=== PATIENT | female | born 1940 | race Caucasian/White ===

== ENCOUNTER → 2019-10-14 14:30 | Outpatient (BNVA) | payer MEDICARE, SELFPAY | PROVIDERS: Family Provider Family Medicine; Visit Provider Family Medicine | DX: I10 Essential (primary) hypertension (principal) | CPT/HCPCS: 80053; 80061; 85025 ==

== ENCOUNTER → 2020-04-04 13:05 | Outpatient (BNVA) | payer MEDICARE, SELFPAY | PROVIDERS: PCP Family Medicine; Visit Provider Family Medicine | DX: I10 Essential (primary) hypertension (principal); L30.4 Erythema intertrigo | CPT/HCPCS: 80048 ==

== ENCOUNTER → 2020-07-25 13:30 | Outpatient (BNVA) | payer MEDICARE, SELFPAY | PROVIDERS: PCP Family Medicine; Visit Provider Family Medicine | DX: I10 Essential (primary) hypertension (principal) | CPT/HCPCS: 80048 ==

== ENCOUNTER → 2020-08-16 14:59 | Outpatient (BNVA) | payer MEDICARE, SELFPAY | PROVIDERS: PCP Family Medicine; Visit Provider Family Medicine | DX: I10 Essential (primary) hypertension (principal) | CPT/HCPCS: 80048 ==

== ENCOUNTER → 2020-11-07 14:22 | Outpatient (BNVA) | payer MEDICARE, SELFPAY | PROVIDERS: PCP Family Medicine; Visit Provider Family Medicine | DX: I10 Essential (primary) hypertension (principal) | CPT/HCPCS: 80048 ==

== ENCOUNTER → 2021-02-25 14:25 | Outpatient (BNVA) | payer MEDICARE, SELFPAY | PROVIDERS: PCP Family Medicine; Visit Provider Family Medicine | DX: N18.30 Chronic kidney disease, stage 3 unspecified (principal); I10 Essential (primary) hypertension | CPT/HCPCS: 80048 ==

== ENCOUNTER 2021-06-24 11:35 | Emergency (ER) | payer MEDICARE, SELFPAY ==
[2021-06-24 11:40] VITALS: BP 138/86; PULSE 80; RESP 16; TEMP 36.8; O2SAT 96
--- NOTE | 2021-06-24 12:02 | XR_ITS ---
WS: [id number] PORTABLE CHEST HISTORY: SOB COMPARISON: 05/29/2016 New noncalcified 8.6 mm pulmonary nodule in the RIGHT upper lobe. No pneumonia. Normal vasculature. N o pleural effusion or pneumothorax. Cardiac size: Normal. Mediastinum/Aorta: Mild atherosclerosis aorta. High riding humeral heads from prior rotator cuff disease and tears. Thoracolumbar scoliosis. XR/XR chest 1V portable [id number] IMPRESSION: 1. Noncalcified 8.6 mm nodule in the RIGHT upper lobe. Recommend follow-up [facility] CT with IV contrast. 2. Mild atherosclerosis aorta.
--- NOTE | 2021-06-24 13:20 | ED_ITS ---
HPI - Nausea/Vomiting/Diarrhea General: Chief complaint: Nausea/Vomiting/Diarrhea Stated complaint: Diarrhea, Weak, no appetite Time Seen by Provider: 06/24/21 12:30 History of Present Illness: HPI Narrative: 80 yo female presents emergency room with nausea vomiting and diarrhea for last several days. She not had any fever sweats chills or cough she denies any chest pain. He is not noticed anything exacerbates or relieves it. She is concerned because she has a solitary kidney and thinks it is related to that. She denies any dysuria urgency or frequency. MD elicited complaint: nausea, vomiting and diarrhea Onset (ago): minute(s) Description of vomiting: food contents and watery Associated nausea: Yes Associated abdominal pain: Yes Radiation: diffuse Exacerbating factors: none Relieving factors: none Associated symtoms: Reports nausea; Denies altered mental status, anxiety, bloating, change in vision, chest pain, cough, diaphoresis, decreased urine output, dizziness, dysuria, epistaxis, fatigue, fecal incontinence, fevers/chills, headache(s), anorexia, numbness, palpitations, rash, short of breath or syncope Review of Systems Const: Denies: fatigue or diaphoresis Eyes: Denies: change in vision ENMT: Denies: epistaxis Card: Denies: chest pain, palpitations or syncope Resp: Denies: dyspnea, productive cough or non-productive cough GI: Reports: nausea; Denies: bloating or fecal incontinence : Denies: dysuria Skin/Breast: Denies: rash or pruritus Neuro: Denies: headache(s) or dizziness Psych: Denies: anxiety PFSH ED PFSH: Medical History (Updated 06/24/21 @ 15:49 by Carl Shahid DO) Benign essential HTN Chronic hip pain, bilateral Chronic kidney disease, stage 3 COPD (chronic obstructive pulmonary disease) Gastric ulcer with hemorrhage and obstruction Surgical History H/O: hysterectomy History of appendectomy History of cholecystectomy History of tonsillectomy and adenoidectomy Family History Other CAD (coronary artery disease) Stroke Social History Smoking and tobacco status: current every day smoker cigarettes Packs smoked per day: 0.5 Alcohol intake: never Physical Exam Const: COMMON NORMALS: no acute distress EXAM LIMITATIONS: no altered mental status GENERAL APPEARANCE: cooperative and comfortable ORIENTATION/CONSCIOUSNESS: Yes awake, Yes oriented to person, Yes oriented to place and Yes oriented to time HENMT: COMMON NORMALS: normocephalic, atraumatic and hearing grossly normal bilaterally HEAD & SCALP: normocephalic and atraumatic Neck/C-Spine: COMMON NORMALS: no JVD Resp: COMMON NORMALS: normal respiratory effort, No retractions, No use of accessory muscles and clear to auscultation bilaterally AUSCULTATION: clear to auscultation bilaterally Cardio: COMMON NORMALS: no JVD, regular rate, regular rhythm and No murmurs present (Cardio) RATE: regular rate RHYTHM: regular rhythm GI: COMMON NORMALS: Soft to palpation and No hepatosplenomegaly present AUSCULTATION: Yes normoactive bowel sounds PALPATION: Yes Soft to palpation, No Tenderness to palpation present (GI), No Guarding due to palpation present (GI) and Yes No hepatosplenomegaly present Extremity: COMMON NORMALS: normal to inspection, capillary refill normal, no clubbing, cyanosis or edema, no calf tenderness and no pedal edema Neuro: SENSORIUM/ORIENTATION: Yes oriented to person, Yes oriented to place and Yes oriented to time Skin: COMMON NORMALS: no rashes or lesions noted GENERAL SKIN EXAM: no rashes or lesions noted Course Vital Signs: Vital signs: Vital Signs Temperature 98.2 F 06/24/21 11:40 Pulse Rate 63 06/24/21 16:49 Respiratory Rate 17 06/24/21 16:49 Blood Pressure 124/76 06/24/21 16:49 Pulse Oximetry 99 06/24/21 16:49 MDM - Nausea/Vomiting/Diarrhea MDM Narrative: Medical decision making narrative: Reviewed labs and imaging with the patientWe will go ahead and discharge home start on Macrobid and Zofran push fluids recheck if not improving or worsens Lab Data: Labs: Lab Results 06/24/21 06/24/21 06/24/21 13:29 13:29 13:29 WBC 11.5 10^3/uL H 10 ^3/uL (4.0-10.0) RBC 4.80 10^6/uL 10^6 /uL (4.1-5.3) Hgb 12.2 g/dL g/dL (11.5-15.3) Hct 39.9 % % (37.0-47.0) MCV 83.1 fl fl (81-99) MCH 25.4 pg L pg (28.0-34.0) MCHC 30.6 g/dL g/dL (30.0-36.0) RDW 14.8 % % (12.1-15.1) Plt Count 179 10^3/cmm 10^3 /cmm (130-400) MPV 11.6 fL H fL (7.4-10.4) Neut % (Auto) 85.8 % % Lymph % (Auto) 9.2 % % Pacific % (Auto) 4.5 % % Eos % (Auto) 0.0 % % Baso % (Auto) 0.2 % % Neut # (Auto) 9.83 10^3/uL H 10 ^3/uL (1.8-7.7) Lymph # (Auto) 1.1 10^3/uL 10^3/ uL (0.8-4.8) Pacific # (Auto) 0.5 10^3/uL 10^3/ uL (0.2-0.9) Eos # (Auto) 0.0 10^3/uL 10^3/ uL (0.0-0.8) Baso # (Auto) 0.0 10^3/uL 10^3/ uL (0.0-0.1) Nucleated RBC % (a uto) 0 % % Nucleated RBCs # 0.0 /100WBC /100W BC Sodium 137 mmol/L mmol/L (136-145) Potassium 4.1 mmol/L mmol/L (3.5-5.1) Chloride 99 mmol/L mmol/L (98-107) Carbon Dioxide 25 mmol/L mmol/L (22-29) Anion Gap 17.1 (5-19) BUN 23 mg/dL mg/dL (8-23) Creatinine 1.1 mg/dL H mg/dL (0.5-0.9) GFR Calculation Not Reportable Glucose 97 mg/dL mg/dL (65-115) Calculated Osmolal ity 288 mOsm/kg mOsm/ kg (285-295) Calcium 9.6 mg/dL mg/dL (8.5-10.5) Total Bilirubin 0.3 mg/dL mg/dL (0.15-1.2) AST 19 U/L U/L (0-32) ALT 8 U/L U/L (0-33) Alkaline Phosphata se 104 IU/L IU/L (35-105) Total Protein 7.3 g/dL g/dL (6.6-8.7) Albumin 4.0 g/dL g/dL (3.5-5.2) Globulin 3.3 g/dL g/dL (1.3-4.6) Lipase 15 U/L U/L (13-60) Urine Color Urine Appearance Urine pH Ur Specific Gravit y Urine Protein Urine Glucose (UA) Urine Ketones Urine Blood Urine Nitrate Urine Bilirubin Urine Urobilinogen Ur Leukocyte Olena ase Urine RBC Urine WBC Ur Squamous Epith Cells Amorphous Sediment Urine Bacteria SARS-CoV-2 Ag (Rap id) Negative (Negative) 06/24/21 13:37 WBC RBC Hgb Hct MCV MCH MCHC RDW Plt Count MPV Neut % (Auto) Lymph % (Auto) Pacific % (Auto) Eos % (Auto) Baso % (Auto) Neut # (Auto) Lymph # (Auto) Pacific # (Auto) Eos # (Auto) Baso # (Auto) Nucleated RBC % (a uto) Nucleated RBCs # Sodium Potassium Chloride Carbon Dioxide Anion Gap BUN Creatinine GFR Calculation Glucose Calculated Osmolal ity Calcium Total Bilirubin AST ALT Alkaline Phosphata se Total Protein Albumin Globulin Lipase Urine Color Yellow (Yellow) Urine Appearance Hazy A (CLEAR) Urine pH 5 (5-7) Ur Specific Gravit y 1.015 (1.005-1.030) Urine Protein Neg (Negative) Urine Glucose (UA) Norm (Normal) Urine Ketones 1+ H (Negative) Urine Blood 2+ H (Negative) Urine Nitrate Negative (Negative) Urine Bilirubin Neg (Negative) Urine Urobilinogen Norm mg/dL mg/dL (Negative) Ur Leukocyte Olena ase 1+ H (Negative) Urine RBC 0-4 /hpf H /hpf (0-2) Urine WBC 15-25 /hpf H /hpf (0-5) Ur Squamous Epith Cells 5-10 /hpf H /hpf (0-5) Amorphous Sediment Not Reportable Urine Bacteria 1+ /hpf H /hpf (NONE) SARS-CoV-2 Ag (Rap id) Discharge Plan Discharge Patient Disposition: Home Clinical Impression: Cystitis Condition: Stable Prescriptions: New Macrobid 100 mg capsule 100 mg PO BID 7 Days Qty: 14 RF: 0 Zofran 4 mg tablet 4 mg PO Q6H PRN (Reason: nausea and vomiting) Qty: 15 RF: 0 No Action clindamycin HCl 300 mg capsule 300 mg PO BID 7 Days Qty: 14 RF: 0 aspirin 81 mg tablet,delayed release (DR/EC) 162 mg PO DAILY RF: 0 tramadol 50 mg tablet 50 mg PO Q6H PRN (Reason: pain) Qty: 360 RF: 1 amlodipine 5 mg tablet 5 mg PO DAILY Qty: 90 RF: 1 clotrimazole-betamethasone 1-0.05 % cream 1 applic TOPICAL BID 28 Days Qty: 45 RF: 3 celecoxib 100 mg capsule See Rx Instructions .ROUTE .COMPLEX Qty: 180 RF: 0 benazepril 10 mg tablet 10 mg PO BID Qty: 180 RF: 1 Discharge Orders: Discharge ED (Routine); Ordered 06/24/21 Ordered By: Carl Shahid Referrals: Carmelita Valdes DO [Primary Care Provider] - Discharge Diet: Clear Liquid Discharge Activity: Increase activity as tolerated Patient Instructions: Opioid Safety Coding Level of Care Code ED Retail Department Manager for Chg Fwd Exam Comprehensive
[2021-06-24 13:40] VITALS: BP 143/84; PULSE 79; RESP 18; O2SAT 96
[2021-06-24 14:00] VITALS: BP 148/80; PULSE 76; RESP 20; O2SAT 99
[2021-06-24 14:03] LABS: Basophils % 0.2 %; Hematocrit 39.9 % (37.0-47.0); Hemoglobin 12.2 g/dL (11.5-15.3); Lymphocytes # 1.1 10^3/uL (0.8-4.8); Lymphocytes % 9.2 %; Mean Corpuscular HGB Conc 30.6 g/dL (30.0-36.0); Mean Corpuscular Hemoglobin 25.4 pg (28.0-34.0); Mean Corpuscular Volume 83.1 fl (81-99); Mean Platelet Volume 11.6 fL (7.4-10.4); Monocytes # 0.5 10^3/uL (0.2-0.9); Monocytes % 4.5 %; Neutrophils # 9.83 10^3/uL (1.8-7.7); Neutrophils % 85.8 %; Nucleated Red Blood Cells % 0 %; Platelet Count 179 10^3/cmm (130-400); Red Cell Distribution Width 14.8 % (12.1-15.1); White Blood Count 11.5 10^3/uL (4.0-10.0)
[2021-06-24 14:14] LABS: Alanine Aminotransferase 8 U/L (0-33); Alkaline Phosphatase 104 IU/L (35-105); Anion Gap 17.1 (5-19); Aspartate Amino Transferase 19 U/L (0-32); Blood Urea Nitrogen 23 mg/dL (8-23); Calcium 9.6 mg/dL (8.5-10.5); Carbon Dioxide 25 mmol/L (22-29); Chloride 99 mmol/L (98-107); Globulin 3.3 g/dL (1.3-4.6); Glucose 97 mg/dL (65-115); Lipase 15 U/L (13-60); Osmolality Calculated 288 mOsm/kg (285-295); Potassium 4.1 mmol/L (3.5-5.1); Sodium 137 mmol/L (136-145); Total Bilirubin 0.3 mg/dL (0.15-1.2); Total Protein 7.3 g/dL (6.6-8.7)
[2021-06-24 14:16] LABS: Add Urine Microscopic? YES; Bilirubin Urine Neg (Negative); Blood Urine 2+ (Negative); Glucose Urine UA Norm (Normal); Ketones Urine 1+ (Negative); Leukocyte Esterase Urine 1+ (Negative); Nitrate Urine Negative (Negative); Protein Urine Neg (Negative); RBC Urine 0-4 /hpf (0-2); Specific Gravity, Urine 1.015 (1.005-1.030); Urine Appearance Hazy (CLEAR); Urine Color Yellow (Yellow); Urobilinogen Urine Norm (Negative); WBC Urine 15-25 /hpf (0-5); pH Urine 5 (5-7)
[2021-06-24 14:17] LABS: Bacteria Urine 1+ /hpf
[2021-06-24 14:37] LABS: SARS Covid-2 Antigen Negative (Negative)
[2021-06-24 15:47] VITALS: BP 155/62; PULSE 79; RESP 17; O2SAT 97
[2021-06-24] MEDS: sodium chloride 0.9% 500 ML 999 ML IV (16:07)
[2021-06-24 16:49] VITALS: BP 124/76; PULSE 63; RESP 17; O2SAT 99
== END 2021-06-24 18:18 | disposition home or self-care (01) ==
PROVIDERS: Physician Assistant; Emergency Provider Family Medicine; PCP Family Medicine
DX: N30.90 Cystitis, unspecified without hematuria (principal); Z79.82 Long term (current) use of aspirin; I12.9 Hypertensive chronic kidney disease with stage 1 through stage 4 chronic kidney disease, or unspecified chronic kidney disease; N18.30 Chronic kidney disease, stage 3 unspecified; J44.9 Chronic obstructive pulmonary disease, unspecified; F17.210 Nicotine dependence, cigarettes, uncomplicated; Z20.822 Contact with and (suspected) exposure to COVID-19
CPT/HCPCS: 71045; 80053; 81001; 83690; 85025; 87426; 99283; J7040

== ENCOUNTER → 2021-09-26 13:25 | Outpatient (BNVA) | payer MEDICARE, SELFPAY | PROVIDERS: PCP Family Medicine; Referring Provider Family Medicine; Visit Provider Anesthesiology Pain Medicine | DX: G89.29 Other chronic pain (principal); M47.816 Spondylosis without myelopathy or radiculopathy, lumbar region; M48.061 Spinal stenosis, lumbar region without neurogenic claudication; M51.16 Intervertebral disc disorders with radiculopathy, lumbar region; M41.9 Scoliosis, unspecified; N18.31 Chronic kidney disease, stage 3a; F17.210 Nicotine dependence, cigarettes, uncomplicated; Z79.891 Long term (current) use of opiate analgesic | CPT/HCPCS: 99205 ==

== ENCOUNTER → 2022-05-26 15:46 | Outpatient (BNVA) | payer MEDICARE, SELFPAY | PROVIDERS: PCP Family Medicine; Visit Provider Family Medicine | DX: D64.9 Anemia, unspecified (principal); I10 Essential (primary) hypertension | CPT/HCPCS: 80053; 85025 ==

== ENCOUNTER 2022-05-27 12:06 | Day surgery (SDC) | payer MEDICARE, SELFPAY ==
[2022-05-27] VITALS (10 sets, daily range): BP systolic 135–171; BP diastolic 71–97; PULSE 53–89; RESP 16–20; TEMP 36.3–36.8; O2SAT 55–100; BMI 31.5
--- NOTE | 2022-05-27 12:44 | ED_ITS ---
HPI - General Adult General: Chief complaint: General Medical Stated complaint: Victor Manuel sent for blood transfusion Time Seen by Provider: 05/27/22 12:17 History of Present Illness: 81-year-old female with history of prior UTI, hypertension who presents emergency room for concerns of anemia. Patient reports feeling short of breath and fatigued over the last 3 weeks. History, patient had routine blood work that was performed showed hemoglobin of 6. Patient was told to come to the emergency room. Patient has any melena masses, anticoagulation use. Patient denies any other source of bleeding at this time. Denies nausea/vomiting, fever/chill, chest pain, abdominal pain, dysur ia/hematuria/polyuria, diarrhea/melena/hematochezia. Onset: unknown Duration:ongoing Location:home Severity:moderate Associated symptoms: Deny chest pain, dyspnea, nausea, rash, palpitations or vomiting Review of Systems Const: Denies: fever(s) or chills Eyes: Denies: change in vision ENMT: Denies: mouth pain Card: Denies: chest pain or palpitations Resp: Denies: dyspnea or non-productive cough GI: Denies: abdominal pain, nausea, vomiting or diarrhea : Denies: dysuria Musc: Denies: extremity pain Skin/Breast: Denies: rash or new lesions Neuro: Denies: weakness in extremities Psych: Reports: other (Normal mood) Juan/Lymph: Denies: easy bruising PFSH ED PFSH: Medical History (Updated 05/27/22 @ 13:31 by Shon Montgomery MD) Benign essential HTN Chronic hip pain, bilateral Chronic kidney disease, stage 3 COPD (chronic obstructive pulmonary disease) Gastric ulcer with hemorrhage and obstruction Surgical History H/O: hysterectomy History of appendectomy History of cholecystectomy History of tonsillectomy and adenoidectomy Family History Other CAD (coronary artery disease) Stroke Social History Smoking and tobacco status: current every day smoker cigarettes Packs smoked per day: 0.5 Alcohol intake: never Female Reproductive History: Spontaneous abortions: No Physical Exam Const: COMMON NORMALS: alert HENMT: COMMON NORMALS: atraumatic HEAD & SCALP: atraumatic MOUTH: moist mucous membranes not abnormal Eye: COMMON NORMALS: EOMs intact bilaterally and conjunctivae normal CONJUNCTIVA: Yes conjunctivae normal Neck/C-Spine: COMMON NORMALS: full ROM and supple Resp: COMMON NORMALS: normal respiratory effort and clear to auscultation bilaterally AUSCULTATION: clear to auscultation bilaterally Cardio: COMMON NORMALS: regular rate RATE: regular rate GI: COMMON NORMALS: Soft to palpation and non-tender PALPATION: Yes Soft to palpation OTHER: No focal TTP. NO guarding rebound, guarding, rigidity. No CVA tenderness to percussion. Neg Edmond/Neg McBurney's point tenderness, no suprabupic tenderness to palpation. Extremity: COMMON NORMALS: full ROM Neuro: SENSORIUM/ORIENTATION: Yes alert MOTOR EXAM: No Abnormal motor strength present and Other motor observations present (no focal motor deficits) Psych: COMMON NORMALS: speech normal SPEECH: Yes normal speech MOOD & AFFECT: Yes euthymic mood Course Vital Signs: Vital signs: Vital Signs Temperature 98.1 F 05/27/22 18:07 Pulse Rate 65 05/27/22 18:07 Respiratory Rate 18 05/27/22 18:07 Blood Pressure 163/82 05/27/22 18:07 Pulse Oximetry 97 05/27/22 18:07 Oxygen Delivery Me thod 05/27/22 12:08 [facility] - General Adult Medical Decision Making 81-year-old female with history of prior UTI, hypertension who presents emergency room for concerns of anemia. She is hemodynamically stable without any focal findings on physical exam. Troponin x2 with delta less than 5. EKG is nonischemic. Patient is noted to have hemoglobin 6.1. Ordered 2 units of blood. Given age, I have discussed case with Dr. Galarza who will have patient be seen tomorrow for an EGD after transfusion. Rx iron for anemia Disposition: Discharge. Patient counseled regarding diagnostic impression, treatment plan. Patient given ED strict return precautions to return for continuation, worsening, or development of new symptoms. Instructed to f/u w/ Dr. Galarza regarding symptoms today. Patient verbalized understanding. Lab Data : 05/27/22 12:35 05/27/22 12:35 Radiology Impressions Chest X-Ray 05/27/22 12:50 IMPRESSION: No acute findings. Laboratory Results WBC 5.2 10^3/uL (4.0-10.0) 05/27/22 12:35 RBC 3.24 10^6/uL (4.1-5.3) L 05/27/22 12:35 Hgb 6.1 g/dL (11.5-15.3) L* 05/27/22 12:35 Hct 22.6 % (37.0-47.0) L 05/27/22 12:35 MCV 69.8 fl (81-99) L 05/27/22 12:35 MCH 18.8 pg (28.0-34.0) L 05/27/22 12:35 MCHC 27.0 g/dL (30.0-36.0) L 05/27/22 12:35 RDW 18.8 % (12.1-15.1) H 05/27/22 12:35 Plt Count 167 10^3/cmm (130-400) 05/27/22 12:35 MPV 10.8 fL (7.4-10.4) H 05/27/22 12:35 Neut % (Auto) 69.3 % 05/27/22 12:35 Lymph % (Auto) 22.4 % 05/27/22 12:35 [place]calfe % (Auto) 5.6 % 05/27/22 12:35 Eos % (Auto) 1.5 % 05/27/22 12:35 Baso % (Auto) 0.8 % 05/27/22 12:35 Neut # (Auto) 3.62 10^3/uL (1.8-7.7) 05/27/22 12:35 Lymph # (Auto) 1.2 10^3/uL (0.8-4.8) 05/27/22 12:35 [place]calfe # (Auto) 0.3 10^3/uL (0.2-0.9) 05/27/22 12:35 Eos # (Auto) 0.1 10^3/uL (0.0-0.8) 05/27/22 12:35 Baso # (Auto) 0.0 10^3/uL (0.0-0.1) 05/27/22 12:35 Nucleated RBC % (auto) 0 % 05/27/22 12:35 Nucleated RBCs # 0.0 /100WBC 05/27/22 12:35 Sodium 135 mmol/L (136-145) L 05/27/22 12:35 Potassium 5.0 mmol/L (3.5-5.1) 05/27/22 12:35 Chloride 102 mmol/L (98-107) 05/27/22 12:35 Carbon Dioxide 22 mmol/L (22-29) 05/27/22 12:35 Anion Gap 16.0 (5-19) 05/27/22 12:35 BUN 21 mg/dL (8-23) 05/27/22 12:35 Creatinine 1.5 mg/dL (0.5-0.9) H 05/27/22 12:35 GFR Calculation Not Reportable 05/27/22 12:35 Glucose 75 mg/dL (65-115) 05/27/22 12:35 Calculated Osmolality 282 mOsm/kg (285-295) L 05/27/22 12:35 Calcium 9.1 mg/dL (8.5-10.5) 05/27/22 12:35 Troponin T Baseline 39 ng/L (0-10) H 05/27/22 12:35 Troponin T 120 Minute 37.53 ng/L (0-10) H 05/27/22 13:36 Delta Troponin T -1.47 ABS# (0-10) L 05/27/22 13:36 Blood Type B Positive 05/27/22 12:17 Blood Type Cancelled 05/27/22 12:17 Rho(D) Type Cancelled 05/27/22 12:17 Rho(D) Type Positive 05/27/22 12:17 Antibody Screen Cancelled 05/27/22 12:17 Antibody Screen Negative 05/27/22 12:17 Crossmatch See Detail 05/27/22 12:17 Imaging Data Other Imaging: Radiologist's impression: [address] [place] [address] XRay Report Signed Patient: Julia Ballard Unit #: [id number] : 1940 Age/Sex: 81 / F ADM Date: 05/27/22 Loc: ER Room/Bed: Attending Dr: Ordering Provider/Ordering MD: Shon Montgomery MD Date of Service: 05/27/22 Procedure(s): XR chest 1V portable [id number] Accession Number(s): [id number] Report Number: [id number] PROCEDURE INFORMATION: Exam: XR Chest Exam date and time: 05/27/2022 1:09 PM Age: 81 years old Clinical indication: Dyspnea; Patient HX: Blood transfustion due to low hemoglogin TECHNIQUE: Imaging protocol: Radiologic exam of the chest. Views: 1 view. COMPARISON: CR XR chest 1V portable [id number] 06/24/2021 12:12 PM FINDINGS: Lungs: Unremarkable. No consolidation. Pleural spaces: Unremarkable. No pleural effusion. No pneumothorax. Heart/Mediastinum: Unremarkable. No cardiomegaly. Bones/joints: Unremarkable. XR/XR chest 1V portable [id number] IMPRESSION: No acute findings. ? Dictated By: Brennen Gama Signed By: Brennen Gama Signed Date/Time: 05/27/22 1334 DD/ 1309 Discharge Plan Discharge Patient Disposition: Home Clinical Impression: Anemia Condition: Stable Discharge Orders: Discharge ED (Routine); Ordered 05/27/22 Ordered By: Shon Montgomery Discharge Diet: Advance as tolerated Discharge Activity: Increase activity as tolerated Coding Level of Care Code ED Die Sinker Apprentice for Chg Fwd Exam Comprehensive
--- NOTE | 2022-05-27 12:49 | PC.PHAR ---
pt states she takes care of her own medications-pt states she takes benazepril 10mg daily rx filled 02/13/22 90d/s for 10mg bid-pt states she was taking turmeric but states she stop taking it 2 weeks ago
--- NOTE | 2022-05-27 12:50 | XRR_ITS ---
PROCEDURE INFORMATION: Exam: XR Chest Exam date and time: 05/27/2022 1:09 PM Age: 81 years old Clinical indication: Dyspnea; Patient HX: Blood transfustion due to low hemoglogin TECHNIQUE: Imaging protocol: Radiologic exam of the chest. Views: 1 view. COMPARISON: CR XR chest 1V portable [id number] 06/24/2021 12:12 PM FINDINGS: Lungs: Unremarkable. No consolidation. Pleural spaces: Unremarkable. No pleural effusion. No pneumothorax. Heart/Mediastinum: Unremarkable. No cardiomegaly. Bones/joints: Unremarkable. XR/XR chest 1V portable [id number] IMPRESSION: No acute findings.
[2022-05-27 12:53] LABS: Basophils % 0.8 %; Eosinophils # 0.1 10^3/uL (0.0-0.8); Eosinophils % 1.5 %; Hematocrit 22.6 % (37.0-47.0); Lymphocytes # 1.2 10^3/uL (0.8-4.8); Lymphocytes % 22.4 %; Mean Corpuscular Hemoglobin 18.8 pg (28.0-34.0); Mean Corpuscular Volume 69.8 fl (81-99); Mean Platelet Volume 10.8 fL (7.4-10.4); Monocytes # 0.3 10^3/uL (0.2-0.9); Monocytes % 5.6 %; Neutrophils # 3.62 10^3/uL (1.8-7.7); Neutrophils % 69.3 %; Nucleated Red Blood Cells % 0 %; Platelet Count 167 10^3/cmm (130-400); Red Blood Count 3.24 10^6/uL (4.1-5.3); Red Cell Distribution Width 18.8 % (12.1-15.1); White Blood Count 5.2 10^3/uL (4.0-10.0)
[2022-05-27 12:58] LABS: Hemoglobin 6.1 g/dL (11.5-15.3)
--- NOTE | 2022-05-27 13:17 | ECG_ITS ---
[facility] Test Date: 2022-05-27 Pat Name: Julia Ballard Department: Room: Gender: Female Associate Faculty: : 1940 Requested By: Shon Montgomery Order Number: [id number] Ervin MD: Leeanne Hawley M.D. Measurements Intervals [place] Rate: 62 P: 87 SD: 129 QRS: -15 QRSD: 101 T: 52 QT: 410 QTc: 418 Interpretive Statements SINUS RHYTHM WITH FREQUENT SUPRAVENTRICULAR PREMATURE COMPLEXES LOW QRS VOLTAGE IN PRECORDIAL LEADS [QRS DEFLECTION < 1.0 mV IN CHEST LEADS] POSSIBLE ANTERIOR MYOCARDIAL INFARCTION , PROBABLY OLD Compared to ECG 02/25/2016 12:33:20 Sinus bradycardia no longer present Sinus arrhythmia no longer present Myocardial infarct finding still present Electronically Signed On 05-27-2022 18:01:35 CDT by Leeanne Hawley M.D. [id number]
[2022-05-27 13:18] LABS: Troponin(5th) Baseline 39 ng/L (0-10)
[2022-05-27 13:19] LABS: Blood Urea Nitrogen 21 mg/dL (8-23); Calcium 9.1 mg/dL (8.5-10.5); Carbon Dioxide 22 mmol/L (22-29); Chloride 102 mmol/L (98-107); Glucose 75 mg/dL (65-115); Osmolality Calculated 282 mOsm/kg (285-295); Sodium 135 mmol/L (136-145)
[2022-05-27 14:00] LABS: Troponin 5 2HR 37.53 ng/L (0-10)
[2022-05-27 14:05] LABS: Troponin 5 2HR Delta -1.47 ABS# (0-10)
--- NOTE | 2022-05-27 15:27 | PC.NURSE ---
Patient was taken to infusion by staff from infusion center before blood was ready in the blood bank
--- NOTE | 2022-05-27 15:40 | DCPLANNER ---
Addendum entered by Dianelys Coy 05/30/22 11:58: Patients appointment scheduled with Internal Medicine has been rescheduled Original Note: communications manager had message to schedule a follow up appointment for patient with Dr. Ortiz at Internal Medicine. communications manager called the Internal Medicine clinic, gave clinic patients information. A follow up appointment was scheduled for Thursday, May 28, 2022 at 9:[address] Ortiz. Clinic will call patient with appointment information.
--- NOTE | 2022-05-27 15:59 | ECG_ITS ---
[facility] Test Date: 2022-05-27 Pat Name: Julia Ballard Department: Room: Gender: Female Tinner Helper: : 1940 Requested By: Shon Montgomery Order Number: [id number] Reading MD: Leeanne Hawley M.D. Measurements Intervals Victor Rate: 61 P: 15 ND: 121 QRS: -19 QRSD: 86 T: 29 QT: 386 QTc: 391 Interpretive Statements SINUS RHYTHM WITH OCCASIONAL SUPRAVENTRICULAR PREMATURE COMPLEXES LOW QRS VOLTAGE IN PRECORDIAL LEADS [QRS DEFLECTION < 1.0 mV IN CHEST LEADS] ANTEROSEPTAL MYOCARDIAL INFARCTION , OF INDETERMINATE AGE [40+ ms Q WAVE IN V1-V4] Compared to ECG 05/27/2022 13:17:20 No significant changes Electronically Signed On 05-27-2022 18:06:26 CDT by Leeanne Hawley M.D. [id number]
--- NOTE | 2022-05-27 16:01 | PC.NURSE ---
Patient was brought back to the ED for blood transfusion after labs in PCP officer yesterday. IV access started in ED, patient banded. Patient later taken to another department before blood ready for transfusion.
--- NOTE | 2022-05-27 18:37 | PC.NURSE ---
1815 DC'd IV in left AC, catheter intact, no documentation noted from IV start in ED.
== END 2022-05-27 18:55 | disposition home or self-care (01) ==
LOC: ER 14:08 → GILAB 14:09
PROVIDERS: Emergency Provider Emergency Medicine; PCP Family Medicine; Visit Provider Internal Medicine
DX: D64.9 Anemia, unspecified (principal); J44.9 Chronic obstructive pulmonary disease, unspecified; F17.210 Nicotine dependence, cigarettes, uncomplicated; I12.9 Hypertensive chronic kidney disease with stage 1 through stage 4 chronic kidney disease, or unspecified chronic kidney disease; N18.30 Chronic kidney disease, stage 3 unspecified
CPT/HCPCS: 36415; 36430; 71045; 80048; 84484; 85025; 86850; 86900; 86920; 93005; P9016

== ENCOUNTER → 2022-06-10 16:12 | Outpatient (BNVA) | payer MEDICARE, SELFPAY | PROVIDERS: PCP Family Medicine; Visit Provider Family Medicine | DX: D64.9 Anemia, unspecified (principal) | CPT/HCPCS: 85027 ==

== ENCOUNTER → 2022-09-17 15:13 | Outpatient (BNVA) | payer MEDICARE, SELFPAY | PROVIDERS: PCP Family Medicine; Visit Provider Family Medicine | DX: I10 Essential (primary) hypertension (principal); D64.9 Anemia, unspecified | CPT/HCPCS: 80048; 85025 ==

== ENCOUNTER 2022-12-09 13:54 | Emergency (ER) | payer MEDICARE, SELFPAY ==
[2022-12-09 14:14] VITALS: BP 123/78; PULSE 64; RESP 19; TEMP 36.6; O2SAT 100; BMI 29.9
--- NOTE | 2022-12-09 15:52 | ED_ITS ---
Documented by User: HERMELINDO Curtis 12/13/22 07:23 HPI - Extremity Problem General: Chief complaint: Extremity Problem,Nontraumatic Stated complaint: Right Leg Pain Time Seen by Provider: 12/09/22 15:47 Source: patient Mode of arrival: ambulatory Limitations: no limitations History of Present Illness: Patient is a very nice 82-year-old female who presents to ED today for complaint of right lower leg redness, swelling, pain. Patient states about 2 weeks ago she hit the anterior portion of her right lower leg on the corner of a stair and scraped it. She states area formed a scab. She states she was not having any issues with it until recently when the scab fell off. She states she then began noticing some purulent drainage from the open sore as well as redness extending from the wound distally. She has also noticed diffuse right lower leg swelling and pain. She has not been running fevers. Complaint: extremity pain and extremity swelling Onset (ago): day(s) Pain Consistency: constant Location: right and lower extremity Radiation: none Relieving factors: nothing Exacerbating factors: nothing Associated symptoms: Reports no associated symptoms; Deny chest pain or fever(s) Review of Systems Const: Denies: fever(s), chills, body aches, fatigue or malaise Card: Denies: chest pain Resp: Denies: dyspnea Musc: Reports: extremity pain and extremity swelling; Denies: neck pain, back pain, joint redness or joint warmth Skin/Breast: Reports: other (sore to R anterior lower leg) Neuro: Denies: numbness in extremities or sensory changes [facility] ED PFSH: Medical History Benign essential HTN Chronic hip pain, bilateral Chronic kidney disease, stage 3 COPD (chronic obstructive pulmonary disease) Gastric ulcer with hemorrhage and obstruction Surgical History H/O: hysterectomy History of appendectomy History of cholecystectomy History of tonsillectomy and adenoidectomy Family History Other CAD (coronary artery disease) Stroke Social History Smoking and tobacco status: never smoked Alcohol intake: never Female Reproductive History: Spontaneous abortions: No Physical Exam Const: COMMON NORMALS: no acute distress, average body habitus, patient oriented x3, no limitations, healthy appearing, alert and well nourished GENERAL APPEARANCE: cooperative ORIENTATION/CONSCIOUSNESS: Yes awake, Yes oriented to person, Yes oriented to place and Yes oriented to time HENMT: COMMON NORMALS: normocephalic and atraumatic HEAD & SCALP: normal to inspection, normocephalic and atraumatic Resp: COMMON NORMALS: normal respiratory effort and clear to auscultation bilaterally AUSCULTATION: clear to auscultation bilaterally Cardio: COMMON NORMALS: regular rate and regular rhythm RATE: regular rate RHYTHM: regular rhythm Extremity: GENERAL: Yes normal exam except as noted RIGHT LOWER EXTREMITY: Yes lower leg and Yes foot & digits OTHER: R LE has diffuse pitting edema and is significantly more swollen when compared to L EXTREMITY IMAGE (FRONT): 1. quarter sized shallow open wound; no purulent drainage or odor noted 2. cellulitis affecting the distal lateral portion of her R lower leg Neuro: COMMON NORMALS: patient oriented x3, moves all extremities, no focal motor deficits and no sensory deficits noted SENSORIUM/ORIENTATION: Yes alert, Yes oriented to person, Yes oriented to place and Yes oriented to time Skin: NARRATIVE SKIN EXAM: see above for pertinent skin findings Course Vital Signs: Vital signs: Vital Signs Temperature 97.9 F 12/09/22 14:14 Pulse Rate 66 12/09/22 19:06 Respiratory Rate 18 12/09/22 19:06 Blood Pressure 177/88 12/09/22 19:06 Pulse Oximetry 94 12/09/22 19:06 Oxygen Delivery Me thod 12/09/22 14:14 MDM - Extremity (Nontraumatic) Lab Data 12/09/22 16:11 12/09/22 16:11 Radiology Impressions Venous Duplex 12/09/22 15:58 IMPRESSION: Right lower extremity deep venous thrombosis, as described above. ADDENDUM: 12/09/22 [id number] ADDENDUM: THIS REPORT CONTAINS FINDINGS THAT MAY BE CRITICAL TO PATIENT CARE. The findings were verbally communicated via telephone conference with Dr. Deleon at 5:35 PM CDT on 12/09/2022. The findings were acknowledged and understood. Laboratory Results WBC 30.6 10^3/uL (4.0-10.0) H* 12/09/22 16:11 RBC 3.33 10^6/uL (4.1-5.3) L 12/09/22 16:11 Hgb 6.6 g/dL (11.5-15.3) L 12/09/22 16:11 Hct 23.9 % (37.0-47.0) L 12/09/22 16:11 MCV 71.8 fl (81-99) L 12/09/22 16:11 MCH 19.8 pg (28.0-34.0) L 12/09/22 16:11 MCHC 27.6 g/dL (30.0-36.0) L 12/09/22 16:11 RDW 19.6 % (12.1-15.1) H 12/09/22 16:11 Plt Count 172 10^3/cmm (130-400) 12/09/22 16:11 MPV 10.6 fL (7.4-10.4) H 12/09/22 16:11 Neut % (Auto) 95.4 % 12/09/22 16:11 Lymph % (Auto) 2.2 % 12/09/22 16:11 Liberty % (Auto) 1.5 % 12/09/22 16:11 Eos % (Auto) 0.0 % 12/09/22 16:11 Baso % (Auto) 0.2 % 12/09/22 16:11 Neut # (Auto) 29.19 10^3/uL (1.8-7.7) H 12/09/22 16:11 Lymph # (Auto) 0.7 10^3/uL (0.8-4.8) L 12/09/22 16:11 Liberty # (Auto) 0.5 10^3/uL (0.2-0.9) 12/09/22 16:11 Eos # (Auto) 0.0 10^3/uL (0.0-0.8) 12/09/22 16:11 Baso # (Auto) 0.1 10^3/uL (0.0-0.1) 12/09/22 16:11 Nucleated RBC % (auto) 0 % 12/09/22 16:11 Nucleated RBCs # 0.0 /100WBC 12/09/22 16:11 ESR 59 mm/hr (0-15) H 12/09/22 16:11 Sodium 135 mmol/L (136-145) L 12/09/22 16:11 Potassium 4.2 mmol/L (3.5-5.1) 12/09/22 16:11 Chloride 98 mmol/L (98-107) 12/09/22 16:11 Carbon Dioxide 23 mmol/L (22-29) 12/09/22 16:11 Anion Gap 18.2 (5-19) 12/09/22 16:11 BUN 30 mg/dL (8-23) H 12/09/22 16:11 Creatinine 1.5 mg/dL (0.5-0.9) H 12/09/22 16:11 GFR Calculation Not Reportable 12/09/22 16:11 Glucose 75 mg/dL (65-115) 12/09/22 16:11 Calculated Osmolality 285 mOsm/kg (285-295) 12/09/22 16:11 Lactic Acid 1.3 mmol/L (0.5-2.2) 12/09/22 16:11 Calcium 8.2 mg/dL (8.5-10.5) L 12/09/22 16:11 Total Bilirubin 0.3 mg/dL (0.15-1.2) 12/09/22 16:11 AST 39 U/L (0-32) H 12/09/22 16:11 ALT 12 U/L (0-33) 12/09/22 16:11 Alkaline Phosphatase 109 U/L (35-105) H 12/09/22 16:11 C-Reactive Protein 239.2 mg/L (0.0-4.9) H 12/09/22 16:11 Total Protein 6.5 g/dL (6.6-8.7) L 12/09/22 16:11 Albumin 3.0 g/dL (3.5-5.2) L 12/09/22 16:11 Globulin 3.5 g/dL (1.3-4.6) 12/09/22 16:11 Discharge Plan Discharge Patient Disposition: Left Against Medical Advice Clinical Impression: Cellulitis, Anemia, Deep vein thrombosis of lower extremity Condition: Stable Prescriptions: New Eliquis 5 mg tablet 5 mg PO BID Qty: 60 0RF cephalexin 500 mg capsule 500 mg PO BID 10 Days Qty: 20 0RF Discontinued aspirin 81 mg tablet,delayed release (DR/EC) 81 mg PO DAILY No Action amlodipine 5 mg tablet 5 mg PO DAILY Qty: 90 1RF benazepril 10 mg tablet 10 mg PO DAILY Qty: 90 1RF tramadol 50 mg tablet 100 mg PO TID PRN (Reason: pain) 30 Days Qty: 180 0RF Paige-Rimforest Heartburn-Gas 750-80 mg Tablet,Chewable 1 tab PO Q4H PRN (Reason: Acid Reflux) Rx Instructions: do not exceed 6 tabs per 24 hrs vitamin E 100 unit Capsule 100 unit PO DAILY ascorbic acid (vitamin C) [Vitamin C] 500 mg Tablet 500 mg PO DAILY Prevagen 1 cap PO DAILY Discharge Orders: Discharge ED (Routine); Ordered 12/09/22 Ordered By: Chip Deleon Referrals: Ramirez Rush DO [Primary Care Provider] - Discharge Diet: Usual diet Discharge Activity: Increase activity as tolerated Activity Restrictions/Additional Instructions: As we discussed you have a large blood clot in your right lower leg, and very low blood count called anemia, and an infection of the skin of your right leg. We have recommended inpatient treatment to you as the best course of therapy. You have chosen to leave the emergency department and continue your therapy at home. We have provided an antibiotic as well as a blood thinning medication to help treat your condition as best as can be done with the current restrictions and limitations. You are welcome to return to the emergency department at any time should your condition worsen or you change your mind. Coding Level of Care Code ED Senior [employer] Consultant for [employer] Documented by User: Chip Deleon DO 12/09/22 18:28 HPI - Extremity Problem General: Chief complaint: Extremity Problem,Nontraumatic Stated complaint: Right Leg Pain Time Seen by Provider: 12/09/22 15:47 PFSH ED PFSH: Medical History Benign essential HTN Chronic hip pain, bilateral Chronic kidney disease, stage 3 COPD (chronic obstructive pulmonary disease) Gastric ulcer with hemorrhage and obstruction Surgical History H/O: hysterectomy History of appendectomy History of cholecystectomy History of tonsillectomy and adenoidectomy Family History Other CAD (coronary artery disease) Stroke Social History Smoking and tobacco status: never smoked Alcohol intake: never Physical Exam Extremity: EXTREMITY IMAGE (FRONT): 1. quarter sized shallow open wound; no purulent drainage or odor noted 2. cellulitis affecting the distal lateral portion of her R lower leg Course Reevaluation(s): Reevaluation #1: I was asked by the advanced nurse practitioner to see this patient as she thought she might need to be admitted and her oncoming relief declined to see the patient. This patient is an 82-year-old lady who apparently as per the history of present illness had a stumble and fall striking her luz on the edge of a step in her home. She did not suffer any other injury at that time other than some contusion to the face which has resolved spontaneously. She is now here because of increasing swelling and some redness of the leg. I evaluated the patient and she was alert in no acute distress. Examination with attention to her right lower extremity revealed circumferential swelling about the lower leg with some pitting edema. She had a unroofed abraded area mid third of her anterior luz with surrounding erythema. It was draining clear drainage at the time of my examination. She had capillary refill intact and palpable dorsalis pedis and posterior tibialis pulses. She had normal motor function. Initial findings showed a white count elevated with a low hemoglobin. Had a prior history of anemia that has required transfusions in the past. I initially spoke to both she and her daughter about potential for admission to the hospital and she initially was very adamant against that plan. As I did not have all her ancillary studies at this time I deferred that final decision while her antibiotics were infusing and we will revisit it in a just a bit. Time: 17:15 Reevaluation #2: The patient's antibiotics have infused. I repeat visited her current clinical picture with her in detail. I explained to her that she has a significant anemia that was at the point where it was last fall that required blood transfusions. She also has a concomitant leukocytosis likely related to superficial cellulitis of her right lower extremity. She also has a deep venous thrombosis of the right leg which extends proximal to the popliteal fossa. Each of these conditions could result in worsening outcome and loss of current lifestyle and perhaps if they go untreated. I explained to her that the optimal treatment is as an inpatient to include blood transfusions, continued antibiotics, anticoagulants. The patient considered the discussion very carefully and was remaining adamant that she wanted to go home and allow her course to progress as was God's will. I did again review she could have an some likelihood of improved outcome with observation and oriented patient treatment. She again refused and is adamant. We will provide her oral antibiotics as well as oral DOAC treat her conditions and discussed that she was welcome at any time to return to the emergency department. Her niece who was present during our discussion was not in total agreement with her aunts decision but supported as her decision as she is currently control of her own medical decision making. Time: 18:19 Vital Signs: Vital signs: Vital Signs Temperature 97.9 F 12/09/22 14:14 Pulse Rate 66 12/09/22 19:06 Respiratory Rate 18 12/09/22 19:06 Blood Pressure 177/88 12/09/22 19:06 Pulse Oximetry 94 12/09/22 19:06 Oxygen Delivery Me thod 12/09/22 14:14 MDM - Extremity (Nontraumatic) Medical Decision Making 82-year-old lady who initially was seen by the advanced nurse practitioner and then transition to my care because of consideration for admission. Patient had a ground-level fall at home striking her right lower leg against the stair edge. He also had some other associated bruising but no other significant injuries claimed at the time of her initial fall. There was it was a nonsyncopal fall according to the patient. The patient's evaluation in the emergency department was revealing and that she had a leukocytosis, and anemia, evidence of cellulitis as well as a DVT. As would be expected in this clinical scenario admission was recommended to the patient. That would include provision for continued antibiotics, transfusion of packed red blood cells, treatment of her DVT. It was explained to her that she would have an improved outcome and that less than optimal treatment might result in reduced improvement, loss of current lifestyle, or even . This discussion was carried out with the patient on 2 separate occasions by myself reviewing all the risks and benefits. Her niece was present as well. The patient voiced understanding of our discussion but was adamant that she went to be discharged home to allow course to progress as well as gauze well. She did agree to oral anticoagulants and oral antibiotics. She had intact decision- making capacity and was her own guardian for decision-making regards to medical affairs. Lab Data I reviewed the patient's lab results. 12/09/22 16:11 12/09/22 16:11 Radiology Impressions Venous Duplex 12/09/22 15:58 IMPRESSION: Right lower extremity deep venous thrombosis, as described above. ADDENDUM: 12/09/22 [id number] ADDENDUM: THIS REPORT CONTAINS FINDINGS THAT MAY BE CRITICAL TO PATIENT CARE. The findings were verbally communicated via telephone conference with Dr. Deleon at 5:35 PM CDT on 12/09/2022. The findings were acknowledged and understood. Laboratory Results WBC 30.6 10^3/uL (4.0-10.0) H* 12/09/22 16:11 RBC 3.33 10^6/uL (4.1-5.3) L 12/09/22 16:11 Hgb 6.6 g/dL (11.5-15.3) L 12/09/22 16:11 Hct 23.9 % (37.0-47.0) L 12/09/22 16:11 MCV 71.8 fl (81-99) L 12/09/22 16:11 MCH 19.8 pg (28.0-34.0) L 12/09/22 16:11 MCHC 27.6 g/dL (30.0-36.0) L 12/09/22 16:11 RDW 19.6 % (12.1-15.1) H 12/09/22 16:11 Plt Count 172 10^3/cmm (130-400) 12/09/22 16:11 MPV 10.6 fL (7.4-10.4) H 12/09/22 16:11 Neut % (Auto) 95.4 % 12/09/22 16:11 Lymph % (Auto) 2.2 % 12/09/22 16:11 Liberty % (Auto) 1.5 % 12/09/22 16:11 Eos % (Auto) 0.0 % 12/09/22 16:11 Baso % (Auto) 0.2 % 12/09/22 16:11 Neut # (Auto) 29.19 10^3/uL (1.8-7.7) H 12/09/22 16:11 Lymph # (Auto) 0.7 10^3/uL (0.8-4.8) L 12/09/22 16:11 Liberty # (Auto) 0.5 10^3/uL (0.2-0.9) 12/09/22 16:11 Eos # (Auto) 0.0 10^3/uL (0.0-0.8) 12/09/22 16:11 Baso # (Auto) 0.1 10^3/uL (0.0-0.1) 12/09/22 16:11 Nucleated RBC % (auto) 0 % 12/09/22 16:11 Nucleated RBCs # 0.0 /100WBC 12/09/22 16:11 ESR 59 mm/hr (0-15) H 12/09/22 16:11 Sodium 135 mmol/L (136-145) L 12/09/22 16:11 Potassium 4.2 mmol/L (3.5-5.1) 12/09/22 16:11 Chloride 98 mmol/L (98-107) 12/09/22 16:11 Carbon Dioxide 23 mmol/L (22-29) 12/09/22 16:11 Anion Gap 18.2 (5-19) 12/09/22 16:11 BUN 30 mg/dL (8-23) H 12/09/22 16:11 Creatinine 1.5 mg/dL (0.5-0.9) H 12/09/22 16:11 GFR Calculation Not Reportable 12/09/22 16:11 Glucose 75 mg/dL (65-115) 12/09/22 16:11 Calculated Osmolality 285 mOsm/kg (285-295) 12/09/22 16:11 Lactic Acid 1.3 mmol/L (0.5-2.2) 12/09/22 16:11 Calcium 8.2 mg/dL (8.5-10.5) L 12/09/22 16:11 Total Bilirubin 0.3 mg/dL (0.15-1.2) 12/09/22 16:11 AST 39 U/L (0-32) H 12/09/22 16:11 ALT 12 U/L (0-33) 12/09/22 16:11 Alkaline Phosphatase 109 U/L (35-105) H 12/09/22 16:11 C-Reactive Protein 239.2 mg/L (0.0-4.9) H 12/09/22 16:11 Total Protein 6.5 g/dL (6.6-8.7) L 12/09/22 16:11 Albumin 3.0 g/dL (3.5-5.2) L 12/09/22 16:11 Globulin 3.5 g/dL (1.3-4.6) 12/09/22 16:11 Discharge Plan Discharge Patient Disposition: Left Against Medical Advice Clinical Impression: Cellulitis, Anemia, Deep vein thrombosis of lower extremity Condition: Stable Prescriptions: New Eliquis 5 mg tablet 5 mg PO BID Qty: 60 0RF cephalexin 500 mg capsule 500 mg PO BID 10 Days Qty: 20 0RF Discontinued aspirin 81 mg tablet,delayed release (DR/EC) 81 mg PO DAILY No Action amlodipine 5 mg tablet 5 mg PO DAILY Qty: 90 1RF benazepril 10 mg tablet 10 mg PO DAILY Qty: 90 1RF tramadol 50 mg tablet 100 mg PO TID PRN (Reason: pain) 30 Days Qty: 180 0RF Paige-Rim[place] Heartburn-Gas 750-80 mg Tablet,Chewable 1 tab PO Q4H PRN (Reason: Acid Reflux) Rx Instructions: do not exceed 6 tabs per 24 hrs vitamin E 100 unit Capsule 100 unit PO DAILY ascorbic acid (vitamin C) [Vitamin C] 500 mg Tablet 500 mg PO DAILY Prevagen 1 cap PO DAILY Discharge Orders: Discharge ED (Routine); Ordered 12/09/22 Ordered By: Chip Deleon Referrals: Ramirez Rush, [Primary Care Provider] - Discharge Diet: Usual diet Discharge Activity: Increase activity as tolerated Activity Restrictions/Additional Instructions: As we discussed you have a large blood clot in your right lower leg, and very low blood count called anemia, and an infection of the skin of your right leg. We have recommended inpatient treatment to you as the best course of therapy. You have chosen to leave the emergency department and continue your therapy at home. We have provided an antibiotic as well as a blood thinning medication to help treat your condition as best as can be done with the current restrictions and limitations. You are welcome to return to the emergency department at any time should your condition worsen or you change your mind. Coding Level of Care Code ED Senior [employer] Consultant for Lakisha Jenkins
--- NOTE | 2022-12-09 15:58 | USR_ITS ---
PROCEDURE INFORMATION: Exam: US Duplex Right Lower Extremity Veins, Limited Exam date and time: 12/09/2022 4:24 PM Age: 82 years old Clinical indication: Pain; Leg, lower; Right; Additional info: Swelling/pain/injury TECHNIQUE: Imaging protocol: Real-time duplex ultrasound of the right extremity with 2-D restrepo scale, color Doppler flow and spectral waveform analysis including responses to compression and other maneuvers (when performed) with image documentation. Limited exam was focused on the right lower extremity veins. COMPARISON: US renal BI* [id number] 12/15/2017 1:03 PM FINDINGS: Right deep veins: Hypoechoic, nearly occlusive to occlusive thrombus in the popliteal and peroneal veins. The common femoral, femoral, proximal profunda femoral and posterior tibial veins are patent without thrombus. Right superficial veins: Hypoechoic, nearly occlusive to occlusive thrombus in the small saphenous vein. Saphenofemoral junction is patent without thrombus. Soft tissues: Mild subcutaneous edema. US/[place] [id number] IMPRESSION: Right lower extremity deep venous thrombosis, as described above.
[2022-12-09 16:53] LABS: Basophils # 0.1 10^3/uL (0.0-0.1); Basophils % 0.2 %; Hematocrit 23.9 % (37.0-47.0); Hemoglobin 6.6 g/dL (11.5-15.3); Lymphocytes # 0.7 10^3/uL (0.8-4.8); Lymphocytes % 2.2 %; Mean Corpuscular HGB Conc 27.6 g/dL (30.0-36.0); Mean Corpuscular Hemoglobin 19.8 pg (28.0-34.0); Mean Corpuscular Volume 71.8 fl (81-99); Mean Platelet Volume 10.6 fL (7.4-10.4); Monocytes # 0.5 10^3/uL (0.2-0.9); Monocytes % 1.5 %; Neutrophils # 29.19 10^3/uL (1.8-7.7); Neutrophils % 95.4 %; Nucleated Red Blood Cells % 0 %; Platelet Count 172 10^3/cmm (130-400); Red Blood Count 3.33 10^6/uL (4.1-5.3); Red Cell Distribution Width 19.6 % (12.1-15.1)
[2022-12-09] MEDS: vancomycin 1,000 MG in sodium chloride 0.9% 250 ML 250 MG IV (16:59)
[2022-12-09 17:00] LABS: Erythrocyte Sedimentation Rate 59 mm/hr (0-15); White Blood Count 30.6 10^3/uL (4.0-10.0)
[2022-12-09 17:38] LABS: Lactic Sepsis W/Reflex 1.3 mmol/L (0.5-2.2)
[2022-12-09 17:39] LABS: Alanine Aminotransferase 12 U/L (0-33); Alkaline Phosphatase 109 U/L (35-105); Blood Urea Nitrogen 30 mg/dL (8-23); C Reactive Protein 239.2 mg/L (0.0-4.9); Calcium 8.2 mg/dL (8.5-10.5); Carbon Dioxide 23 mmol/L (22-29); Chloride 98 mmol/L (98-107); Globulin 3.5 g/dL (1.3-4.6); Glucose 75 mg/dL (65-115); Osmolality Calculated 285 mOsm/kg (285-295); Sodium 135 mmol/L (136-145); Total Bilirubin 0.3 mg/dL (0.15-1.2); Total Protein 6.5 g/dL (6.6-8.7)
[2022-12-09 17:42] LABS: Anion Gap 18.2 (5-19); Aspartate Amino Transferase 39 U/L (0-32); Potassium 4.2 mmol/L (3.5-5.1)
--- NOTE | 2022-12-09 17:50 | PC.NURSE ---
pt moved to room 2 and placed on VS monitor and bedside cutter operator tile. speech clear, speaking in complete sentences without dificulty, lung sounds clear. edema and redness noted to RLE. pt reports she is not going to be admitted because she needs to take care of her dog. pt agreeable to stay overnight if recommended, but no more than that.
[2022-12-09] MEDS: apixaban 5 mg Tablet PO (18:35)
--- NOTE | 2022-12-09 18:50 | PC.NURSE ---
report given to Chaim
[2022-12-09 19:06] VITALS: BP 177/88; PULSE 66; RESP 18; O2SAT 94
== END 2022-12-09 19:07 | disposition left against medical advice (07) ==
PROVIDERS: Emergency Provider Physician Assistant; PCP Family Medicine
DX: L03.115 Cellulitis of right lower limb (principal); I82.431 Acute embolism and thrombosis of right popliteal vein; I82.451 Acute embolism and thrombosis of right peroneal vein; D64.9 Anemia, unspecified; I12.9 Hypertensive chronic kidney disease with stage 1 through stage 4 chronic kidney disease, or unspecified chronic kidney disease; N18.30 Chronic kidney disease, stage 3 unspecified; J44.9 Chronic obstructive pulmonary disease, unspecified
CPT/HCPCS: 80053; 83605; 85025; 85651; 86140; 93971; 96365; 99285; J3370; J7050

== ENCOUNTER 2022-12-12 13:13 | Inpatient (IN) | payer MEDICARE, SELFPAY ==
[2022-12-12] VITALS (11 sets, daily range): BP systolic 140–183; BP diastolic 49–97; PULSE 61–105; RESP 16–20; TEMP 36.6–36.8; O2SAT 92–100; BMI 29.9; BMI 34.4
--- NOTE | 2022-12-12 14:34 | ED_ITS ---
HPI - Skin/Abscess/Foreign Bdy General: Chief complaint: Skin/Abscess/Foreign Body Stated complaint: BLOOD CLOT LOWER R LEG Time Seen by Provider: 12/12/22 14:34 History of Present Illness: Ms. Ballard is an 82-year-old lady with history of CKD, hypertension, anemia presenting to the emergency department for reevaluation of leg. She was seen and evaluated on 12/09 after she had a scrape on her right luz region that became infected. She developed redness and swelling and was diagnosed with cellulitis as well as DVT. She was also found to be anemic at that time. Admission was recommended however the patient declined admission. She has been taking her antibiotics however has not apparently been able to open the packaging of the anticoagulant and therefore is not been taking it. She reports worsening right lower extremity pain and swelling. Pain is worse with ambulatio n and movement. She also thinks that the wound looks worse. No chest pain or shortness of breath. Intensity symptoms is moderate to severe. Course has worsened. No other specific changes in health, exacerbating, or alleviating factors identified. Onset (ago): day(s) Location: RLE Severity: moderate Quality: aching Relieving factors: none Exacerbating factors: palpation and movement Associated symptoms: Reports no associated symptoms Review of Systems General: Reports: 10 or more systems reviewed and unremarkable except in HPI and below PFSH ED PFSH: Medical History Anemia Balance problem Benign essential HTN Bilateral ureteral calculi Chronic hip pain, bilateral Chronic kidney disease, stage 3 COPD (chronic obstructive pulmonary disease) Gastric ulcer with hemorrhage and obstruction Lumbar disc disease with radiculopathy MRSA carrier Surgical History H/O: hysterectomy History of appendectomy History of cholecystectomy History of tonsillectomy and adenoidectomy Family History Other CAD (coronary artery disease) Stroke Social History Smoking and tobacco status: never smoked Alcohol intake: never Female Reproductive History: Spontaneous abortions: No Physical Exam Const: COMMON NORMALS: alert GENERAL APPEARANCE: cooperative and well developed HENMT: COMMON NORMALS: normocephalic and atraumatic HEAD & SCALP: n ormocephalic and atraumatic Eye: COMMON NORMALS: conjunctivae normal CONJUNCTIVA: Yes conjunctivae normal SCLERA: sclerae normal Neck/C-Spine: COMMON NORMALS: supple GENERAL: Yes trachea midline Resp: COMMON NORMALS: clear to auscultation bilaterally EFFORT & INSPECTION: Yes able to speak in complete sentences AUSCULTATION: clear to auscultation bilaterally Cardio: COMMON NORMALS: regular rate and regular rhythm RATE: regular rate RHYTHM: regular rhythm GI: COMMON NORMALS: Soft to palpation PALPATION: Yes Soft to palpation and No Tenderness to palpation present (GI) Extremity: NARRATIVE EXTREMITY EXAM: 3+ pitting edema to above the knee. CMS intact. There is approximately a 2 cm in diameter wound without significant drainage or spreading erythema. There is tenderness to palpation. GENERAL: Yes normal exam except as noted and No edema Neuro: COMMON NORMALS: moves all extremities SENSORIUM/ORIENTATION: Yes alert and No Orientation impaired Psych: COMMON NORMALS: mental status grossly normal and Normal thought process present THOUGHT PROCESS: Normal thought process present Course Vital Signs: Vital signs: Vital Signs Temperature 98.3 F 12/16/22 12:00 Pulse Rate 62 12/16/22 12:00 Respiratory Rate 17 12/16/22 12:00 Blood Pressure 165/65 12/16/22 12:00 Pulse Oximetry 99 12/16/22 12:00 Oxygen Delivery Me thod Room Air 12/16/22 12:00 Oxygen Flow Rate 3 12/16/22 08:00 MDM - Skin/Abscess/Foreign Bdy Medicial Decision Making 82-year-old lady presenting to the emergency [place] with concern over extremity. Exam as above. Labs notable for microcytic anemia, leukocytosis, mildly elevated creatinine on metabolic panel. Procalcitonin is mildly elevated. Prior imaging reviewed. Patient treated with analgesia, therapeutic Lovenox. Patient consented for transfusion and transfusion ordered. The results of ED evaluation were discussed with the patient including plan for admission due to requirement for level of care not available if discharged to prevent significant worsening/deterioration. Patient agreeable with plan. Discussed with hospitalist service who was agreeable to admit patient. Medical Records I reviewed the patient's medical records. Lab Data I reviewed the patient's lab results. 12/16/22 05:00 12/16/22 05:00 Radiology Impressions Lower Extremity CT 12/13/22 11:56 IMPRESSION: Soft tissue cellulitis. Abdomen/Pelvis CT 12/13/22 11:59 IMPRESSION: 1. There is an 8 mm x 6 mm calculus in the proximal right ureter. Several smaller calculi are present in the distal right ureter with obstructive changes as described above. 2. There is an extrarenal pelvis on the left containing a 17 mm calculus. No evidence for left hydroureter. 3. There is fluid in the distal esophagus consistent with reflux. 4. Edema is in the subcutaneous soft tissues surrounding the abdomen and pelvis. Laboratory Results WBC 8.7 10^3/uL (4.0-10.0) 12/13/22 03:52 RBC 3.23 10^6/uL (4.1-5.3) L 12/13/22 03:52 Hgb 7.1 g/dL (11.5-15.3) L 12/13/22 03:52 Hct 24.1 % (37.0-47.0) L 12/13/22 03:52 MCV 74.6 fl (81-99) L 12/13/22 03:52 MCH 22.0 pg (28.0-34.0) L D 12/13/22 03:52 MCHC 29.5 g/dL (30.0-36.0) L D 12/13/22 03:52 RDW 19.9 % (12.1-15.1) H 12/13/22 03:52 Plt Count 171 10^3/cmm (130-400) 12/13/22 03:52 MPV 10.6 fL (7.4-10.4) H 12/13/22 03:52 Neut % (Auto) 83.2 % 12/13/22 03:52 Lymph % (Auto) 10.6 % 12/13/22 03:52 [place] % (Auto) 5.2 % 12/13/22 03:52 Eos % (Auto) 0.2 % 12/13/22 03:52 Baso % (Auto) 0.2 % 12/13/22 03:52 Neut # (Auto) 7.19 10^3/uL (1.8-7.7) 12/13/22 03:52 Lymph # (Auto) 0.9 10^3/uL (0.8-4.8) 12/13/22 03:52 [place] # (Auto) 0.5 10^3/uL (0.2-0.9) 12/13/22 03:52 Eos # (Auto) 0.0 10^3/uL (0.0-0.8) 12/13/22 03:52 Baso # (Auto) 0.0 10^3/uL (0.0-0.1) 12/13/22 03:52 Nucleated RBC % (auto) 0 % 12/13/22 03:52 Nucleated RBCs # 0.0 /100WBC 12/13/22 03:52 Sodium 130 mmol/L (136-145) L 12/13/22 03:52 Potassium 3.0 mmol/L (3.5-5.1) L 12/13/22 03:52 Chloride 97 mmol/L (98-107) L 12/13/22 03:52 Carbon Dioxide 25 mmol/L (22-29) 12/13/22 03:52 Anion Gap 11.0 (5-19) 12/13/22 03:52 BUN 23 mg/dL (8-23) 12/13/22 03:52 Creatinine 1.2 mg/dL (0.5-0.9) H 12/13/22 03:52 GFR Calculation Not Reportable 12/13/22 03:52 Glucose 78 mg/dL (65-115) 12/13/22 03:52 Calculated Osmolality 273 mOsm/kg (285-295) L 12/13/22 03:52 Lactic Acid 1.5 mmol/L (0.5-2.2) 12/12/22 14:30 Calcium 8.4 mg/dL (8.5-10.5) L 12/13/22 03:52 Phosphorus 2.3 mg/dL (2.5-4.5) L 12/13/22 03:52 Magnesium 1.7 mg/dL (1.7-2.3) 12/13/22 03:52 Iron 18 ug/dL (37-145) L 12/12/22 14:30 TIBC 264 mcg/dl 12/12/22 14:30 % Saturation 6.8 % (20-50) L 12/12/22 14:30 Unsat Iron Binding 246 ug/dL (112-347) 12/12/22 14:30 Ferritin 50 ng/mL (15-150) 12/12/22 14:30 Total Bilirubin 0.3 mg/dL (0.15-1.2) 12/12/22 14:45 AST 21 U/L (0-32) 12/12/22 14:45 ALT 14 U/L (0-33) 12/12/22 14:45 Alkaline Phosphatase 90 U/L (35-105) 12/12/22 14:45 C-Reactive Protein 66.2 mg/L (0.0-4.9) H 12/13/22 03:52 Total Protein 6.4 g/dL (6.6-8.7) L 12/12/22 14:45 Albumin 2.9 g/dL (3.5-5.2) L 12/12/22 14:45 Globulin 3.5 g/dL (1.3-4.6) 12/12/22 14:45 Vitamin B12 1997 pg/mL (232-1245) H 12/12/22 14:45 Procalcitonin 0.61 ng/mL (0-0.5) H 12/12/22 14:45 TSH 2.80 uIU/mL (0.27-4.20) 12/13/22 03:52 Random Vancomycin 10.4 ug/mL (20.0-40.0) L 12/13/22 03:52 Blood Type B Positive 12/12/22 14:30 Rho(D) Type Positive 12/12/22 14:30 Antibody Screen Negative 12/12/22 14:30 Crossmatch See Detail 12/12/22 14:30 Discharge Plan Discharge Patient Disposition: Placed in Observation Admit Provider: Eveline Millard Clinical Impression: Deep vein thrombosis of lower extremity, Cellulitis, Acute on chronic anemia, CKD (chronic kidney disease) Discharge Diet: Usual diet Discharge Activity: Increase activity as tolerated Coding Level of Care Code ED Workers Compensation Claims Examiner for Lakisha Jenkins
[2022-12-12 14:56] LABS: Basophils % 0.2 %; Hemoglobin 6.8 g/dL (11.5-15.3); Lymphocytes # 1.1 10^3/uL (0.8-4.8); Lymphocytes % 7.6 %; Mean Corpuscular HGB Conc 27.2 g/dL (30.0-36.0); Mean Corpuscular Hemoglobin 19.7 pg (28.0-34.0); Mean Corpuscular Volume 72.5 fl (81-99); Mean Platelet Volume 10.9 fL (7.4-10.4); Monocytes # 0.4 10^3/uL (0.2-0.9); Monocytes % 3.2 %; Neutrophils # 12.19 10^3/uL (1.8-7.7); Neutrophils % 88.4 %; Nucleated Red Blood Cells % 0 %; Platelet Count 204 10^3/cmm (130-400); Red Blood Count 3.45 10^6/uL (4.1-5.3); Red Cell Distribution Width 19.5 % (12.1-15.1); White Blood Count 13.8 10^3/uL (4.0-10.0)
[2022-12-12 15:13] LABS: Alanine Aminotransferase 14 U/L (0-33); Albumin Level 2.9 g/dL (3.5-5.2); Alkaline Phosphatase 90 U/L (35-105); Anion Gap 13.7 (5-19); Aspartate Amino Transferase 21 U/L (0-32); Blood Urea Nitrogen 22 mg/dL (8-23); Carbon Dioxide 25 mmol/L (22-29); Chloride 103 mmol/L (98-107); Globulin 3.5 g/dL (1.3-4.6); Glucose 79 mg/dL (65-115); Osmolality Calculated 288 mOsm/kg (285-295); Potassium 3.7 mmol/L (3.5-5.1); Sodium 138 mmol/L (136-145); Total Bilirubin 0.3 mg/dL (0.15-1.2); Total Protein 6.4 g/dL (6.6-8.7)
[2022-12-12 15:14] LABS: Lactic Sepsis W/Reflex 1.5 mmol/L (0.5-2.2)
[2022-12-12] MEDS: enoxaparin 60 mg/0.6 mL Syringe 65 MG SUBCUT (16:09)
--- NOTE | 2022-12-12 16:41 | P.HP_ITS ---
Providers/Chief Complaint Primary Care Provider: Ramirez Rush DO Chief Complaint: BLOOD CLOT LOWER R LEG History of Present Illness Julia Ballard is a 82 year old female who has history of gastric ulcers, she was treated in [place] 10+ years ago, has chronic kidney disease, lives alone at home, takes care of her daily activities presented with chief complaint of worsening of right leg swelling, patient injured her right leg about 2 weeks ago when she was taking stairs, there was a scab which gotten worse over the period of time, she has not noticed any fever, nausea, vomiting but she has noticed that swelling of her right leg has been getting worse, she was seen in the ER on 12/09 when she was diagnosed with right leg DVT she was given Eliquis despite anemia along antibiotics, she is coming back because of worsening of her swelling and not being able to take care of herself. Hemoglobin is 6.8, we have requested 1 unit PRBC, will request FOBT, most likely she will need EGD and colonoscopy she is not a good candidate for anticoagulation We will request echo Patient is agreeable for echo and EGD colonoscopy, she is DNI/DNI goals of care discussed with the patient Review of Systems Const: Denies: fever(s) Eyes: Denies: change in vision ENMT: Denies: throat pain Card: Denies: chest pain Resp: Denies: dyspnea GI: Denies: abdominal pain : Denies: flank pain Musc: Denies: neck pain Skin/Breast: Denies: rash Neuro: Denies: headache(s) Psych: Reports: anxiety Endo: Denies: polyuria Juan/Lymph: Denies: easy bruising All/Imm: Denies: urticaria Medications/Allergies Home Medications Medication Instructions Recorded Confirmed Last Taken Type amlodipine 5 mg tablet 5 mg PO DAILY #90 tabs 07/10/21 09/17/22 05/26/22 Rx Prevagen 1 cap PO DAILY 05/27/22 09/17/22 Unknown History ascorbic acid (vitamin C) 500 mg 500 mg PO DAILY 05/27/22 09/17/22 Unknown History tablet (Vitamin C) vitamin E 100 unit capsule 100 unit PO DAILY 05/27/22 09/17/22 Unknown History benazepril 10 mg tablet 10 mg PO DAILY #90 tabs 07/06/22 09/17/22 Unknown Rx tramadol 50 mg tablet 100 mg PO TID PRN pain 30 days 11/13/22 Unknown Rx #180 tabs apixaban 5 mg tablet (Eliquis) 5 mg PO BID #60 tabs 12/09/22 Unknown Rx cephalexin 500 mg capsule 500 mg PO BID 10 days #20 caps 12/09/22 Unknown Rx calcium carbonate 750 1 tab PO Q4H PRN Acid Reflux 12/12/22 12/12/22 Unknown Hi story mg-simethicone 80 mg chewable tablet ([facility]-[place] Heartburn-Gas) Allergies Allergy/AdvReac Type Severity Reaction Status Date / Time celecoxib [From Celebrex] Allergy kidney Verified 12/12/22 16:50 issue fluticasone Allergy unknown Verified 12/12/22 16:50 [From Advair Diskus] Penicillins Allergy unknown Verified 12/12/22 16:50 salmeterol Allergy unknown Verified 12/12/22 16:50 [From Advair Diskus] Sulfa (Sulfonamide Allergy unknown Verified 12/12/22 16:50 Antibiotics) acetaminophen [From Tylenol] AdvReac Mild rash Verified 12/12/22 16:50 naproxen [From Aleve] AdvReac Mild RASH Verified 12/12/22 16:50 PFSH Acute PFSH: Medical History Benign essential HTN Chronic hip pain, bilateral Chronic kidney disease, stage 3 COPD (chronic obstructive pulmonary disease) Gastric ulcer with hemorrhage and obstruction Surgical History H/O: hysterectomy History of appendectomy History of cholecystectomy History of tonsillectomy and adenoidectomy Family History Other CAD (coronary artery disease) Stroke Social History Smoking and tobacco status: never smoked Alcohol intake: never Female Reproductive History: Spontaneous abortions: No Vitals/I&O/Wt Last Vital Signs Temp 98.0 F 12/12/22 13:35 Pulse 77 12/12/22 14:54 Resp 20 H 12/12/22 14:54 BP 163/87 12/12/22 14:54 Pulse Ox 97 12/12/22 14:54 O2 Del Method 12/12/22 14:54 Weight last 48 hrs Weight 64.864 kg Physical Exam Narrative: Patient is awake and alert Right leg DVT leg swelling Right leg scab with mild drainage Awake and alert Currently doing well on room air No tachycardia Hemodynamically stable Patient looks euvolemic otherwise other than right leg swelling Abdomen soft No audible stridor or wheezing Data 12/12/22 14:30 12/12/22 14:45 Micro: Microbiology 12/12/22 14:30 Blood Culture - Preliminary Blood SPECIMEN COLLECTED 12/12/22 14:30 Blood Culture - Preliminary Blood SPECIMEN COLLECTED A&P Assessment and plan (1) Cellulitis: (2) Deep vein thrombosis of lower extremity: (3) Acute on chronic anemia: (4) CKD (chronic kidney disease): Plan Right leg DVT Right lower extremity swelling We will request echo We will give her Lasix No signs of hypoxia or tachycardia, I will hold off on ordering CTA for now Acute on chronic anemia Chronic kidney disease, Patient has history of gastric ulcers We will request FOBT We will keep n.p.o. after midnight in case she will require EGD in the morning She is not a good candidate to be on any anticoagulating agent because of right leg DVT however she got therapeutic anticoagulating agent dose in the ER by the ER physician I will request iron panel We will request physical therapy N.p.o. from midnight DVT prophylaxis with SCDs Purulent cellulitis I have started patient on broad-spectrum antibiotics Chronic kidney disease creatinine seems around baseline Goals of care discussed with the patient she is DNI/DNI Attestations Medical Necessity Statement*: Anticipating discharge within 48 hours Diagnoses Cellulitis L03.90 Deep vein thrombosis of lower extremity I82.409 Acute on chronic anemia D64.9 CKD (chronic kidney disease) N18.9
[2022-12-12] MEDS: acetaminophen 325 mg Tablet 650 MG PO (17:04)
[2022-12-12 17:31] LABS: Ferritin 50 ng/mL (15-150); Iron 18 ug/dL (37-145); Percent Saturation 6.8 % (20-50); Total Iron Binding Capacity 264 mcg/dl; Unsaturated Iron Binding 246 ug/dL (112-347)
[2022-12-12 17:48] LABS: Procalcitonin 0.61 ng/mL (0-0.5)
[2022-12-12] MEDS: sodium chloride 0.9% 100 mL Bag 50 ML IV (19:30)
--- NOTE | 2022-12-12 21:39 | PC.PHAR ---
Per physician, switched zosyn to aztreonam due to patient's allergy to penicillin
--- NOTE | 2022-12-12 21:43 | PC.NURSE ---
Patient refused SCDs.
--- NOTE | 2022-12-12 22:00 | PC.NURSE ---
22g IV started in left forearm, patent and asymptomatic at this time.
[2022-12-12] MEDS: vancomycin 750 MG in sodium chloride 0.9% 250 ML 250 MG IV (22:10)
[2022-12-12] MEDS: bacitracin ointment Pkt 1 EACH TOPICAL (22:12)
[2022-12-12] MEDS: aztreonam 1,000 MG in sodium chloride 0.9% (plus) 50 ML 100 MG IV (23:23)
[2022-12-13] VITALS (9 sets, daily range): BP systolic 105–192; BP diastolic 69–109; PULSE 60–68; RESP 14–19; TEMP 36.3–36.9; O2SAT 96–100
[2022-12-13 02:24] LABS: Vitamin B12 1997 pg/mL (232-1245)
--- NOTE | 2022-12-13 04:22 | PC.NURSE ---
Dr Cm notified of previous high blood pressure.
[2022-12-13 05:10] LABS: Basophils % 0.2 %; Eosinophils % 0.2 %; Hematocrit 24.1 % (37.0-47.0); Hemoglobin 7.1 g/dL (11.5-15.3); Lymphocytes # 0.9 10^3/uL (0.8-4.8); Lymphocytes % 10.6 %; Mean Corpuscular HGB Conc 29.5 g/dL (30.0-36.0); Mean Corpuscular Volume 74.6 fl (81-99); Mean Platelet Volume 10.6 fL (7.4-10.4); Monocytes # 0.5 10^3/uL (0.2-0.9); Monocytes % 5.2 %; Neutrophils # 7.19 10^3/uL (1.8-7.7); Neutrophils % 83.2 %; Nucleated Red Blood Cells % 0 %; Platelet Count 171 10^3/cmm (130-400); Red Blood Count 3.23 10^6/uL (4.1-5.3); Red Cell Distribution Width 19.9 % (12.1-15.1); White Blood Count 8.7 10^3/uL (4.0-10.0)
--- NOTE | 2022-12-13 06:00 | USCV_ITS ---
Julia Ballard Age: 82 Gender: F : 1940 Exam Date: 12/13/2022 08:44 Ordering Phys: Eveline Millard MD Technologist: JIM Exam Location: [facility] [place] Indication: dvt BP: / HR: 59 Rhythm: Sinus Technical Quality: TDS MEASUREMENTS (Male / Female) Normal Values 2D ECHO LV Diastolic Diameter PLAX 5.0 cm 4.2 - 5.9 / 3.9 - 5.3 cm LV Systolic Diameter PLAX 3.7 cm IVS Diastolic Thickness 0.7 cm 0.6 - 1.0 / 0.6 - 0.9 cm IVS Systolic Thickness 1.0 cm LVPW Diastolic Thickness 0.7 cm 0.6 - 1.0 / 0.6 - 0.9 cm LVPW Systolic Thickness 1.1 cm LVOT Diameter 1.9 cm LV Ejection Fraction 2D Teich 51.8 % LV Ejection Fraction MOD 2C 53.4 % LV Ejection Fraction 2C AL 52.6 % LA Diameter 4.1 cm IVC Diameter 1.9 cm M-MODE Aortic Annulus Diameter 2.8 cm LA Ao Ratio MM 1.3 MV E Point Septal Separation 0.3 cm DOPPLER AV Peak Velocity 176.0 cm/s LVOT Peak Velocity 133.0 cm/s AV Area Cont Eq vti 2.1 cm squared AV Area Cont Eq pk 2.1 cm squared MV Area PHT 4.3 cm squared Mitral E to A Ratio 2.0 MV E' Velocity 63.5 cm/s Mitral E to MV E' Ratio 9.0 Mitral E to LV E' Lateral Ratio 8.5 Mitral E to LV E' Septal Ratio 9.6 TR Peak Velocity 280.8 cm/s TR Peak Gradient 31.5 mmHg TV Peak E Velocity 64.0 cm/s Right Atrial Pressure 3.0 mmHg Pulmonary Artery Systolic Pressu 34.5 mmHg PV Peak Velocity 81.0 cm/s FINDINGS Left Ventricle Normal left ventricular systolic function and wall thickness, with no regional wall motion abnormalities. Normal left ventricular wall thickness. Normal diastolic filling pattern. Mildly increased left ventricular diastolic volume. Right Ventricle The right ventricle is normal in size and function. Right Atrium The right atrium is normal in size. Left Atrium Severely increased left atrial volume. Mildly increased left atrial area. Mitral Valve Structurally normal mitral valve without significant stenosis or prolapse. There ismild to moderate mitral regurgitation. Aortic Valve Structurally normal aortic valve without significant sclerosis or stenosis. There is no aortic regurgitation. Tricuspid Valve Structurally normal tricuspid valve without significant stenosis. Mild regurgitation. Pulmonary artery systolic pressure is elevated 41-46 mm Hg. Pulmonic Valve Structurally normal pulmonic valve without significant stenosis. There is no pulmonic regurgitation. Pericardium Normal pericardium without effusion. Aorta Normal ascending aorta dimension. IVC The inferior vena cava appears dilated and non compressible suggesting increased central venous pressure/volume overload. CONCLUSIONS Normal left ventricular systolic function and wall thickness, with no regional wall motion abnormalities. Normal left ventricular wall thickness. Normal diastolic filling pattern. Mildly increased left ventricular diastolic volume. Severely increased left atrial volume. Mildly increased left atrial area. Structurally normal mitral valve without significant stenosis or prolapse. There ismild to moderate mitral regurgitation. Structurally normal tricuspid valve without significant stenosis. Mild regurgitation. Pulmonary artery systolic pressure is elevated 41-46 mm Hg. The inferior vena cava appears dilated and non compressible suggesting increased central venous pressure/volume overload. Milton Masterson MD (Electronically Signed) Final Date: 14 December 2022 17:12 S
[2022-12-13 06:17] LABS: Blood Urea Nitrogen 23 mg/dL (8-23); C Reactive Protein 66.2 mg/L (0.0-4.9); Calcium 8.4 mg/dL (8.5-10.5); Carbon Dioxide 25 mmol/L (22-29); Chloride 97 mmol/L (98-107); Glucose 78 mg/dL (65-115); Magnesium 1.7 mg/dL (1.7-2.3); Osmolality Calculated 273 mOsm/kg (285-295); Phosphorus 2.3 mg/dL (2.5-4.5); Sodium 130 mmol/L (136-145)
[2022-12-13] MEDS: FUROsemide 10 mg/mL SDV 10mL 40 MG IVP (09:26)
[2022-12-13] MEDS: bacitracin ointment Pkt 1 EACH TOPICAL ×3 (09:26→21:21)
[2022-12-13] MEDS: amlodipine 5 mg Tablet PO (09:27)
[2022-12-13] MEDS: sennosides-docusate Tablet 1 TAB PO (09:27)
[2022-12-13] MEDS: aztreonam 1,000 MG in sodium chloride 0.9% (plus) 50 ML 100 MG IV ×2 (11:05→21:22)
[2022-12-13] MEDS: ondansetron 2 mg/ML SDV 2 mL 4 MG IVP (11:53)
--- NOTE | 2022-12-13 11:56 | CTR_ITS ---
PROCEDURE INFORMATION: Exam: CT Right Lower Extremity Without Contrast; Lower Leg Exam date and time: 12/13/2022 8:56 PM Age: 82 years old Clinical indication: Pain; Lower leg; Right; Additional info: Cellulitis TECHNIQUE: Imaging protocol: CT of the right lower extremity without contrast was performed. Exam focused on the lower leg. Radiation optimization: All CT scans at this facility use at least one of these dose optimization techniques: automated exposure control; mA and/or kV adjustment per patient size (includes targeted exams where dose is matched to clinical indication); or iterative reconstruction. REPORTING DATA: Count of CT and Cardiac NM exams in prior 12 months: This patient has received [address] and 0 known cardiac nuclear medicine studies in the 12 months prior to the current study. COMPARISON: [place] [id number] 12/09/2022 4:24 PM RADIATION DOSE METRICS: Total DLP (mGy-cm): 458.51 FINDINGS: Bones/joints: Multi-articular primary osteoarthritic changes including joint space narrowing, subchondral cystic/sclerotic changes, and marginal osteophyte formations. Enthesophytes are present off the os calcis at the Achilles insertion and plantar fascia origin. Soft tissues: There is fluid stranding throughout the subcutaneous soft tissues surrounding the lower leg. There are benign-appearing soft tissue calcifications. [id number] diffuse fatty atrophy of the musculature surrounding the lower leg. Other findings: Motion artifact does moderately limit the sensitivity of this examination. CT/CT lower leg RT wo con* [id number] IMPRESSION: Soft tissue cellulitis.
--- NOTE | 2022-12-13 11:59 | CTR_ITS ---
PROCEDURE INFORMATION: Exam: CT Abdomen And Pelvis Without Contrast Exam date and time: 12/13/2022 8:53 PM Age: 82 years old Clinical indication: Constipation and other: Ckd; Prior surgery; Surgery date: 6+ months; Surgery type: Ulcer repair, cholecystectomy, hysterectomy, appendectomy; Additional info: Ckd, constipation TECHNIQUE: Imaging protocol: Computed tomography of the abdomen and pelvis without contrast. Radiation optimization: All CT scans at this facility use at least one of these dose optimization techniques: automated exposure control; mA and/or kV adjustment per patient size (includes targeted exams where dose is matched to clinical indication); or iterative reconstruction. REPORTING DATA: Count of CT and Cardiac NM exams in prior 12 months: This patient has received [address] and 0 known cardiac nuclear medicine studies in the 12 months prior to the current study. COMPARISON: CT kidney stone [id number] 03/11/2017 4:17 PM RADIATION DOSE METRICS: Total DLP (mGy-cm): 522.92 FINDINGS: Coronary arteries: Multivessel atherosclerotic disease which involves the coronary arteries. Liver: Normal. No mass. Gallbladder and bile ducts: The gallbladder has been removed. Pancreas: Moderate fatty atrophy of the pancreas. Spleen: Normal. No splenomegaly. Adrenal glands: Normal. No mass. Kidneys and ureters: There is an 8 mm x 6 mm calculus in the proximal right ureter. There are several smaller calculi in the distal right ureter the larger of which measures 3.7 mm. [id number] right hydronephrosis/hydroureter. There is an extrarenal pelvis on the left containing a 17 mm calculus. Multiple bilateral renal cysts with benign features the larger of which measures 2.3 cm at the superior pole the left kidney. There are nonobstructing bilateral renal calculi. Stomach and bowel: Moderate stool burden. There is fluid in the distal esophagus consistent with reflux. Postoperative changes are present at the gastroesophageal junction. There is diverticulosis of the colon without evidence of diverticulitis. Appendix: There has been an appendectomy. Intraperitoneal space: Unremarkable. No free air. No significant fluid collection. Vasculature: Unremarkable. No abdominal aortic aneurysm. Lymph nodes: Unremarkable. No enlarged lymph nodes. Urinary bladder: Unremarkable as visualized. Reproductive: The uterus is not visualized, consistent with hysterectomy. Bones/joints: Thoracolumbar scoliotic curvatures. There severe degenerative changes in the visualized spine. Grade 1 degenerative anterolisthesis of L3 on L4, L4 on L5, and L5 on S1. Multilevel lumbar broad-based disc osteophyte complexes contribute to canal and bilateral neural foraminal narrowing. Soft tissues: There is edema in the subcutaneous soft tissues surrounding the abdomen and pelvis. CT/CT abdomen pelvis wo con [id number] IMPRESSION: 1. There is an 8 mm x 6 mm calculus in the proximal right ureter. Several smaller calculi are present in the distal right ureter with obstructive changes as described above. 2. There is an extrarenal pelvis on the left containing a 17 mm calculus. No evidence for left hydroureter. 3. There is fluid in the distal esophagus consistent with reflux. 4. Edema is in the subcutaneous soft tissues surrounding the abdomen and pelvis.
[2022-12-13 12:23] LABS: Vancomycin Random 10.4 ug/mL (20.0-40.0)
[2022-12-13] MEDS: potassium chloride ER 20 mEq Tablet 40 MEQ PO ×3 (13:02→15:26)
[2022-12-13] MEDS: lisinopril 10 mg Tablet PO (13:02)
[2022-12-13] MEDS: TRAMadol 50 mg Tablet PO ×2 (16:41→22:59)
[2022-12-13] MEDS: bisacodyl 5 mg Tablet 40 MG PO (16:42)
[2022-12-13] MEDS: nicotine 21 mg Patch 1 PATCH TRANSDERMA (16:42)
[2022-12-13] MEDS: pantoprazole 40 mg SDV IVP (16:43)
[2022-12-13] MEDS: peg /e-lyte soln 4,000 mL Btl 4000 ML PO (16:44)
--- NOTE | 2022-12-13 16:57 | PC.NURSE ---
MIDLINE to RIGHT arm ready for use.
[2022-12-13] MEDS: ferrous gluconate 324 mg Tablet PO (17:13)
--- NOTE | 2022-12-13 17:46 | P.PN_ITS ---
Subjective Subjective: Hospital course, labs appreciated. On examination sitting in the recliner. Patient has been very noncompliant during hospitalization with refusing medications. Seen multiple times in the day. Patient received blood transfusion yesterday. 1 more unit of blood transfusion was ordered today. Patient was getting blood and after 100 cc was finished she refused to get any more blood. Because of difficulty IV access midline was placed. In the morning when seen patient was sitting up in the chair. Complaining of pain in her leg. States she wants to be discharged as soon as possible once she is better to take care of her dog. States she lost her son in this month. States she has not seen a doctor in over 15 years but is agreeable to treatment for now because she knows she needs to get well to take care of the dog. Patient herself denies any diarrhea or melena. States she rather has co nstipation. Denies of having any hematemesis. Vitals/I&O/Wt Last Vital Signs Temp 98.3 F 12/13/22 12:50 Pulse 65 12/13/22 12:50 Resp 18 12/13/22 12:50 BP 153/70 12/13/22 12:50 Pulse Ox 96 12/13/22 12:50 O2 Del Method 12/12/22 22:14 12/13/22 12/13/22 12/13/22 06:59 14:59 22:59 Intake Total 300 / 1130 50 / 50 Balance 300 / 1130 50 / 50 Weight last 48 hrs Weight 64.864 kg Weight 64.864 kg Physical Exam Narrative: General: No acute distress, AO x3, depressed, anxious HEENT: PERRLA, pupils bilaterally equal and reactive Chest: Normal vesicular breath sounds, no added sounds, equal good air entry bilaterally CVS: S1-S2 regular, no murmurs, no tachycardia, no gallops, no rubs Abdomen: Soft, nontender, no organomegaly, bowel sounds present Neuro: No focal deficits, no facial deformity, AO x3, power 5/5 in all limbs Extremity: Right lower limb edematous, tender, erythematous with open wound with purulent discharge at the luz at mid lower leg level. Data 12/13/22 03:52 12/13/22 03:52 Micro: Microbiology 12/12/22 14:30 Blood Culture - Preliminary Blood NEGATIVE TO DATE 12/12/22 14:30 Blood Culture - Preliminary Blood NEGATIVE TO DATE A&P Assessment and plan (1) Cellulitis: Check CRP. Follow-up blood cultures. Check MRSA swab. Continue with meropenem. Add vancomycin. Will de-escalate antibiotics as per culture results. Leg elevation. Check CT leg to rule out osteomyelitis versus underlying abscess (2) Deep vein thrombosis of lower extremity: Seen on lower limb Dopplers. Patient needs anticoagulation which could not be done for now given ongoing extensive anemia requiring blood transfusion. Patient herself denies any bleeding for now. For now we will start on full dose Lovenox 1 mg/kg body weight every 12 hourly while monitoring hemoglobin every 12 hourly. Patient continues to remain on room air without any active signs of PE. (3) Acute on chronic anemia: Baseline hemoglobin for last 1 year seems to be running from 6.5-8.4. Received 1 unit of blood transfusion yesterday. Appreciate iron studies. Check vitamin B12 and folate levels. Patient was ordered for 1 more unit of blood but she refused. Care discussed in detail with Dr. Edwards. We will plan for EGD and colonoscopy in a.m. Patient so far agreeable. Bowel prep with GoLytely and Dulcolax. Protonix 40 mg twice daily, Carafate ACHS. Continue with NPO. (4) CKD (chronic kidney disease): Baseline creatinine 1.4-1.5. Creatinine improved to 1.2 today. Medical reconciliation done for nephrotoxic drugs. Continue to monitor BMP daily. 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 Check CT abdomen pelvis to rule out obstructive nephropathy. Plan Replace potassium 40 mEq every hourly 3 times. Repeat CBC and BMP in evening. CODE STATUS: Discussed in detail with the patient. DNI/DNR. States she lost her son earlier this month and if it comes to it she does not want to prolong her suffering and would want to be comfortable. NPO. Protonix for PUD prophylaxis Full dose Lovenox will suffice for DVT prophylaxis. Attestations Medical Necessity Statement*: Requires further hospitalization for management of lower limb cellulitis and DVT along with acute anemia requiring blood transfusion while GI bleed is ruled out. Diagnoses Cellulitis L03.90 Deep vein thrombosis of lower extremity I82.409 Acute on chronic anemia D64.9 CKD (chronic kidney disease) N18.9
[2022-12-13 18:41] LABS: Basophils % 0.1 %; Hematocrit 30.2 % (37.0-47.0); Hemoglobin 8.5 g/dL (11.5-15.3); Lymphocytes # 0.7 10^3/uL (0.8-4.8); Lymphocytes % 3.1 %; Mean Corpuscular HGB Conc 28.1 g/dL (30.0-36.0); Mean Corpuscular Hemoglobin 21.1 pg (28.0-34.0); Mean Corpuscular Volume 74.9 fl (81-99); Mean Platelet Volume 10.2 fL (7.4-10.4); Monocytes # 0.5 10^3/uL (0.2-0.9); Monocytes % 2.3 %; Neutrophils % 93.2 %; Nucleated Red Blood Cells % 0 %; Platelet Count 285 10^3/cmm (130-400); Red Blood Count 4.03 10^6/uL (4.1-5.3); Red Cell Distribution Width 20.4 % (12.1-15.1); White Blood Count 20.8 10^3/uL (4.0-10.0)
[2022-12-13 18:56] LABS: Anion Gap 17.8 (5-19); Blood Urea Nitrogen 20 mg/dL (8-23); Calcium 9.8 mg/dL (8.5-10.5); Carbon Dioxide 22 mmol/L (22-29); Chloride 98 mmol/L (98-107); Glucose 130 mg/dL (65-115); Osmolality Calculated 280 mOsm/kg (285-295); Potassium 4.8 mmol/L (3.5-5.1); Sodium 133 mmol/L (136-145)
[2022-12-13] MEDS: enoxaparin 100 mg/mL Syringe 60 MG SUBCUT (19:15)
--- NOTE | 2022-12-13 20:08 | PC.NURSE ---
IV infiltrate, pt refused any more blood transfusion
[2022-12-14] VITALS (9 sets, daily range): BP systolic 128–174; BP diastolic 65–81; PULSE 55–93; RESP 15–17; TEMP -13.7–36.8; O2SAT 90–100
[2022-12-14] MEDS: pantoprazole 40 mg SDV IVP (05:29)
[2022-12-14] MEDS: enoxaparin 100 mg/mL Syringe 60 MG SUBCUT ×2 (05:29→17:31)
[2022-12-14 05:34] LABS: Basophils % 0.1 %; Hematocrit 26.8 % (37.0-47.0); Hemoglobin 7.6 g/dL (11.5-15.3); Lymphocytes # 0.9 10^3/uL (0.8-4.8); Lymphocytes % 7.7 %; Mean Corpuscular HGB Conc 28.4 g/dL (30.0-36.0); Mean Corpuscular Hemoglobin 21.3 pg (28.0-34.0); Mean Corpuscular Volume 75.1 fl (81-99); Mean Platelet Volume 10.2 fL (7.4-10.4); Monocytes # 0.4 10^3/uL (0.2-0.9); Monocytes % 3.2 %; Neutrophils % 88.3 %; Nucleated Red Blood Cells % 0 %; Platelet Count 200 10^3/cmm (130-400); Red Blood Count 3.57 10^6/uL (4.1-5.3); Red Cell Distribution Width 20.6 % (12.1-15.1); White Blood Count 11.2 10^3/uL (4.0-10.0)
[2022-12-14 06:10] LABS: Alanine Aminotransferase 13 U/L (0-33); Albumin Level 2.8 g/dL (3.5-5.2); Alkaline Phosphatase 101 U/L (35-105); Anion Gap 12.1 (5-19); Aspartate Amino Transferase 26 U/L (0-32); Blood Urea Nitrogen 21 mg/dL (8-23); Calcium 9.1 mg/dL (8.5-10.5); Carbon Dioxide 26 mmol/L (22-29); Chloride 93 mmol/L (98-107); Globulin 2.9 g/dL (1.3-4.6); Glucose 74 mg/dL (65-115); Osmolality Calculated 266 mOsm/kg (285-295); Potassium 4.1 mmol/L (3.5-5.1); Sodium 127 mmol/L (136-145); Total Bilirubin 0.3 mg/dL (0.15-1.2); Total Protein 5.7 g/dL (6.6-8.7)
[2022-12-14 06:33] LABS: Estmated Average Glucose 82; Hemoglobin A1C 4.5 % (4.0-6.0)
--- NOTE | 2022-12-14 07:52 | ANES.PREANE2 ---
Pre-Anesthetic Assessment Height/Weight: Height 1.37 m Weight 64.864 kg Temp Pulse Resp BP Pulse Ox O2 Del Method 97.6 F 64 16 144/81 100 12/14/22 04:00 12/14/22 04:00 12/14/22 04:00 12/14/22 04:00 12/14/22 04:00 12/14/22 04:00 Operation Date: 12/14/22 08:00 Proposed Procedures p EGD/Colonoscopy(Not Applicable) - Martell Edwards DO Familial anesthetic complications: None Was Beta Alex taken within 24 hours: N/A Was Clonidine taken within 24 hours: N/A Last intake: > 8hrs Social No alcohol and No tobacco Exam alert, oriented x 3, clear to auscultation bilaterally and regular rate & rhythm Airway Dentition: false Pulmonary Chronic Obstructive Pulmonary Disease CV/HEM Anemia and Hypertension Chronic Renal Insufficiency Anesthetic Plan ASA status: 3 Anesthesia: MAC Risk of > 500 ml blood loss (7ml/kg in children): No Medications/Allergies Home Medications Medication Instructions Recorded Confirmed Last Taken Type amlodipine 5 mg tablet 5 mg PO DAILY #90 tabs 07/10/21 12/12/22 12/12/22 Rx Prevagen 1 cap PO DAILY 05/27/22 12/12/22 12/12/22 History ascorbic acid (vitamin C) 500 mg 500 mg PO DAILY 05/27/22 12/12/22 12/12/22 History tablet (Vitamin C) vitamin E 100 unit capsule 100 unit PO DAILY 05/27/22 12/12/22 12/12/22 History benazepril 10 mg tablet 10 mg PO DAILY #90 tabs 07/06/22 12/12/22 12/12/22 Rx tramadol 50 mg tablet 100 mg PO TID PRN pain 30 days 11/13/22 12/12/22 12/12/22 Rx #180 tabs apixaban 5 mg tablet (Eliquis) 5 mg PO BID #60 tabs 12/09/22 12/12/22 12/12/22 Rx cephalexin 500 mg capsule 500 mg PO BID 10 days #20 caps 12/09/22 12/12/22 12/12/22 Rx calcium carbonate 750 1 tab PO Q4H PRN Acid Reflux 12/12/22 12/12/22 Unknown History mg-simethicone 80 mg chewable tablet ([facility]-[place] Heartburn-Gas) Allergies Allergy/AdvReac Type Severity Reaction Status Date / Time celecoxib [From Celebrex] Allergy kidney Verified 12/12/22 16:50 issue fluticasone Allergy unknown Verified 12/12/22 16:50 [From Advair Diskus] Penicillins Allergy unknown Verified 12/12/22 16:50 salmeterol Allergy unknown Verified 12/12/22 16:50 [From Advair Diskus] Sulfa (Sulfonamide Allergy unknown Verified 12/12/22 16:50 Antibiotics) acetaminophen [From Tylenol] AdvReac Mild rash Verified 12/12/22 16:50 naproxen [From Aleve] AdvReac Mild RASH Verified 12/12/22 16:50 Current Medications Generic Name Dose Route Start Last Admin Trade Name Freq PRN Reason Stop Dose Admin Bacitracin 1 each 12/12/22 21:00 12/13/22 21:21 Bacitracin Ointment Pkt TOPICAL 1 each TID TANJA Administration Protocol Enoxaparin Sodium 60 mg 12/13/22 18:00 12/14/22 05:29 Enoxaparin 100 Mg/Ml Syringe 1 mg/kg (60 mg) 60 mg SUBCUT Administration Q12H TANJA Ferrous Gluconate 324 mg 12/13/22 18:00 12/13/22 17:13 Ferrous Gluconate 324 Mg Tablet PO 324 mg BIDWM TANJA Administration Vancomycin HCl 750 mg/ Sodium 250 mls @ 250 mls/hr 12/12/22 21:00 12/12/22 23:11 Chloride IV Infused Q36H TANJA Infusion Aztreonam 1,000 mg/ Sodium 50 mls @ 100 mls/hr 12/12/22 22:00 12/13/22 22:43 Chloride IV Infused Q12H TANJA Infusion Nicotine 1 patch 12/13/22 16:30 12/13/22 16:42 Nicotine 21 Mg Patch TRANSDERMA 1 patch DAILY TANJA Administration Ondansetron HCl 4 mg 12/12/22 20:35 12/13/22 11:53 Ondansetron 2 Mg/Ml Sdv 2 Ml IVP 4 mg Q6H PRN Administration NAUSEA AND VOMITING Pantoprazole Sodium 40 mg 12/13/22 11:30 12/14/22 05:29 Pantoprazole 40 Mg Sdv IVP 40 mg Q12H TANJA Administration Senna/Docusate Sodium 1 tab 12/13/22 09:00 12/13/22 09:27 Sennosides-Docusate Tablet PO 1 tab DAILY TANJA Administration Tramadol HCl 50 mg 12/13/22 16:12 12/13/22 22:59 Tramadol 50 Mg Tablet PO 50 mg Q6H PRN Administration MODERATE PAIN PFSH Anesthesia Medical History Benign essential HTN Chronic hip pain, bilateral Chronic kidney disease, stage 3 COPD (chronic obstructive pulmonary disease) Gastric ulcer with hemorrhage and obstruction Surgical History H/O: hysterectomy History of appendectomy History of cholecystectomy History of tonsillectomy and adenoidectomy Family History Other CAD (coronary artery disease) Stroke Social History Smoking and tobacco status: never smoked Alcohol intake: never Female Reproductive History Spontaneous abortions: No Data Anesthesia 12/14/22 05:00 12/14/22 05:00 Short CBC 12/12/22 12/13/22 12/13/22 Range/Units 14:30 03:52 18:31 WBC 13.8 H 8.7 20.8 H (4.0-10.0) 10^3/uL Hgb 6.8 L 7.1 L 8.5 L (11.5-15.3) g/dL Hct 25.0 L 24.1 L 30.2 L (37.0-47.0) % MCV 72.5 L 74.6 L 74.9 L (81-99) fl Plt Count 204 171 285 D (130-400) 10^3/cmm Neut % (Auto) 88.4 83.2 93.2 % Neut # (Auto) 12.19 H 7.19 19.40 H (1.8-7.7) 10^3/uL 12/14/22 Range/Units 05:00 WBC 11.2 H (4.0-10.0) 10^3/uL Hgb 7.6 L (11.5-15.3) g/dL Hct 26.8 L (37.0-47.0) % MCV 75.1 L (81-99) fl Plt Count 200 (130-400) 10^3/cmm Neut % (Auto) 88.3 % Neut # (Auto) 9.90 H (1.8-7.7) 10^3/uL BMP 12/12/22 12/13/22 12/13/22 14:45 03:52 18:31 Sodium 138 130 L 133 L Potassium 3.7 3.0 L 4.8 Chloride 103 97 L 98 Carbon Dioxide 25 25 22 BUN 22 23 20 Creatinine 1.5 H 1.2 H 1.3 H Glucose 79 78 130 H Calcium 9.0 8.4 L 9.8 12/14/22 05:00 Sodium 127 L Potassium 4.1 Chloride 93 L Carbon Dioxide 26 BUN 21 Creatinine 1.6 H Glucose 74 Calcium 9.1 Liver Function 12/12/22 12/14/22 Range/Units 14:45 05:00 Total Bilirubin 0.3 0.3 (0.15-1.2) mg/dL AST 21 26 (0-32) U/L ALT 14 13 (0-33) U/L Alkaline Phosphatase 90 101 (35-105) U/L Albumin 2.9 L 2.8 L (3.5-5.2) g/dL Blood Bank 12/12/22 14:30 Blood Type B Positive Rho(D) Type Positive Antibody Screen Negative Coags 12/13/22 03:52 C-Reactive Protein 66.2 H Microbiology 12/12/22 14:30 Blood Culture - Preliminary Blood NEGATIVE TO DATE 12/12/22 14:30 Blood Culture - Preliminary Blood NEGATIVE TO DATE Cardiac Studies: No Data to Display
--- NOTE | 2022-12-14 07:55 | P.CONIM_ITS ---
Providers/Reason For Consult Consulting Physician/Specialty*: Dr. Martell Edwards DO/General surgery Reason for Consult*: Anemia in the setting of DVT requiring anticoagulation Attending Physician: Horacio Childers MD Primary Care Provider: Ramirez Rush DO History of Present Illness History of Present Illness Julia Ballard is a 82 year old female who was found to have a lower extremity DVT. She is chronically anemic and has required multiple transfusions during this hospital admission. She requires anticoagulation for the DVT. Therefore we need to rule out GI source of blood loss. She denies any abdominal pain, nausea, emesis, diarrhea, constipation, hematemesis, hematochezia and/or melena. She reports that she had a bleeding ulcer 30 years ago. Review of Systems General: Reports: 10 or more systems reviewed and unremarkable except in HPI and below Medications/Allergies Home Medications Medication Instructions Recorded Confirmed Last Taken Type amlodipine 5 mg tablet 5 mg PO DAILY #90 tabs 07/10/21 12/12/22 12/12/22 Rx Prevagen 1 cap PO DAILY 05/27/22 12/12/22 12/12/22 History ascorbic acid (vitamin C) 500 mg 500 mg PO DAILY 05/27/22 12/12/22 12/12/22 History tablet (Vitamin C) vitamin E 100 unit capsule 100 unit PO DAILY 05/27/22 12/12/22 12/12/22 History benazepril 10 mg tablet 10 mg PO DAILY #90 tabs 07/06/22 12/12/22 12/12/22 Rx tramadol 50 mg tablet 100 mg PO TID PRN pain 30 days 11/13/22 12/12/22 12/12/22 Rx #180 tabs apixaban 5 mg tablet (Eliquis) 5 mg PO BID #60 tabs 12/09/22 12/12/22 12/12/22 Rx cephalexin 500 mg capsule 500 mg PO BID 10 days #20 caps 12/09/22 12/12/22 12/12/22 Rx calcium carbonate 750 1 tab PO Q4H PRN Acid Reflux 12/12/22 12/12/22 Unknown History mg-simethicone 80 mg chewable tablet ([facility]-[place] Heartburn-Gas) Allergies Allergy/AdvReac Type Severity Reaction Status Date / Time celecoxib [From Celebrex] Allergy kidney Verified 12/12/22 16:50 issue fluticasone Allergy unknown Verified 12/12/22 16:50 [From Advair Diskus] Penicillins Allergy unknown Verified 12/12/22 16:50 salmeterol Allergy unknown Verified 12/12/22 16:50 [From Advair Diskus] Sulfa (Sulfonamide Allergy unknown Verified 12/12/22 16:50 Antibiotics) acetaminophen [From Tylenol] AdvReac Mild rash Verified 12/12/22 16:50 naproxen [From Aleve] AdvReac Mild RASH Verified 12/12/22 16:50 Current Medications Generic Name Dose Route Start Last Admin Trade Name Freq PRN Reason Stop Dose Admin Bacitracin 1 each 12/12/22 21:00 12/13/22 21:21 Bacitracin Ointment Pkt TOPICAL 1 each TID TANJA Administration Protocol Enoxaparin Sodium 60 mg 12/13/22 18:00 12/14/22 05:29 Enoxaparin 100 Mg/Ml Syringe 1 mg/kg (60 mg) 60 mg SUBCUT Administration Q12H TANJA Ferrous Gluconate 324 mg 12/13/22 18:00 12/13/22 17:13 Ferrous Gluconate 324 Mg Tablet PO 324 mg BIDWM TANJA Administration Vancomycin HCl 750 mg/ Sodium 250 mls @ 250 mls/hr 12/12/22 21:00 12/12/22 23:11 Chloride IV Infused Q36H TANJA Infusion Aztreonam 1,000 mg/ Sodium 50 mls @ 100 mls/hr 12/12/22 22:00 12/13/22 22:43 Chloride IV Infused Q12H TANJA Infusion Nicotine 1 patch 12/13/22 16:30 12/13/22 16:42 Nicotine 21 Mg Patch TRANSDERMA 1 patch DAILY TANJA Administration Ondansetron HCl 4 mg 12/12/22 20:35 12/13/22 11:53 Ondansetron 2 Mg/Ml Sdv 2 Ml IVP 4 mg Q6H PRN Administration NAUSEA AND VOMITING Pantoprazole Sodium 40 mg 12/13/22 11:30 12/14/22 05:29 Pantoprazole 40 Mg Sdv IVP 40 mg Q12H TANJA Administration Senna/Docusate Sodium 1 tab 12/13/22 09:00 12/13/22 09:27 Sennosides-Docusate Tablet PO 1 tab DAILY TANJA Administration Tramadol HCl 50 mg 12/13/22 16:12 12/13/22 22:59 Tramadol 50 Mg Tablet PO 50 mg Q6H PRN Administration MODERATE PAIN PFSH Acute PFSH: Medical History Benign essential HTN Chronic hip pain, bilateral Chronic kidney disease, stage 3 COPD (chronic obstructive pulmonary disease) Gastric ulcer with hemorrhage and obstruction Surgical History H/O: hysterectomy History of appendectomy History of cholecystectomy History of tonsillectomy and adenoidectomy Family History Other CAD (coronary artery disease) Stroke Social History Smoking and tobacco status: never smoked Alcohol intake: never Female Reproductive History: Spontaneous abortions: No Vitals/I&O/Wt Last Vital Signs Temp 97.6 F 12/14/22 04:00 Pulse 64 12/14/22 04:00 Resp 16 12/14/22 04:00 BP 144/81 12/14/22 04:00 Pulse Ox 100 12/14/22 04:00 O2 Del Method 12/14/22 04:00 12/13/22 12/14/22 12/14/22 22:59 06:59 14:59 Intake Total 290 / 440 Balance 290 / 440 Weight last 48 hrs Weight 143 lb Weight 143 lb Physical Exam Narrative: General : Patient is well developed , no acute distress, oriented x3 Head : Normal cephalic, a-traumatic. Ears : Pinnae and external canal are normal. Hearing is normal. Eyes : PERRLA, Sclera and injection are normal. No conjunctival discharge. Nose : Mucous membranes are without erythema. Throat : buccal mucosa is normal, gums are without significant recession or hypertrophy. Lungs : Equal chest rise bilaterally, no use of accessory muscles, trachea is midline. Cor : Rate and rhythm are normal. Abdomen : Soft, ND, NT, no g/r/m Extremities : No edema, no cyanosis or clubbing, dorsalis pedis pulses are present bilaterally, non-tender to palpation of calves. Upper extremities are normal bilaterally. Back : non-tender to palpation, no CVA tenderness. Neuro : CN II - XII intact, Upper and lower extremities have equal and full strength Data 12/14/22 05:00 12/14/22 05:00 Micro: Microbiology 12/12/22 14:30 Blood Culture - Preliminary Blood NEGATIVE TO DATE 12/12/22 14:30 Blood Culture - Preliminary Blood NEGATIVE TO DATE A&P Assessment and plan (1) Deep vein thrombosis of lower extremity: (2) Anemia: Qualifiers: Anemia type: unspecified type Qualified Code(s): D64.9 - Anemia, uns pecified Plan EGD Colonoscopy The risks and benefits of the procedure, including bleeding, infection, intestinal perforation requiring surgery, missed lesion were explained to the patient. The patient is understanding of the risks and wishes to proceed. Coding Level of Care Code Acute Code for Chg Fwd Diagnoses Deep vein thrombosis of lower extremity I82.409 Anemia D64.9 Anemia type: unspecified type
[2022-12-14] MEDS: sodium chloride 0.9% 1,000 ML 30 ML IV (07:59)
[2022-12-14 08:37] LABS: Folate Level > 20.0 ng/mL (4.8-37.3)
--- NOTE | 2022-12-14 08:40 | ANE.PACU2 ---
Inpatient post-anesthesia follow up: Airway intact: Yes Vital signs: Temperature 97.6 F Pulse Rate 59 Respiratory Rate 17 Blood Pressure 174/72 Pulse Oximetry 95 Oxygen Delivery Me thod Room Air Oxygen Flow Rate 3 Fraction of Inspir ed Oxygen Hydration adequate: Yes Nausea and vomiting: No Pain level: 1 Mental status: Baseline
[2022-12-14 08:58] LABS: Vancomycin Random 5.9 ug/mL (20.0-40.0)
[2022-12-14] MEDS: TRAMadol 50 mg Tablet PO ×2 (10:04→17:35)
[2022-12-14] MEDS: aztreonam 1,000 MG in sodium chloride 0.9% (plus) 50 ML 100 MG IV ×2 (10:05→21:02)
[2022-12-14] MEDS: pantoprazole DR 40 mg Tablet PO (10:05)
--- NOTE | 2022-12-14 14:19 | PM.PN ---
Subjective Subjective: No acute events overnight. Patient underwent EGD and colonoscopy earlier today morning. Tolerated procedure well.: Morning examination with niece at bedside. Patient is a lot more awake and alert, jovial. She is agreeable to treatment today. She apologizes for her behavior yesterday. Denies any nausea, vomiting, headache, melena, hematemesis. Continues to remain on room air. Vitals/I&O/Wt Last Vital Signs Temp 7.4 F L 12/14/22 11:55 Pulse 79 12/14/22 11:55 Resp 16 12/14/22 11:55 BP 128/65 12/14/22 11:55 Pulse Ox 95 12/14/22 11:55 O2 Del Method 12/14/22 08:26 O2 Flow Rate 3 12/14/22 08:19 12/13/22 12/14/22 12/14/22 22:59 06:59 14:59 Intake Total 290 / 440 690 / 690 Balance 290 / 440 690 / 690 Weight last 48 hrs Weight 64.864 kg Physical Exam Narrative: General: No acute distress, AO x3, depressed, anxious HEENT: PERRLA, pupils bilaterally equal and reactive Chest: Normal vesicular breath sounds, no added sounds, equal good air entry bilaterally CVS: S1-S2 regular, no murmurs, no tachycardia, no gallops, no rubs Abdomen: Soft, nontender, no organomegaly, bowel sounds present Neuro: No focal deficits, no facial deformity, AO x3, power 5/5 in all limbs Extremity: Right lower limb edematous, tender, erythematous with open wound with purulent discharge at the luz at mid lower leg level. Data 12/14/22 05:00 12/14/22 05:00 Micro: Microbiology 12/13/22 17:15 MRSA Culture - Final Nose 12/12/22 14:30 Blood Culture - Preliminary Blood NEGATIVE TO DATE 12/12/22 14:30 Blood Culture - Preliminary Blood NEGATIVE TO DATE A&P Assessment and plan (1) Cellulitis: Appreciate CRP and CT lower limb results. Negative for abscess but can concerning for a possible fluid collection which seems to be draining through the open wound. Continue with vancomycin and meropenem. Follow-up blood cultures. MRSA positive. (2) Deep vein thrombosis of lower extremity: Seen on lower limb Dopplers. EGD and colonoscopy negative for any active bleeding. Hemoglobin stable. Continue with Lovenox 1 mg/kg body weight every 12 hourly. Most likely will like to transition patient to oral Eliquis on discharge. (3) Acute on chronic anemia: Post 1 unit blood transfusion. Possibly in setting of iron deficiency anemia. Appreciate surgical recommendations. EGD and colonoscopy negative for any active signs of bleeding. Vitamin B12 and folate levels within normal limits. Continue with Protonix 40 mg daily, Carafate before meals and at bedtime. Continue with oral iron supplementation, monitor hemoglobin daily. (4) CKD (chronic kidney disease): Baseline creatinine 1.4-1.5. Creatinine at baseline. Medical reconciliation done for nephrotoxic drugs. Continue to monitor BMP daily. Appreciate CT abdomen pelvis with concerning for obstructive nephropathy on the right side secondary to right renal ureteral calculi (5) Renal calculi: (6) Hydronephrosis with renal and ureteral calculus obstruction: Care discussed in detail with Dr. Donovan. Plan for renal stent placement in AM. N.p.o. after midnight. (7) Benign essential HTN: Goal blood pressure less than 140/90 mmHg. Blood pressure is better controlled. Continue with amlodipine 10 mg oral daily, lisinopril 20 mg oral daily. (8) MRSA carrier: Plan CODE STATUS: Discussed in detail with the patient. DNI/DNR. States she lost her son earlier this month and if it comes to it she does not want to prolong her suffering and would want to be comfortable. Regular diet, NPO after midnight. Protonix for PUD prophylaxis Full dose Lovenox will suffice for DVT prophylaxis. Attestations Medical Necessity Statement*: Requires further hospitalization for management of right lower limb DVT, right obstructive calculi with hydronephrosis requiring ureteral stent placement, acute on chronic anemia with CKD Diagnoses Cellulitis L03.90 Deep vein thrombosis of lower extremity I82.409 Acute on chronic anemia D64.9 CKD (chronic kidney disease) N18.9 Renal calculi N20.0 Hydronephrosis with renal and ureteral calculus obstruction N13.2 Benign essential HTN I10 MRSA carrier Z22.322
[2022-12-14] MEDS: bacitracin ointment Pkt 1 EACH TOPICAL ×2 (15:02→21:07)
--- NOTE | 2022-12-14 16:42 | P.CONIM_ITS ---
Providers/Reason For Consult Consulting Physician/Specialty*: Urology/Donovan Reason for Consult*: Bilateral ureteral obstruction, CKD Requesting Physician: Dr. Coates Attending Physician: Horacio Childers MD Primary Care Provider: Ramirez Rush DO History of Present Illness History of Present Illness Julia Ballard is a 82 year old female with CDK and discovery this visit of new obstructive uropathy secondary to a large RIGHT UPJ stone. 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 RIGHT was fine at time. She declined all offers of treatment of the obstructing stone on the LEFT. See old clinic notes included below. Last seen 5 years ago. Following for: LEFT URETERAL STONE Approximately 15 mm stone with long-standing obstruction of the left proximal ureter with cortical atrophy and moderate to severe pyelocaliectasis. ?Initially evaluated February 2017. ?Was offered intervention with endoscopy either antegrade or retrograde versus ESWL with or without stent. She elected go to proceed with observation only. PRIOR VISITS 12/15/2017: UROLOGY follow-up visit Was scheduled for early September 2017 but rescheduled appointment. First evaluated February 2017 for a 15 mm obstructing left proximal ureteral stone with cortical atrophy noted on 03/11/2017 CT scan. Denied any history of renal colicky symptoms. Complained of chronic back pain due to severe arthritis. KUB showed the stone to be in the same position when compared to CT scan. Reviewed surgical options. Also discussed doing nothing due to the fact that she had significant atrophy of her left kidney. She elected to do nothing but was willing to follow-up with a renal ultrasound and BMP in 6 months. Current data UA: No specimen today BMP: Creatinine 1.2 Renal US: No significant change Symptoms: Denies any renal colic gross hematuria or recurrent UTIs etc. Discussion: We discussed again that the likelihood that this kidney we'll continue to atrophy overtime due to the obstructive stone at the UPJ. ?She is adamant again about avoiding any type of intervention. She does understand that her right kidney is likely to continue to be functioning adequately and appears to be doing so now. ?She'll take that chance. I did make the argument that if she developed pyelonephritis that she would need to be more aggressive. Based on the above we decided to hold on any further evaluation here in the absence of symptoms. ?I will be happy to see her again if she develops problems. 09/15/2017: UROLOGY follow-up visit ?RESCHEDULED APPOINTMENT 03/13/2017: ?UROLOGY INITIAL visit Urology consult requested for left proximal ureteral stone. 01/29/2017 MRI: ?severe left hydronephrosis, low-attenuation ovoid nodule measure 8x12 mm, likely a stone. 03/11/2017 CT scan: ?15mm obstructing left proximal ureteral calculus, cortical atrophy. Current data Additional history: Was unaware of the stone until recently after the MRI. ?Could not come up with any history of renal colicky symptoms but does have chr onic back pain from severe arthritis. Rare urinary tract infection. ?Last one was in the . ?No gross hematuria or other symptoms of concern. ?No renal colic. UA: 0-2 white blood cells. ?0-6 epithelial cells. KUB: Stone looks like it did on the CT scan. ?In the expected position. Discussion: I reviewed with her her options which would include primarily ESWL with or without stent versus endoscopy either antegrade or retrograde pending results of access. We also discussed the possibility of simply doing nothing with the stone given the fact that her kidney has already significantly atrophied. I reviewed that the standard approach was to treat the stone in order to spare renal function. After detailed discussion she elected to do nothing. We reviewed the potential risk of obstructive pyelonephritis with sepsis but considered that risk low given her paucity of urinary tract infections over the years. We also reviewed the possibility of further deterioration to the point of the kidney provides no function which leads her to rely on her remaining solitary right kidney. I recommended a BMP today to make sure that her current kidney function is adequate. I've also recommended a follow-up ultrasound and BMP in about 6 months for an opportunity to review where we stand. Certainly she can change her mind at any time. ?She expresses good understanding of my detailed explanations as to the somewhat atypical nature of this decision. She just does not want to undergo any surgical procedures she has to. ?Would be willing though if she has to spare the kidney for whatever function remains This hospital stay initiated on 12/12/22 for LE DVT and anemia. Noted to have an increase in baseline Cr of 1.2-1.4 up to 1.6. No acute renal colic. Stone protocol CT revealed the known LEFT UPJ stone and some progressive atrophy but showed in addition a NEW RIGHT UPJ STONE WITH OBSTRUCTION AND 2 SMALLER RIGHT DISTAL URETERAL STONES. Urology consult requested. She denies any pain or typical renal colicky type symptoms. No gross hematuria. Still has good urine output. We had a long conversation regarding the findings. Discussed the difference between this stone causing the obstruction and her prior stone and that previously she had a backup kidney that was working well and now she has none. Also discussed the 2 lower ureteral stones as being potentially target for treatment as well. Treatment options reviewed including doing nothing, stent placement, uret eroscopy, laser, ESWL. Obviously with her on blood thinners ESWL would not be a reasonable option at this point but certainly a stent possible ureteroscopy would. My recommendation was as follows: 1. Cystoscopy, RIGHT: Retrograde, stent, possible ureteroscopy/laser. 2. The primary goal be to place a stent, if easily accessible a secondary goal be to remove the distal ureteral stones. 3. If the wire cannot easily bypassed the stone it may require flexible ureteroscopy rigid ureteroscopy to see if direct visualization may improve that possible laser. 4. Reviewed delayed treatment after her DVT is stabilized and consider ESWL versus endoscopy based on ability to hold blood thinners etc. She asked very good questions and seemed content with my answers and gave informed consent to proceed with the above. We will add her to the schedule tomorrow morning. Review of Systems Const: Denies: fever(s) or chills Eyes: Denies: change in vision or yellow eyes ENMT: Denies: hoarseness Card: Denies: chest pain or palpitations Resp: Denies: dyspnea or productive cough GI: Denies: abdominal pain, nausea or vomiting : Denies: flank pain, dysuria or hematuria Musc: Reports: back pain (Chronic. Musculoskeletal type), extremity swelling (Right lower extremity) and other Skin/Breast: Reports: sores (Right luz mid lower leg) Neuro: Denies: Slurred speech present or difficulty communicating thoughts Psych: Reports: depression (Some mild depression with recent loss of her son. Seems to be adapting ) Endo: Denies: flushing Juan/Lymph: Reports: easy bruising and easy bleeding All/Imm: Denies: urticaria or acute wheezing Medications/Allergies Home Medications Medication Instructions Recorded Confirmed Last Taken Type amlodipine 5 mg tablet 5 mg PO DAILY #90 tabs 07/10/21 12/12/22 12/12/22 Rx Prevagen 1 cap PO DAILY 05/27/22 12/12/22 12/12/22 History ascorbic acid (vitamin C) 500 mg 500 mg PO DAILY 05/27/22 12/12/22 12/12/22 History tablet (Vitamin C) vitamin E 100 unit capsule 100 unit PO DAILY 05/27/22 12/12/22 12/12/22 History benazepril 10 mg tablet 10 mg PO DAILY #90 tabs 07/06/22 12/12/22 12/12/22 Rx tramadol 50 mg tablet 100 mg PO TID PRN pain 30 days 11/13/22 12/12/22 12/12/22 Rx #180 tabs apixaban 5 mg tablet (Eliquis) 5 mg PO BID #60 tabs 12/09/22 12/12/22 12/12/22 Rx cephalexin 500 mg capsule 500 mg PO BID 10 days #20 caps 12/09/22 12/12/22 12/12/22 Rx calcium carbonate 750 1 tab PO Q4H PRN Acid Reflux 12/12/22 12/12/22 Unknown History mg-simethicone 80 mg chewable tablet (Paige-[place]agan Heartburn-Gas) Allergies Allergy/AdvReac Type Severity Reaction Status Date / Time celecoxib [From Celebrex] Allergy kidney Verified 12/12/22 16:50 issue fluticasone Allergy unknown Verified 12/12/22 16:50 [From Advair Diskus] Penicillins Allergy unknown Verified 12/12/22 16:50 salmeterol Allergy unknown Verified 12/12/22 16:50 [From Advair Diskus] Sulfa (Sulfonamide Allergy unknown Verified 12/12/22 16:50 Antibiotics) acetaminophen [From Tylenol] AdvReac Mild rash Verified 12/12/22 16:50 naproxen [From Aleve] AdvReac Mild RASH Verified 12/12/22 16:50 Current Medications Generic Name Dose Route Start Last Admin Trade Name Freq PRN Reason Stop Dose Admin Bacitracin 1 each 12/12/22 21:00 12/13/22 21:21 Bacitracin Ointment Pkt TOPICAL 1 each TID TANJA Administration Protocol Enoxaparin Sodium 60 mg 12/13/22 18:00 12/14/22 05:29 Enoxaparin 100 Mg/Ml Syringe 1 mg/kg (60 mg) 60 mg SUBCUT Administration Q12H [facility] Ferrous Gluconate 324 mg 12/13/22 18:00 12/13/22 17:13 Ferrous Gluconate 324 Mg Tablet PO 324 mg BIDWM TANJA Administration Vancomycin HCl 750 mg/ Sodium 250 mls @ 250 mls/hr 12/12/22 21:00 12/12/22 23:11 Chloride IV Infused Q36H TANJA Infusion Aztreonam 1,000 mg/ Sodium 50 mls @ 100 mls/hr 12/12/22 22:00 12/14/22 10:51 Chloride IV Infused Q12H TANJA Infusion Sodium Chloride 1,000 mls @ 30 mls/hr 12/14/22 08:00 12/14/22 09:04 Sodium Chloride 0.9% IV Infused .Q24H TANJA Infusion Nicotine 1 patch 12/13/22 16:30 12/13/22 16:42 Nicotine 21 Mg Patch TRANSDERMA 1 patch DAILY TANJA Administration Ondansetron HCl 4 mg 12/12/22 20:35 12/13/22 11:53 Ondansetron 2 Mg/Ml Sdv 2 Ml IVP 4 mg Q6H PRN Administration NAUSEA AND VOMITING Pantoprazole Sodium 40 mg 12/14/22 09:02 12/14/22 10:[address] 40 Mg Tablet PO 40 mg DAILY TANJA Administration Senna/Docusate Sodium 1 tab 12/13/22 09:00 12/13/22 09:27 Sennosides-Docusate Tablet PO 1 tab DAILY TANJA Administration Tramadol HCl 50 mg 12/13/22 16:12 12/14/22 10:04 Tramadol 50 Mg Tablet PO 50 mg Q6H PRN Administration MODERATE PAIN PFSH Acute PFSH: Medical History Anemia Balance problem Benign essential HTN Bilateral ureteral calculi Chronic hip pain, bilateral Chronic kidney disease, stage 3 COPD (chronic obstructive pulmonary disease) Gastric ulcer with hemorrhage and obstruction Lumbar disc disease with radiculopathy MRSA carrier Surgical History H/O: hysterectomy History of appendectomy History of cholecystectomy History of tonsillectomy and adenoidectomy Family History Other CAD (coronary artery disease) Stroke Social History Smoking and tobacco status: never smoked Alcohol intake: never Female Reproductive History: Spontaneous abortions: No Vitals/I&O/Wt Last Vital Signs Temp 7.4 F L 12/14/22 11:55 Pulse 79 12/14/22 11:55 Resp 16 12/14/22 11:55 BP 128/65 12/14/22 11:55 Pulse Ox 95 12/14/22 11:55 O2 Del Method 12/14/22 08:26 O2 Flow Rate 3 12/14/22 08:19 12/14/22 12/14/22 12/14/22 06:59 14:59 22:59 Intake Total 690 / 690 Balance 690 / 690 Weight last 48 hrs Weight 143 lb Physical Exam Const: COMMON NORMALS: no acute distress, alert and well nourished GENERAL APPEARANCE: well kempt and well developed ORIENTATION/CONSCIOUSNESS: not confused HENMT: COMMON NORMALS: normocephalic HEAD & SCALP: normal to inspection and normocephalic Eye: COMMON NORMALS: conjunctivae normal and no scleral icterus CONJUNCTIVA: Yes conjunctivae normal Neck/C-Spine: GENERAL: Yes normal visual inspection Resp: COMMON NORMALS: normal respiratory effort EFFORT & INSPECTION: Yes able to speak in complete sentences, No labored and No Actively coughing Cardio: COMMON NORMALS: regular rate and regular rhythm RATE: regular rate RHYTHM: regular rhythm GI: COMMON NORMALS: Normal to inspection, nondistended, normoactive bowel sounds present, Soft to palpation and no masses PALPATION: Yes Soft to palpation : COMMON NORMALS: Yes no CVA tenderness BLADDER/KIDNEY EXAM: Yes no CVA tenderness OTHER: CVA tenderness. Bladder nondistended. Back/Pelvis: COMMON NORMALS: no CVA tenderness Extremity: OTHER: Right lower extremity moderately swollen compared to the left. Some edema, pitting Neuro: COMMON NORMALS: no focal motor deficits SENSORIUM/ORIENTATION: Yes alert Psych: COMMON NORMALS: mental status grossly normal APPEARANCE: Yes grossly normal and Yes well kempt ATTITUDE: Yes calm and Yes engaged Skin: COMMON NORMALS: no jaundice Data 12/14/22 05:00 12/14/22 05:00 Micro: Microbiology 12/13/22 17:15 MRSA Culture - Final Nose 12/12/22 14:30 Blood Culture - Preliminary Blood NEGATIVE TO DATE 12/12/22 14:30 Blood Culture - Preliminary Blood NEGATIVE TO DATE A&P Assessment and plan (1) Bilateral ureteral calculi: (2) Bilateral ureteral obstruction: (3) Bilateral hydronephrosis: (4) Deep vein thrombosis of lower extremity: (5) Chronic kidney disease, stage 3: Qualifiers: Chronic kidney disease stage 3 subtype: stage 3a (GFR 45-59) Qualified Code(s): N18.31 - Chronic kidney disease, stage 3a (6) Renal atrophy, left: (7) Renal calculi: Plan See HPI. We will add to the schedule for tomorrow for a cystoscopy retrograde stent placement possible ureteroscopy laser. Consult Attestations Medical Necessity Statement: Bilateral ureteral obstruction secondary to stones. Left side chronic, right side new. Further deterioration of chronic kidney disease. Compounded by DVT Coding Level of Care Code Acute Code for Chg Fwd Diagnoses Bilateral ureteral calculi N20.1 Bilateral ureteral obstruction N13.5 Bilateral hydronephrosis N13.30 Deep vein thrombosis of lower extremity I82.409 Chronic kidney disease, stage 3 N18.31 Chronic kidney disease stage 3 subtype: stage 3a (GFR 45-59) Renal atrophy, left N26.1 Renal calculi N20.0 Time Spent (min) 70 Comment Current chart review, film review, old record review, >50% FTF counseling, documentation
[2022-12-14] MEDS: ferrous gluconate 324 mg Tablet PO (17:31)
[2022-12-14] MEDS: FUROsemide 40 mg Tablet PO (17:31)
[2022-12-14] MEDS: acetaminophen 500 mg Tablet PO (21:01)
[2022-12-15] VITALS (13 sets, daily range): BP systolic 103–202; BP diastolic 51–88; PULSE 58–79; RESP 14–18; TEMP 36.1–37.1; O2SAT 95–100
[2022-12-15 03:51] LABS: Basophils % 0.1 %; Eosinophils % 0.1 %; Hematocrit 25.7 % (37.0-47.0); Hemoglobin 7.3 g/dL (11.5-15.3); Lymphocytes # 1.5 10^3/uL (0.8-4.8); Mean Corpuscular HGB Conc 28.4 g/dL (30.0-36.0); Mean Corpuscular Hemoglobin 21.2 pg (28.0-34.0); Mean Corpuscular Volume 74.7 fl (81-99); Mean Platelet Volume 10.2 fL (7.4-10.4); Monocytes # 0.4 10^3/uL (0.2-0.9); Monocytes % 4.5 %; Neutrophils # 6.69 10^3/uL (1.8-7.7); Neutrophils % 77.1 %; Nucleated Red Blood Cells % 0 %; Platelet Count 220 10^3/cmm (130-400); Red Blood Count 3.44 10^6/uL (4.1-5.3); Red Cell Distribution Width 21.3 % (12.1-15.1); White Blood Count 8.7 10^3/uL (4.0-10.0)
[2022-12-15 04:12] LABS: Vancomycin Random 7.7 ug/mL (20.0-40.0)
[2022-12-15 04:13] LABS: Alanine Aminotransferase 12 U/L (0-33); Albumin Level 2.5 g/dL (3.5-5.2); Alkaline Phosphatase 69 U/L (35-105); Anion Gap 11.6 (5-19); Aspartate Amino Transferase 21 U/L (0-32); Blood Urea Nitrogen 23 mg/dL (8-23); Carbon Dioxide 25 mmol/L (22-29); Chloride 99 mmol/L (98-107); Globulin 2.8 g/dL (1.3-4.6); Glucose 77 mg/dL (65-115); Osmolality Calculated 276 mOsm/kg (285-295); Potassium 3.6 mmol/L (3.5-5.1); Sodium 132 mmol/L (136-145); Total Bilirubin 0.2 mg/dL (0.15-1.2); Total Protein 5.3 g/dL (6.6-8.7)
[2022-12-15] MEDS: sodium chloride 0.9% 1,000 ML 30 ML IV (07:40)
--- NOTE | 2022-12-15 07:46 | ANES.PAUD2 ---
Pre-Anesthetic Update Pre-Anesthetic Assessment: Date of Surgery/Procedure: 12/15/22 Proposed Procedure: Operation Date: 12/14/22 08:00 Proposed Procedures p EGD/Colonoscopy(Not Applicable) - Martell Edwards DO Operation Date: 12/15/22 11:50 Proposed Procedures p Cystoscopy with possible right retrograde stent,possible ureteroscopy,laser(Right) - Peter Donovan MD Any changes to Pre-Anesthetic Assessment?: No Last Intake: Intake Last Liquid Date 12/14/22 Last Liquid Time 20:00 Last Solid Date 12/14/22 Last Solid Time 18:00 Labs Last 48hrs: Short CBC 12/13/22 12/14/22 12/15/22 Range/Units 18:31 05:00 03:32 WBC 20.8 H 11.2 H 8.7 (4.0-10.0) 10^3/ uL Hgb 8.5 L 7.6 L 7.3 L (11.5-15.3) g/dL Hct 30.2 L 26.8 L 25.7 L (37.0-47.0) % MCV 74.9 L 75.1 L 74.7 L (81-99) fl Plt Count 285 D 200 220 (130-400) 10^3/c mm Neut % (Auto) 93.2 88.3 77.1 % Neut # (Auto) 19.40 H 9.90 H 6.69 (1.8-7.7) 10^3/u L BMP 12/13/22 12/14/22 12/15/22 18:31 05:00 03:32 Sodium 133 L 127 L 132 L Potassium 4.8 4.1 3.6 Chloride 98 93 L 99 Carbon Dioxide 22 26 25 BUN 20 21 23 Creatinine 1.3 H 1.6 H 1.9 H Glucose 130 H 74 77 Calcium 9.8 9.1 8.0 L Liver Function 12/14/22 12/15/22 Range/Units 05:00 03:32 Total Bilirubin 0.3 0.2 (0.15-1.2) mg/dL AST 26 21 (0-32) U/L ALT 13 12 (0-33) U/L Alkaline Phosphata se 101 69 (35-105) U/L Albumin 2.8 L 2.5 L (3.5-5.2) g/dL Blood Bank 12/12/22 14:30 Blood Type B Positive Rho(D) Type Positive Antibody Screen Negative Vitals: Temperature 97.6 F 12/15/22 07:43 Temperature Source Temporal Artery S can 12/15/22 07:43 Pulse Rate 58 L 12/15/22 07:43 Pulse Rhythm 12/12/22 19:40 Respiratory Rate 18 12/15/22 07:43 Respiratory Effort Non-Labored 12/14/22 20:00 Respiratory Depth Shallow 12/14/22 20:00 Respiratory Patter n 12/14/22 20:00 Blood Pressure 174/63 12/15/22 07:43 Blood Pressure Juany n 100 12/15/22 07:43 Blood Pressure Pos ition Semi Fowlers 12/15/22 04:00 Pulse Oximetry 100 12/15/22 07:43 Oxygen Delivery Me thod 12/15/22 07:43 Oxygen Flow Rate 3 12/14/22 08:19 Sepsis Recent Feve r Within 48 Hours No 12/12/22 14:54 Sepsis New/Unexpla ined Change in Men gaby Status No 12/12/22 13:35 Exam: Pre-Anes Outpt Exam: alert, oriented x 3, clear to auscultation bilaterally and regular rate & rhythm Cardiac Studies: Echocardiogram 12/13/22
[2022-12-15] MEDS: iohexol 350 mg/mL 100 mL Btl 50 ML XX (08:30)
--- NOTE | 2022-12-15 09:03 | PM.OP ---
Operative Report Date of procedure: December 15, 2022 Pre-op diagnosis: 1. Multiple right distal ureteral stones with obstruction 2. Large right proximal obstructing ureteral stone 3. Chronic kidney disease with acute kidney injury from obstructive uropathy Post-op diagnosis: 1. Multiple right distal ureteral stones with obstruction 2. Large right proximal obstructing ureteral stone 3. Chronic kidney disease with acute kidney injury from obstructive uropathy Procedure done: 1. Cystoscopy, RIGHT retrograde ureteropyelogram 2. Right ureteroscopic laser lithotripsy multiple right distal ureteral stones/right ureteral stent Implants: Right ureteral stent (7 [place] by 2 6 cm double-pigtail without string) Specimens removed/disposition: Stone fragments Pathology: Stone fragments Surgeon: Venus Estimated blood loss: Minimal Complications: None Findings: Anesthesia: General Condition: Stable Disposition: PACU Intraoperative findings: 3 stones in the right distal ureter all completely fragmented with laser litho to Large right UPJ stone manipulated with guidewire and stent into the renal pelvis 7 [place] by 26 cm double-pigtail stent left indwelling, no string Brief History: Julia is a very pleasant 82-year-old white female with known chronic left ureteral atrophy secondary to chronic obstructing left proximal/UPJ stone for which she chose about 5 years ago to have no treatment. Has had no significant consequence of that until this admission where she was found to have a large right proximal ureteral stone obstructing and 2 or 3 stones in the right distal ureter also causing obstruction. He was presumed that the smaller stones had passed into the ureter creating dilation which freed up the bigger stone to lodged in the proximal ureter. She was not really experiencing any significant renal colic Her creatinine which was running a baseline of 1.1 had increased to 1.6 yesterday and 1.9 today and ultimately was decided to intervene with endoscopy. Complicated further by chronic anticoagulant therapy. She was diagnosed with a DVT which was the reason why she actually was admitted. She was maintained on anticoagulants and taken to the operating room with anticipation of stent placement and if possible treatment of the distal stones and reserve time later for treating the larger renal pelvic stone. Procedure: After urgent evaluation examination and obtaining of informed consent she was taken to the operating suite on 12/16/2022 where general anesthesia was administered without difficulty after appropriate timeout was performed, SCDs confirmed to be functioning, preoperative antibiotics administered, beta-dea protocol confirmed. Prepped and draped in usual sterile fashion in dorsolithotomy position pain careful attention to avoiding pressure points. 21 [place] cystoscope with 30 degree lens was introduced into the urethral meatus and advanced into the bladder to videoscopy. Bladder was systematically examined. There were no stones. An 8 [place] cone-tip catheter was intubated into the right ureteral orifice for RIGHT RETROGRADE URETEROPYELOGRAM demonstratin filling defects consistent with a stone seen on CT scan of the right distal ureter with dilation all the way down to the UVJ. There was a tight blockage of retrograde flow of contrast at the level of the stone it was difficult to manipulate any of the contrast proximal to the stone. She was placed in somewhat Trendelenburg position. A flexible tip guidewire was then advanced up the right ureter thankfully bypassing the large stone pushing it into the renal pelvis. A second guidewire was passed. The first secured to the drapes as a safety wire the second used as a working wire and the distal ureter was dilated with a 15 [place] 4 cm balloon with no waist at 6 vidhya of pressure. A 24 cm ureteral access sheath was then easily advanced up the right ureter to the level of the stones. The wire and inner sheath were removed and a 7 [place] offset semirigid ureteroscope was passed up the right ureter and one by one the 3 stones were fragmented with a 365 ?m thulium superpulse laser fiber into mostly sand. A basket was utilized to remove what could be secured. On final passage the ureter was in good shape. No substantial fragments were identified with proximal passage of the scope. No migration proximally Cystoscope was then backloaded over the guidewire and a 7 [place] by 26 cm ureteral stent was advanced over the guidewire through the cystoscope into appropriate position as confirmed via fluoroscopy and cystoscopy. No string. Stent was confirmed to be functioning. Bladder was drained. Procedure completed. She tolerated procedure well without complications and was awakened in the operating room and returned to the cover room in stable condition. PLANS: 1. Maintain right ureteral stent until safe to consider additional treatment including ESWL which would require holding her anticoagulants for a short period of time or considering endoscopic treatment of the stone after DVT is stabilized
--- NOTE | 2022-12-15 09:18 | PC.NURSE ---
Attempted to call report at this time. Nurse was unavailable at this time due to being in a meeting per UC. UC reported nurse would be out in just a few minutes. Will call again in 5 minutes to give report.
--- NOTE | 2022-12-15 10:28 | PC.CHAP ---
Pastoral Care Encounter/Spiritual Assessment Type of Contact [] Declined environmental adviser visit [] Patient/Family/Request visit [] Outpatient visit [] Follow-up visit [] Physician referral [] Code/Alert [x] Routine visit [] Staff referral [] Actively dying [] Patient sleeping [] Family support [] [] Out of room [] Palliative care [] [] Receiving care in room [] Pre-surgical visit [] Trauma [] Long length of stay [] ICU visit [] Other: Relational/Emotional Strength [x] Patient feels connected with others/family/visitors/staff [] Distress [] Loneliness/isolation [] Abandonment Spirituality of Patient [x] Person of Annalisa [] Attends Pentecostal of their Annalisa [x] Believes in Prayer [] Reads Bible or Anabaptist materials [] There are Spiritual issues to be addressed Companion Interventions [x] Prayer [] Active listening [] Non-anxious presence [x] Spiritual/emotional support [] Crisis/trauma care [] Spiritual counseling [] Bereavement support [] Provided bereavement packet [] Provided Bible/devotional materials [] Provided toy/stuffed animal, coloring book to patient or family member [] Provided Communion [] Anointing/[place] [] Salvation [x] Completed spiritual assessment [] Other: Impact on Illness or Injury [] Angry [] Fearful [] Anxious [] Often cries [] Exhaustion [] Unable to work [] Unable to attend hinduism [] Unable to walk/stand [] Unable to read [] Unable to drive [] Unable to eat/drink [] Unable to sleep [] Unable to be with family [] Patient intubated [] Other: Summary Time spent with patient 5 min
[2022-12-15] MEDS: aztreonam 1,000 MG in sodium chloride 0.9% (plus) 50 ML 100 MG IV ×2 (11:32→22:03)
[2022-12-15] MEDS: sodium chloride 0.9% 1,000 ML 50 ML IV (11:32)
[2022-12-15] MEDS: hyDRALAzine 25 mg Tablet PO (11:33)
--- NOTE | 2022-12-15 15:17 | PM.PN ---
Subjective Subjective: No acute events overnight. Patient underwent cystoscopy, lithotripsy and right ureteral stent placement. Patient tolerated procedure well. Postprocedure patient is lying comfortably in bed. Denies any nausea, vomiting, headache. During the day yesterday blood pressures have been on the higher side for which her antihypertensives were adjusted and today blood pressures are low normal. Patient denies any nausea, vomiting, headache. Looks dehydrated. We again discussed about need for 1 more unit of blood to maintain her hemoglobin over 7-8. Patient would like to think further before making decision. We also discussed about antidepressants given ongoing depression deferred secondary to recent stressful events. Patient would more think about it before getting on the medication. Vitals/I&O/Wt Last Vital Signs Temp 97.7 F 12/15/22 12:00 Pulse 62 12/15/22 12:00 Resp 15 12/15/22 12:00 BP 103/66 12/15/22 12:00 Pulse Ox 97 12/15/22 12:00 O2 Del Method 12/15/22 12:00 O2 Flow Rate 3 12/15/22 09:10 12/15/22 12/15/22 12/15/22 06:59 14:59 22:59 Intake Total 170 / 170 Output Total 0 / 0 Balance 170 / 170 Physical Exam Narrative: General: No acute distress, AO x3, depressed, anxious HEENT: PERRLA, pupils bilaterally equal and reactive Chest: Normal vesicular breath sounds, no added sounds, equal good air entry bilaterally CVS: S1-S2 regular, no murmurs, no tachycardia, no gallops, no rubs Abdomen: Soft, nontender, no organomegaly, bowel sounds present Neuro: No focal deficits, no facial deformity, AO x3, power 5/5 in all limbs Extremity: Right lower limb edematous, tender, erythematous with open wound with purulent discharge at the luz at mid lower leg level. Data 12/15/22 03:32 12/15/22 03:32 Micro: Microbiology 12/13/22 17:15 MRSA Culture - Final Nose A&P Assessment and plan (1) Cellulitis: Appreciate CRP and CT lower limb results. Negative for abscess but can concerning for a possible fluid collection which seems to be draining through the open wound. Continue with vancomycin and meropenem. Plan to continue 7 to 10-day course of antibiotics. On discharge will transition to oral. Blood cultures so far negative. MRSA positive. (2) Deep vein thrombosis of lower extremity: Seen on lower limb Dopplers. EGD and colonoscopy negative for any active bleeding. Hemoglobin stable. Continue with Lovenox 1 mg/kg body weight every 12 hourly. Most likely will like to transition patient to oral Eliquis on discharge. (3) Acute on chronic anemia: Post 1 unit blood transfusion. Possibly in setting of iron deficiency anemia along with CKD. Appreciate surgical recommendations. EGD and colonoscopy negative for any active signs of bleeding. Vitamin B12 and folate levels within normal limits. Continue with Protonix 40 mg daily, Carafate before meals and at bedtime. Continue with oral iron supplementation. Patient would benefit with 1 more unit of transfusion. Patient would like to discuss it further with his family before getting the unit. We will continue to follow. (4) CKD (chronic kidney disease): Baseline creatinine 1.4-1.5. Creatinine slightly elevated today. 1.9. Medical reconciliation done for nephrotoxic drugs. Continue to monitor BMP daily. Start on IV fluids with normal saline at 50 cc/h. Recheck urine lites, urinalysis. (5) Renal calculi: (6) Hydronephrosis with renal and ureteral calculus obstruction: Care discussed in detail with Dr. Donovan. Post cystoscopy with right-sided lithotripsy and right ureteral stent placement. We will continue to monitor. (7) Benign essential HTN: Goal blood pressure less than 140/90 mmHg. Blood pressure elevated. Renal functions worsening. Stop lisinopril. Continue with amlodipine 10 mg oral daily. Add hydralazine 25 mg twice daily. (8) MRSA carrier: Plan CODE STATUS: Discussed in detail with the patient. DNI/DNR. States she lost her son earlier this month and if it comes to it she does not want to prolong her suffering and would want to be comfortable. Regular diet, NPO after midnight. Protonix for PUD prophylaxis Full dose Lovenox will suffice for DVT prophylaxis. Attestations Medical Necessity Statement*: Requires further hospitalization for management of right obstructive nephropathy, post ureteral stent placement and lithotripsy, iron deficiency anemia with DVT and DANIEL Diagnoses Cellulitis L03.90 Deep vein thrombosis of lower extremity I82.409 Acute on chronic anemia D64.9 CKD (chronic kidney disease) N18.9 Renal calculi N20.0 Hydronephrosis with renal and ureteral calculus obstruction N13.2 Benign essential HTN I10 MRSA carrier Z22.322
[2022-12-15] MEDS: bacitracin ointment Pkt 1 EACH TOPICAL (18:47)
[2022-12-15] MEDS: enoxaparin 100 mg/mL Syringe 60 MG SUBCUT (18:48)
[2022-12-15] MEDS: ferrous gluconate 324 mg Tablet PO (18:48)
[2022-12-15] MEDS: vancomycin 750 MG in sodium chloride 0.9% 250 ML 250 MG IV (20:30)
[2022-12-15] MEDS: bacitracin ointment 28 gm 1 APPLIC TOPICAL (20:46)
[2022-12-15] MEDS: temazepam 15 mg Capsule PO (22:27)
[2022-12-16 04:00] VITALS: BP 178/82; PULSE 62; RESP 17; TEMP 37; O2SAT 99
[2022-12-16] MEDS: ondansetron 2 mg/ML SDV 2 mL 4 MG IVP (05:15)
[2022-12-16] MEDS: enoxaparin 100 mg/mL Syringe 60 MG SUBCUT (05:15)
[2022-12-16 05:24] LABS: Basophils % 0.1 %; Eosinophils % 0.1 %; Hematocrit 27.9 % (37.0-47.0); Hemoglobin 7.8 g/dL (11.5-15.3); Lymphocytes # 1.4 10^3/uL (0.8-4.8); Lymphocytes % 12.3 %; Mean Corpuscular Hemoglobin 21.2 pg (28.0-34.0); Mean Corpuscular Volume 75.8 fl (81-99); Mean Platelet Volume 10.6 fL (7.4-10.4); Monocytes # 0.5 10^3/uL (0.2-0.9); Monocytes % 4.8 %; Neutrophils # 8.96 10^3/uL (1.8-7.7); Neutrophils % 81.8 %; Nucleated Red Blood Cells % 0 %; Platelet Count 239 10^3/cmm (130-400); Red Blood Count 3.68 10^6/uL (4.1-5.3); Red Cell Distribution Width 21.9 % (12.1-15.1)
[2022-12-16 05:41] LABS: Albumin Level 2.5 g/dL (3.5-5.2); Alkaline Phosphatase 61 U/L (35-105); Blood Urea Nitrogen 24 mg/dL (8-23); Calcium 7.8 mg/dL (8.5-10.5); Carbon Dioxide 24 mmol/L (22-29); Chloride 105 mmol/L (98-107); Globulin 3.1 g/dL (1.3-4.6); Glucose 75 mg/dL (65-115); Osmolality Calculated 293 mOsm/kg (285-295); Sodium 140 mmol/L (136-145); Total Bilirubin 0.2 mg/dL (0.15-1.2); Total Protein 5.6 g/dL (6.6-8.7)
[2022-12-16 05:43] LABS: Anion Gap 14.7 (5-19)
[2022-12-16 05:44] LABS: Alanine Aminotransferase 14 U/L (0-33); Aspartate Amino Transferase 32 U/L (0-32); Potassium 3.7 mmol/L (3.5-5.1)
[2022-12-16 05:58] LABS: Slide Review Slide Review Perform
[2022-12-16 06:06] LABS: Vancomycin Random 14.3 ug/mL (20.0-40.0)
[2022-12-16 07:34] VITALS: BP 166/79; PULSE 57; RESP 16; TEMP 36.9; O2SAT 99
[2022-12-16 08:23] VITALS: PULSE 59; O2SAT 98
[2022-12-16] MEDS: pantoprazole DR 40 mg Tablet PO (09:52)
[2022-12-16] MEDS: ferrous gluconate 324 mg Tablet PO (09:52)
--- NOTE | 2022-12-16 10:29 | PM.DCS ---
Discharge Providers Date of Admission: 12/13/22 11:24 Date of Discharge: December 16, 2022 Attending Provider at Admission: Eveline Millard MD Attending Provider at Discharge: Horacio Childers MD Consults: Surgery: Dr. Edwards Urology: Dr. Donovan Primary Care Provider: Ramirez Rush DO Diagnoses at Discharge Discharge Diagnosis (1) Cellulitis: Status: Acute (2) Deep vein thrombosis of lower extremity: Status: Acute (3) Acute on chronic anemia: Status: Acute (4) CKD (chronic kidney disease): Status: Acute (5) Renal calculi: Status: Acute (6) Hydronephrosis with renal and ureteral calculus obstruction: Status: Deleted (7) Benign essential HTN: Status: Inactive (8) MRSA carrier: Status: Inactive Reason for Visit Reason for Visit: BLOOD CLOT LOWER R LEG Brief History: History as per HPI: Julia Ballard is a 82 year old female who has history of gastric ulcers, she was treated in [place] 10+ years ago, has chronic kidney disease, lives alone at home, takes care of her daily activities presented with chief complaint of worsening of right leg swelling, patient injured her right leg about 2 weeks ago when she was taking stairs, there was a scab which gotten worse over the period of time, she has not noticed any fever, nausea, vomiting but she has noticed that swelling of her right leg has been getting worse, she was seen in the ER on 12/09 when she was diagnosed with right leg DVT she was given Eliquis despite anemia along antibiotics, she is coming back because of worsening of her swelling and not being able to take care of herself. Hemoglobin is 6.8, we have requested 1 unit PRBC, will request FOBT, most likely she will need EGD and colonoscopy she is not a good candidate for anticoagulation We will request echo Patient is agreeable for echo and EGD colonoscopy, she is DNI/DNI goals of care discussed with the patient Hospital Course Hospital Course Patient was admitted to the hospital further evaluation and management of lower limb DVT. On admission she was not started on anticoagulation as she was found to be extremely anemic. Stool for occult blood positive for blood. She was seen by surgery and underwent EGD and colonoscopy which were found to be normal limits. Further blood work showed severe iron deficiency anemia. She received unit of blood transfusion. She was due for another unit but patient refused. Right lower limb was also concerning for cellulitis with open wound with purulent discharge at the right luz. Right lower limb CT was done which ruled out osteomyelitis or abscess collection. She was started on broad-spectrum IV antibiotics which were later transitioned to oral antibiotics. Patient was also found to be in CKD for which CT abdomen pelvis was done which ruled in obstructive nephropathy with renal calculi at UPJ junction on right side. Urology was consulted and she underwent cystoscopy, ESWL and right ureteral stent placement. She tolerated the procedure well. With gentle IV hydration patient's renal functions are back to baseline. During hospitalization patient refused multiple modalities of treatment and seems depressed given social stressors with some passing away within last 1 month. Patient was advised to start on antidepressants but she refused. She has been discharged home in hemodynamically stable condition with advised to follow-up with primary care provider within next 1 week. She has been started back on anticoagulation for DVT with Eliquis 5 mg twice daily. She is to repeat CBC with primary care provider at next 1 week. She is to continue taking Protonix twice daily at home. Her antihypertensives has been adjusted as well. She is to check her blood pressure daily at home maintain a blood pressure diary and follow-up with a primary care provider for further adjustment of antihypertensives. Home health has been arranged. Patient is to follow-up with urology and set appointment. Physical Exam Narrative: General: No acute distress, AO x3, depressed, HEENT: PERRLA, pupils bilaterally equal and reactive Chest: Normal vesicular breath sounds, no added sounds, equal good air entry bilaterally CVS: S1-S2 regular, no murmurs, no tachycardia, no gallops, no rubs Abdomen: Soft, nontender, no organomegaly, bowel sounds present Neuro: No focal deficits, no facial deformity, AO x3, power 5/5 in all limbs Extremity: Right lower limb edematous, tender, erythematous with open wound with purulent discharge at the luz at mid lower leg level. Discharge Data Studies Completed and Pending Completed Studies During Hospitalization Category Date Time Status CT abdomen pelvis wo con [id number] Routine Cat Scan 12/13/22 11:[address] lower leg RT wo con* [id number] Routine Cat Scan 12/13/22 11:56 Completed CV. echo complete* [id number] Stat Ultrasound 12/13/22 06:00 Completed Pending at discharge Category Date Time Status Blood Culture Stat Lab 12/12/22 14:30 Results Occult Blood Stool [Immunochemical Fecal OCB] Routine Lab 12/12/22 20:35 Uncollected Stone Analysis Stat Lab 12/15/22 07:00 Received Urinalysis Routine Lab 12/15/22 15:07 Uncollected Urine Creatinine Routine Lab 12/15/22 15:07 Uncollected Urine Lytes [Urine Random Lytes] Routine Lab 12/15/22 15:07 Uncollected Pathology: Surgical [PTH] Routine Pth 12/15/22 09:15 Received Radiology Impressions Lower Extremity CT 12/13/22 11:56 IMPRESSION: Soft tissue cellulitis. Abdomen/Pelvis CT 12/13/22 11:59 IMPRESSION: 1. There is an 8 mm x 6 mm calculus in the proximal right ureter. Several smaller calculi are present in the distal right ureter with obstructive changes as described above. 2. There is an extrarenal pelvis on the left containing a 17 mm calculus. No evidence for left hydroureter. 3. There is fluid in the distal esophagus consistent with reflux. 4. Edema is in the subcutaneous soft tissues surrounding the abdomen and pelvis. Echocardiogram: CONCLUSIONS ?Normal left ventricular systolic function and wall thickness, ?with no regional wall motion abnormalities.? Normal left ?ventricular wall thickness. Normal diastolic filling pattern.? ?Mildly increased left ventricular diastolic volume. ?Severely increased left atrial volume. Mildly increased left ?atrial area. ?Structurally normal mitral valve without significant stenosis or ?prolapse.? There ismild to moderate mitral regurgitation.? ?Structurally normal tricuspid valve without significant ?stenosis.? Mild regurgitation.? Pulmonary artery systolic ?pressure is elevated 41-46 mm Hg.? ?The inferior vena cava appears dilated and non compressible ?suggesting increased central venous pressure/volume overload. ?Milton Masterson MD ?(Electronically Signed) ?Final Date:? ? ? 14 December 2022 ? 17:12 S Laboratory Results WBC 11.0 10^3/uL (4.0-10.0) H 12/16/22 05:00 RBC 3.68 10^6/uL (4.1-5.3) L 12/16/22 05:00 Hgb 7.8 g/dL (11.5-15.3) L 12/16/22 05:00 Hct 27.9 % (37.0-47.0) L 12/16/22 05:00 MCV 75.8 fl (81-99) L 12/16/22 05:00 MCH 21.2 pg (28.0-34.0) L 12/16/22 05:00 MCHC 28.0 g/dL (30.0-36.0) L 12/16/22 05:00 RDW 21.9 % (12.1-15.1) H 12/16/22 05:00 Plt Count 239 10^3/cmm (130-400) 12/16/22 05:00 MPV 10.6 fL (7.4-10.4) H 12/16/22 05:00 Neut % (Auto) 81.8 % 12/16/22 05:00 Lymph % (Auto) 12.3 % 12/16/22 05:00 Sheridan % (Auto) 4.8 % 12/16/22 05:00 Eos % (Auto) 0.1 % 12/16/22 05:00 Baso % (Auto) 0.1 % 12/16/22 05:00 Neut # (Auto) 8.96 10^3/uL (1.8-7.7) H 12/16/22 05:00 Lymph # (Auto) 1.4 10^3/uL (0.8-4.8) 12/16/22 05:00 Sheridan # (Auto) 0.5 10^3/uL (0.2-0.9) 12/16/22 05:00 Eos # (Auto) 0.0 10^3/uL (0.0-0.8) 12/16/22 05:00 Baso # (Auto) 0.0 10^3/uL (0.0-0.1) 12/16/22 05:00 Nucleated RBC % (auto) 0 % 12/16/22 05:00 Nucleated RBCs # 0.0 /100WBC 12/16/22 05:00 Sodium 140 mmol/L (136-145) 12/16/22 05:00 Potassium 3.7 mmol/L (3.5-5.1) 12/16/22 05:00 Chloride 105 mmol/L (98-107) 12/16/22 05:00 Carbon Dioxide 24 mmol/L (22-29) 12/16/22 05:00 Anion Gap 14.7 (5-19) 12/16/22 05:00 BUN 24 mg/dL (8-23) H 12/16/22 05:00 Creatinine 1.8 mg/dL (0.5-0.9) H 12/16/22 05:00 GFR Calculation Not Reportable 12/16/22 05:00 Glucose 75 mg/dL (65-115) 12/16/22 05:00 Estimat Average Glucose 82 12/14/22 05:00 Hemoglobin A1c 4.5 % (4.0-6.0) 12/14/22 05:00 Calculated Osmolality 293 mOsm/kg (285-295) 12/16/22 05:00 Lactic Acid 1.5 mmol/L (0.5-2.2) 12/12/22 14:30 Calcium 7.8 mg/dL (8.5-10.5) L 12/16/22 05:00 Phosphorus 2.3 mg/dL (2.5-4.5) L 12/13/22 03:52 Magnesium 1.7 mg/dL (1.7-2.3) 12/13/22 03:52 Iron 18 ug/dL (37-145) L 12/12/22 14:30 TIBC 264 mcg/dl 12/12/22 14:30 % Saturation 6.8 % (20-50) L 12/12/22 14:30 Unsat Iron Binding 246 ug/dL (112-347) 12/12/22 14:30 Ferritin 50 ng/mL (15-150) 12/12/22 14:30 Total Bilirubin 0.2 mg/dL (0.15-1.2) 12/16/22 05:00 AST 32 U/L (0-32) 12/16/22 05:00 ALT 14 U/L (0-33) 12/16/22 05:00 Alkaline Phosphatase 61 U/L (35-105) 12/16/22 05:00 C-Reactive Protein 66.2 mg/L (0.0-4.9) H 12/13/22 03:52 Total Protein 5.6 g/dL (6.6-8.7) L 12/16/22 05:00 Albumin 2.5 g/dL (3.5-5.2) L 12/16/22 05:00 Globulin 3.1 g/dL (1.3-4.6) 12/16/22 05:00 Vitamin B12 1997 pg/mL (232-1245) H 12/12/22 14:45 Folate > 20.0 ng/mL (4.8-37.3) 12/14/22 05:00 Procalcitonin 0.61 ng/mL (0-0.5) H 12/12/22 14:45 TSH 2.80 uIU/mL (0.27-4.20) 12/13/22 03:52 Random Vancomycin 14.3 ug/mL (20.0-40.0) L 12/16/22 05:00 Blood Type B Positive 12/12/22 14:30 Rho(D) Type Positive 12/12/22 14:30 Antibody Screen Negative 12/12/22 14:30 Crossmatch See Detail 12/12/22 14:30 Vitals Last Vital Signs Temp 98.5 F 12/16/22 07:34 Pulse 59 L 12/16/22 08:23 Resp 16 12/16/22 07:34 BP 166/79 12/16/22 07:34 Pulse Ox 98 12/16/22 08:23 O2 Del Method 12/16/22 08:23 O2 Flow Rate 3 12/16/22 08:00 Discharge Plan Discharge Patient Disposition: Home Health Service Condition: Stable Prescriptions: New amlodipine 5 mg Tablet 10 mg PO DAILY Qty: 60 0RF ferrous gluconate 324 mg (37.5 mg iron) Tablet 324 mg PO BIDWM Qty: 60 0RF hydralazine 25 mg Tablet 25 mg PO BID Qty: 60 0RF pantoprazole 40 mg Tablet,Delayed Release (Dr/Ec) 40 mg PO DAILY Qty: 30 0RF linezolid 600 mg tablet 600 mg PO BID 5 Days Qty: 10 0RF Carafate 1 gram tablet 1 g PO TID PRN (Reason: Gerd) 28 Days Qty: 84 0RF Continued tramadol 50 mg tablet 100 mg PO TID PRN (Reason: pain) 30 Days Qty: 180 0RF Eliquis 5 mg tablet 5 mg PO BID Qty: 60 0RF Paige-Strong Heartburn-Gas 750-80 mg Tablet,Chewable 1 tab PO Q4H PRN (Reason: Acid Reflux) Rx Instructions: do not exceed 6 tabs per 24 hrs vitamin E 100 unit Capsule 100 unit PO DAILY ascorbic acid (vitamin C) [Vitamin C] 500 mg Tablet 500 mg PO DAILY Prevagen 1 cap PO DAILY Discontinued amlodipine 5 mg tablet 5 mg PO DAILY Qty: 90 1RF benazepril 10 mg tablet 10 mg PO DAILY Qty: 90 1RF cephalexin 500 mg capsule 500 mg PO BID 10 Days Qty: 20 0RF Discharge Orders: Discharge Order (Routine); Ordered 12/16/22 Ordered By: Horacio Childers Referrals: [facility] Home Care ([facility]) [Outside] Ramirez Rush DO [Primary Care Provider] - 12/29/22 11:30 am Peter Donovan MD [Physician] - 12/24/22 (Preop visit) Discharge Diet: Usual diet Discharge Activity: Increase activity as tolerated Patient Instructions: Sucralfate (By mouth), Hydralazine (By mouth), Amlodipine (By mouth), Pantoprazole (By mouth), Linezolid (By mouth), GI Discharge Instructions, Opioid Safety Activity Restrictions/Additional Instructions: Recheck CBC and CMP in 1week Urology instructions: 1. We will tentatively plan for endoscopic treatment of the right proximal ureteral stone that was bypassed with a stent on 12/31/2022. That date is subject to change. 2. We will plan on a preop visit on 12/24/2022 to confirm doing well before scheduling the final date 3. You have a stent indwelling. That stent needs to be removed ultimately once the stone has been completely treated. 4. It is normal to see some blood in your urine because of the stent. You will also likely experience some urgency and frequency as well as possibly some right flank pain with voiding. These are also normal. Discharge Attestations Time Spent in Discharge Care*: greater than 30 min Specific Discharge Activities: educating patient, discussing with pcp/other providers, discussing with director of casework department/social workers/dc planners, documenting/other paperwork and evaluating patient/reviewing data Status at Discharge: Cognitive status at discharge: cognitively intact, Behavioral status at discharge: cooperative, Functional status at discharge: uses cane/walker, Overall status at discharge: patient is progressing back to baseline Quality Metrics Clinical Quality Measures [ No reported AMI, CVA or VTE this stay] Coding Level of Care Code 46602 Total time (in minutes) for Discharge: 50 Diagnoses Cellulitis L03.90 Deep vein thrombosis of lower extremity I82.409 Acute on chronic anemia D64.9 CKD (chronic kidney disease) N18.9 Renal calculi N20.0 Hydronephrosis with renal and ureteral calculus obstruction N13.2 Benign essential HTN I10 MRSA carrier Z22.322
[2022-12-16] MEDS: alum-mag-hydroxide-sime 30 mL UDC PO (11:11)
--- NOTE | 2022-12-16 11:27 | PC.SOCIAL ---
IMM Update pg 2 of IMM updated and reviewed w/ patient. Copy provided and copy dated, initialed and placed in chart.
[2022-12-16 12:00] VITALS: BP 165/65; PULSE 62; RESP 17; TEMP 36.8; O2SAT 99
--- NOTE | 2022-12-16 12:46 | PM.PN ---
Subjective Subjective: Urology follow-up: Postop day #1 right retrograde ureteroscopy laser and stent She is doing well. Recovering well. Tolerating the stent reasonably well. No severe bleeding. We discussed the intraoperative findings today. She had 3 stones that were treated with laser. The large obstructing proximal ureteral stone was bypassed with the stent and remains to be treated. Reviewed options including ESWL versus endoscopy and we will tentatively plan for endoscopy to avoid having to stop her anticoagulation in the immediate DVT timeframe. Vitals/I&O/Wt Last Vital Signs Temp 98.3 F 12/16/22 12:00 Pulse 62 12/16/22 12:00 Resp 17 12/16/22 12:00 BP 165/65 12/16/22 12:00 Pulse Ox 99 12/16/22 12:00 O2 Del Method 12/16/22 12:00 O2 Flow Rate 3 12/16/22 08:00 12/15/22 12/16/22 12/16/22 22:59 06:59 14:59 Intake Total 780 / 950 1240 / 1240 Balance 780 / 950 1240 / 1240 Physical Exam Narrative: Alert, oriented, no acute distress HEENT atraumatic normocephalic Neck good range of motion Good range of motion of extremities. Some stiffness of right shoulder Data 12/16/22 05:00 12/16/22 05:00 A&P Assessment and plan (1) Bilateral ureteral calculi: (2) Bilateral hydronephrosis: (3) Bilateral ureteral obstruction: Plan Follow-up next week for preop visit in anticipation of endoscopy/laser lithotripsy of the right proximal ureteral stone on 12/31/2022. Date subjective change. Attestations Medical Necessity Statement*: See attending. Discharged today. Coding Level of Care Code Acute Code for Chg Fwd Diagnoses Bilateral ureteral calculi N20.1 Bilateral hydronephrosis N13.30 Bilateral ureteral obstruction N13.5
[2022-12-23 18:40] LABS: Stone Source RIGHT URETER
== END 2022-12-16 13:07 | disposition home health service (06) | DRG 988 ==
LOC: ER 17:23 → MEDSURG 20:32
PROVIDERS: Surgery; Urology; Admitting Provider Internal Medicine; Emergency Provider Emergency Medicine; PCP Family Medicine; Visit Provider Student in an Organized Health Care Education/Training Program
PROC: 0DJD8ZZ Inspection of Lower Intestinal Tract, Via Natural or Artificial Opening Endoscopic (ICD-10-PCS; CPT 45378; principal; 2022-12-14 08:00)
PROC: 0DJ08ZZ Inspection of Upper Intestinal Tract, Via Natural or Artificial Opening Endoscopic (ICD-10-PCS; CPT 43235; 2022-12-14 08:00)
PROC: 0TJB8ZZ Inspection of Bladder, Via Natural or Artificial Opening Endoscopic (ICD-10-PCS; CPT 52000; principal; 2022-12-15 11:30)
PROC: 0T768DZ Dilation of Right Ureter with Intraluminal Device, Via Natural or Artificial Opening Endoscopic (ICD-10-PCS; CPT 50605; 2022-12-15 11:30)
PROC: 0TJ98ZZ Inspection of Ureter, Via Natural or Artificial Opening Endoscopic (ICD-10-PCS; CPT 52351; 2022-12-15 11:30)
PROC: 0T768DZ Dilation of Right Ureter with Intraluminal Device, Via Natural or Artificial Opening Endoscopic (ICD-10-PCS; 2022-12-15 11:30)
DX: I82.431 Acute embolism and thrombosis of right popliteal vein (principal); L03.115 Cellulitis of right lower limb; N13.2 Hydronephrosis with renal and ureteral calculous obstruction; N17.9 Acute kidney failure, unspecified; I82.451 Acute embolism and thrombosis of right peroneal vein; D50.9 Iron deficiency anemia, unspecified; D63.1 Anemia in chronic kidney disease; R19.5 Other fecal abnormalities; I12.9 Hypertensive chronic kidney disease with stage 1 through stage 4 chronic kidney disease, or unspecified chronic kidney disease; N18.30 Chronic kidney disease, stage 3 unspecified; J44.9 Chronic obstructive pulmonary disease, unspecified; K57.30 Diverticulosis of large intestine without perforation or abscess without bleeding; Z87.11 Personal history of peptic ulcer disease; Z66 Do not resuscitate; Z91.14 Patient's other noncompliance with medication regimen; Z63.4 Disappearance and death of family member; Z22.322 Carrier or suspected carrier of Methicillin resistant Staphylococcus aureus; Z90.49 Acquired absence of other specified parts of digestive tract; Z90.710 Acquired absence of both cervix and uterus
CPT/HCPCS: 36415; 36430; 36569; 43235; 45378; 73700; 74176; 80048; 80053; 80202; 82365; 82607; 82728; 82746; 83036; 83540; 83550; 83605; 83735; 84100; 84145; 84443; 85025; 86140; 86850; 86900; 86920; 87040; 87641; 88300; 93306; 96372; 97110; 97161; 97530; 99285; C9113; G0378; J1100; J1650; J1940; J2370; J2405; J2704; J3010; J3370; J3490; J7030; J7050; P9016; Q9967

== ENCOUNTER 2022-12-23 16:44 | Outpatient (CLI) | payer MEDICARE, SELFPAY ==
[2022-12-23 16:59] LABS: Basophils % 0.3 %; Eosinophils % 0.2 %; Hematocrit 29.1 % (37.0-47.0); Hemoglobin 8.4 g/dL (11.5-15.3); Lymphocytes % 11.2 %; Mean Corpuscular HGB Conc 28.9 g/dL (30.0-36.0); Mean Corpuscular Volume 76.4 fl (81-99); Mean Platelet Volume 10.3 fL (7.4-10.4); Monocytes # 0.3 10^3/uL (0.2-0.9); Monocytes % 3.5 %; Neutrophils # 7.63 10^3/uL (1.8-7.7); Neutrophils % 84.2 %; Nucleated Red Blood Cells % 0 %; Platelet Count 270 10^3/cmm (130-400); Red Blood Count 3.81 10^6/uL (4.1-5.3); White Blood Count 9.1 10^3/uL (4.0-10.0)
[2022-12-23 17:38] LABS: Alanine Aminotransferase 18 U/L (0-33); Albumin Level 3.2 g/dL (3.5-5.2); Alkaline Phosphatase 122 U/L (35-105); Anion Gap 13.5 (5-19); Aspartate Amino Transferase 24 U/L (0-32); Blood Urea Nitrogen 18 mg/dL (8-23); Calcium 10.6 mg/dL (8.5-10.5); Carbon Dioxide 29 mmol/L (22-29); Chloride 101 mmol/L (98-107); Globulin 3.1 g/dL (1.3-4.6); Glucose 76 mg/dL (65-115); Osmolality Calculated 289 mOsm/kg (285-295); Potassium 4.5 mmol/L (3.5-5.1); Sodium 139 mmol/L (136-145); Total Bilirubin 0.3 mg/dL (0.15-1.2); Total Protein 6.3 g/dL (6.6-8.7)
== END 2022-12-23 16:45 | disposition home or self-care (01) ==
LOC: LAB 16:47
PROVIDERS: PCP Family Medicine; Visit Provider Student in an Organized Health Care Education/Training Program
DX: N18.31 Chronic kidney disease, stage 3a (principal); D64.9 Anemia, unspecified
CPT/HCPCS: 80053; 85025

== ENCOUNTER 2022-12-25 13:03 | Inpatient (IN) | payer MEDICARE, SELFPAY ==
[2022-12-25] VITALS (14 sets, daily range): BP systolic 119–178; BP diastolic 66–91; PULSE 65–76; RESP 17–18; TEMP 36.6; O2SAT 92–100
[2022-12-25 17:48] LABS: Basophils % 0.2 %; Hematocrit 28.7 % (37.0-47.0); Hemoglobin 8.3 g/dL (11.5-15.3); Lymphocytes % 9.3 %; Mean Corpuscular HGB Conc 28.9 g/dL (30.0-36.0); Mean Corpuscular Hemoglobin 22.3 pg (28.0-34.0); Mean Corpuscular Volume 76.9 fl (81-99); Mean Platelet Volume 9.8 fL (7.4-10.4); Monocytes # 0.4 10^3/uL (0.2-0.9); Monocytes % 3.5 %; Neutrophils # 9.44 10^3/uL (1.8-7.7); Neutrophils % 86.4 %; Nucleated Red Blood Cells % 0 %; Platelet Count 254 10^3/cmm (130-400); Red Blood Count 3.73 10^6/uL (4.1-5.3); Red Cell Distribution Width 24.2 % (12.1-15.1); White Blood Count 10.9 10^3/uL (4.0-10.0)
[2022-12-25 18:16] LABS: Alanine Aminotransferase 17 U/L (0-33); Albumin Level 3.4 g/dL (3.5-5.2); Alkaline Phosphatase 112 U/L (35-105); Anion Gap 15.1 (5-19); Aspartate Amino Transferase 29 U/L (0-32); Blood Urea Nitrogen 27 mg/dL (8-23); Carbon Dioxide 28 mmol/L (22-29); Chloride 100 mmol/L (98-107); Glucose 59 mg/dL (65-115); Osmolality Calculated 289 mOsm/kg (285-295); Potassium 5.1 mmol/L (3.5-5.1); Sodium 138 mmol/L (136-145); Total Bilirubin 0.3 mg/dL (0.15-1.2); Total Protein 6.4 g/dL (6.6-8.7)
--- NOTE | 2022-12-25 18:20 | XRR_ITS ---
PROCEDURE INFORMATION: Exam: XR Chest Exam date and time: 12/25/2022 6:38 PM Age: 82 years old Clinical indication: Other: Weakness; Additional info: Malaise TECHNIQUE: Imaging protocol: Radiologic exam of the chest. Views: 1 view. COMPARISON: CR XR chest 1V portable [id number] 05/27/2022 1:09 PM FINDINGS: Lungs: Unremarkable. No consolidation. Pleural spaces: Unremarkable. No pleural effusion. No pneumothorax. Heart/Mediastinum: Mediastinal clips. Vasculature: Tortuous descending thoracic aorta. Bones/joints: Bilateral rotator cuff arthropathy. Scoliosis. XR/XR chest 1V portable [id number] IMPRESSION: No acute findings.
--- NOTE | 2022-12-25 18:21 | W.ED.WEAKNES ---
HPI - Weakness General: Chief complaint: Weakness Stated complaint: hands swollen, can't walk Time Seen by Provider: 12/25/22 18:07 Source: patient and family Limitations: no limitations History of Present Illness: Patient brought to the emergency department by her niece. Reportedly she has had a recurrence of her symptoms of confusion decreased bowel movements, decreased oral intake. No known fevers chest pain abdominal pain etc. Patient does live alone and her niece checks on her frequently.She was recently seen in this emergency department and eventually was admitted because of DVT and cellulitis. Also had a concomitant anemia and received blood transfusions while in the hospital MD Complaint: generalized weakness Associated symptoms: Denies chest pain, chills, melena, fever(s), headache(s), nausea or vomiting Review of Systems Const: Reports: change in appetite; Denies: fever(s) or chills Eyes: Denies: change in vision ENMT: Denies: throat pain, odynophagia, nasal discharge or nasal congestion Card: Reports: edema; Denies: chest pain, palpitations or irregular heart rhythm Resp: Denies: dyspnea, productive cough or non-productive cough GI: Reports: change in bowel habits; Denies: abdominal pain, nausea, vomiting, hematemesis, hematochezia or melena : Reports: urinary urgency Musc: Reports: extremity swelling; Denies: neck pain, back pain or extremity pain Skin/Breast: Denies: rash, pruritus or erythema Neuro: Denies: headache(s), numbness in extremities or weakness in extremities Psych: Reports: sleeping more and change in appetite PFSH ED PFSH: Medical History Anemia Balance problem Benign essential HTN Bilateral ureteral calculi Chronic hip pain, bilateral Chronic kidney disease, stage 3 COPD (chronic obstructive pulmonary disease) Gastric ulcer with hemorrhage and obstruction Lumbar disc disease with radiculopathy MRSA carrier Surgical History H/O: hysterectomy History of appendectomy History of cholecystectomy History of tonsillectomy and adenoidectomy Family History Other CAD (coronary artery disease) Stroke Social History Smoking and tobacco status: never smoked Alcohol intake: never Female Reproductive History: Spontaneous abortions: No Physical Exam Narrative: EXAM NARRATIVE: The patient is alert and generally responsive. Her answers to some questions require prompting from her niece but they are generally accurate. Const: COMMON NORMALS: no limitations and alert GENERAL APPEARANCE: cooperative HENMT: COMMON NORMALS: Normal nasal mucous membranes and turbinates present, moist oral mucous membranes and oropharynx normal NOSE: Normal nasal mucous membranes and turbinates present Eye: COMMON NORMALS: Equal, round and reactive pupils present, EOMs intact bilaterally and conjunctivae normal CONJUNCTIVA: Yes conjunctivae normal PUPIL: Yes Equal, round and reactive pupils present Neck/C-Spine: COMMON NORMALS: full ROM, no lymphadenopathy, no JVD and No carotid bruits Chest: COMMONS NORMALS: normal inspection of the chest Resp: COMMON NORMALS: normal respiratory effort, No retractions, No use of accessory muscles and clear to auscultation bilaterally AUSCULTATION: clear to auscultation bilaterally Cardio: COMMON NORMALS: no JVD, regular rate, regular rhythm and No murmurs present (Cardio) RATE: regular rate RHYTHM: regular rhythm GI: COMMON NORMALS: Normal to inspection, nondistended, normoactive bowel sounds present, Soft to palpation and non-tender PALPATION: Yes Soft to palpation : COMMON NORMALS: Yes no CVA tenderness BLADDER/KIDNEY EXAM: Yes no CVA tenderness Back/Pelvis: COMMON NORMALS: no CVA tenderness, thoracic and lumbar spine normal to inspection, no thoracic nor lumbar tenderness and thoraco-lumbar ROM normal Extremity: NARRATIVE EXTREMITY EXAM: She has bilateral pretibial pitting edema to knees. She has a healing eschar without any surrounding erythema the right anterior luz. No deformity, erythema, extremity tenderness. Neuro: COMMON NORMALS: moves all extremities, no focal motor deficits and no sensory deficits noted SENSORIUM/ORIENTATION: Yes alert Skin: COMMON NORMALS: no rashes or lesions noted and turgor normal GENERAL SKIN EXAM: no rashes or lesions noted and turgor normal Course Reevaluation(s): Reevaluation #1: I informed patient of current findings and recommendation that she be placed in observation for continued antibiotics, IV hydration and reevaluation. Interestingly she was agreeable to that plan. No evidence of other issues at play other than her chronic anemia and other chronic issues at the time of this emergency department evaluation. Time: 22:04 Consultations: Consultation #1: I did consult Dr. Donovan regarding her urinary findings and that we anticipated her being placed in observation and he agreed with that plan and will follow her along. Time: 22:04 Consultation #2: I discussed with Dr. Cm who agreed to place the patient in observation status and continue the work-up. Time: 22:04 Vital Signs: Vital signs: Vital Signs Temperature 97.8 F 12/25/22 13:22 Pulse Rate 65 12/25/22 19:02 Respiratory Rate 17 12/25/22 19:02 Blood Pressure 178/84 12/25/22 21:01 Pulse Oximetry 92 12/25/22 20:19 Oxygen Delivery Me thod Room Air 12/25/22 15:43 MDM - Weakness Medical Decision Making This patient presented accompanied by her niece for generalized global weakness and ill feeling over the past number of days. She is not had any documented fevers but just malaise. No chest pain, shortness of breath abdominal pain etc. She has had decreased oral intake because she is just not felt well. She recently was hospitalized because of her chronic anemia and acute cellulitis. During that period of time she was evaluated by urology who placed a ureteral stent because of her chronic obstructive uropathy. Clinical evaluation was undertaken while in the emergency department. She displayed normal vital signs in the emergency department albeit mildly hypertensive. Clinical examination did not find any focal physical findings to include no evidence of rebound guarding or other abdominal findings on clinical examination. Screening laboratories were obtained which revealed continuation of the patient's chronic anemia. She also had findings in a cath urine specimen which suggested likely urinary tract infection which may have been a contributing factor to her presentation. Further imaging was obtained which revealed no evidence of perinephric nephric abscess or other acute renal issue other than her chronic renal stones and her ureteral stent. She did have an incidental finding of a biliary tract ductal enlargement however she is status postcholecystectomy which is a likely explanation for that finding given her lack of significant clinical picture to suggest biliary tract issues at this time. Urology was consulted and they agreed that it certainly reasonable to begin her on parenteral antibiotics and admit her to the hospital and they will be available for consultation if needed. Discussed with overnight hospitalist who agreed to admit the patient for continued hydration and IV antibiotics. We also reviewed her CT scan and consideration for a nonurgent MRI CP will be undertaken as well. Medical Records I reviewed the patient's medical records. Prior hospitalization to include urology consultation and ureteral stent placement. Lab Data I reviewed the patient's lab results. 12/25/22 17:33 12/25/22 17:33 Radiology Impressions Chest X-Ray 12/25/22 18:20 IMPRESSION: No acute findings. Abdomen/Pelvis CT 12/25/22 20:32 IMPRESSION: 1. Stable moderate-severe left hydronephrosis with a 1.8 cm calculus at the ureteropelvic junction. 2. Stable 6 mm calculus in the proximal right ureter, post stent placement. No hydronephrosis. 3. Dilatation of the extrahepatic and left intrahepatic bile ducts appears increased from the prior study. Follow-up with MRCP is recommended. 4. Body wall edema. COMMENTS: Consistent with the [employer]'s Incidental Findings Committee white paper (J Am Ilia Radiol 2018): Any incidental renal lesion less than 1 cm or classified as too small to characterize, or any incidental cystic renal lesion characterized as simple-appearing, is likely benign. No follow-up imaging is recommended for these lesions per consensus recommendations based on imaging criteria. Laboratory Results WBC 10.9 10^3/uL (4.0-10.0) H 12/25/22 17:33 RBC 3.73 10^6/uL (4.1-5.3) L 12/25/22 17:33 Hgb 8.3 g/dL (11.5-15.3) L 12/25/22 17:33 Hct 28.7 % (37.0-47.0) L 12/25/22 17:33 MCV 76.9 fl (81-99) L 12/25/22 17:33 MCH 22.3 pg (28.0-34.0) L 12/25/22 17:33 MCHC 28.9 g/dL (30.0-36.0) L 12/25/22 17:33 RDW 24.2 % (12.1-15.1) H 12/25/22 17:33 Plt Count 254 10^3/cmm (130-400) 12/25/22 17: MPV 9.8 fL (7.4-10.4) 12/25/22 17:33 Neut % (Auto) 86.4 % 12/25/22 17: Lymph % (Auto) 9.3 % 12/25/22 17: Sac % (Auto) 3.5 % 12/25/22 17: Eos % (Auto) 0.0 % 12/25/22 17: Baso % (Auto) 0.2 % 12/25/22 17: Neut # (Auto) 9.44 10^3/uL (1.8-7.7) H 12/25/22 17: Lymph # (Auto) 1.0 10^3/uL (0.8-4.8) 12/25/22 17: Sac # (Auto) 0.4 10^3/uL (0.2-0.9) 12/25/22: Eos # (Auto) 0.0 10^3/uL (0.0-0.8) 12/25/22 17: Baso # (Auto) 0.0 10^3/uL (0.0-0.1) 12/25/22 17: Nucleated RBC % (auto) 0 % 12/25/22 17: Nucleated RBCs # 0.0 /100WBC 12/25/22 17:33 Sodium 138 mmol/L (136-145) 12/25/22 17: Potassium 5.1 mmol/L (3.5-5.1) 12/25/22 17: Chloride 100 mmol/L (98-107) 12/25/22 17: Carbon Dioxide 28 mmol/L (22-29) 12/25/22 17: Anion Gap 15.1 (5-19) 12/25/22 17:33 BUN 27 mg/dL (8-23) H 12/25/22 17:33 Creatinine 2.1 mg/dL (0.5-0.9) H 12/25/22 17:33 GFR Calculation Not Reportable 12/25/22 17: Glucose 59 mg/dL (65-115) L 12/25/22 17:33 Calculated Osmolality 289 mOsm/kg (285-295) 12/25/22 17: Calcium 10.0 mg/dL (8.5-10.5) 12/25/22 17:33 Total Bilirubin 0.3 mg/dL (0.15-1.2) 12/25/22 17:33 AST 29 U/L (0-32) 12/25/22 17:33 ALT 17 U/L (0-33) 12/25/22 17:33 Alkaline Phosphatase 112 U/L (35-105) H 12/25/22 17:33 Total Protein 6.4 g/dL (6.6-8.7) L 12/25/22 17:33 Albumin 3.4 g/dL (3.5-5.2) L 12/25/22 17:33 Globulin 3.0 g/dL (1.3-4.6) 12/25/22 17:33 Urine Color Red (Yellow) 12/25/22 18:55 Urine Appearance Cloudy (CLEAR) A 12/25/22 18:55 Urine pH 5 (5-7) 12/25/22 18:55 Ur Specific [place] 1.020 (1.005-1.030) 12/25/22 18:55 Urine Protein 3+ (Negative) H 12/25/22 18:55 Urine Glucose (UA) Norm (Normal) 12/25/22 18:55 Urine Ketones 1+ (Negative) H 12/25/22 18:55 Urine Blood 3+ (Negative) H 12/25/22 18:55 Urine Nitrate Negative (Negative) 12/25/22 18:55 Urine Bilirubin Neg (Negative) 12/25/22 18:55 Urine Urobilinogen Neg mg/dL (Negative) 12/25/22 18:55 Ur Leukocyte Esterase 2+ (Negative) H 12/25/22 18:55 Urine RBC Too numerous to cnt /hpf (0-2) H 12/25/22 18:55 Urine WBC 15-25 /hpf (0-5) H 12/25/22 18:55 Ur Squamous Epith Cells 0-4 /hpf (0-5) H 12/25/22 18:55 Amorphous Sediment Not Reportable 12/25/22 18:55 Urine Bacteria 2+ /hpf (NONE) H 12/25/22 18:55 Urine Mucus 1+ /hpf 12/25/22 18:55 EKG Data EKG 1: I personally reviewed and interpreted this EKG as follows: Interpretation: Contemporaneous review of resting EKG reveals a sinus rhythm with a ventricular rate of 67 bpm. Normal HI interval, QRS duration, corrected QT interval. Slight echo borderline leftward axis. No acute ST-T wave changes noted at this time. Discharge Plan Discharge Patient Disposition: Placed in Observation Clinical Impression: Renal calculi, Fluid volume depletion, Urinary tract infection, Chronic anemia Condition: Stable Prescriptions: No Action tramadol 50 mg tablet 100 mg PO TID PRN (Reason: pain) 30 Days Qty: 180 0RF Eliquis 5 mg tablet 5 mg PO BID Qty: 60 0RF [place] Heartburn-Gas 750-80 mg Tablet,Chewable 1 tab PO Q4H PRN (Reason: Acid Reflux) Rx Instructions: do not exceed 6 tabs per 24 hrs amlodipine 5 mg Tablet 10 mg PO DAILY Qty: 60 0RF ferrous gluconate 324 mg (37.5 mg iron) Tablet 324 mg PO BIDWM Qty: 60 0RF hydralazine 25 mg Tablet 25 mg PO BID Qty: 60 0RF pantoprazole 40 mg Tablet,Delayed Release (Dr/Ec) 40 mg PO DAILY Qty: 30 0RF Carafate 1 gram tablet 1 g PO TID PRN (Reason: Gerd) 28 Days Qty: 84 0RF vitamin E 100 unit Capsule 100 unit PO DAILY ascorbic acid (vitamin C) [Vitamin C] 500 mg Tablet 500 mg PO DAILY Prevagen 1 cap PO DAILY Referrals: Ramirez Rush DO [Primary Care Provider] - Coding Level of Care Code ED Bacteriology Research Assistant for Lakisha Jenkins
[2022-12-25] MEDS: sodium chloride 0.9% 1,000 ML 999 ML IV (18:36)
--- NOTE | 2022-12-25 18:51 | ECG_ITS ---
[facility] Test Date: 2022-12-25 Pat Name: Julia Ballard Department: Room: Gender: Female [employer]otive [employer] Clerk: : 1940 Requested By: Chip Deleon Order Number: [id number] Ervin MD: Juan J Mccray M.D. Measurements Intervals [place] Rate: 67 P: 64 OR: 137 QRS: -21 QRSD: 110 T: 70 QT: 415 QTc: 439 Interpretive Statements SINUS RHYTHM WITH OCCASIONAL SUPRAVENTRICULAR PREMATURE COMPLEXES BORDERLINE LEFT AXIS DEVIATION [QRS AXIS < -20] INCOMPLETE RIGHT BUNDLE BRANCH BLOCK [90+ ms QRS DURATION, TERMINAL R IN V1/V2, 40+ ms S IN I/aVL/V4/V5/V6] Compared to ECG 05/27/2022 15:59:13 Incomplete right bundle-branch block now present Myocardial infarct finding no longer present Electronically Signed On 12-25-2022 21:15:13 CDT by Juan J Mccray M.D. [id number]
[2022-12-25 19:28] LABS: Protein Urine 3+ (Negative); Urine Appearance Cloudy (CLEAR); Urine Color Red (Yellow); pH Urine 5 (5-7)
[2022-12-25 19:29] LABS: Add Urine Microscopic? YES; Bilirubin Urine Neg (Negative); Blood Urine 3+ (Negative); Glucose Urine UA Norm (Normal); Ketones Urine 1+ (Negative); Leukocyte Esterase Urine 2+ (Negative); Nitrate Urine Negative (Negative); Urobilinogen Urine Neg (Negative)
[2022-12-25 19:30] LABS: RBC Urine TOO NUMEROUS TO CNT /hpf (0-2)
[2022-12-25 19:35] LABS: Add Urine Culture? Yes; Bacteria Urine 2+ /hpf; Mucus Urine 1+ /hpf; Squamous Epithelial Cell Urine 0-4 /hpf (0-5); WBC Urine 15-25 /hpf (0-5)
--- NOTE | 2022-12-25 20:32 | CTR_ITS ---
PROCEDURE INFORMATION: Exam: CT Abdomen And Pelvis Without Contrast Exam date and time: 12/25/2022 9:10 PM Age: 82 years old Clinical indication: Prior surgery; Surgery type: Gb. Appy. Hysterectomy. Left ureteral stent. Patient HX: Pato with hematuria. ; Additional info: Has stent and ams- TECHNIQUE: Imaging protocol: Computed tomography of the abdomen and pelvis without contrast. Radiation optimization: All CT scans at this facility use at least one of these dose optimization techniques: automated exposure control; mA and/or kV adjustment per patient size (includes targeted exams where dose is matched to clinical indication); or iterative reconstruction. REPORTING DATA: Count of CT and Cardiac NM exams in prior 12 months: This patient has received 2 known CTs and 0 known cardiac nuclear medicine studies in the 12 months prior to the current study. COMPARISON: CT abdomen pelvis wo con [id number] 12/13/2022 8:53 PM RADIATION DOSE METRICS: Total DLP (mGy-cm): 538.33 FINDINGS: Tubes, catheters and devices: Coronary arteries: Coronary artery calcifications. Mediastinal space: Postsurgical changes of the gastroesophageal region. Liver: Normal. No mass. Gallbladder and bile ducts: Cholecystectomy. Increased dilatation of the extrahepatic bile ducts and left intrahepatic ducts. Pancreas: Normal. No ductal dilation. Spleen: Normal. No splenomegaly. Adrenal glands: Normal. No mass. Kidneys and ureters: Stable moderate-severe left hydronephrosis. Stable 1.8 cm calculus at the left ureteropelvic junction with a smaller 3 mm calculus in the pelvis. Right ureteral stent with proximal pigtail in the right renal pelvis and distal pigtail in the urinary bladder. Stable 6 mm calculus in the proximal right ureter. Bilateral renal cysts, Hounsfield units less than 20. No follow-up imaging recommended. 2 mm right renal calculus. Stomach and bowel: Moderate stool in the rectum. Diverticulosis of the colon. No diverticulitis. The stomach and small bowel are unremarkable. No obstruction. Appendix: Prior appendectomy. Intraperitoneal space: Unremarkable. No free air. No significant fluid collection. Vasculature: Arterial calcifications. No aneurysm. Lymph nodes: Unremarkable. No enlarged lymph nodes. Urinary bladder: Unremarkable as visualized. Reproductive: Hysterectomy. The ovaries are not visualized and may be absent. Bones/joints: Scoliosis and severe degenerative changes of the spine. No acute fracture. Multiple degenerative subluxations. Benign bone island in the right acetabulum. Soft tissues: Tiny fat containing umbilical hernia. Diffuse body wall edema. CT/CT abdomen pelvis wo con [id number] IMPRESSION: 1. Stable moderate-severe left hydronephrosis with a 1.8 cm calculus at the ureteropelvic junction. 2. Stable 6 mm calculus in the proximal right ureter, post stent placement. No hydronephrosis. 3. Dilatation of the extrahepatic and left intrahepatic bile ducts appears increased from the prior study. Follow-up with MRCP is recommended. 4. Body wall edema. COMMENTS: Consistent with the [employer]'s Incidental Findings Committee white paper (J Am Ilia Radiol 2018): Any incidental renal lesion less than 1 cm or classified as too small to characterize, or any incidental cystic renal lesion characterized as simple-appearing, is likely benign. No follow-up imaging is recommended for these lesions per consensus recommendations based on imaging criteria.
[2022-12-25] MEDS: cefTRIAXone 2,000 MG in sodium chloride 0.9% (plus) 50 ML 100 MG IV (20:53)
--- NOTE | 2022-12-25 22:49 | PM.HP ---
Providers/Chief Complaint Admitting Physician: Karina Cm MD Primary Care Provider: Ramirez Rush DO Chief Complaint: hands swollen, can't walk History of Present Illness Julia Ballard is a 82 year old female past medical history of chronic hip pain bilaterally, CKD, COPD, gastric ulcer with hemorrhage and obstruction, anemia, hypertension and recent ureteral stent placement for chronic obstructive uropathy presented to the hospital today for poor oral intake, mild confusion, generalized malaise weakness. She says her legs gave out. She says that there is not a particular reason why she does not eat except the fact that she does not feel like eating because she lives alone at home. Does not have any financial constraints and does have access to food. At the previous admission she had a DVT and cellulitis and was treated for both and for anemia she received blood transfusions. She was discharged home in stable condition. During that hospital stay she also had a stent placed for chronic ureteral obstruction. He did state that she had a upset stomach and diarrhea a few hours prior to arrival. She smokes half a pack per day since she was 16 years old and is a current active smoker. Today CT abdomen pelvis was done in the ER which showed stable moderate to severe left hydronephrosis with 1.8 cm calculus at the ureteropelvic junction, stable 6 mm calculus in the proximal right ureter post stent placement no hydronephrosis. Dilation of extrahepatic and left intrahepatic bile duct appears increased from prior study follow-up with MRCP is recommended. EKG did not show any acute ischemic changes chest x-ray with no acute findings, WBC 10.9, hemoglobin 8.3, platelet 254, sodium 138, potassium 5.1, creatinine 2.1, UA positive for 2+ leukocyte esterase, too numerous to count RBCs, 15-25 WBC, 2+ bacteria. Medications/Allergies Home Medications Medication Instructions Recorded Confirmed Last Taken Type Prevagen 1 cap PO DAILY 05/27/22 12/25/22 12/25/22 08:00 History ascorbic acid (vitamin C) 500 mg 500 mg PO DAILY 05/27/22 12/25/22 12/25/22 08:00 History tablet (Vitamin C) vitamin E 100 unit capsule 100 unit PO DAILY 05/27/22 12/25/22 12/25/22 History tramadol 50 mg tablet 100 mg PO TID PRN pain 30 days 11/13/22 12/25/22 12/25/22 Rx #180 tabs apixaban 5 mg tablet (Eliquis) 5 mg PO BID #60 tabs 12/09/22 12/25/22 12/25/22 17:00 Rx calcium carbonate 750 1 tab PO Q4H PRN Acid Reflux 12/12/22 12/25/22 Unknown History mg-simethicone 80 mg chewable tablet ([facility] Heartburn-Gas) amlodipine 5 mg tablet 10 mg PO DAILY #60 tabs 12/16/22 12/25/22 12/25/22 08:00 Rx ferrous gluconate 324 mg (37.5 mg 324 mg PO BIDWM #60 tabs 12/16/22 12/25/22 12/25/22 17:00 Rx iron) tablet hydralazine 25 mg tablet 25 mg PO BID #60 tabs 12/16/22 12/25/22 12/25/22 08:00 Rx pantoprazole 40 mg tablet,delayed 40 mg PO DAILY #30 tabs 12/16/22 12/25/22 12/25/22 08:00 Rx release sucralfate 1 gram tablet (Carafate) 1 g PO TID PRN Gerd 4 weeks #84 12/16/22 12/25/22 Unknown Rx tabs Allergies Allergy/AdvReac Type Severity Reaction Status Date / Time celecoxib [From Celebrex] Allergy kidney Verified 12/25/22 13:27 issue fluticasone Allergy unknown Verified 12/25/22 13:27 [From Advair Diskus] Penicillins Allergy unknown Verified 12/25/22 13:27 salmeterol Allergy unknown Verified 12/25/22 13:27 [From Advair Diskus] Sulfa (Sulfonamide Allergy unknown Verified 12/25/22 13:27 Antibiotics) acetaminophen [From Tylenol] AdvReac Mild rash Verified 12/25/22 13:27 naproxen [From Aleve] AdvReac Mild RASH Verified 12/25/22 13:27 PFSH Acute PFSH: Medical History Anemia Balance problem Benign essential HTN Bilateral ureteral calculi Chronic hip pain, bilateral Chronic kidney disease, stage 3 COPD (chronic obstructive pulmonary disease) Gastric ulcer with hemorrhage and obstruction Lumbar disc disease with radiculopathy MRSA carrier Surgical History H/O: hysterectomy History of appendectomy History of cholecystectomy History of tonsillectomy and adenoidectomy Family History Other CAD (coronary artery disease) Stroke Social History Smoking and tobacco status: never smoked Alcohol intake: never Female Reproductive History: Spontaneous abortions: No Vitals/I&O/Wt Last Vital Signs Temp 97.8 F 12/25/22 13:22 Pulse 65 12/25/22 19:02 Resp 17 12/25/22 19:02 BP 164/86 12/25/22 22:30 Pulse Ox 100 12/25/22 22:30 O2 Del Method Room Air 12/25/22 15:43 12/25/22 12/25/22 12/25/22 06:59 14:59 22:59 Intake Total 1000 / 1000 Balance 1000 / 1000 Weight last 48 hrs Weight 64.864 kg Physical Exam Narrative: General: Alert oriented x3, patient seen laying in bed, appears depressed. HEENT: Normocephalic, atraumatic, EOMI, room air, no acute respiratory distress Cardio: Regular rate rhythm, normal S1-S2, Respiratory: Clear to auscultation bilaterally no wheezes along GI: Abdomen soft, nontender, nondistended, bowel sounds + Extremities: 1+ pitting edema bilateral lower extremities mild redness noted at right lower extremity Data 12/25/22 17:33 12/25/22 17:33 A&P Assessment and plan (1) Chronic kidney disease, stage 3: Qualifiers: Chronic kidney disease stage 3 subtype: stage 3a (GFR 45-59) Qualified Code(s): N18.31 - Chronic kidney disease, stage 3a (2) Nicotine dependence, cigarettes, with unspecified nicotine-induced disorders: (3) At risk for falls: (4) Essential hypertension: (5) CKD (chronic kidney disease): (6) Chronic anemia: (7) Chronic hip pain, bilateral: (8) Deep vein thrombosis of lower extremity: Plan #Failure to thrive #Poor oral intake #Generalized weakness #Possible depression? #Acute on chronic anemia #DANIEL on CKD #Dehydration #Diarrhea #Recent hospital stay #Nicotine dependence #Fall risk #Hypertension #History of DVT #Mild to moderate mitral regurgitation #Chronic anticoagulation #UTI #Ureteral stent from previous admit ? Nephrology consulted from ER. Potential removal of stent in a.m. ? Check urine culture ? Patient on IV fluids normal saline 75 cc/h ? Check vitamin B12, folate, phosphorus ? Hemoglobin 8.3 today. She underwent EGD colonoscopy at previous admission about a week ago which were found to be within normal limits. Work-up showed severe iron deficiency anemia. She received a unit of blood transfusion. ? Continue on oral iron twice daily ? Continue Eliquis for now. Recheck CBC in AM. If is a downward trend we will hold anticoagulation. Hemoglobin has been in the 8 range so far. ? Creatinine 2.0 today. Most likely secondary to prerenal cause. Will provide IV fluid hydration ? Fall precautions ? PT OT. Patient may benefit from jail facility ? Check BMP magnesium in a.m. ? N.p.o. at midnight for potential procedure in the morning. ? Check MRCP to evaluate bile ducts further on nonemergent basis. Hold home blood pressure medications at this time. Continue on ceftriaxone 1 g twice daily DNR/DNI SCDs, patient on Eliquis. Attestations Medical Necessity Statement*: Will cross greater than 2 midnight stay for management of above. Other Coding Information Focused coding review requested Diagnoses Chronic kidney disease, stage 3 N18.31 Chronic kidney disease stage 3 subtype: stage 3a (GFR 45-59) Nicotine dependence, cigarettes, with unspecified nicotine-induced disorders F17.219 At risk for falls Z91.81 Essential hypertension I10 CKD (chronic kidney disease) N18.9 Chronic anemia D64.9 Chronic hip pain, bilateral M25.551; M25.552; G89.29 Deep vein thrombosis of lower extremity I82.409
[2022-12-25] MEDS: lactated ringers 1,000 ML 125 ML IV (23:08)
--- NOTE | 2022-12-25 23:35 | PC.NURSE ---
Informed Dr Cm of bilateral lower extremity edema of +4. Received instruction to hold fluids for now. Will continue to monitor.
[2022-12-25] MEDS: sodium chloride 0.9% 1,000 ML 75 ML IV (23:54)
[2022-12-26] VITALS (56 sets, daily range): BP systolic 134–180; BP diastolic 61–87; PULSE 58–78; RESP 10–25; TEMP 36.6–37.1; O2SAT 94–99
--- NOTE | 2022-12-26 06:24 | MR_ITS ---
WS: [id number] MRCP (MAGNETIC RESONANCE CHOLANGIOPANCREATOGRAPHY) HISTORY: Dilated intrahepatic and extrahepatic ducts. COMPARISON: CT abdomen 12/25/2012. TECHNIQUE: Multiple sequences are performed to evaluate the intra and extrahepatic ducts. Patient was unable to hold her breath for this examination. Prior cholecystectomy multiple years ago. Common bile duct measures approximately 10 mm. As visualize d there is normal tapering towards the ampulla of Vater. No filling defects. Mild central bile duct d ilatation. Although this study is limited due to breathing motion artifact there does not appear to b e filling defect within the common bile duct. Pancreatic duct is top normal size but otherwise not di lated. There is pancreatic atrophy. Would be difficult to exclude a pancreatic neoplasm with this sameer unt of motion. Small bilateral pleural effusions. Moderate atrophy RIGHT kidney. There is no hydronephrosis. Patient does have a RIGHT ureteral stent present. Numerous cysts within the LEFT kidney with no obstruction. Calcification measuring 13 mm contained within the cyst of the lower pole. Normal size spleen. MR/MR MRCP [id number] IMPRESSION: 1. Quality of this examination is compromised by breathing motion artifact. 2. Common bile duct and central hepatic ducts are dilated but there are no shanelle ling defects or strictures identified. Suspect the duct dilatation is related t o aging and physiologic changes after cholecystectomy. 3. Prior cholecystectomy. 4. Small bilateral pleural effusions. 5. Moderate atrophy RIGHT kidney. 6. Multiple LEFT renal cysts.
--- NOTE | 2022-12-26 08:07 | PC.NURSE ---
Legs are swollen and patient is a high fall risk
[2022-12-26] MEDS: cefTRIAXone 1,000 MG in sodium chloride 0.9% (plus) 50 ML 100 MG IV ×2 (09:07→20:10)
--- NOTE | 2022-12-26 10:19 | P.CONIM_ITS ---
Providers/Reason For Consult Consulting Physician/Specialty*: Donovan/urology Reason for Consult*: UROLITHIASIS, indwelling stent Requesting Physician: Dr. Miguel Attending Physician: Surinder Miguel Primary Care Provider: Ramirez Rush DO History of Present Illness History of Present Illness Julia Ballard is a 82 year old female well-known to me for evaluation during recent hospitalization in which she was found to have bilateral ureteral obstruction. Historically she was noted to have a large impacted stone at the LEFT UPJ with chronic atrophy of the left kidney. First discovered in 2016 and at that time she declined any treatment. She recognized then that that kidney would likely suffer irreparable damage but she was willing to take that chance. She did well until recent hospitalization this month where CT scan demonstrated multiple distal ureteral stones on the RIGHT side as well as a roughly 1 cm stone at the right UPJ. The CT scan was done for other reasons. She underwent endoscopic treatment of the distal ureteral stones and a stent placement with anticipation of planning for ESWL or endoscopy of the right proximal ureteral stone. She was on blood thinners because of a recent DVT. Recovered well from the procedure and was discharged with plans for follow-up on 12/22/2022. Shortly before that visit she called and canceled her appointment stating that she did not want needing further treatment. Plans were being made to have a more detailed conversation with her about what that actually meant. Last night she was admitted through the emergency department with symptoms of increased confusion, decreased bowel movements, decreased oral intake. No acute renal colicky type symptoms. Was treated for UTI. Repeat CT scan showed stent in good position with good drainage of the right collecting system. There is no evidence of significant hydronephrosis. The left side was unchanged from his chronic appearance. I was consulted for further evaluation. Creatinine had bumped up to 2.1. I spoke with the patient for quite some time this morning. She has been thinking a lot about what she is willing to do and is still pretty adamant about no treatment related to the right proximal ureteral stone causing obstruction. She had been informed about the importance of not leaving the stent in indefinitely. She felt that that probably did not apply to her because of her decision to forego any more care. She is not interested in any additional treatment at all at this time. She did allow me to review the concerns about stent encrustation over time and the difficulty at that point of taking the stent out if it became significantly symptomatic or if she decided to have the stone treated after all. I reviewed her options as: * Follow through with the original plan with endoscopic treatment of the right proximal ureteral stone with hopes of removing the stent at that time * Remove the stent to reduce potential complications related to stent encrustation and let things be related to her stone * Do-nothing with understanding that the stent will certainly become occluded at some point possibly have increased symptoms related to that. At least for now she has elected the latter option. She is cared for by her niece Jenn who apparently has encouraged her aunt to pursue treatment. So far that has not been compelling to the patient Review of Systems Const: Reports: malaise; Denies: fever(s) or chills Eyes: Denies: change in vision ENMT: Denies: hoarseness Card: Denies: chest pain GI: Reports: constipation; Denies: abdominal pain, nausea or vomiting : Denies: flank pain, difficulty voiding or dysuria Musc: Denies: joint redness Skin/Breast: Denies: rash Neuro: Denies: confusion (At this time) or Slurred speech present Psych: Reports: depression, hopelessness and loss of interest Endo: Denies: flushing Juan/Lymph: Reports: easy bruising and easy bleeding Medications/Allergies Home Medications Medication Instructions Recorded Confirmed Last Taken Type Prevagen 1 cap PO DAILY 05/27/22 12/25/22 12/25/22 08:00 History ascorbic acid (vitamin C) 500 mg 500 mg PO DAILY 05/27/22 12/25/22 12/25/22 08:00 History tablet (Vitamin C) vitamin E 100 unit capsule 100 unit PO DAILY 05/27/22 12/25/22 12/25/22 History tramadol 50 mg tablet 100 mg PO TID PRN pain 30 days 11/13/22 12/25/22 12/25/22 Rx #180 tabs apixaban 5 mg tablet (Eliquis) 5 mg PO BID #60 tabs 12/09/22 12/25/22 12/25/22 17:00 Rx calcium carbonate 750 1 tab PO Q4H PRN Acid Reflux 12/12/22 12/25/22 Unknown History mg-simethicone 80 mg chewable tablet ([facility] Heartburn-Gas) amlodipine 5 mg tablet 10 mg PO DAILY #60 tabs 12/16/22 12/25/22 12/25/22 08:00 Rx ferrous gluconate 324 mg (37.5 mg 324 mg PO BIDWM #60 tabs 12/16/22 12/25/22 12/25/22 17:00 Rx iron) tablet hydralazine 25 mg tablet 25 mg PO BID #60 tabs 12/16/22 12/25/22 12/25/22 08:00 Rx pantoprazole 40 mg tablet,delayed 40 mg PO DAILY #30 tabs 12/16/22 12/25/22 12/25/22 08:00 Rx release sucralfate 1 gram tablet (Carafate) 1 g PO TID PRN Gerd 4 weeks #84 12/16/22 12/25/22 Unknown Rx tabs Allergies Allergy/AdvReac Type Severity Reaction Status Date / Time celecoxib [From Celebrex] Allergy kidney Verified 12/25/22 13:27 issue fluticasone Allergy unknown Verified 12/25/22 13:27 [From Advair Diskus] Penicillins Allergy unknown Verified 12/25/22 13:27 salmeterol Allergy unknown Verified 12/25/22 13:27 [From Advair Diskus] Sulfa (Sulfonamide Allergy unknown Verified 12/25/22 13:27 Antibiotics) acetaminophen [From Tylenol] AdvReac Mild rash Verified 12/25/22 13:27 naproxen [From Aleve] AdvReac Mild RASH Verified 12/25/22 13:27 Current Medications Generic Name Dose Route Start Last Admin Trade Name Freq PRN Reason Stop Dose Admin Sodium Chloride 1,000 mls @ 75 mls/hr 12/25/22 23:45 12/25/22 23:54 Sodium Chloride 0.9% IV 75 mls/hr .[id number] TANJA Administration Ceftriaxone Sodium 1,000 mg/ 50 mls @ 100 mls/hr 12/26/22 09:00 12/26/22 10:00 Sodium Chloride IV Infused Q12H TANJA Infusion Protocol PFSH Acute PFSH: Medical History Anemia Balance problem Benign essential HTN Bilateral ureteral calculi Chronic hip pain, bilateral Chronic kidney disease, stage 3 COPD (chronic obstructive pulmonary disease) Gastric ulcer with hemorrhage and obstruction Lumbar disc disease with radiculopathy MRSA carrier Surgical History H/O: hysterectomy History of appendectomy History of cholecystectomy History of tonsillectomy and adenoidectomy Family History Other CAD (coronary artery disease) Stroke Social History Smoking and tobacco status: never smoked Alcohol intake: never Female Reproductive History: Spontaneous abortions: No Vitals/I&O/Wt Last Vital Signs Temp 97.8 F 12/26/22 04:00 Pulse 70 12/26/22 08:00 Resp 19 H 12/26/22 08:00 BP 178/86 12/26/22 08:00 Pulse Ox 97 12/26/22 08:00 O2 Del Method Room Air 12/26/22 08:00 12/25/22 12/26/22 12/26/22 22:59 06:59 14:59 Intake Total 1000 / 1000 226.25 / 1226.25 170 / 170 Output Total 200 / 200 400 / 400 Balance 1000 / 1000 26.25 / 1026.25 -230 / -230 Weight last 48 hrs Weight 143 lb Physical Exam Const: COMMON NORMALS: no acute distress and well nourished GENERAL APPEARANCE: well kempt and well developed ORIENTATION/CONSCIOUSNESS: not confused HENMT: COMMON NORMALS: normocephalic HEAD & SCALP: normal to inspection and normocephalic Eye: COMMON NORMALS: conjunctivae normal and no scleral icterus CONJUNCTIVA: Yes conjunctivae normal Neck/C-Spine: GENERAL: Yes normal visual inspection Resp: COMMON NORMALS: normal respiratory effort EFFORT & INSPECTION: Yes able to speak in complete sentences, No labored and No Actively coughing Cardio: COMMON NORMALS: regular rate RATE: regular rate GI: COMMON NORMALS: Normal to inspection, nondistended, normoactive bowel sounds present, Soft to palpation and no masses PALPATION: Yes Soft to palpation : COMMON NORMALS: Yes no CVA tenderness BLADDER/KIDNEY EXAM: Yes no CVA tenderness OTHER: CVA tenderness. Bladder nondistended. Back/Pelvis: COMMON NORMALS: no CVA tenderness Neuro: COMMON NORMALS: no focal motor deficits Psych: COMMON NORMALS: mental status grossly normal APPEARANCE: Yes grossly normal and Yes well kempt ATTITUDE: Yes calm and Yes engaged Skin: COMMON NORMALS: no jaundice and no mottling (A lot of bruising) Data 12/25/22 17:33 12/25/22 17:33 A&P Assessment and plan (1) Bilateral ureteral calculi: (2) Retained ureteral stent: At this moment she is not interested in pursuing any further treatment with stent removal or treatment of the stone. She is well aware of the potential of the stent and crusting over time and the inability to get it out easily at that point. (3) Renal atrophy, left: (4) Deep vein thrombosis of lower extremity: (5) Chronic anticoagulation: Plan She is considering palliative care or hospice type care as opposed to trying to pursue correction/improvement of her underlying medical problems. Certainly if she changes her mind removing the stent trying to go after the stone would be very reasonable. Consult Attestations Medical Necessity Statement: See attending Coding Level of Care Code Acute Code for Chg Fwd Diagnoses Bilateral ureteral calculi N20.1 Retained ureteral stent Z96.0 Renal atrophy, left N26.1 Deep vein thrombosis of lower extremity I82.409 Chronic anticoagulation Z79.01
--- NOTE | 2022-12-26 10:54 | PC.CHAP ---
Pastoral Care Encounter/Spiritual Assessment Type of Contact [] Declined nursery attendant visit [] Patient/Family/Request visit [] Outpatient visit [] Follow-up visit [] Physician referral [] Code/Alert [x] Routine visit [] Staff referral [] Actively dying [] Patient sleeping [x] Family support [] [] Out of room [] Palliative care [] [] Receiving care in room [] Pre-surgical visit [] Trauma [] Long length of stay [] ICU visit [] Other: Relational/Emotional Strength [x] Patient feels connected with others/family/visitors/staff [] Distress [] Loneliness/isolation [] Abandonment Spirituality of Patient [x] Person of Annalisa [] Attends [employer] of their Annalisa [x] Believes in Prayer [] Reads Bible or Bahai materials [] There are Spiritual issues to be addressed Dancing Master Interventions [x] Prayer [x Active listening [] Non-anxious presence [x Spiritual/emotional support [] Crisis/trauma care [] Spiritual counseling [] Bereavement support [] Provided bereavement packet [] Provided Bible/devotional materials [] Provided toy/stuffed animal, coloring book to patient or family member [] Provided Communion [] Anointing/[place] [] Salvation [x] Completed spiritual assessment [] Other: Impact on Illness or Injury [] Angry [] Fearful [] Anxious [] Often cries [] Exhaustion [] Unable to work [] Unable to attend latter day [] Unable to walk/stand [] Unable to read [] Unable to drive [] Unable to eat/drink [] Unable to sleep [] Unable to be with family [] Patient intubated [] Other: Summary Time spent with patient 10 min
--- NOTE | 2022-12-26 12:31 | PC.NURSE ---
Update provided to family Jenn at this time
--- NOTE | 2022-12-26 12:33 | PC.NURSE ---
During therapy evaluation patient assisted to [facility] noted bright red blood mixed with urine noted in report patient has been having blood urine this stay
--- NOTE | 2022-12-26 15:56 | P.NPUCON_ITS ---
Providers/Reason for Consult Consulting Physican/Specialty*: Marcus Giron MD/Psychiatry Reason for Consult*: depression Attending Physician: Surinder Miguel Primary Care Provider: Ramirez Rush DO Psych Consult HPI History of Present Illness Julia Ballard is a 82 year old female admitted with chronic kidney disease with difficulties with swollen hands and difficulties with walking along with a recent ureteral stent placement for chronic obstructive uropathy who is currently in the crisis unit for treatment. She reports that she has had increased medical problems over the past few years. She reports that her legs had given out and she reports that she states that she does not feel like she is giving her best effort forward towards living. She reports that she requires occasional visitation from her niece (approximately 2 times per week) to help her manage her activities of daily living while living at her apartment. She states that she has been particularly devastated by the sudden in October 2022 of her son who of a heart attack in [place]. She has reported since that time having diminished motivation and overall change in energy. She had reported struggling with anhedonia and reports periods of low energy and some sleep continuity disruption. She states that she has been having some increased problems with her memory. She reports at times being alone and states that she often will not eat because of concerns of diminished appetite. She denies any suicidal ideation but states that she would not mind going quickly. Past psychiatric history: None reported Drug and alcohol history: She reports that she is a pack per day active smoker but denies any alcohol or illicit drug use. Medical history: See below Surgical history: See below Allergies: Celebrex, penicillins, sulfa drugs, naproxen, acetaminophen, Advair Social history: Patient reports having been raised in [place] and [place]. She had moved to [place] with her of many years in 2005. She reports having 2 children 1 son who had recently as stated in another who lives in [place]. She has no grandchildren. Her had 5 years ago. She lives in an apartment in [facility] and has a niece who checks on her. She had reported interest including reading voraciously. She had reported previously working but has been retired for several years. She had graduated high school but did not attend college. Meds Home Medications and Allergies Home Medications Medication Instructions Recorded Confirmed Last Taken Type Prevagen 1 cap PO DAILY 05/27/22 12/25/22 12/25/22 08:00 History ascorbic acid (vitamin C) 500 mg 500 mg PO DAILY 05/27/22 12/25/22 12/25/22 08:00 History tablet (Vitamin C) vitamin E 100 unit capsule 100 unit PO DAILY 05/27/22 12/25/22 12/25/22 History tramadol 50 mg tablet 100 mg PO TID PRN pain 30 days 11/13/22 12/25/22 12/25/22 Rx #180 tabs apixaban 5 mg tablet (Eliquis) 5 mg PO BID #60 tabs 12/09/22 12/25/22 12/25/22 17:00 Rx calcium carbonate 750 1 tab PO Q4H PRN Acid Reflux 12/12/22 12/25/22 Unknown History mg-simethicone 80 mg chewable tablet ([facility] [facility]) amlodipine 5 mg tablet 10 mg PO DAILY #60 tabs 12/16/22 12/25/22 12/25/22 08:00 Rx ferrous gluconate 324 mg (37.5 mg 324 mg PO BIDWM #60 tabs 12/16/22 12/25/22 12/25/22 17:00 Rx iron) tablet hydralazine 25 mg tablet 25 mg PO BID #60 tabs 12/16/22 12/25/22 12/25/22 08:00 Rx pantoprazole 40 mg tablet,delayed 40 mg PO DAILY #30 tabs 12/16/22 12/25/22 12/25/22 08:00 Rx release sucralfate 1 gram tablet (Carafate) 1 g PO TID PRN Gerd 4 weeks #84 12/16/22 12/25/22 Unknown Rx tabs Allergies Allergy/AdvReac Type Severity Reaction Status Date / Time celecoxib [From Celebrex] Allergy kidney Verified 12/25/22 13:27 issue fluticasone Allergy unknown Verified 12/25/22 13:27 [From Advair Diskus] Penicillins Allergy unknown Verified 12/25/22 13:27 salmeterol Allergy unknown Verified 12/25/22 13:27 [From Advair Diskus] Sulfa (Sulfonamide Allergy unknown Verified 12/25/22 13:27 Antibiotics) acetaminophen [From Tylenol] AdvReac Mild rash Verified 12/25/22 13:27 naproxen [From Aleve] AdvReac Mild RASH Verified 12/25/22 13:27 Current Medications Current Medications Generic Name Dose Route Start Last Admin Trade Name Sunil PRN Reason Stop Dose Admin Sodium Chloride 1,000 mls @ 75 mls/hr 12/25/22 23:45 12/26/22 12:25 Sodium Chloride 0.9% IV 0 mls/hr .[id number] TANJA Infusion Ceftriaxone Sodium 1,000 mg/ 50 mls @ 100 mls/hr 12/26/22 09:00 12/26/22 10:00 Sodium Chloride IV Infused Q12H TANJA Infusion Protocol PFSH NPU PFSH: Medical History Anemia Balance problem Benign essential HTN Bilateral ureteral calculi Chronic hip pain, bilateral Chronic kidney disease, stage 3 COPD (chronic obstructive pulmonary disease) Gastric ulcer with hemorrhage and obstruction Lumbar disc disease with radiculopathy MRSA carrier Surgical History H/O: hysterectomy History of appendectomy History of cholecystectomy History of tonsillectomy and adenoidectomy Family History Other CAD (coronary artery disease) Stroke Social History Smoking and tobacco status: never smoked Alcohol intake: never Female Reproductive History: Spontaneous abortions: No Mental Status Exam MSE Comments: Patient was lying in bed she appeared her stated age she was friendly and cooperative on interview. Her gait was not tested. Her hygiene appeared adequate. There was no evidence of any abnormal involuntary motor movements tics or tremors appreciated. Her mood was described as not so good her affect was mood congruent and restricted in range. She had appeared tearful at times when describing her son's passing. Her thought process was linear logical and goal-directed. Her thought content showed no evidence of active homicidal ideation with no active suicidal ideation although she had some passive thoughts of suicide. Her speech was normal in regards to rate rhythm and prosody. She was alert and oriented to person place time day and date. She did seem somewhat forgetful as she was unable to recall the past president. Recent and remote memory were not tested today. Vitals/I&O/Wt Last Vital Signs Temp 97.8 F 12/26/22 04:00 Pulse 63 12/26/22 15:50 Resp 15 12/26/22 15:50 BP 178/86 12/26/22 15:50 Pulse Ox 99 12/26/22 12:10 O2 Del Method Room Air 12/26/22 08:00 12/26/22 12/26/22 12/26/22 06:59 14:59 22:59 Intake Total 226.25 / 1226.25 1108.75 / 1108.75 Output Total 200 / 200 400 / 400 Balance 26.25 / 1026.25 708.75 / 708.75 Weight last 48 hrs Weight 64.864 kg Data NPU 12/26/22 15:50 12/26/22 15:50 A&P Assessment and plan (1) Major depressive disorder: (2) Chronic hip pain, bilateral: (3) Chronic kidney disease, stage 3: Qualifiers: Chronic kidney disease stage 3 subtype: stage 3a (GFR 45-59) Qualified Code(s): N18.31 - Chronic kidney disease, stage 3a (4) Nicotine dependence, cigarettes, with unspecified nicotine-induced disorders: (5) Intertrigo: (6) Chronic lumbar radiculopathy: (7) Facet arthritis, degenerative, lumbar spine: (8) Scoliosis: (9) Lumbar disc disease with radiculopathy: (10) Lumbar stenosis: (11) At risk for falls: (12) History of recent fall: (13) Right shoulder pain: Qualifiers: Chronicity: acute Qualified Code(s): M25.511 - Pain in right shoulder (14) Weakness of shoulder: (15) Essential hypertension: (16) Viral URI with cough: (17) Otitis externa: Qualifiers: Otitis externa type: swimmer's ear Chronicity: acute Laterality: right Qualified Code(s): H60.331 - Swimmer's ear, right ear (18) Acute bacterial sinusitis: (19) Cellulitis: (20) Deep vein thrombosis of lower extremity: (21) Acute on chronic anemia: (22) CKD (chronic kidney disease): (23) Renal calculi: (24) Renal atrophy, left: (25) Bilateral hydronephrosis: (26) Bilateral ureteral calculi: (27) Fluid volume depletion: (28) Urinary tract infection: (29) Chronic anemia: (30) Chronic anticoagulation: (31) Retained ureteral stent: Plan 82-year-old white female with multiple medical problems who reports some passive suicidal thoughts while reporting depressed mood it appears to be triggered initially by the of her son 2 months ago. She was agreeable to cons ideration of treatment for depression. 1. Trial of Lexapro to target depression. Attestations NPU Medical Necessity Statement*: Inpatient psychiatric treatment not necessary, will follow. Coding Level of Care Code Acute Code for [facility] Fwd Diagnoses Major depressive disorder F32.9 Chronic hip pain, bilateral M25.551; M25.552; G89.29 Chronic kidney disease, stage 3 N18.31 Chronic kidney disease stage 3 subtype: stage 3a (GFR 45-59) Nicotine dependence, cigarettes, with unspecified nicotine-induced disorders F17.219 Intertrigo L30.4 Chronic lumbar radiculopathy M54.16 Facet arthritis, degenerative, lumbar spine M47.816 Scoliosis M41.9 Lumbar disc disease with radiculopathy M51.16 Lumbar stenosis M48.061 At risk for falls Z91.81 History of recent fall Z91.81 Right shoulder pain M25.511 Chronicity: acute Weakness of shoulder R29.898 Essential hypertension I10 Viral URI with cough J06.9 Otitis externa H60.331 Otitis externa type: swimmer's ear Chronicity: acute Laterality: right Acute bacterial sinusitis J01.90; B96.89 Cellulitis L03.90 Deep vein thrombosis of lower extremity I82.409 Acute on chronic anemia D64.9 CKD (chronic kidney disease) N18.9 Renal calculi N20.0 Renal atrophy, left N26.1 Bilateral hydronephrosis N13.30 Bilateral ureteral calculi N20.1 Fluid volume depletion E86.9 Urinary tract infection N39.0 Chronic anemia D64.9 Chronic anticoagulation Z79.01 Retained ureteral stent Z96.0
[2022-12-26 16:03] LABS: Basophils % 0.2 %; Hematocrit 26.4 % (37.0-47.0); Hemoglobin 7.6 g/dL (11.5-15.3); Lymphocytes # 0.7 10^3/uL (0.8-4.8); Lymphocytes % 7.4 %; Mean Corpuscular HGB Conc 28.8 g/dL (30.0-36.0); Mean Corpuscular Hemoglobin 22.6 pg (28.0-34.0); Mean Corpuscular Volume 78.3 fl (81-99); Mean Platelet Volume 9.4 fL (7.4-10.4); Monocytes # 0.3 10^3/uL (0.2-0.9); Monocytes % 3.1 %; Neutrophils % 88.6 %; Nucleated Red Blood Cells % 0 %; Platelet Count 199 10^3/cmm (130-400); Red Blood Count 3.37 10^6/uL (4.1-5.3); Red Cell Distribution Width 24.3 % (12.1-15.1); White Blood Count 8.8 10^3/uL (4.0-10.0)
[2022-12-26] MEDS: calcium carbonate 500 mg Chew Tablet PO (16:07)
[2022-12-26 16:22] LABS: Alanine Aminotransferase 15 U/L (0-33); Albumin Level 2.8 g/dL (3.5-5.2); Alkaline Phosphatase 86 U/L (35-105); Anion Gap 16.6 (5-19); Aspartate Amino Transferase 23 U/L (0-32); Blood Urea Nitrogen 24 mg/dL (8-23); Carbon Dioxide 24 mmol/L (22-29); Chloride 103 mmol/L (98-107); Globulin 2.7 g/dL (1.3-4.6); Glucose 65 mg/dL (65-115); Magnesium 1.6 mg/dL (1.7-2.3); Osmolality Calculated 292 mOsm/kg (285-295); Phosphorus 2.1 mg/dL (2.5-4.5); Potassium 3.6 mmol/L (3.5-5.1); Sodium 140 mmol/L (136-145); Total Bilirubin 0.4 mg/dL (0.15-1.2); Total Protein 5.5 g/dL (6.6-8.7)
[2022-12-26 16:24] LABS: Lactic Sepsis W/Reflex 1.4 mmol/L (0.5-2.2)
[2022-12-26] MEDS: nicotine 21 mg Patch 1 PATCH TRANSDERMA (16:41)
[2022-12-26] MEDS: sodium chloride 0.9% 1,000 ML 75 ML IV (16:41)
--- NOTE | 2022-12-26 17:51 | PC.NURSE ---
patient refused lexapro at this time after instruction that is what to help with depression after speaking with dr rodriguez
--- NOTE | 2022-12-26 20:10 | P.PN_ITS ---
Subjective Subjective: She has been feeling weak, mild nausea. No vomiting. Vitals/I&O/Wt Last Vital Signs Temp 97.8 F 12/26/22 04:00 Pulse 68 12/26/22 16:00 Resp 17 12/26/22 16:00 BP 134/61 12/26/22 16:00 Pulse Ox 99 12/26/22 16:00 O2 Del Method Room Air 12/26/22 16:00 12/26/22 12/26/22 12/26/22 06:59 14:59 22:59 Intake Total 226.25 / 1226.25 1367.50 / 1367.50 282.5 / 1650.00 Output Total 200 / 200 400 / 400 Balance 26.25 / 1026.25 967.50 / 967.50 282.5 / 1250.00 Weight last 48 hrs Weight 64.864 kg Physical Exam Const: COMMON NORMALS: patient oriented x3 and alert GENERAL APPEARANCE: cooperative ORIENTATION/CONSCIOUSNESS: Yes awake Neck/C-Spine: COMMON NORMALS: no JVD Resp: COMMON NORMALS: normal respiratory effort and clear to auscultation bilaterally AUSCULTATION: clear to auscultation bilaterally Cardio: COMMON NORMALS: no JVD, regular rhythm, S1 normal heart sound present, S2 normal heart sound present and No murmurs present (Cardio) RHYTHM: regular rhythm HEART SOUNDS: S1 normal heart sound present and S2 normal heart sound present GI: COMMON NORMALS: Normal to inspection, nondistended, normoactive bowel so unds present, Soft to palpation and non-tender PALPATION: Yes Soft to pal pation Extremity: COMMON NORMALS: no joint enlargement and no pedal edema Neuro: COMMON NORMALS: patient oriented x3 and moves all extremities SENSORIUM/ORIENTATION: Yes alert Data 12/26/22 15:50 12/26/22 15:50 Micro: Microbiology 12/26/22 15:50 Blood Culture - Preliminary Blood SPECIMEN COLLECTED A&P Assessment and plan (1) Chronic anemia: Acute on chronic anemia, hemoglobin down to 7.6. Check Hemoccult. Noted to EGD and colonoscopy without sign of bleeding. Severe iron deficiency anemia. Possibly of other source of bleeding. She is having hematuria. Resume iron replacement. Has worsening hemoglobin anticoagulation for now was held. At risk of bleeding, at risk of worsening DVT and/or PE. SCD requesting for LLE only. (2) Urinary tract infection: Continue antibiotic, follow-up urine culture. Discussed with urology, urology documentation appreciated. (3) Deep vein thrombosis of lower extremity: Has been on Eliquis, for now held due to worsening hemoglobin, follow-up CBC. SCD on LLE only due to RLE DVT (4) Acute kidney injury superimposed on CKD: Creatinine noted 1.8, BUN 24. Receiving gentle fluid challenge. Recheck chemistries are requested. (5) Major depressive disorder: She lost her in October, earlier to that lost her son. She has been feeling very down. She is agreeable to meet with psychiatry. Discussed with psychiatry, appreciate consultation. (6) Chronic kidney disease, stage 3: Qualifiers: Chronic kidney disease stage 3 subtype: stage 3a (GFR 45-59) Qualified Code(s): N18.31 - Chronic kidney disease, stage 3a (7) Nicotine dependence, cigarettes, with unspecified nicotine-induced disorders: (8) At risk for falls: (9) Essential hypertension: (10) CKD (chronic kidney disease): (11) Chronic hip pain, bilateral: (12) Goals of care, counseling/discussion: She prefers limited goals of care. She reports ever since losing her family she has not been wanting aggressive interventions. The next thing for me will be to go up , pointing to the sami. Denies any active suicidal thoughts or intent. Discussed with her this may be reasonable, although she is also having depression and seems, and discussed with her psychiatric assessment and consideration of treatment of depression also in case it may be affecting her decisions. She is agreeable. (13) Dilated bile duct: MRCP results appreciated, suspected more likely physiologic. She has no abdomen pain. Edmond negative. Liver parameters normal. (14) Hypomagnesemia: Replace, recheck magnesium requested. Plan #Failure to thrive #Poor oral intake #Generalized weakness #Possible depression? #Acute on chronic anemia #DANIEL on CKD #Dehydration #Diarrhea #Recent hospital stay #Nicotine dependence #Fall risk #Hypertension #History of DVT #Mild to moderate mitral regurgitation #Chronic anticoagulation #UTI #Ureteral stent from previous admit DNR/DNI Attestations Medical Necessity Statement*: Continue hospitalization for assessment management of UTI complicated with presence of stent, ureterolithiasis, hydronephrosis, worsening acute anemia with recently diagnosed DVT, DANIEL on CKD, and additional comorbidities as above. Diagnoses Chronic anemia D64.9 Urinary tract infection N39.0 Deep vein thrombosis of lower extremity I82.409 Acute kidney injury superimposed on CKD N17.9; N18.9 Major depressive disorder F32.9 Chronic kidney disease, stage 3 N18.31 Chronic kidney disease stage 3 subtype: stage 3a (GFR 45-59) Nicotine dependence, cigarettes, with unspecified nicotine-induced disorders F17.219 At risk for falls Z91.81 Essential hypertension I10 CKD (chronic kidney disease) N18.9 Chronic hip pain, bilateral M25.551; M25.552; G89.29 Goals of care, counseling/discussion Z71.89 Dilated bile duct K83.8 Hypomagnesemia E83.42
[2022-12-26] MEDS: magnesium sulfate premix 2 GM/50 ML PIGGYBACK IV (21:09)
[2022-12-27] VITALS (129 sets, daily range): BP systolic 117–165; BP diastolic 53–106; PULSE 54–76; RESP 0–25; TEMP 32–37.2; O2SAT 87–100
[2022-12-27] MEDS: sodium chloride 0.9% 1,000 ML 75 ML IV ×2 (01:40→16:59)
[2022-12-27] MEDS: ondansetron 2 mg/ML SDV 2 mL 4 MG IVP (01:45)
[2022-12-27] MEDS: calcium carbonate 500 mg Chew Tablet PO (01:47)
[2022-12-27 05:12] LABS: Basophils % 0.3 %; Eosinophils % 0.2 %; Hematocrit 23.6 % (37.0-47.0); Hemoglobin 6.9 g/dL (11.5-15.3); Lymphocytes # 0.9 10^3/uL (0.8-4.8); Lymphocytes % 15.2 %; Mean Corpuscular HGB Conc 29.2 g/dL (30.0-36.0); Mean Corpuscular Hemoglobin 22.7 pg (28.0-34.0); Mean Corpuscular Volume 77.6 fl (81-99); Mean Platelet Volume 9.5 fL (7.4-10.4); Monocytes # 0.3 10^3/uL (0.2-0.9); Monocytes % 5.4 %; Neutrophils # 4.76 10^3/uL (1.8-7.7); Neutrophils % 78.6 %; Nucleated Red Blood Cells % 0 %; Platelet Count 161 10^3/cmm (130-400); Red Blood Count 3.04 10^6/uL (4.1-5.3); Red Cell Distribution Width 24.3 % (12.1-15.1); White Blood Count 6.1 10^3/uL (4.0-10.0)
[2022-12-27 05:28] LABS: Anion Gap 12.4 (5-19); Blood Urea Nitrogen 23 mg/dL (8-23); Calcium 8.4 mg/dL (8.5-10.5); Carbon Dioxide 25 mmol/L (22-29); Chloride 104 mmol/L (98-107); Glucose 72 mg/dL (65-115); Osmolality Calculated 288 mOsm/kg (285-295); Potassium 3.4 mmol/L (3.5-5.1); Sodium 138 mmol/L (136-145)
[2022-12-27] MEDS: nicotine 21 mg Patch 1 PATCH TRANSDERMA (08:00)
[2022-12-27] MEDS: cefTRIAXone 1,000 MG in sodium chloride 0.9% (plus) 50 ML 100 MG IV ×2 (08:00→20:15)
[2022-12-27] MEDS: escitalopram 10 mg Tablet 5 MG PO (08:01)
[2022-12-27] MEDS: pantoprazole DR 40 mg Tablet PO (08:01)
[2022-12-27] MEDS: ferrous gluconate 324 mg Tablet PO ×2 (08:01→18:29)
--- NOTE | 2022-12-27 09:46 | P.PN_ITS ---
Subjective Subjective: Urology follow-up: Reviewed chart. Hopefully there is some significant improvement with Lexapro for her depression. Having some increased hematuria. Her hemoglobin has drifted down today to 6.9. Creatinine improving since admission. 2.1 decreased to 1.8 and now 1.6. She seems a little more confused today. We reviewed again the issues related to the stent and stone. I discussed my prior recommendations which still hold: * Would recommend when it is safe from a DVT perspective to plan stent removal, flexible ureterorenoscopy and laser lithotripsy, possible temporary stent replacement. * Would not recommend just ignoring the stent unless there was imminent demise from other comorbidities. Discussed specifically the problems related to encrustation and calcification of stents. Also reviewed that I would respect her opinion and choices. Discussed the hematuria with her. I do not think that hematuria is significant enough to create much of an issue but she already starts off from an anemic perspective which may make that more significant. Reviewed with Dr. Miguel as well. Medications: Reviewed: Yes Vitals/I&O/Wt Last Vital Signs Temp 97.6 F 12/27/22 04:00 Pulse 69 12/27/22 09:40 Resp 19 H 12/27/22 09:40 BP 150/77 12/27/22 09:40 Pulse Ox 96 12/27/22 04:00 O2 Del Method Room Air 12/27/22 04:00 12/26/22 12/27/22 12/27/22 22:59 06:59 14:59 Intake Total 822.5 / 2190.00 773.75 / 2963.75 50 / 50 Output Total 100 / 500 250 / 750 100 / 100 Balance 722.5 / 1690.00 523.75 / 2213.75 -50 / -50 Weight last 48 hrs Weight 143 lb Physical Exam Const: COMMON NORMALS: no acute distress and well nourished GENERAL APPEARANCE: well kempt and well developed Resp: COMMON NORMALS: normal respiratory effort EFFORT & INSPECTION: No labored and No Actively coughing GI: COMMON NORMALS: Soft to palpation and no masses PALPATION: Yes Soft to palpation : OTHER: CVA tenderness. Bladder nondistended. 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 Has resulted in left renal 1 residual stone at the right UPJ but it has been managed with stent placement which relieves the concerns related to obstructive uropathy. Her creatinine is improving. Yesterday she was not at all interested in pursuing intervention but she seems more amenable to it now. Her main motivation though is to get out of the hospital. Reviewed with Dr. Miguel. Psychiatry recommendations reviewed as well. I encouraged her to follow through with their recommendations (2) Retained ureteral stent: Seems more open today to consider attempt at definitive therapy of the stone including stent removal. She is very intent on going home soon. Certainly the intervention could be postponed and performed on outpatient basis (3) Renal atrophy, left: (4) Deep vein thrombosis of lower extremity: (5) Chronic anticoagulation: Plan She seems more open today to consider stent removal and stone treatment and to close the book on this lingering problem. I reviewed that that could be done on outpatient basis as long other medical issues are stabilized and it is safe to proceed with anesthesia and intervention. Attestations Medical Necessity Statement*: See attending Coding Level of Care Code Acute Code for g Fwd Diagnoses Bilateral ureteral calculi N20.1 Retained ureteral stent Z96.0 Renal atrophy, left N26.1 Deep vein thrombosis of lower extremity I82.409 Chronic anticoagulation Z79.01
[2022-12-27] MEDS: heparin 5,000 unit/mL INJ 1 mL 5000 UNIT SUBCUT ×2 (11:45→22:38)
--- NOTE | 2022-12-27 13:16 | PM.CONSULT ---
Providers/Reason For Consult Consulting Physician/Specialty*: Harlan Medina MD/ Interventional Cardiology Reason for Consult*: IVC filter placement Requesting Physician: Dr Miguel Attending Physician: Surinder Miguel Primary Care Provider: Ramirez Rush DO History of Present Illness History of Present Illness Julia Ballard is a 82 year old female who was recently diagnosed with right lower extremity DVT(occlusive popliteal vein thrombus) and was started on Eliquis. She has come back with severe anemia requiring transfusions.Had ureteral stent placed recently. Has hematuria. Interventional cardiology has been consulted to place IVC filter as she cannot tolerate anticoagulation. Review of Systems Const: Denies: fever(s) Eyes: Denies: change in vision ENMT: Denies: throat pain Card: Denies: chest pain Resp: Denies: dyspnea GI: Denies: abdominal pain : Denies: flank pain Musc: Denies: neck pain Skin/Breast: Denies: rash Neuro: Denies: headache(s) Psych: Reports: anxiety Endo: Denies: polyuria Juan/Lymph: Denies: easy bruising All/Imm: Denies: urticaria Medications/Allergies Home Medications Medication Instructions Recorded Confirmed Last Taken Type Prevagen 1 cap PO DAILY 05/27/22 12/25/22 12/25/22 08:00 History ascorbic acid (vitamin C) 500 mg 500 mg PO DAILY 05/27/22 12/25/22 12/25/22 08:00 History tablet (Vitamin C) vitamin E 100 unit capsule 100 unit PO DAILY 05/27/22 12/25/22 12/25/22 History tramadol 50 mg tablet 100 mg PO TID PRN pain 30 days 11/13/22 12/25/22 12/25/22 Rx #180 tabs apixaban 5 mg tablet (Eliquis) 5 mg PO BID #60 tabs 12/09/22 12/25/22 12/25/22 17:00 Rx calcium carbonate 750 1 tab PO Q4H PRN Acid Reflux 12/12/22 12/25/22 Unknown History mg-simethicone 80 mg chewable tablet ([place] Heartburn-Gas) amlodipine 5 mg tablet 10 mg PO DAILY #60 tabs 12/16/22 12/25/22 12/25/22 08:00 Rx ferrous gluconate 324 mg (37.5 mg 324 mg PO BIDWM #60 tabs 12/16/22 12/25/22 12/25/22 17:00 Rx iron) tablet hydralazine 25 mg tablet 25 mg PO BID #60 tabs 12/16/22 12/25/22 12/25/22 08:00 Rx pantoprazole 40 mg tablet,delayed 40 mg PO DAILY #30 tabs 12/16/22 12/25/22 12/25/22 08:00 Rx release sucralfate 1 gram tablet (Carafate) 1 g PO TID PRN Gerd 4 weeks #84 12/16/22 12/25/22 Unknown Rx tabs Allergies Allergy/AdvReac Type Severity Reaction Status Date / Time celecoxib [From Celebrex] Allergy kidney Verified 12/25/22 13:27 issue fluticasone Allergy unknown Verified 12/25/22 13:27 [From Advair Diskus] Penicillins Allergy unknown Verified 12/25/22 13:27 salmeterol Allergy unknown Verified 12/25/22 13:27 [From Advair Diskus] Sulfa (Sulfonamide Allergy unknown Verified 12/25/22 13:27 Antibiotics) acetaminophen [From Tylenol] AdvReac Mild rash Verified 12/25/22 13:27 naproxen [From Aleve] AdvReac Mild RASH Verified 12/25/22 13:27 Current Medications Generic Name Dose Route Start Last Admin Trade Name Freq PRN Reason Stop Dose Admin Calcium Carbonate 500 mg 12/26/22 14:46 12/27/22 01:47 Calcium Carbonate 500 Mg Chew Tablet PO 12/28/22 14:45 500 mg BID PRN Administration INDIGESTION Escitalopram Oxalate 5 mg 12/26/22 17:45 12/27/22 08:01 Escitalopram 10 Mg Tablet PO 5 mg DAILY TANJA Administration Ferrous Gluconate 324 mg 12/27/22 08:00 12/27/22 08:01 Ferrous Gluconate 324 Mg Tablet PO 324 mg BIDWM TANJA Administration Heparin Sodium (Porcine) 5,000 unit 12/27/22 11:30 12/27/22 11:45 Heparin 5,000 Unit/Ml Inj 1 Ml SUBCUT 5,000 unit Q12H TANJA Administration Sodium Chloride 1,000 mls @ 75 mls/hr 12/25/22 23:45 12/27/22 01:40 Sodium Chloride 0.9% IV 75 mls/hr .[id number] TANJA Administration Ceftriaxone Sodium 1,000 mg/ 50 mls @ 100 mls/hr 12/26/22 09:00 12/27/22 08:50 Sodium Chloride IV Infused Q12H TANJA Infusion Protocol Nicotine 1 patch 12/26/22 16:05 12/27/22 08:00 Nicotine 21 Mg Patch TRANSDERMA 1 patch DAILY TANJA Administration Ondansetron HCl 4 mg 12/25/22 23:40 12/27/22 01:45 Ondansetron 2 Mg/Ml Sdv 2 Ml IVP 4 mg Q8H PRN Administration vomiting, or N/V if npo Pantoprazole Sodium 40 mg 12/27/22 09:00 12/27/22 08:[address] 40 Mg Tablet PO 40 mg DAILY TANJA Administration PFSH Acute PFSH: Medical History Anemia Balance problem Benign essential HTN Bilateral ureteral calculi Chronic hip pain, bilateral Chronic kidney disease, stage 3 COPD (chronic obstructive pulmonary disease) Gastric ulcer with hemorrhage and obstruction Lumbar disc disease with radiculopathy MRSA carrier Surgical History H/O: hysterectomy History of appendectomy History of cholecystectomy History of tonsillectomy and adenoidectomy Family History Other CAD (coronary artery disease) Stroke Social History Smoking and tobacco status: never smoked Alcohol intake: never Female Reproductive History: Spontaneous abortions: No Vitals/I&O/Wt Last Vital Signs Temp 98.7 F 12/27/22 13:02 Pulse 70 12/27/22 12:25 Resp 16 12/27/22 13:02 BP 144/58 12/27/22 13:02 Pulse Ox 97 12/27/22 13:02 O2 Del Method Room Air 12/27/22 04:00 12/26/22 12/27/22 12/27/22 22:59 06:59 14:59 Intake Total 822.5 / 2190.00 773.75 / 2963.75 50 / 50 Output Total 100 / 500 250 / 750 100 / 100 Balance 722.5 / 1690.00 523.75 / 2213.75 -50 / -50 Weight last 48 hrs Weight 143 lb Physical Exam Narrative: GENERAL: Patient is alert, awake and oriented x3. [] NECK: No jugular vein distension. [] HEENT: No cyanosis. No icterus. No pallor. [] HEART: Regular S1 and S2. No murmur, rub or gallop. [] LUNGS: Clear to auscultate bilaterally. [] CENTRAL NERVOUS SYSTEM: Grossly nonfocal. [] EXTREMITIES: Lower extremities with 1+ edema bilaterally. Data 12/28/22 04:20 12/28/22 04:20 Micro: Microbiology 12/25/22 18:55 Urine Culture - Preliminary Urine,Clean Catch Gram Negative Rods 12/27/22 05:40 Blood Culture - Preliminary Blood SPECIMEN COLLECTED 12/26/22 15:50 Blood Culture - Preliminary Blood SPECIMEN COLLECTED A&P Assessment and plan (1) Deep vein thrombosis: (2) Acute kidney injury superimposed on CKD: (3) Essential hypertension: Plan Patient has significant anemia requiring transfusions. As she cannot tolerate anticoagulation at this time. She has occlusive right lower extremity DVT in popliteal vein. Interventional cardiology has been consulted for IVC filter placement. We will proceed with it. Risks and benefits of the procedure have been discussed with the patient. She understands the risk benefits and wants to proceed. N.p.o. past midnight She has DANIEL that is improving. Continue IV fluids. Thank you for involving us with care of this patient. We will continue to follow. Please call with questions. Consult Attestations Medical Necessity Statement: Care expected to cross 2 midnights. Coding Level of Care Code Acute Code for [facility] Fwd Diagnoses Deep vein thrombosis I82.409 Acute kidney injury superimposed on CKD N17.9; N18.9 Essential hypertension I10
[2022-12-27] MEDS: sodium chloride 0.9% 100 mL Bag 50 ML IV (17:00)
--- NOTE | 2022-12-27 18:15 | PC.NURSE ---
Patient received 1 unit of RBCs over 3 hours. Patient was monitored and had no transfusion reactions. Vital signs were documented, please see documentation in [facility].
[2022-12-27] MEDS: TRAMadol 50 mg Tablet 100 MG PO (21:02)
--- NOTE | 2022-12-27 21:36 | P.PN_ITS ---
Subjective Subjective: Denies abdominal pain. Has been having hematuria. Denies chest pain. Vitals/I&O/Wt Last Vital Signs Temp 98.8 F 12/27/22 20:00 Pulse 67 12/27/22 20:00 Resp 22 H 12/27/22 20:00 BP 128/66 12/27/22 20:00 Pulse Ox 99 12/27/22 20:00 O2 Del Method Room Air 12/27/22 20:00 12/27/22 12/27/22 12/27/22 06:59 14:59 22:59 Intake Total 773.75 / 2963.75 268 / 268 1678 / 1946 Output Total 250 / 750 500 / 500 400 / 900 Balance 523.75 / 2213.75 -232 / -232 1278 / 1046 Physical Exam Const: COMMON NORMALS: patient oriented x3 and alert GENERAL APPEARANCE: cooperative ORIENTATION/CONSCIOUSNESS: Yes awake Neck/C-Spine: COMMON NORMALS: no JVD Resp: COMMON NORMALS: normal respiratory effort and clear to auscultation bilaterally AUSCULTATION: clear to auscultation bilaterally Cardio: COMMON NORMALS: no JVD, regular rhythm, S1 normal heart sound present, S2 normal heart sound present and No murmurs present (Cardio) RHYTHM: regular rhythm HEART SOUNDS: S1 normal heart sound present and S2 normal heart sound present GI: COMMON NORMALS: Normal to inspection, nondistended, normoactive bowel sounds present, Soft to palpation and non-tender PALPATION: Yes Soft to palpation Extremity: COMMON NORMALS: no joint enlargement and no pedal edema Neuro: COMMON NORMALS: patient oriented x3 and moves all extremities SENSORIUM/ORIENTATION: Yes alert Data 12/27/22 04:15 12/27/22 04:15 Micro: Microbiology 12/27/22 06:00 Occult Blood (FIT) - Final Stool - Stool Aspirate 12/26/22 15:50 Blood Culture - Preliminary Blood NEGATIVE TO DATE 12/25/22 18:55 Urine Culture - Preliminary Urine,Clean Catch Gram Negative Rods 12/27/22 05:40 Blood Culture - Preliminary Blood SPECIMEN COLLECTED A&P Assessment and plan (1) Chronic anemia: Eliquis so far not resumed due to anemia requiring transfusion, urinary blee armando. Discussed with her regarding IVC filter, discussed with cardiology, appreciate consultation. Prophylactic heparin for now. Hemoglobin down to 6.9 this morning, received 1 unit RBC transfusion. Continue iron replacement. Has worsening hemoglobin anticoagulation for now was held. At risk of bleeding, at risk of worsening DVT and/or PE. SCD requesting for LLE only. Possibility of dilutional effect as well. Hold additional IVF. (2) Urinary tract infection: Continue antibiotic, follow-up urine culture. Discussed with urology, continued consideration of definitive therapy of left ureterolithiasis and stent. Urology documentation appreciated. (3) Deep vein thrombosis of lower extremity: Has been on Eliquis, for now held due to worsening hemoglobin, follow-up CBC. SCD on LLE only due to RLE DVT Could not resume anticoagulation. Continues to have urinary bleeding, anemia down to 6.9 hemoglobin today. She is very weak, at increased risk of extension of clot, PE, appreciate assessment for consideration of IVC filter. (4) Acute kidney injury superimposed on CKD: With improvement, creatinine down to 1.6. Receiving gentle fluid challenge. Recheck chemistries are requested. Hold additional IVF as she also got a blood transfusion. (5) Major depressive disorder: She lost her in October, earlier to that lost her son. She has been feeling very down. She is agreeable to meet with psychiatry. Started on antidepressant. Appreciate consultation. (6) Chronic kidney disease, stage 3: Qualifiers: Chronic kidney disease stage 3 subtype: stage 3a (GFR 45-59) Qualified Code(s): N18.31 - Chronic kidney disease, stage 3a (7) Nicotine dependence, cigarettes, with unspecified nicotine-induced disorders: (8) At risk for falls: (9) Essential hypertension: (10) CKD (chronic kidney disease): (11) Chronic hip pain, bilateral: (12) Goals of care, counseling/discussion: She prefers limited goals of care. She reports ever since losing her family she has not been wanting aggressive interventions. The next thing for me will be to go up , pointing to the sami. Denies any active suicidal thoughts or intent. Discussed with her this may be reasonable, although she is also having depression and seems, and discussed with her psychiatric assessment and consideration of treatment of depression also in case it may be affecting her decisions. She is agreeable. (13) Dilated bile duct: MRCP results appreciated, suspected more likely physiologic. She has no abdomen pain. Edmond negative. Liver parameters normal. (14) Hypomagnesemia: Replace, recheck magnesium requested. Plan #Failure to thrive #Poor oral intake #Generalized weakness #Possible depression? #Acute on chronic anemia #DANIEL on CKD #Dehydration #Diarrhea #Recent hospital stay #Nicotine dependence #Fall risk #Hypertension #History of DVT #Mild to moderate mitral regurgitation #Chronic anticoagulation #UTI #Ureteral stent from previous admit DNR/DNI Attestations Medical Necessity Statement*: Continue admission for assessment management of acute anemia, complicated UTI, and lady with recently diagnosed DVT, on anticoagulation prior to admission. Diagnoses Chronic anemia D64.9 Urinary tract infection N39.0 Deep vein thrombosis of lower extremity I82.409 Acute kidney injury superimposed on CKD N17.9; N18.9 Major depressive disorder F32.9 Chronic kidney disease, stage 3 N18.31 Chronic kidney disease stage 3 subtype: stage 3a (GFR 45-59) Nicotine dependence, cigarettes, with unspecified nicotine-induced disorders F 17.219 At risk for falls Z91.81 Essential hypertension I10 CKD (chronic kidney disease) N18.9 Chronic hip pain, bilateral M25.551; M25.552; G89.29 Goals of care, counseling/discussion Z71.89 Dilated bile duct K83.8 Hypomagnesemia E83.42
[2022-12-28] VITALS (9 sets, daily range): BP systolic 136–172; BP diastolic 67–79; PULSE 51–86; RESP 12–21; TEMP 36.7–36.8; O2SAT 94–98
[2022-12-28 04:38] LABS: Basophils % 0.5 %; Hematocrit 28.2 % (37.0-47.0); Hemoglobin 8.5 g/dL (11.5-15.3); Lymphocytes # 0.9 10^3/uL (0.8-4.8); Lymphocytes % 15.2 %; Mean Corpuscular HGB Conc 30.1 g/dL (30.0-36.0); Mean Corpuscular Volume 76.4 fl (81-99); Mean Platelet Volume 9.5 fL (7.4-10.4); Monocytes # 0.4 10^3/uL (0.2-0.9); Monocytes % 6.4 %; Neutrophils # 4.44 10^3/uL (1.8-7.7); Neutrophils % 77.4 %; Nucleated Red Blood Cells % 0 %; Platelet Count 136 10^3/cmm (130-400); Red Blood Count 3.69 10^6/uL (4.1-5.3); Red Cell Distribution Width 23.1 % (12.1-15.1); White Blood Count 5.7 10^3/uL (4.0-10.0)
[2022-12-28 05:01] LABS: Anion Gap 10.2 (5-19); Blood Urea Nitrogen 22 mg/dL (8-23); Calcium 7.9 mg/dL (8.5-10.5); Carbon Dioxide 25 mmol/L (22-29); Chloride 105 mmol/L (98-107); Glucose 73 mg/dL (65-115); Osmolality Calculated 286 mOsm/kg (285-295); Potassium 3.2 mmol/L (3.5-5.1); Sodium 137 mmol/L (136-145)
--- NOTE | 2022-12-28 07:16 | XACV_ITS ---
Ht: 137 cm Wt: 65 kg BSA: 1.61 m2 Any Known Allergies: Other Gender: Female : 1940 Exam Type: Invasive Peripheral Vascular Procedure(s): Procedure Description: Peripheral vascular Intervention Procedure Description: PV IVC Filter Placement Exam Priority: Routine Abdominal Interventional Findings INDICATION: 82 year old female who was recently diagnosed with right lower extremity DVT and was started on Eliquis. She has come back with severe anemia requiring transfusions.Had ureteral stent placed recently. Has hematuria. Interventional cardiology has been consulted to place IVC filter as she cannot tolerate anticoagulation. PROCEDURE DETAIL: We obtained access right common femoral vein. 5 Bulgarian pigtail was used to perform IVC venogram and renal veins were identified. We then proceeded with the placement of Cook celect IVC filter under flouroscopic guidance. At the end of procedure, sheath was removed. Patient left the high density press laborer in a stable condition. Conclusions Successful IVC filter placement. Recommendations Transfer back to floor. Plan for outpatient follow up and IVC filter retrieval if patient able to tolerate anticoagulation. Access Site Site: Right Femoral vein Sheath Size: 6 Fr Hemost... Method: Manual Compression Hemost... Success: Successful Procedure Details Findings Procedure Consent Obtained. Admit Source: In Patient. Pre-Procedure Time Out. Identified patient by full name and date of as verbalized by the patient/guarantor. Does the consent match the physician's order: Yes. Accurate & Complete Informed Consent: Yes. Inpatient/Outpatient History & Physical on Chart: Yes. If H&P is completed, is and addenduem needed: No; If yes, is the addendum complete: N/A. Visualize and Verify Site with Patient/Guarantor: N/A. Relevant Radiology Images available: N/A. The risks, benefits, and alternatives of sedation and/or procedure were discussed by physician. The patient agrees to continue. Procedure started. PERRLA. Aguirre, equal hand order management specialist bilaterally. Lungs clear x 5 lobes. IV Site on Arrival: 20 gauge in the left anticubital. IV Fluids: 0.9% NaCl at KVO. 500 mL infused prior to high density press laborer. Pre Procedural Pulses: bilateral dorsalis pedis was Doppled. Oxygen started at 2liters/min via nasal canula. bilateral groins was prepped with chloroprep then draped in the usual sterile fashion. Physician notified. Baseline sample Acquired. HR: 98 BPM. Physician arrived. Physician scrubbed in. Immediate Pre-Procedure Time Out. Correct Patient: Yes; Correct Procedure: Yes; Correct Site: Yes; Correct Patient Position: Yes; Correct Supplies: Yes; Dried Flammable Prep: Yes; Blood Products Available: N/A;. Lidocaine 1% infiltrated to the right groin. Venous access obtained with a micropuncture set. A 5 bolivian Angled Pig catheter in over wire. Catheter out. A 5 bolivian JR4 catheter in over wire. Exchange wire in. Catheter out. A 5 bolivian Angled Pig catheter in over wire. Wire out. Catheter out. 6F sheath exchanged for IVC filter sheath. Abdominal Aortogram performed in LOPEZ @ 10 mL/second for a total of 30 mL. IVC Filter in. IVC Filter deployed. Lot number [id number] exp date 10/17/2025. PERRLA. Strong, equal hand order management specialist bilaterally. No VTE prophylaxis required. A Manual Compression was successful obtaining hemostatsis at the Right Femoral vein insertion site. Medication's Wasted: Other = versed 1 mg. Medication's Wasted: Other = fentanyl 50 mcg. Medication's Wasted: Lidocaine 1% = 1 mL. Medication's Wasted: Heparin = 1000 units. Total IV fluids: 29 mL. Post-op diagnosis: successful deployment of IVC filter. Complications: none. Estimated blood loss: 5mL-10mL. Responsiveness - Normal response to verbal stimuli; alert and oriented, PERRLA. Airway - Unaffected, no intervention required; spontaneous ventilation. Circulation: W/N/L, pulses unchanged. Nausea/Vomiting: No. Procedure completed. Patient transferred by bed to 1st floor. Vital chart was stopped. Procedure Medications Start: 7:55 AM Stop: 7:55 AM Medication: Versed Amount: 1 mg Route: I.V. Start: 7:56 AM Stop: 7:56 AM Medication: Fentanyl Amount: 50 mcg Route: I.V. I, the attending physician, have reviewed and verified all procedure medications. Yes, all medications given per verbal order History/Risk Factors Hypertension: Yes Dyslipidemia: No Peripheral Arterial Disease (PAD): No Obesity: No Tobacco Use: Current/Recent(w/in 1 year) Prior Interventions PCI: No CABG: No Valve Surgery: No Report Signatures Finalized by Harlan Medina MD on 01/11/2023 11:10 AM
--- NOTE | 2022-12-28 07:33 | W.PM.OPSUD ---
Surgery/Procedure H&P Update DATE OF PROCEDURE: December 28, 2022 DATE H&P PERFORMED: 12/27/22 H&P UPDATE INFORMATION: I have reviewed H&P completed within last 30 days, I have examined patient prior to procedure and No changes to prior documentation PREOP DIAGNOSIS: Severe anemia/ DVT PRIMARY INDICATION FOR PROCEDURE: Severe anemia/ DVT PLANNED PROCEDURE: IVC filter placement PATIENT REASSESSED PRIOR TO SEDATION, WITH NO CHANGE NOTED: Yes PHYSICAL EXAM: alert, oriented x 3, clear to auscultation bilaterally and regular rate & rhythm AIRWAY EVAL/ANESTHESIA PLAN: normal airway, ASA III, Local Anesthesia, Risks, benefits & alternatives of sedation and/or procedure discussed and Patient agrees to continue as planned ADDITIONAL INFORMATION: Moderate sedation
--- NOTE | 2022-12-28 08:19 | P.PCN_ITS ---
Procedure Note: Date of procedure: 12/28/22 Pre-procedure diagnosis: DVT/ Severe anemia Post-procedure diagnosis: same Procedure: IVC filter placement: We obtained access right common femoral vein. 5 German pigtail also used to perform IVC venogram and renal veins were identified. We then proceeded with the placement of Cook celect IVC filter under flouroscopic guidance. At the end of procedure, sheath was removed. Patient left the laboratory apparatus glass grinder in a stable condition. Op report anesthesia: Local and Other (Moderate sedation) Performing Provider: Harlan Medina Firefighter Type One: Ester Wu Estimated blood loss (mL): 5 Complications: None Pathology: none sent Condition: stable Disposition: floor Coding Level of Care Code Acute Code for [facility] Fwd
--- NOTE | 2022-12-28 08:23 | P.PN_ITS ---
Subjective Subjective: Patient is doing well. Hgb has improved after blood transfusion. S/p successful IVC filter placement Vitals/I&O/Wt Last Vital Signs Temp 98.1 F 12/28/22 07:15 Pulse 51 L 12/28/22 07:15 Resp 16 12/28/22 07:15 BP 152/67 12/28/22 07:15 Pulse Ox 98 12/28/22 07:15 O2 Del Method Room Air 12/28/22 07:15 12/27/22 12/28/22 12/28/22 22:59 06:59 14:59 Intake Total 2077 / 2346 6 Output Total 400 / 900 150 / 1050 Balance 1678 / 1446 -150 / 1296 Physical Exam Narrative: GENERAL: Patient is alert, awake and oriented x3. [] NECK: No jugular vein distension. [] HEENT: No cyanosis. No icterus. No pallor. [] HEART: Regular S1 and S2. No murmur, rub or gallop. [] LUNGS: Clear to auscultate bilaterally. [] CENTRAL NERVOUS SYSTEM: Grossly nonfocal. [] EXTREMITIES: Lower extremities with 1+ edema bilaterally. Data 12/28/22 04:20 12/28/22 04:20 Micro: Microbiology 12/27/22 05:40 Blood Culture - Preliminary Blood NEGATIVE TO DATE 12/27/22 06:00 Occult Blood (FIT) - Final Stool - Stool Aspirate 12/26/22 15:50 Blood Culture - Preliminary Blood NEGATIVE TO DATE 12/25/22 18:55 Urine Culture - Preliminary Urine,Clean Catch Gram Negative Rods A&P Assessment and plan (1) Deep vein thrombosis: (2) Acute kidney injury superimposed on CKD: (3) Essential hypertension: Plan Patient underwent successful placement of IVC filter today. It can be retrieved in future if she is a candidate of anticoagulation in future. Renal function and hemoglobin have improved today Thank you for involving us with care of this patient. Please call with questions. Attestations Medical Necessity Statement*: Care exopected to cross 2 midnights. Coding Level of Care Code Acute Code for [facility] Fwd Diagnoses Deep vein thrombosis I82.409 Acute kidney injury superimposed on CKD N17.9; N18.9 Essential hypertension I10
[2022-12-28] MEDS: escitalopram 10 mg Tablet 5 MG PO (09:03)
[2022-12-28] MEDS: pantoprazole DR 40 mg Tablet PO (09:04)
--- NOTE | 2022-12-28 09:04 | W.PM.NPUPNS ---
Subjective NPU Subjective: 82-year-old white female reporting depression currently in the crisis stabilization unit. She reported no side effects from her medication. She continues to report low motivation and admitted to struggling with her depression over the past few months. She had reported desire to get physical therapy and leave the hospital. She had denied any active thoughts of hurting herself or others. Mental Status Exam MSE Comments: Patient was lying in bed she appeared her stated age she was friendly and cooperative on interview. Her gait was not tested. Her hygiene appeared adequate. There was no evidence of any abnormal involuntary motor movements tics or tremors appreciated. Her mood was described as okay her affect was mood congruent and less restricted. She had appeared tearful at times when describing her son's passing. Her thought process was linear logical and goal-directed. Her thought content showed no evidence of active homicidal ideation with no active suicidal ideation although she had some passive thoughts of suicide. Her speech was normal in regards to rate rhythm and prosody. She was alert and oriented to person place time day and date. Recent and remote memory were not tested today. Vitals/I&O/Wt Last Vital Signs Temp 98.1 F 12/28/22 07:15 Pulse 51 L 12/28/22 07:15 Resp 16 12/28/22 07:15 BP 152/67 12/28/22 07:15 Pulse Ox 98 12/28/22 07:15 O2 Del Method Room Air 12/28/22 07:15 12/27/22 12/28/22 12/28/22 22:59 06:59 14:59 Intake Total 2078 / 2346 0 / 2346 Output Total 400 / 900 150 / 1050 Balance 1678 / 1446 -150 / 1296 Data NPU 12/28/22 04:20 12/28/22 04:20 Micro: Microbiology 12/27/22 05:40 Blood Culture - Preliminary Blood NEGATIVE TO DATE 12/27/22 06:00 Occult Blood (FIT) - Final Stool - Stool Aspirate 12/26/22 15:50 Blood Culture - Preliminary Blood NEGATIVE TO DATE 12/25/22 18:55 Urine Culture - Preliminary Urine,Clean Catch Gram Negative Rods Microbiology 12/27/22 05:40 Blood Blood Culture - Preliminary NEGATIVE TO DATE 12/27/22 06:00 Stool - Stool Aspirate Occult Blood (FIT) - Final 12/26/22 15:50 Blood Blood Culture - Preliminary NEGATIVE TO DATE 12/25/22 18:55 Urine,Clean Catch Urine Culture - Preliminary Gram Negative Rods A&P Assessment and plan (1) Major depressive disorder: (2) Chronic hip pain, bilateral: (3) Chronic kidney disease, stage 3: Qualifiers: Chronic kidney disease stage 3 subtype: stage 3a (GFR 45-59) Qualified Code(s): N18.31 - Chronic kidney disease, stage 3a (4) Nicotine dependence, cigarettes, with unspecified nicotine-induced disorders: (5) Intertrigo: (6) Chronic lumbar radiculopathy: (7) Facet arthritis, degenerative, lumbar spine: (8) Scoliosis: (9) Lumbar disc disease with radiculopathy: (10) Lumbar stenosis: (11) At risk for falls: (12) History of recent fall: (13) Right shoulder pain: Qualifiers: Chronicity: acute Qualified Code(s): M25.511 - Pain in right shoulder (14) Weakness of shoulder: (15) Essential hypertension: (16) Viral URI with cough: (17) Otitis externa: Qualifiers: Otitis externa type: swimmer's ear Chronicity: acute Laterality: right Qualified Code(s): H60.331 - Swimmer's ear, right ear (18) Acute bacterial sinusitis: (19) Cellulitis: (20) Deep vein thrombosis of lower extremity: (21) Acute on chronic anemia: (22) CKD (chronic kidney disease): (23) Renal calculi: (24) Renal atrophy, left: (25) Bilateral hydronephrosis: (26) Bilateral ureteral calculi: (27) Fluid volume depletion: (28) Urinary tract infection: (29) Chronic anemia: (30) Chronic anticoagulation: (31) Retained ureteral stent: Plan 82-year-old white female with multiple medical problems who reports some passive suicidal thoughts while reporting depressed mood it appears to be triggered initially by the of her son 2 months ago. She was agreeable to consideration of treatment for depression. 1. Increase Lexapro to 10mg in am to target depression. Attestations NPU Medical Necessity Statement*: Inpatient psychiatric treatment not necessary, will follow. Coding Level of Care Code Acute Code for [facility] Diagnoses Major depressive disorder F32.9 Chronic hip pain, bilateral M25.551; M25.552; G89.29 Chronic kidney disease, stage 3 N18.31 Chronic kidney disease stage 3 subtype: stage 3a (GFR 45-59) Nicotine dependence, cigarettes, with unspecified nicotine-induced disorders F17.219 Intertrigo L30.4 Chronic lumbar radiculopathy M54.16 Facet arthritis, degenerative, lumbar spine M47.816 Scoliosis M41.9 Lumbar disc disease with radiculopathy M51.16 Lumbar stenosis M48.061 At risk for falls Z91.81 History of recent fall Z91.81 Right shoulder pain M25.511 Chronicity: acute Weakness of shoulder R29.898 Essential hypertension I10 Viral URI with cough J06.9 Otitis externa H60.331 Otitis externa type: swimmer's ear Chronicity: acute Laterality: right Acute bacterial sinusitis J01.90; B96.89 Cellulitis L03.90 Deep vein thrombosis of lower extremity I82.409 Acute on chronic anemia D64.9 CKD (chronic kidney disease) N18.9 Renal calculi N20.0 Renal atrophy, left N26.1 Bilateral hydronephrosis N13.30 Bilateral ureteral calculi N20.1 Fluid volume depletion E86.9 Urinary tract infection N39.0 Chronic anemia D64.9 Chronic anticoagulation Z79.01 Retained ureteral stent Z96.0
[2022-12-28] MEDS: ferrous gluconate 324 mg Tablet PO ×2 (09:05→17:25)
[2022-12-28] MEDS: nicotine 21 mg Patch 1 PATCH TRANSDERMA (09:05)
[2022-12-28] MEDS: cefTRIAXone 1,000 MG in sodium chloride 0.9% (plus) 50 ML 100 MG IV ×2 (09:05→21:41)
[2022-12-28] MEDS: sodium chloride 0.9% 100 ML IV (10:17)
[2022-12-28] MEDS: heparin 5,000 unit/mL INJ 1 mL 5000 UNIT SUBCUT (11:55)
--- NOTE | 2022-12-28 15:28 | W.PM.NPUPNS ---
Subjective NPU Subjective: Patient appears to be doing well. No side effects noted from her medications. She reports improved motivation and does not report having thoughts of hurting herself or others. She had reported no sleep continuity disruption last night. Mental Status Exam MSE Comments: She is pleasant cooperative. No acute distress. There was mild psychomotor retardation thought process was linear logical goal-directed. Thought content showed no evidence of homicidal or suicidal ideation at this time. Attention span appeared good. Her speech was normal regards to rate rhythm and prosody. Her mood was described as better. Her affect was brighter. Insight and judgment appeared fair. Impulse control appeared improved. Vitals/I&O/Wt Last Vital Signs Temp 98.1 F 12/28/22 11:38 Pulse 86 12/28/22 15:15 Resp 15 12/28/22 11:38 BP 161/71 12/28/22 11:38 Pulse Ox 94 12/28/22 11:38 O2 Del Method Room Air 12/28/22 11:38 12/28/22 12/28/22 12/28/22 06:59 14:59 22:59 Intake Total 0 / 2346 670 / 670 Output Total 150 / 1050 Balance -150 / 1296 670 / 670 Data NPU 12/28/22 04:20 12/28/22 04:20 Micro: Microbiology 12/25/22 18:55 Urine Culture - Final Urine,Clean Catch 12/27/22 05:40 Blood Culture - Preliminary Blood NEGATIVE TO DATE 12/27/22 06:00 Occult Blood (FIT) - Final Stool - Stool Aspirate 12/26/22 15:50 Blood Culture - Preliminary Blood NEGATIVE TO DATE Microbiology 12/25/22 18:55 Urine,Clean Catch Urine Culture - Final 12/27/22 05:40 Blood Blood Culture - Preliminary NEGATIVE TO DATE 12/27/22 06:00 Stool - Stool Aspirate Occult Blood (FIT) - Final 12/26/22 15:50 Blood Blood Culture - Preliminary NEGATIVE TO DATE A&P Assessment and plan (1) Major depressive disorder: (2) Chronic hip pain, bilateral: (3) Chronic kidney disease, stage 3: Qualifiers: Chronic kidney disease stage 3 subtype: stage 3a (GFR 45-59) Qualified Code(s): N18.31 - Chronic kidney disease, stage 3a (4) Nicotine dependence, cigarettes, with unspecified nicotine-induced disorders: (5) Intertrigo: (6) Chronic lumbar radiculopathy: (7) Facet arthritis, degenerative, lumbar spine: (8) Scoliosis: (9) Lumbar disc disease with radiculopathy: (10) Lumbar stenosis: (11) At risk for falls: (12) History of recent fall: (13) Right shoulder pain: Qualifiers: Chronicity: acute Qualified Code(s): M25.511 - Pain in right shoulder (14) Weakness of shoulder: (15) Essential hypertension: (16) Viral URI with cough: (17) Otitis externa: Qualifiers: Otitis externa type: swimmer's ear Chronicity: acute Laterality: right Qualified Code(s): H60.331 - Swimmer's ear, right ear (18) Acute bacterial sinusitis: (19) Cellulitis: (20) Deep vein thrombosis of lower extremity: (21) Acute on chronic anemia: (22) CKD (chronic kidney disease): (23) Renal calculi: (24) Renal atrophy, left: (25) Bilateral hydronephrosis: (26) Bilateral ureteral calculi: (27) Fluid volume depletion: (28) Urinary tract infection: (29) Chronic anemia: (30) Chronic anticoagulation: (31) Retained ureteral stent: Plan 82-year-old white female with multiple medical problems who reports some passive suicidal thoughts while reporting depressed mood it appears to be triggered initially by the of her son 2 months ago. She was agreeable to consideration of treatment for depression. 1. Continue Lexapro to 10mg in am to target depression. 2. Will follow. Attestations NPU Medical Necessity Statement*: Inpatient psychiatric treatment not necessary, will follow. Coding Level of Care Code Acute Code for g Fwd Diagnoses Major depressive disorder F32.9 Chronic hip pain, bilateral M25.551; M25.552; G89.29 Chronic kidney disease, stage 3 N18.31 Chronic kidney disease stage 3 subtype: stage 3a (GFR 45-59) Nicotine dependence, cigarettes, with unspecified nicotine-induced disorders F17.219 Intertrigo L30.4 Chronic lumbar radiculopathy M54.16 Facet arthritis, degenerative, lumbar spine M47.816 Scoliosis M41.9 Lumbar disc disease with radiculopathy M51.16 Lumbar stenosis M48.061 At risk for falls Z91.81 History of recent fall Z91.81 Right shoulder pain M25.511 Chronicity: acute Weakness of shoulder R29.898 Essential hypertension I10 Viral URI with cough J06.9 Otitis externa H60.331 Otitis externa type: swimmer's ear Chronicity: acute Laterality: right Acute bacterial sinusitis J01.90; B96.89 Cellulitis L03.90 Deep vein thrombosis of lower extremity I82.409 Acute on chronic anemia D64.9 CKD (chronic kidney disease) N18.9 Renal calculi N20.0 Renal atrophy, left N26.1 Bilateral hydronephrosis N13.30 Bilateral ureteral calculi N20.1 Fluid volume depletion E86.9 Urinary tract infection N39.0 Chronic anemia D64.9 Chronic anticoagulation Z79.01 Retained ureteral stent Z96.0
[2022-12-28] MEDS: TRAMadol 50 mg Tablet 100 MG PO (17:59)
[2022-12-28] MEDS: zolpidem 5 mg Tablet 2.5 MG PO (22:10)
--- NOTE | 2022-12-28 22:10 | P.PN_ITS ---
Subjective Subjective: Today she is doing better. Underwent IVC filter placement. No abdominal pain. Working with therapy. She is working also on arrangement for rehabilitation at SNF after discharge. Vitals/I&O/Wt Last Vital Signs Temp 98.2 F 12/28/22 20:00 Pulse 59 L 12/28/22 20:00 Resp 17 12/28/22 20:00 BP 152/77 12/28/22 20:00 Pulse Ox 98 12/28/22 20:00 O2 Del Method Room Air 12/28/22 20:00 12/28/22 12/28/22 12/28/22 06:59 14:59 22:59 Intake Total 0 / 2346 670 / 670 480 / 1150 Output Total 150 / 1050 Balance -150 / 1296 670 / 670 480 / 1150 Physical Exam Const: COMMON NORMALS: patient oriented x3 and alert GENERAL APPEARANCE: cooperative ORIENTATION/CONSCIOUSNESS: Yes awake Neck/C-Spine: COMMON NORMALS: no JVD Resp: COMMON NORMALS: normal respiratory effort and clear to auscultation bilaterally AUSCULTATION: clear to auscultation bilaterally Cardio: COMMON NORMALS: no JVD, regular rhythm, S1 normal heart sound present, S2 normal heart sound present and No murmurs present (Cardio) RHYTHM: regular rhythm HEART SOUNDS: S1 normal heart sound present and S2 normal heart sound present GI: COMMON NORMALS: Normal to inspection, nondistended, normoactive bowel sounds present, Soft to palpation and non-tender PALPATION: Yes Soft to palpation Extremity: COMMON NORMALS: no joint enlargement and no pedal edema Neuro: COMMON NORMALS: patient oriented x3 and moves all extremities SENSORIUM/ORIENTATION: Yes alert Data 12/28/22 04:20 12/28/22 04:20 Micro: Microbiology 12/25/22 18:55 Urine Culture - Final Urine,Clean Catch 12/27/22 05:40 Blood Culture - Preliminary Blood NEGATIVE TO DATE 12/27/22 06:00 Occult Blood (FIT) - Final Stool - Stool Aspirate A&P Assessment and plan (1) Chronic anemia: Uneventful IVC filter placement today. Discussed with her hemoglobin reviewed, responded to RBC transfusion. Follow-up CBC. Continue iron replacement. Has worsening hemoglobin anticoagulation for now was held. At risk of bleeding, at risk of worsening DVT and/or PE. SCD requesting for LLE only. Possibility of dilutional effect as well. Hold additional IVF. (2) Urinary tract infection: Urine culture with less than 5000 mixed urogenital wilma. Continue antibiotic for now. Discussed with urology, continued consideration of definitive therapy of left ureterolithiasis and stent. Urology documentation appreciated. (3) Deep vein thrombosis of lower extremity: Has been on Eliquis, for now held due to worsening hemoglobin, follow-up CBC. SCD on LLE only due to RLE DVT Resume anticoagulation when able. (4) Acute kidney injury superimposed on CKD: Continues to improve, creatinine down to 1.3. Stop IV fluids. Follow-up chemistry requested. (5) Major depressive disorder: She lost her in October, earlier to that lost her son. She has been feeling very down. She is agreeable to meet with psychiatry. Started on antidepressant. Appreciate consultation. (6) Chronic kidney disease, stage 3: Qualifiers: Chronic kidney disease stage 3 subtype: stage 3a (GFR 45-59) Qualified Code(s): N18.31 - Chronic kidney disease, stage 3a (7) Nicotine dependence, cigarettes, with unspecified nicotine-induced disorders: (8) At risk for falls: (9) Essential hypertension: (10) CKD (chronic kidney disease): (11) Chronic hip pain, bilateral: (12) Goals of care, counseling/discussion: She prefers limited goals of care. She reports ever since losing her family she has not been wanting aggressive interventions. The next thing for me will be to go up , pointing to the sami. Denies any active suicidal thoughts or intent. Discussed with her this may be reasonable, although she is also having depression and seems, and discussed with her psychiatric assessment and consideration of treatment of depression also in case it may be affecting her de cisions. She is agreeable. (13) Dilated bile duct: MRCP results appreciated, suspected more likely physiologic. She has no abdomen pain. Edmond negative. Liver parameters normal. (14) Hypomagnesemia: Replace, recheck magnesium requested. Plan #Failure to thrive #Poor oral intake #Generalized weakness #Possible depression? #Acute on chronic anemia #DANIEL on CKD #Dehydration #Diarrhea #Recent hospital stay #Nicotine dependence #Fall risk #Hypertension #History of DVT #Mild to moderate mitral regurgitation #Chronic anticoagulation #UTI #Ureteral stent from previous admit DNR/DNI Attestations Medical Necessity Statement*: Continue admission for assessment and management of acute anemia, complicated UTI, pending approval for rehabilitation at SNF. Diagnoses Chronic anemia D64.9 Urinary tract infection N39.0 Deep vein thrombosis of lower extremity I82.409 Acute kidney injury superimposed on CKD N17.9; N18.9 Major depressive disorder F32.9 Chronic kidney disease, stage 3 N18.31 Chronic kidney disease stage 3 subtype: stage 3a (GFR 45-59) Nicotine dependence, cigarettes, with unspecified nicotine-induced disorders F17.219 At risk for falls Z91.81 Essential hypertension I10 CKD (chronic kidney disease) N18.9 Chronic hip pain, bilateral M25.551; M25.552; G89.29 Goals of care, counseling/discussion Z71.89 Dilated bile duct K83.8 Hypomagnesemia E83.42
[2022-12-29] VITALS (55 sets, daily range): BP systolic 147–173; BP diastolic 72–90; PULSE 56–88; RESP 2–32; TEMP 36.4–36.9; O2SAT 85–99
[2022-12-29] MEDS: heparin 5,000 unit/mL INJ 1 mL 5000 UNIT SUBCUT ×2 (00:28→12:45)
[2022-12-29 05:21] LABS: Basophils % 0.6 %; Eosinophils % 0.6 %; Hematocrit 29.3 % (37.0-47.0); Hemoglobin 8.8 g/dL (11.5-15.3); Lymphocytes # 1.1 10^3/uL (0.8-4.8); Lymphocytes % 16.4 %; Mean Corpuscular Hemoglobin 23.5 pg (28.0-34.0); Mean Corpuscular Volume 78.1 fl (81-99); Mean Platelet Volume 10.2 fL (7.4-10.4); Monocytes # 0.3 10^3/uL (0.2-0.9); Monocytes % 5.2 %; Neutrophils # 4.89 10^3/uL (1.8-7.7); Neutrophils % 76.6 %; Nucleated Red Blood Cells % 0 %; Platelet Count 128 10^3/cmm (130-400); Red Blood Count 3.75 10^6/uL (4.1-5.3); Red Cell Distribution Width 23.8 % (12.1-15.1); White Blood Count 6.4 10^3/uL (4.0-10.0)
[2022-12-29 05:43] LABS: Blood Urea Nitrogen 21 mg/dL (8-23); Calcium 7.6 mg/dL (8.5-10.5); Carbon Dioxide 26 mmol/L (22-29); Chloride 103 mmol/L (98-107); Glucose 66 mg/dL (65-115); Osmolality Calculated 287 mOsm/kg (285-295); Sodium 138 mmol/L (136-145)
[2022-12-29 05:45] LABS: Anion Gap 12.8 (5-19); Potassium 3.8 mmol/L (3.5-5.1)
--- NOTE | 2022-12-29 06:51 | PM.PN ---
Subjective Subjective: Patient is doing well. Had IVC filter yesterday. Femoral access site is normal Vitals/I&O/Wt Last Vital Signs Temp 97.9 F 12/29/22 04:00 Pulse 63 12/29/22 04:00 Resp 16 12/29/22 04:00 BP 169/72 12/29/22 04:00 Pulse Ox 99 12/29/22 04:00 O2 Del Method Room Air 12/29/22 04:00 12/28/22 12/28/22 12/29/22 14:59 22:59 06:59 Intake Total 670 / 670 530 / 1200 1100 / 2300 Balance 670 / 670 530 / 1200 1100 / 2300 Physical Exam Narrative: GENERAL: Patient is alert, awake and oriented x3. [] NECK: No jugular vein distension. [] HEENT: No cyanosis. No icterus. No pallor. [] HEART: Regular S1 and S2. No murmur, rub or gallop. [] LUNGS: Clear to auscultate bilaterally. [] CENTRAL NERVOUS SYSTEM: Grossly nonfocal. [] EXTREMITIES: Lower extremities with 1+ edema bilaterally. Data 12/29/22 04:57 12/29/22 04:57 Micro: Microbiology 12/25/22 18:55 Urine Culture - Final Urine,Clean Catch 12/27/22 05:40 Blood Culture - Preliminary Blood NEGATIVE TO DATE A&P Assessment and plan (1) Deep vein thrombosis: (2) Acute kidney injury superimposed on CKD: (3) Essential hypertension: Plan Patient is stable. We will plan on retrieval of IVC filter in future if patient becomes candidate of anticoagulation Thank you for involving us with care of this patient. Please call with questions. Attestations Medical Necessity Statement*: Care expected to cross 2 midnights. Coding Level of Care Code Acute Code for [facility] Fwd Diagnoses Deep vein thrombosis I82.409 Acute kidney injury superimposed on CKD N17.9; N18.9 Essential hypertension I10
[2022-12-29] MEDS: cefTRIAXone 1,000 MG in sodium chloride 0.9% (plus) 50 ML 100 MG IV (09:05)
[2022-12-29] MEDS: escitalopram 10 mg Tablet 5 MG PO (09:05)
[2022-12-29] MEDS: pantoprazole DR 40 mg Tablet PO (09:15)
--- NOTE | 2022-12-29 10:17 | PC.CHAP ---
Pastoral Care Encounter/Spiritual Assessment Type of Contact [x] Declined community manager visit [] Patient/Family/Request visit [] Outpatient visit [] Follow-up visit [] Physician referral [] Code/Alert [x] Routine visit [] Staff referral [] Actively dying [] Patient sleeping [] Family support [] [] Out of room [] Palliative care [] [] Receiving care in room [] Pre-surgical visit [] Trauma [] Long length of stay [] ICU visit [] Other: Relational/Emotional Strength [] Patient feels connected with others/family/visitors/staff [] Distress [] Loneliness/isolation [] Abandonment Spirituality of Patient [] Person of Annalisa [] Attends Spiritism of their Annalisa [] Believes in Prayer [] Reads Bible or Buddhist materials [] There are Spiritual issues to be addressed Creative Perfumer Interventions [x] Prayer [] Active listening [] Non-anxious presence [] Spiritual/emotional support [] Crisis/trauma care [] Spiritual counseling [] Bereavement support [] Provided bereavement packet [] Provided Bible/devotional materials [] Provided toy/stuffed animal, coloring book to patient or family member [] Provided Communion [] Anointing/[place] [] Salvation [] Completed spiritual assessment [] Other: Impact on Illness or Injury [] Angry [] Fearful [] Anxious [] Often cries [] Exhaustion [] Unable to work [] Unable to attend baptist [] Unable to walk/stand [] Unable to read [] Unable to drive [] Unable to eat/drink [] Unable to sleep [] Unable to be with family [] Patient intubated [] Other: Summary Time spent with patient
[2022-12-29] MEDS: ferrous gluconate 324 mg Tablet PO (10:20)
[2022-12-29] MEDS: nicotine 21 mg Patch 1 PATCH TRANSDERMA (10:47)
--- NOTE | 2022-12-29 15:24 | P.DS_ITS ---
Discharge Providers Date of Admission: 12/27/22 17:22 Date of Discharge: December 29, 2022 Attending Provider at Admission: Karina Cm MD Attending Provider at Discharge: Surinder Miguel Primary Care Provider: Ramirez Rush DO Diagnoses at Discharge Discharge Diagnosis (1) Deep vein thrombosis: Status: Acute (2) Acute kidney injury superimposed on CKD: Status: Acute (3) Essential hypertension: Status: Acute Reason for Visit Reason for Visit: hands swollen, can't walk Brief History: Julia Ballard is a 82 year old female past medical history of chronic hip pain bilaterally, CKD, COPD, gastric ulcer with hemorrhage and obstruction, anemia, hypertension and recent ureteral stent placement for chronic obstructive uropathy presented to the hospital today for poor oral intake, mild confusion, generalized malaise weakness.? She says her legs gave out.? She says that there is not a particular reason why she does not eat except the fact that she does not feel like eating because she lives alone at home.? Does not have any financial constraints and does have access to food.? At the previous admission she had a DVT and cellulitis and was treated for both and for anemia she received blood transfusions.? She was discharged home in stable condition.? During that hospital stay she also had a stent placed for chronic ureteral obstruction.? He did state that she had a upset stomach and diarrhea a few hours prior to arrival.? She smokes half a pack per day since she was 16 years old and is a current active smoker.? On admission CT abdomen pelvis was done in the ER which showed stable moderate to severe left hydronephrosis with 1.8 cm calculus at the ureteropelvic junction, stable 6 mm calculus in the proximal right ureter post stent placement no hydronephrosis.? Dilation of extrahepatic and left intrahepatic bile duct appears increased from prior study follow-up with MRCP is recommended.? EKG did not show any acute ischemic changes chest x-ray with no acute findings, WBC 10.9, hemoglobin 8.3, platelet 254, sodium 138, potassium 5.1, creatinine 2.1, UA positive for 2+ leukocyte esterase, too numerous to count RBCs, 15-25 WBC, 2+ bacteria. Hospital Course Hospital Course She was started on antibiotic coverage with ceftriaxone, started on IV fluid hydration. She discussed options with urology for further management. She had previously voiced very conservative goals of care, and had previously declined to pursue lithotripsy. She has had ongoing hematuria. Continued on iron supplementation. During hospitalization Eliquis had to be held due to worsening anemia and she required red blood cell transfusion. Due to recent finding of DVT in right lower extremity she underwent IVC filter placement due to reduced mobility, risk of progression of DVT and embolization. She again has been expressing limited goals of care, but also expressed that she has been feeling depressed ever since losing multiple family members. She was assessed by psychiatry and started on SSRI. She is asked to follow-up with [facility]. She is still considering and will let urology know with regards to pursuit of definitive therapy of left kidney stone and stent. Urine culture with less than 5000 CFU mixed wilma. She will continue on cefdinir at discharge and is asked to follow-up with urology for further discussion. With physical deconditioning and functional decline she considered going to assisted sorry for rehabilitation at one point, but at the end changed her mind and declined stating she will be returning home with home health and that she has adequate support with her niece and other family members stating that she is not alone at home and there is always somebody there . Her DANIEL gradually improved, creatinine trended down to 1.2. Hemoglobin remains in the high eights. Occult blood stool test was obtained and was positive. Anemia may be combination of hematuria and slow GI blood loss. She is on Protonix and sucralfate. Eliquis for now is withheld. She is asked to stop Paige-Palmer. Depending on her further consideration of goals of care once bleeding issues are addressed, she may be resumed on anticoagulation and referred to cardiology Dr. Medina for removal of IVC filter. She is encouraged to stop smoking, but states she does not intend to. On initial imaging dilated bile duct is noted, MRCP was obtained, suspected more likely physiologic. She remained without abdominal pain, Edmond negative. Liver parameters normal. Received magnesium replacement during hospitalization. Physical Exam Const: COMMON NORMALS: patient oriented x3 and alert GENERAL APPEARANCE: cooperative ORIENTATION/CONSCIOUSNESS: Yes awake Neck/C-Spine: COMMON NORMALS: no JVD Resp: COMMON NORMALS: normal respiratory effort and clear to auscultation bilaterally AUSCULTATION: clear to auscultation bilaterally Cardio: COMMON NORMALS: no JVD, regular rhythm, S1 normal heart sound present, S2 normal heart sound present and No murmurs present (Cardio) RHYTHM: regular rhythm HEART SOUNDS: S1 normal heart sound present and S2 normal heart sound present GI: COMMON NORMALS: Normal to inspection, nondistended, normoactive bowel sounds present, Soft to palpation and non-tender PALPATION: Yes Soft to p alpation Extremity: COMMON NORMALS: no joint enlargement and no pedal edema OTHER: 2+ swelling at RLE from just above the ankle, mild stasis dermatitis Neuro: COMMON NORMALS: patient oriented x3 and moves all extremities SENS ORIUM/ORIENTATION: Yes alert Skin: OTHER: Small ulceration covered by eschar mid luz anteriorly without any surrounding erythema, no drainage. Discharge Data Studies Completed and Pending Completed Studies During Hospitalization Category Date Time Status CT abdomen pelvis wo con [id number] Stat Cat Scan 12/25/22 20:32 Completed XR chest 1V portable [id number] Stat Exams 12/25/22 18:20 Completed MR MRCP [id number] Routine MRI 12/26/22 06:24 Completed Pending at discharge Category Date Time Status [employer] ADMIN request for service Routine Exams 12/28/22 07:16 Taken Blood Culture Routine Lab 12/25/22 23:45 Results Radiology Impressions Chest X-Ray 12/25/22 18:20 IMPRESSION: No acute findings. Abdomen/Pelvis CT 12/25/22 20:32 IMPRESSION: 1. Stable moderate-severe left hydronephrosis with a 1.8 cm calculus at the ureteropelvic junction. 2. Stable 6 mm calculus in the proximal right ureter, post stent placement. No hydronephrosis. 3. Dilatation of the extrahepatic and left intrahepatic bile ducts appears increased from the prior study. Follow-up with MRCP is recommended. 4. Body wall edema. COMMENTS: Consistent with the [employer]'s Incidental Findings Committee white paper (J Am Ilia Radiol 2018): Any incidental renal lesion less than 1 cm or classified as too small to characterize, or any incidental cystic renal lesion characterized as simple-appearing, is likely benign. No follow-up imaging is recommended for these lesions per consensus recommendations based on imaging criteria. Cholangiopancreatography MRI 12/26/22 06:24 IMPRESSION: 1. Quality of this examination is compromised by breathing motion artifact. 2. Common bile duct and central hepatic ducts are dilated but there are no filling defects or strictures identified. Suspect the duct dilatation is related to aging and physiologic changes after cholecystectomy. 3. Prior cholecystectomy. 4. Small bilateral pleural effusions. 5. Moderate atrophy RIGHT kidney. 6. Multiple LEFT renal cysts. Laboratory Results WBC 6.4 10^3/uL (4.0-10.0) 12/29/22 04:57 RBC 3.75 10^6/uL (4.1-5.3) L 12/29/22 04:57 Hgb 8.8 g/dL (11.5-15.3) L 12/29/22 04:57 Hct 29.3 % (37.0-47.0) L 12/29/22 04:57 MCV 78.1 fl (81-99) L 12/29/22 04:57 MCH 23.5 pg (28.0-34.0) L 12/29/22 04:57 MCHC 30.0 g/dL (30.0-36.0) 12/29/22 04:57 RDW 23.8 % (12.1-15.1) H 12/29/22 04:57 Plt Count 128 10^3/cmm (130-400) L 12/29/22 04:57 MPV 10.2 fL (7.4-10.4) 12/29/22 04:57 Neut % (Auto) 76.6 % 12/29/22 04:57 Lymph % (Auto) 16.4 % 12/29/22 04:57 Cataño % (Auto) 5.2 % 12/29/22 04:57 Eos % (Auto) 0.6 % 12/29/22 04:57 Baso % (Auto) 0.6 % 12/29/22 04:57 Neut # (Auto) 4.89 10^3/uL (1.8-7.7) 12/29/22 04:57 Lymph # (Auto) 1.1 10^3/uL (0.8-4.8) 12/29/22 04:57 Cataño # (Auto) 0.3 10^3/uL (0.2-0.9) 12/29/22 04:57 Eos # (Auto) 0.0 10^3/uL (0.0-0.8) 12/29/22 04:57 Baso # (Auto) 0.0 10^3/uL (0.0-0.1) 12/29/22 04:57 Nucleated RBC % (auto) 0 % 12/29/22 04:57 Nucleated RBCs # 0.0 /100WBC 12/29/22 04:57 Sodium 138 mmol/L (136-145) 12/29/22 04:57 Potassium 3.8 mmol/L (3.5-5.1) 12/29/22 04:57 Chloride 103 mmol/L (98-107) 12/29/22 04:57 Carbon Dioxide 26 mmol/L (22-29) 12/29/22 04:57 Anion Gap 12.8 (5-19) 12/29/22 04:57 BUN 21 mg/dL (8-23) 12/29/22 04:57 Creatinine 1.2 mg/dL (0.5-0.9) H 12/29/22 04:57 GFR Calculation Not Reportable 12/29/22 04:57 Glucose 66 mg/dL (65-115) 12/29/22 04:57 Calculated Osmolality 287 mOsm/kg (285-295) 12/29/22 04:57 Lactic Acid 1.4 mmol/L (0.5-2.2) 12/26/22 15:50 Calcium 7.6 mg/dL (8.5-10.5) L 12/29/22 04:57 Phosphorus 2.1 mg/dL (2.5-4.5) L 12/26/22 15:50 Magnesium 2.0 mg/dL (1.7-2.3) 12/27/22 04:15 Total Bilirubin 0.4 mg/dL (0.15-1.2) 12/26/22 15:50 AST 23 U/L (0-32) 12/26/22 15:50 ALT 15 U/L (0-33) 12/26/22 15:50 Alkaline Phosphatase 86 U/L (35-105) 12/26/22 15:50 Total Protein 5.5 g/dL (6.6-8.7) L 12/26/22 15:50 Albumin 2.8 g/dL (3.5-5.2) L 12/26/22 15:50 Globulin 2.7 g/dL (1.3-4.6) 12/26/22 15:50 Procalcitonin 0.20 ng/mL (0-0.5) 12/25/22 17:33 TSH 6.70 uIU/mL (0.27-4.20) H 12/25/22 17:33 Urine Color Red (Yellow) 12/25/22 18:55 Urine Appearance Cloudy (CLEAR) A 12/25/22 18:55 Urine pH 5 (5-7) 12/25/22 18:55 Ur Specific Eldridge 1.020 (1.005-1.030) 12/25/22 18:55 Urine Protein 3+ (Negative) H 12/25/22 18:55 Urine Glucose (UA) Norm (Normal) 12/25/22 18:55 Urine Ketones 1+ (Negative) H 12/25/22 18:55 Urine Blood 3+ (Negative) H 12/25/22 18:55 Urine Nitrate Negative (Negative) 12/25/22 18:55 Urine Bilirubin Neg (Negative) 12/25/22 18:55 Urine Urobilinogen Neg mg/dL (Negative) 12/25/22 18:55 Ur Leukocyte Esterase 2+ (Negative) H 12/25/22 18:55 Urine RBC Too numerous to cnt /hpf (0-2) H 12/25/22 18:55 Urine WBC 15-25 /hpf (0-5) H 12/25/22 18:55 Ur Squamous Epith Cells 0-4 /hpf (0-5) H 12/25/22 18:55 Amorphous Sediment Not Reportable 12/25/22 18:55 Urine Bacteria 2+ /hpf (NONE) H 12/25/22 18:55 Urine Mucus 1+ /hpf 12/25/22 18:55 Blood Type B Positive 12/27/22 05:40 Rho(D) Type Positive 12/27/22 05:40 Antibody Screen Negative 12/27/22 05:40 Crossmatch See Detail 12/27/22 05:40 Vitals Last Vital Signs Temp 98.5 F 12/29/22 15:00 Pulse 88 12/29/22 15:00 Resp 27 H 12/29/22 15:00 BP 147/90 12/29/22 15:00 Pulse Ox 98 12/29/22 15:00 O2 Del Method Room Air 12/29/22 08:00 Discharge Plan Discharge Patient Disposition: Home Health Service Condition: Stable Prescriptions: New escitalopram oxalate 10 mg Tablet 5 mg PO DAILY Qty: 90 0RF cefdinir 300 mg capsule 300 mg PO BID 10 Days Qty: 20 0RF Continued tramadol 50 mg tablet 100 mg PO TID PRN (Reason: pain) 30 Days Qty: 180 0RF amlodipine 5 mg Tablet 10 mg PO DAILY Qty: 60 0RF ferrous gluconate 324 mg (37.5 mg iron) Tablet 324 mg PO BIDWM Qty: 60 0RF hydralazine 25 mg Tablet 25 mg PO BID Qty: 60 0RF pantoprazole 40 mg Tablet,Delayed Release (Dr/Ec) 40 mg PO DAILY Qty: 30 0RF sucralfate [Carafate] 1 gram tablet 1 g PO TID PRN (Reason: Gerd) 28 Days Qty: 84 0RF vitamin E 100 unit Capsule 100 unit PO DAILY ascorbic acid (vitamin C) [Vitamin C] 500 mg Tablet 500 mg PO DAILY Prevagen 1 cap PO DAILY Discontinued Eliquis 5 mg tablet 5 mg PO BID Qty: 60 0RF Paige-Palmer Heartburn-Gas 750-80 mg Tablet,Chewable 1 tab PO Q4H PRN (Reason: Acid Reflux) Rx Instructions: do not exceed 6 tabs per 24 hrs Discharge Orders: Discharge Order (Routine); Ordered 12/29/22 Ordered By: Surinder Miguel Referrals: [facility] [Provider Group] - 2 weeks (To [facility] you may walk-in the [facility] in the [facility] Thursday-Thursday between the hours 7:30- 3:00P.M. Or if you prefer you may call . Ask for Sil Haider at extension [phone]) Ramirez Rush DO [Primary Care Provider] - 4-7 days ([facility] will contact you within 24 hours to schedule this appointment. If you haven't heard from them by thos time. Please call ) Peter Donovan MD [Physician] - 1 week ([facility] will contact you within 24 hours to schedule this appointment. If you haven't heard them. Please call ) Patient Instructions: Cefdinir (By mouth), Escitalopram (By mouth), Deep Vein Thrombosis (GEN), Ureteral Stent Placement (GEN), Inferior Vena Cava (IVC) Filter Placement (GEN), Opioid Safety Activity Restrictions/Additional Instructions: Follow-up with your primary doctor for reassessment of anemia. Follow-up with your primary doctor for reassessment of blood counts, anemia, low platelets as well as kidney function. Follow-up with urology for definitive therapy for the left ureteral stone and stent removal. Once hematuria resolves, discussed with your primary provider regarding resuming anticoagulation, at which point return to follow-up with cardiology for retrieval of the filter. Please consider to stop smoking as further smoking will increase your risk of additional blood clots. Continue antibiotic for urinary tract infection in the presence of the stent, with risk of stent infection. Discuss with urology regarding extension of antibiotic. Include magnesium in your diet as low levels found in the hospital. Follow-up with your primary doctor for reassessment of healing ulceration on right luz. In case of surrounding redness, any drainage, or other concerning symptoms, seek medical attention. Follow-up with your primary doctor regarding swelling of the right ankle, discussed possibility of postphlebitic syndrome. Consider compression stocking to help with edema. Elevate right lower extremity. Discharge Attestations Time Spent in Discharge Care*: greater than 30 min Status at Discharge: Cognitive status at discharge: cognitively intact , Behavioral status at discharge: cooperative , Quality Metrics Clinical Quality Measures [ No reported AMI, CVA or VTE this stay] Coding Level of Care Code Acute Code for Chg Fwd Diagnoses Deep vein thrombosis I82.409 Acute kidney injury superimposed on CKD N17.9; N18.9 Essential hypertension I10
--- NOTE | 2022-12-29 15:25 | PC.NURSE ---
Called Dr. Miguel to notify him of patient's most recent set of vital signs. Vital signs also documented in medical record.
--- NOTE | 2022-12-29 17:11 | PC.NURSE ---
after d/c, this person called patient with appointment info for Urology follow-up. 01/05/23 at 15:15P.M.
== END 2022-12-29 16:00 | disposition home health service (06) | DRG 690 ==
LOC: ER 22:11 → CSU 22:40
PROVIDERS: Internal Medicine; Nurse Practitioner Family; Admitting Provider Internal Medicine; Emergency Provider Emergency Medicine; PCP Family Medicine; Visit Provider Internal Medicine
PROC: 06H03DZ Insertion of Intraluminal Device into Inferior Vena Cava, Percutaneous Approach (ICD-10-PCS; CPT 37191; principal; 2022-12-28 08:00)
DX: N39.0 Urinary tract infection, site not specified (principal); I82.431 Acute embolism and thrombosis of right popliteal vein; I82.451 Acute embolism and thrombosis of right peroneal vein; I82.4Z1 Acute embolism and thrombosis of unspecified deep veins of right distal lower extremity; N20.1 Calculus of ureter; N17.9 Acute kidney failure, unspecified; N13.30 Unspecified hydronephrosis; M25.552 Pain in left hip; M25.551 Pain in right hip; G89.29 Other chronic pain; I12.9 Hypertensive chronic kidney disease with stage 1 through stage 4 chronic kidney disease, or unspecified chronic kidney disease; N18.31 Chronic kidney disease, stage 3a; J44.9 Chronic obstructive pulmonary disease, unspecified; D63.1 Anemia in chronic kidney disease; Z96.0 Presence of urogenital implants; R31.9 Hematuria, unspecified; F17.210 Nicotine dependence, cigarettes, uncomplicated; Z88.0 Allergy status to penicillin; Z88.2 Allergy status to sulfonamides; E86.0 Dehydration; K83.8 Other specified diseases of biliary tract; E83.42 Hypomagnesemia; F32.9 Major depressive disorder, single episode, unspecified; D50.9 Iron deficiency anemia, unspecified; I34.0 Nonrheumatic mitral (valve) insufficiency
CPT/HCPCS: 36010; 36415; 36430; 37191; 71045; 74176; 74181; 80048; 80053; 81001; 82274; 83605; 83735; 84100; 84145; 84443; 85025; 86850; 86900; 86920; 87040; 87086; 93005; 96365; 96372; 96376; 97110; 97116; 97161; 97167; 97530; 97535; 99152; 99153; 99285; C1769; C1880; C1887; C1894; G0378; J0696; J1644; J2250; J2405; J3010; J3475; J7030; J7040; J7120; P9016; Q9967

== ENCOUNTER 2023-01-05 15:38 | Outpatient (CLI) | payer MEDICARE, SELFPAY ==
--- NOTE | 2023-01-05 15:50 | XR_ITS ---
WS: [id number] Exam: XR KUB [id number] Date/Time of Exam: 01/05/2023 3:58 PM Reason For Exam: STONES Comparison 03/13/2017. A right-sided ureteral stent catheter has been placed and appears to be in appropriate location. A 10 mm x 4 mm ovoid calcification noted along the course of the superior aspect of catheter and may repr esent a stone at the ureteral pelvic junction or in the proximal right ureter. There are also calcifi cations superimposing left kidney that are likely kidney stones. Angular scoliosis of the lumbar spin e with left convexity with advanced degenerative changes noted. No acute abdominal process identified . IVC filter in place. XR/XR KUB [id number] IMPRESSION: 1. Right-sided ureteral stent catheter in satisfactory position. 10 mm x 4 mm c alcification seen along the catheter near the ureteropelvic junction likely rep resents a urinary tract stone. 2. Calcifications superimposing the left kidney most likely renal calculi.
== END 2023-01-05 15:39 | disposition home or self-care (01) ==
LOC: RAD 15:42
PROVIDERS: PCP Family Medicine; Visit Provider Urology
DX: N20.2 Calculus of kidney with calculus of ureter (principal); Z96.0 Presence of urogenital implants; N26.1 Atrophy of kidney (terminal); N18.9 Chronic kidney disease, unspecified
CPT/HCPCS: 74018; 80053; 81003; 85025; 99214

== ENCOUNTER 2023-01-07 08:14 | Day surgery (SDC) | payer MEDICARE, SELFPAY ==
[2023-01-06 12:21] VITALS: BMI 35.2
[2023-01-07] VITALS (7 sets, daily range): BP systolic 126–155; BP diastolic 54–79; PULSE 62–70; RESP 10–18; TEMP 36.1–36.7; O2SAT 95–100
--- NOTE | 2023-01-07 06:52 | W.PM.OPSUD ---
Surgery/Procedure H&P Update DATE OF PROCEDURE: January 07, 2023 DATE H&P PERFORMED: 01/05/23 H&P UPDATE INFORMATION: I have reviewed H&P completed within last 30 days, I have examined patient prior to procedure, No changes to prior documentation and H&P is in [facility] on date indicated PLANNED PROCEDURE: Operation Date: 01/07/23 09:55 Proposed Procedures p CYSTOSCOPY RIGHT RETROGRADE ,URETEROSCOPY ,LASER,STENT 12589 [id number] [address] [place] [address],Z96.0 N20.0(Not Applicable) - Peter Donovan MD s Retrograde Pyelogram(Right) - MD gail Breen Ureteroscopy(Right) - MD gail Breen Laser Lithotripsy(Right) - MD gail Breen Ureteral Stent Placement(Right) - Peter Donovan MD
--- NOTE | 2023-01-07 08:26 | XR_ITS ---
WS: [id number] Exam: XR KUB [id number] Date/Time of Exam: 01/07/2023 8:46 AM Reason For Exam: Preop right ureteroscopy Comparison 01/05/2023. A right-sided ureteral stent catheter remains in place in satisfactory location. Again noted is a 10 mm x 4 mm ovoid calcification along the course of the proximal catheter showing little change in posi tion. Calcifications superimpose the left kidney which represent known renal stones. No bowel obstruc tion or free air. An IVC filter is in place. Severe degenerative changes of the lower thoracic and alec mbar spine with angular scoliosis. XR/XR KUB [id number] IMPRESSION: 1. Right-sided retrograde ureteral catheter in place in satisfactory position. An ovoid calcification seen along the proximal aspect of the catheter apparentl y represents a known stone in the proximal ureter. It is unchanged in position. 2. Left-sided renal calculi. 3. Additional nonacute findings as noted above.
[2023-01-07] MEDS: sodium chloride 0.9% 1,000 ML 30 ML IV (09:54)
[2023-01-07] MEDS: levofloxacin-dextrose 5 % 500 MG/100 ML PREMIX 100 MG IV (09:56)
--- NOTE | 2023-01-07 09:58 | P.OP_ITS ---
Operative Report Date of procedure: January 07, 2023 Pre-op diagnosis: Right proximal ureteral stone status post emergency stenting Post-op diagnosis: Right proximal ureteral stone status post emergency stenting Procedure done: 1. Cystoscopy, exchange of right ureteral stent 2. RIGHT ureterorenoscopy with laser lithotripsy Implants: Right ureteral stent (6 Upper Sorbian by 24 cm double-pigtail without string) Specimens removed/disposition: Stone fragments Pathology: Stone fragments Surgeon: Venus Estimated blood loss: Minimal Urine output: Not measured Complications: None Findings: Anesthesia: General Condition: Stable Disposition: PACU Intraoperative findings: * The stone migrated into the renal pelvis with passage of the wire. * Stone was easily accessible in the renal pelvis and completely fragmented with a 200 ?m thulium superpulse laser fiber the bulk of the fragments and sand was removed with basketing techniques. * No identifiable large pieces remained. Brief History: Julia is a delightful 82-year-old white female recently diagnosed with right ureteral obstruction secondary to 3 distal ureteral stones and a larger stone in the right proximal ureter. Further complicated by history of chronically obstructed and atrophied left kidney from a very large left UPJ stone diagnosed in 2017 and at that time she elected no treatment. She is back now for definitive treatment of the right proximal ureteral stone. She had a stent indwelling for passive dilation. Procedure: After routine preoperative evaluation examination and obtaining of informed consent she was taken to the operating suite on 01/07/2023 where general anesthesia was administered without difficulty after appropriate timeout was performed, SCDs confirmed to be functioning, preoperative antibiotics administered, beta-dea protocol confirmed. Prepped and draped in the usual sterile fashion in dorsolithotomy position pain careful attention to avoiding pressure points. 21 Upper Sorbian cystoscope with 30 degree lens was introduced into urethra meatus and advanced into the bladder to videoscopy. The bladder was systematically examined. Stent was in good position. No stones were seen in the bladder. The very distal aspect of the stent was grasped with grasping forceps and the stent was withdrawn through the urethral meatus and a flexible tip guidewire was easily advanced up the stent into the renal pelvis and then the stent was removed. The stent was secured to the drapes as a safety wire. A semirigid ureteroscope was then advanced up the right ureter to the UPJ. The stone had migrated into the renal pelvis and could not be identified with the semirigid scope. A second guidewire was passed and the scope was removed. A 24 cm ureteral access sheath was then advanced over the working wire (the first secured to the drapes as a safety wire). The flexible ureteroscope was then advanced through the sheath easily into the renal pelvis where the stone was identified and fragmented with a 200 ?m thulium superpulse laser fiber into mostly sand with a few very small particles. These were basketed out with very minimal remaining tiny pieces. The sheath was then backed onto the hub of the flexible scope and the ureter was inspected as the scope was slowly withdrawn. No other stone fragments were seen in the ureter. There was mild edema of the ureter where the stone had been located. It was decided to leave a stent indwelling postoperatively temporarily without string. Cystoscope was then backloaded over the guidewire and a 6 Upper Sorbian by 24 cm double-pigtail stent without string was advanced over the guidewire through the cystoscope into appropriate position as confirmed via fluoroscopy and cystoscopy. Stent was confirmed to be draining. Procedure was completed and the bladder drained. She tolerated the procedure well without complications and was awakened in the operating room and returned to PACU in stable condition. PLANS: 1. Anticipate discharge from outpatient surgery 2. Follow-up in 1 week with KUB and stent removal in the clinic
--- NOTE | 2023-01-07 10:51 | ANES.PREANE2 ---
Pre-Anesthetic Assessment Height/Weight: Height 1.37 m Weight 66.224 kg Temp Pulse Resp BP Pulse Ox O2 Del Method 98 F 70 18 155/79 98 Room Air 01/07/23 09:19 01/07/23 09:19 01/07/23 09:19 01/07/23 09:19 01/07/23 09:19 01/07/23 09:19 Preop Diagnosis: Right proximal ureteral stone status post stenting Operation Date: 01/07/23 09:55 Proposed Procedures p CYSTOSCOPY RIGHT RETROGRADE ,URETEROSCOPY ,LASER,STENT 14006 02190 [id number] MODIFIER 26,Z96.0 N20.0(Not Applicable) - Peter Donovan MD s Retrograde Pyelogram(Right) - MD gail Breen Ureteroscopy(Right) - Peter Donovan MD s Laser Lithotripsy(Right) - Peter Donovan MD s Ureteral Stent Placement(Right) - Peter Donovan MD Familial anesthetic complications: none Was Beta Alex taken within 24 hours: N/A Was Clonidine taken within 24 hours: N/A Last intake: Intake Last Liquid Date 01/06/23 Last Liquid Time 18:00 Last Solid Date 01/06/23 Last Solid Time 18:00 Social Tobacco and No alcohol Exam alert, oriented x 3 and regular rate & rhythm Airway Submandibular: within normal limits Cervical ROM: within normal limits Mallampati: Class II Dentition: false and partials Pulmonary Chronic Obstructive Pulmonary Disease CV/HEM Anemia, Deep Vein Thrombosis, Hypertension and Peripheral Vascular Disease Chronic Renal Insufficiency Musc/skel Lower Back Pain and Osteoarthritis/DJD Neuropsych Anxiety and Depression Anesthetic Plan ASA status: 3 Anesthesia: General Medications/Allergies Home Medications Medication Instructions Recorded Confirmed Last Taken Type ascorbic acid (vitamin C) 500 mg 500 mg PO DAILY 05/27/22 01/06/23 1 Day Ago History tablet (Vitamin C) ~01/05/23 vitamin E 100 unit capsule 100 unit PO DAILY 05/27/22 01/05/23 12/25/22 History ferrous gluconate 324 mg (37.5 mg 324 mg PO BIDWM #60 tabs 12/16/22 01/06/23 01/05/23 Rx iron) tablet furosemide 40 mg tablet (Lasix) 40 mg PO DAILY PRN edema #20 tabs 01/05/23 01/05/23 Unknown Rx tramadol 50 mg tablet 100 mg PO TID PRN pain 30 days 01/05/23 01/06/23 01/06/23 Rx #180 tabs vitamin B complex (B 1 tab PO DAILY 01/05/23 01/05/23 Unknown History Complex-Vitamin B12 tablet) amlodipine 10 mg PO DAILY 01/07/23 01/07/23 01/04/23 History escitalopram oxalate 5 mg tablet 5 mg PO DAILY 01/07/23 01/07/23 Unknown History Allergies Allergy/AdvReac Type Severity Reaction Status Date / Time celecoxib [From Celebrex] Allergy kidney Verified 01/05/23 16:19 issue fluticasone Allergy unknown Verified 01/05/23 16:19 [From Advair Diskus] Penicillins Allergy unknown Verified 01/05/23 16:19 salmeterol Allergy unknown Verified 01/05/23 16:19 [From Advair Diskus] Sulfa (Sulfonamide Allergy unknown Verified 01/05/23 16:19 Antibiotics) acetaminophen [From Tylenol] AdvReac Mild rash Verified 01/05/23 16:19 naproxen [From Aleve] AdvReac Mild RASH Verified 01/05/23 16:19 Current Medications Generic Name Dose Route Start Last Admin Trade Name Freq PRN Reason Stop Dose Admin Sodium Chloride 1,000 mls @ 30 mls/hr 01/07/23 08:30 01/07/23 09:54 Sodium Chloride 0.9% IV 01/08/23 08:29 30 mls/hr .Q24H TANJA Administration PFSH Anesthesia Medical History Anemia Balance problem Benign essential HTN Bilateral ureteral calculi Chronic hip pain, bilateral Chronic kidney disease, stage 3 COPD (chronic obstructive pulmonary disease) Gastric ulcer with hemorrhage and obstruction Lumbar disc disease with radiculopathy MRSA carrier Surgical History H/O: hysterectomy History of appendectomy History of cholecystectomy History of tonsillectomy and adenoidectomy Family History Other CAD (coronary artery disease) Stroke Social History Smoking and tobacco status: current every day smoker cigarettes Packs smoked per day: 0.5 Alcohol intake: never Substance/Drug Use: never Marital status: / Female Reproductive History Spontaneous abortions: No Data Anesthesia Cardiac Studies: Echocardiogram 12/13/22
[2023-01-07] MEDS: iohexol 300 mg/mL 50 mL Btl 10 ML XX (11:07)
--- NOTE | 2023-01-07 14:55 | ANE.PACU2 ---
Inpatient post-anesthesia follow up: Airway intact: Yes Vital signs: Temperature 98.1 F Pulse Rate 62 Respiratory Rate 18 Blood Pressure 138/78 Pulse Oximetry 95 Oxygen Delivery Me thod Room Air Oxygen Flow Rate 6 Fraction of Inspir ed Oxygen Hydration adequate: Yes Nausea and vomiting: No Pain level: 2 Mental status: Baseline
== END 2023-01-07 12:45 | disposition home or self-care (01) ==
PROVIDERS: PCP Family Medicine; Visit Provider Urology
PROC: 0TJB8ZZ Inspection of Bladder, Via Natural or Artificial Opening Endoscopic (ICD-10-PCS; CPT 52000; principal; 2023-01-07 09:45)
PROC: (CPT 74420; 2023-01-07 09:45)
PROC: 0TJ98ZZ Inspection of Ureter, Via Natural or Artificial Opening Endoscopic (ICD-10-PCS; CPT 52351; 2023-01-07 09:45)
PROC: (CPT 52356; 2023-01-07 09:45)
PROC: (CPT 52356; 2023-01-07 09:45)
DX: N20.1 Calculus of ureter (principal); J44.9 Chronic obstructive pulmonary disease, unspecified; D64.9 Anemia, unspecified; I73.9 Peripheral vascular disease, unspecified; N18.9 Chronic kidney disease, unspecified; F41.9 Anxiety disorder, unspecified; F32.A Depression, unspecified; Z86.718 Personal history of other venous thrombosis and embolism; I12.9 Hypertensive chronic kidney disease with stage 1 through stage 4 chronic kidney disease, or unspecified chronic kidney disease; F17.210 Nicotine dependence, cigarettes, uncomplicated
CPT/HCPCS: 52356; 74018; 82365; 88300; C2625; J1100; J1956; J2405; J2704; J3010; J7030; Q9967

== ENCOUNTER 2023-01-15 13:32 | Outpatient (CLI) | payer MEDICARE, SELFPAY ==
--- NOTE | 2023-01-15 13:45 | XR_ITS ---
WS: [id number] KUB, AP view, 01/15/2023 Clinical Data: stones Comparison: KUB, 01/07/2023 Findings: The right ureteral catheter remains the same position. The ovoid calcification which had been adjacen t to the proximal portion ureteral catheter is not seen. The left renal calcifications have not escobedo ed. There is a vena caval filter unchanged. There are surgical clips overlying the lower thoracic spi ne. There is a dextroscoliosis of the lumbar spine with severe osteoarthritis. XR/XR KUB 19453 Impression: 1. No change in right ureteral catheter but calcification adjacent to the proxi mal portion of the catheter is no longer seen. 2. No change in calcifications overlying left kidney.
== END 2023-01-15 13:33 | disposition home or self-care (01) ==
LOC: RAD 13:38
PROVIDERS: PCP Family Medicine; Visit Provider Urology
DX: N20.0 Calculus of kidney (principal)
CPT/HCPCS: 52310; 74018

== ENCOUNTER → 2023-04-13 16:25 | Outpatient (BNVA) | payer MEDICARE, SELFPAY | PROVIDERS: PCP Family Medicine; Visit Provider Family Medicine | DX: R60.0 Localized edema (principal); I10 Essential (primary) hypertension; D64.9 Anemia, unspecified; E83.42 Hypomagnesemia | CPT/HCPCS: 80053; 82607; 82728; 83735; 84100; 84443; 85025 ==

== ENCOUNTER 2023-12-06 10:07 | Inpatient (IN) | payer MEDICARE, SELFPAY ==
[2023-12-06] VITALS (14 sets, daily range): BP systolic 120–197; BP diastolic 60–124; PULSE 72–93; RESP 18–20; TEMP 36.4–36.7; O2SAT 92–99; BMI 31.3
--- NOTE | 2023-12-06 10:35 | PC.PHAR ---
pts family states the pt stop taking all her meds 6 months ago except for the ultram states pt is taking 3(150mg) tabs in the am and 2 (100mg) tabs in the pm-
--- NOTE | 2023-12-06 10:41 | ECG_ITS ---
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 Measurements Intervals [place] Rate: 86 P: 97 TX: 128 QRS: -24 QRSD: 90 T: 79 QT: 370 QTc: 443 Interpretive Statements SINUS RHYTHM WITH OCCASIONAL VENTRICULAR PREMATURE COMPLEXES WITH OCCASIONAL SUPRAVENTRICULAR PREMATURE COMPLEXES BORDERLINE LEFT AXIS DEVIATION [QRS AXIS < -20] MODERATE ST DEPRESSION [0.05+ mV ST DEPRESSION] Compared to ECG 12/25/2022 18:51:40 Ventricular premature complex(es) now present ST (T wave) deviation now present Incomplete right bundle-branch block no longer present Electronically Signed On 12-06-2023 23:58:10 CDT by Harlan Medina M.D. [id number]
--- NOTE | 2023-12-06 10:41 | XRR_ITS ---
PROCEDURE INFORMATION: Exam: XR Chest Exam date and time: 12/06/2023 10:45 AM Age: 83 years old Clinical indication: Other: Weakness; Additional info: Weakness, unclear cause TECHNIQUE: Imaging protocol: Radiologic exam of the chest. Views: 1 view. COMPARISON: CR (CHEST, ) 12/25/2022 6:38 PM FINDINGS: Lungs: No focal lung consolidation. Pleural spaces: No pleural effusion. No pneumothorax. Heart/Mediastinum: Unremarkable. No cardiomegaly. Bones/joints: No acute bony abnormality. Other findings: Patient is rotated to the right. XR/XR chest 1V portable [id number] IMPRESSION: No focal lung consolidation.
--- NOTE | 2023-12-06 11:48 | CTR_ITS ---
PROCEDURE INFORMATION: Exam: CT Chest Without Contrast; Diagnostic Exam date and time: 12/06/2023 1:39 PM Age: 83 years old Clinical indication: Abdominal tenderness; Dyspnea; Additional info: Weight loss, anorexia, abd mass on exam, coffee ground emesis, smoker with weight loss, anorexia, new abdominal mass on TECHNIQUE: Imaging protocol: Diagnostic computed tomography of the chest without contrast. Radiation optimization: All CT scans at this facility use at least one of these dose optimization techniques: automated exposure control; mA and/or kV adjustment per patient size (includes targeted exams where dose is matched to clinical indication); or iterative reconstruction. COMPARISON: CR (CHEST, ) 12/06/2023 10:45 AM RADIATION DOSE METRICS: Total DLP (mGy-cm): 439.77 FINDINGS: Lungs: No focal lung consolidation. Nonspecific 1.5 cm left apical lung nodule. Numerous additional subtle subcentimeter nodules are seen throughout both lungs measuring up to 0.4 cm . Pleural spaces: No pneumothorax. No pleural effusion. Heart: No cardiomegaly. No pericardial effusion. Coronary arteries: Coronary artery calcifications. Mediastinal space: The visualized trachea and esophagus are unremarkable in appearance. Lymph nodes: No mediastinal lymphadenopathy. Evaluation of the mark limited without the use if IV contrast. Vasculature: Unremarkable. No aortic aneurysm. Bones/joints: No acute bony abnormality. Soft tissues: Subcutaneous soft tissues are unremarkable. society recommendations: For patients at low risk (minimal or absent history of smoking and of other known risk factors), recommend CT Chest at 3-6 months, then consider CT Chest at 18-24 months. For patients at high risk (history of smoking or of other known risk factors), recommend CT Chest at 3-6 months, then CT Chest at 18-24 months. (Reference: Gareth) REFERENCES: Gareth Huddleston et al. Guidelines for Management of Incidental Pulmonary Nodules Detected on CT Images: From the Fleischner Society 2017. Radiology. 2017;284(1):228-243. PROCEDURE INFORMATION: Exam: CT Abdomen And Pelvis Without Contrast Exam date and time: 12/06/2023 1:39 PM Age: 83 years old Clinical indication: Abdominal tenderness; Dyspnea; Additional info: Weight loss, anorexia, abd mass on exam, coffee ground emesis, smoker with weight loss, anorexia, new abdominal mass on TECHNIQUE: Imaging protocol: Computed tomography of the abdomen and pelvis without contrast. Radiation optimization: All CT scans at this facility use at least one of these dose optimization techniques: automated exposure control; mA and/or kV adjustment per patient size (includes targeted exams where dose is matched to clinical indication); or iterative reconstruction. COMPARISON: MR MRCP [id number] 12/26/2022 1:08 PM RADIATION DOSE METRICS: Total DLP (mGy-cm): 539.77 FINDINGS: Limitations: Evaluation is limited without the use of IV and oral contrast, particularly for the evaluation of infection and malignancy. Diaphragm: Small hiatal hernia. Liver: The liver is unremarkable in appearance. Gallbladder and bile ducts: The gallbladder is not identified. Recommend correlation with surgical history. Pancreas: Fatty atrophy of the pancreas. Spleen: The spleen is normal in size and contour. Adrenal glands: Nonspecific bilateral adrenal thickening. Kidneys and ureters: No hydronephrosis. Low-density lesions involving both kidneys compatible with cysts but incompletely assessed without the use of IV contrast. A prominent left extrarenal pelvis containing a nonobstructing stone measuring up to 1.4 cm. Stomach and bowel: Moderate sigmoid diverticulosis. No evidence of bowel obstruction. Appendix: Appendix is not seen, however, there is no secondary signs of appendicitis. Intraperitoneal space: Unremarkable. No free air. No significant fluid collection. Vasculature: Diffuse severe aortic calcification. Inferior vena cava filter is identified. Lymph nodes: Unremarkable. No enlarged lymph nodes. Urinary bladder: Bladder unremarkable. Reproductive: Uterus not identified. Bones/joints: No acute bony abnormality. Soft tissues: Umbilical hernia containing fat. CT/[place] [id number] IMPRESSION: Numerous bilateral measuring up to 1.5 cm raising concern for metastatic disease. Recommend clinical correlation and comparison to prior studies if available. Recommend follow up imaging as clinically warranted. Fleischner IMPRESSION: No acute abdominal or pelvic pathology. COMMENTS: 1. For patients with an IVC filter, recommend assessment for a management plan for the patient's IVC filter. If there is no established management plan, recommend referral to an interventional clinician on a nonemergent basis for evaluation. 2. Consistent with the [employer]'s Incidental Findings Committee white paper (J Am Ilia Radiol 2018): Any incidental renal lesion less than 1 cm or classified as too small to characterize, or any incidental cystic renal lesion characterized as simple-appearing, is likely benign. No follow-up imaging is recommended for these lesions per consensus recommendations based on imaging criteria.
--- NOTE | 2023-12-06 11:51 | ED_ITS ---
HPI - Weakness 2 General: Chief complaint: Weakness Stated complaint: WEAKNESS Time Seen by Provider: 12/06/23 11:23 History of Present Illness: 83-year-old female presents emergency de partment for nausea, what appears to be coffee-ground emesis, generalized abdominal discomfort, and generalized weakness. Symptoms have been going on for many days but she is not exactly sure how many. She has had 5 to 10 pounds of weight loss in the last year and has had a progressively decreased appetite. She reports her stools have been relatively normal. She does not study them in depth so she does not recall anything black or bloody. Patient reports no known history of peptic ulcer disease or gastritis. She has a longtime smoker. During the abdominal exam I noted an abdominal mass. Patient was unaware of this. She reports she has had colonoscopies before but she does not recall when. Associated symptoms: Denies chest pain, chills, dysuria, fever(s), headache(s) or syncope Review of Systems 2 General: Reports: 10 or more systems reviewed and unremarkable except in HPI and below Narrative: Generalized weakness, anorexia, weight loss, abdominal discomfort, nausea, frequent belching Const: Denies: fever(s), chills or body aches Eyes: Denies: change in vision ENMT: Denies: throat pain Card: Denies: chest pain, edema or syncope Resp: Denies: dyspnea or productive cough GI: Denies: diarrhea : Denies: flank pain, dysuria or urinary frequency Musc: Denies: neck pain, back pain, extremity pain or extremity swelling Skin/Breast: Denies: rash or erythema Neuro: Denies: headache(s), numbness in extremities, weakness in extremities or lack of coordination PFSH ED 2 PFSH: Medical History Anemia Balance problem Benign essential HTN Bilateral ureteral calculi Chronic hip pain, bilateral Chronic kidney disease, stage 3 COPD (chronic obstructive pulmonary disease) Gastric ulcer with hemorrhage and obstruction Lumbar disc disease with radiculopathy MRSA carrier Surgical History H/O: hysterectomy History of appendectomy History of cholecystectomy History of tonsillectomy and adenoidectomy Family History Other CAD (coronary artery disease) Stroke Social History Smoking and tobacco/nicotine status: current every day tobacco/nicotine user cigarettes Packs smoked per day: 0.75 Alcohol intake: never Substance/Drug Use: never Marital status: / Female Reproductive History: Spontaneous abortions: No Physical Exam 2 Narrative: EXAM NARRATIVE: Patient intermittently spits up low-volume vomitus which is mostly phlegm and saliva with dark specks which appear to be similar to coffee-ground appearance Const: COMMON NORMALS: patient oriented x3, no limitations and alert; negative for healthy appearing EXAM LIMITATIONS: no altered mental status HENMT: COMMON NORMALS: normocephalic, atraumatic and external ears normal H EAD & SCALP: normocephalic and atraumatic EXTERNAL EAR: Yes external ears normal MOUTH: no muffled voice Eye: COMMON NORMALS: EOMs intact bilaterally, conjunctivae normal and no scleral icterus CONJUNCTIVA: Yes conjunctivae normal Neck/C-Spine: COMMON NORMALS: no JVD GENERAL: Yes normal visual inspection and Yes trachea midline Resp: COMMON NORMALS: normal respiratory effort and No use of accessory muscles Cardio: COMMON NORMALS: no JVD, regular rate and regular rhythm RATE: r egular rate RHYTHM: regular rhythm GI: OTHER: Tenderness throughout the upper abdomen most notably in the epigastric and left upper quadrant region. Mass in the mid abdomen to the patient had never noted before. No lower abdominal tenderness. Some guarding in the epigastric region. Extremity: COMMON NORMALS: normal to inspection Neuro: COMMON NORMALS: patient oriented x3, moves all extremities, no focal motor deficits and no sensory deficits noted SENSORIUM/ORIENTATION: Yes alert SPEECH: speech normal Psych: COMMON NORMALS: mental status grossly normal, Normal thought process present, cooperative, normal affect and speech normal SPEECH: Yes normal speech THOUGHT PROCESS: Normal thought process present Skin: COMMON NORMALS: no rashes or lesions noted, turgor normal and no jaundice GENERAL SKIN EXAM: no rashes or lesions noted and turgor normal Course 2 Vital Signs: Vital signs: Vital Signs Temperature 98.1 F 12/06/23 10:10 Pulse Rate 77 12/06/23 14:00 Respiratory Rate 18 12/06/23 10:19 Blood Pressure 187/124 12/06/23 14:00 Pulse Oximetry 99 12/06/23 14:00 Oxygen Delivery Me thod Room Air 12/06/23 14:00 MDM - Weakness Medical Decision Making 83-year-old female with nausea, belching, coffee-ground emesis, decreased appetite, weight loss, and a newly appreciated abdominal mass. Patient is a longtime smoker and with these conglomerate of symptoms 1 must be concerned about neoplastic process. I am going to order a CT scan of her chest abdomen pelvis. Will get a hemoglobin to make sure she is not anemic. Her blood pressure and heart rate are reassuring today. Gastroccult and Hemoccult will also be obtained. Patient had orthostatic vital signs and was positive with standing. I will give her 1 L of IV fluids. Update 1500 Patient's white blood cell count is normal, hemoglobin is normal, platelets have trended down and are at 119,000. Patient's creatinine has trended up slightly to 1.8. Her BUN is also elevated at 28. She did have positive orthostatic vital signs and was given 1 L of fluid. After Zofran and Protonix I reassessed her and she is still belching and gagging frequently. She does not feel that she could even attempt to take p.o. at this time. In fact she is asking for something to vomit into. The CT scan of the abdomen and pelvis showed multiple small nodules with another moderate size nodule in the left upper lobe. Since she is a longtime smoker she will need to follow-up in 3 months as this could be neoplastic process. The mass that I am feeling in her left lower abdomen has not been explained by the CT scan. I am still able to feel it on repeat examination. I suppose it could be a lipoma as she has those in other places of her body as well. Patient's urine analysis was abnormal with leukocyte Estrace, bacteria, white blood cells. Urine culture has been sent will start the patient on Rocephin since she is not tolerating p.o. I discussed with Dr. Dr. Arrieta. He is willing to do an EGD on the patient tomorrow. Patient is willing to be admitted. I discussed with Dr. Carrera. He is going to admit the patient to [facility]. Lab Data 12/06/23 12:03 12/06/23 12:03 Radiology Impressions Chest X-Ray 12/06/23 10:41 IMPRESSION: No focal lung consolidation. Chest/Abdomen/Pelvis CT 12/06/23 11:48 IMPRESSION: Numerous bilateral measuring up to 1.5 cm raising concern for metastatic disease. Recommend clinical correlation and comparison to prior studies if available. Recommend follow up imaging as clinically warranted. Fleischner IMPRESSION: No acute abdominal or pelvic pathology. COMMENTS: 1. For patients with an IVC filter, recommend assessment for a management plan for the patient's IVC filter. If there is no established management plan, recommend referral to an interventional clinician on a nonemergent basis for evaluation. 2. Consistent with the [employer]'s Incidental Findings Committee white paper (J Am Liia Radiol 2018): Any incidental renal lesion less than 1 cm or classified as too small to characterize, or any incidental cystic renal lesion characterized as simple-appearing, is likely benign. No follow-up imaging is recommended for these lesions per consensus recommendations based on imaging criteria. ADDENDUM: 12/06/23 1449 ADDENDUM: Correction to the CT chest impression: Numerous bilateral lung nodules measuring up to 1.5 cm raising concern for metastatic disease. Infectious etiology cannot be excluded. Some of these may have been present on prior CT abdomen pelvis dated 12/25/2022. Recommend clinical correlation and comparison to prior studies if available. Recommend follow up imaging as clinically warranted. The findings were verbally communicated via telephone conference with MANFRED HENRY at 2:46 PM CDT on 12/06/2023. The findings were acknowledged and understood. Laboratory Results WBC 10.76 10^3/uL (3.29-11.43) 12/06/23 12:03 RBC 4.63 10^6/uL (3.85-5.65) 12/06/23 12:03 Hgb 12.80 g/dL (11.27-16.99) 12/06/23 12:03 Hct 40.0 % (36-47) 12/06/23 12:03 MCV 86.4 fl (85-98) 12/06/23 12:03 MCH 27.6 pg (27-33) 12/06/23 12: MCHC 32.0 g/dL (30-55) 12/06/23 12:03 RDW 18.0 % (12.1-15.1) H 12/06/23 12:03 Plt Count 119 10^3/cmm (157-399) L 12/06/23 12:03 MPV 11.1 fL (7.4-10.4) H 12/06/23 12:03 Neut % (Auto) 87.8 % 12/06/23 12:03 Lymph % (Auto) 7.6 % 12/06/23 12:03 Canadian % (Auto) 3.8 % 12/06/23 12:03 Eos % (Auto) 0.0 % 12/06/23 12:03 Baso % (Auto) 0.2 % 12/06/23 12:03 Neut # (Auto) 9.45 10^3/uL (1.8-7.7) H 12/06/23 12:03 Lymph # (Auto) 0.8 10^3/uL (0.8-4.8) 12/06/23 12:03 Canadian # (Auto) 0.4 10^3/uL (0.2-0.9) 12/06/23 12:03 Eos # (Auto) 0.0 10^3/uL (0.0-0.8) 12/06/23 12:03 Baso # (Auto) 0.0 10^3/uL (0.0-0.1) 12/06/23 12:03 Nucleated RBC % (auto) 0 % 12/06/23 12:03 Nucleated RBCs # 0.0 /100WBC 12/06/23 12:03 Sodium 140 mmol/L (136-145) 12/06/23 12:03 Potassium 4.8 mmol/L (3.5-5.1) 12/06/23 12:03 Chloride 100 mmol/L (98-107) 12/06/23 12:03 Carbon Dioxide 24 mmol/L (22-29) 12/06/23 12:03 Anion Gap 20.8 (5-19) H 12/06/23 12:03 BUN 28 mg/dL (8-23) H 12/06/23 12:03 Creatinine 1.8 mg/dL (0.5-0.9) H 12/06/23 12:03 GFR Calculation Not Reportable 12/06/23 12:03 Glucose 133 mg/dL (65-115) H 12/06/23 12:03 Calculated Osmolality 297 mOsm/kg (285-295) H 12/06/23 12:03 Calcium 10.0 mg/dL (8.5-10.5) 12/06/23 12:03 Magnesium 1.9 mg/dL (1.7-2.3) 12/06/23 12:03 Total Bilirubin 0.5 mg/dL (0.15-1.2) 12/06/23 12:03 AST 20 U/L (0-32) 12/06/23 12:03 ALT 12 U/L (0-33) 12/06/23 12:03 Alkaline Phosphatase 108 U/L (35-105) H 12/06/23 12:03 Total Protein 6.3 g/dL (6.6-8.7) L 12/06/23 12:03 Albumin 3.5 g/dL (3.5-5.2) 12/06/23 12:03 Globulin 2.8 g/dL (1.3-4.6) 12/06/23 12:03 TSH 3.02 uIU/mL (0.27-4.20) 12/06/23 12:03 Urine Color Straw (Yellow) 12/06/23 12:45 Urine Appearance Hazy (CLEAR) A 12/06/23 12:45 Urine pH 8 (5-7) H 12/06/23 12:45 Ur Specific Springer 1.015 (1.005-1.030) 12/06/23 12:45 Urine Protein 1+ (Negative) H 12/06/23 12:45 Urine Glucose (UA) Norm (Normal) 12/06/23 12:45 Urine Ketones 1+ (Negative) H 12/06/23 12:45 Urine Blood 2+ (Negative) H 12/06/23 12:45 Urine Nitrate Negative (Negative) 12/06/23 12:45 Urine Bilirubin Neg (Negative) 12/06/23 12:45 Prot Sulfosalicylic Acd Positive (Negative) 12/06/23 12:45 Urine Urobilinogen Norm mg/dL (Negative) 12/06/23 12:45 Ur Leukocyte Esterase 1+ (Negative) H 12/06/23 12:45 Urine RBC 5-10 /hpf (0-2) H 12/06/23 12:45 Urine WBC 15-25 /hpf (0-5) H 12/06/23 12:45 Ur Squamous Epith Cells 0-4 /hpf (0-5) H 12/06/23 12:45 Amorphous Sediment Not Reportable 12/06/23 12:45 Urine Bacteria 2+ /hpf (NONE) H 12/06/23 12:45 All radiology interpretation(s) finalized by discharge Discharge Plan Discharge Patient Disposition: Placed in Observation Clinical Impression: Coffee ground vomiting, Dehydration, Intractable vomiting, Abnormal chest CT, Thrombocytopenia Condition: Stable Prescriptions: No Action tramadol 50 mg tablet See Rx Instructions PO .COMPLEX PRN (Reason: pain) 30 Days Qty: 150 5RF Rx Instructions: Take 3 tabs po in the morning and 2 tabs po in the p.m. Excedrin Extra Strength 250-250-65 mg Tablet 2 tab PO Q6H PRN (Reason: Pain) Referrals: Ramirez Rush DO [Primary Care Provider] - Coding Level of Care Code ED Registration Rep for Lakisha Jenkins
[2023-12-06] MEDS: pantoprazole 40 mg SDV 80 MG IVP (12:07)
[2023-12-06 12:08] LABS: Basophils % 0.2 %; Lymphocytes # 0.8 10^3/uL (0.8-4.8); Lymphocytes % 7.6 %; Mean Corpuscular Hemoglobin 27.6 pg (27-33); Mean Corpuscular Volume 86.4 fl (85-98); Mean Platelet Volume 11.1 fL (7.4-10.4); Monocytes # 0.4 10^3/uL (0.2-0.9); Monocytes % 3.8 %; Neutrophils # 9.45 10^3/uL (1.8-7.7); Neutrophils % 87.8 %; Nucleated Red Blood Cells % 0 %; Platelet Count 119 10^3/cmm (157-399); Red Blood Count 4.63 10^6/uL (3.85-5.65); White Blood Count 10.76 10^3/uL (3.29-11.43)
[2023-12-06] MEDS: ondansetron 2 mg/ML SDV 2 mL 4 MG IVP (12:09)
[2023-12-06] MEDS: sodium chloride 0.9% 1,000 ML 999 ML IV (12:10)
[2023-12-06 12:38] LABS: Alanine Aminotransferase 12 U/L (0-33); Albumin Level 3.5 g/dL (3.5-5.2); Alkaline Phosphatase 108 U/L (35-105); Aspartate Amino Transferase 20 U/L (0-32); Blood Urea Nitrogen 28 mg/dL (8-23); Carbon Dioxide 24 mmol/L (22-29); Chloride 100 mmol/L (98-107); Creatinine Clr Calc Pharmacy 22.4311; Globulin 2.8 g/dL (1.3-4.6); Glucose 133 mg/dL (65-115); Magnesium 1.9 mg/dL (1.7-2.3); Osmolality Calculated 297 mOsm/kg (285-295); Sodium 140 mmol/L (136-145); Thyroid Stimulating Hormone 3.02 uIU/mL (0.27-4.20); Total Bilirubin 0.5 mg/dL (0.15-1.2); Total Protein 6.3 g/dL (6.6-8.7)
[2023-12-06 13:27] LABS: Anion Gap 20.8 (5-19); Potassium 4.8 mmol/L (3.5-5.1)
[2023-12-06 13:29] LABS: Bilirubin Urine Neg (Negative); Blood Urine 2+ (Negative); Glucose Urine UA Norm (Normal); Ketones Urine 1+ (Negative); Nitrate Urine Negative (Negative); Protein Urine 1+ (Negative); Specific Gravity, Urine 1.015 (1.005-1.030); Urine Appearance Hazy (CLEAR); Urine Color Straw (Yellow); pH Urine 8 (5-7)
[2023-12-06 13:30] LABS: Add Urine Culture? Yes; Add Urine Microscopic? YES; Bacteria Urine 2+ /hpf; Leukocyte Esterase Urine 1+ (Negative); Squamous Epithelial Cell Urine 0-4 /hpf (0-5); Sulfosalicylic Acid Urine Positive (Negative); Urobilinogen Urine Norm (Negative); WBC Urine 15-25 /hpf (0-5)
[2023-12-06] MEDS: cefTRIAXone 1,000 MG in sodium chloride 0.9% (plus) 50 ML 100 MG IV (15:32)
--- NOTE | 2023-12-06 15:57 | P.HP_ITS ---
Providers/Chief Complaint 2 Admitting Physician: Horacio Childers MD Primary Care Provider: Ramirez Rush DO Chief Complaint: WEAKNESS History of Present Illness Julia Ballard is a 83 year old female with past medical history of CKD, bilateral ureteral calculi post ureteral stenting, hematuria, right lower leg DVT not on anticoagulation anymore because of hematuria, DVT in place, high blood pressure not on medications, GERD presented to the ER because of concerns for intractable nausea and vomiting ongoing for last 2-3 days along with epigastric pain. Vomitus is usually black in color. Denies alcohol or nsaids use. Denies chest pain or heaviness. Does not take antihypertensive or check her bp at home. Review of Systems 2 General: Reports: 10 or more systems reviewed and unremarkable except in HPI and below Const: Denies: fever(s), chills, body aches, change in appetite, change in weight, malaise, night sweats, diaphoresis, change in sleep pattern, daytime sleepiness or snoring Eyes: Denies: change in vision, blurry vision, photophobia, eye discomfort or eye discharge ENMT: Denies: throat pain, enlarged tonsils, hoarseness, mouth pain, oral sores, dry mouth, tinnitus, nasal congestion or post nasal drip Card: Denies: chest pain, palpitations, irregular heart rhythm, edema, swelling of feet/ankles, lightheadedness, syncope, pre-syncope, dyspnea on exertion, orthopnea, leg pain with exertion or acrocyanosis Resp: Denies: dyspnea, productive cough, non-productive cough, wheezing, stridor, pain on inspiration, change in phlegm color, hemoptysis or chest congestion GI: Reports: nausea, vomiting, coffee ground emesis and heartburn; Denies: abdominal pain, hematemesis, dysphagia, diarrhea, constipation, bloating, GI cramping, change in bowel habits, pain on defecation, hematochezia or melena : Denies: flank pain, dysuria, urinary frequency, urinary urgency, urinary hesitancy, nocturia or hematuria Musc: Denies: neck pain, back pain, extremity pain, joint pain, joint swelling, joint redness, joint stiffness or limited range of motion Neuro: Denies: headache(s), numbness in extremities, weakness in extremities, sensory changes, lack of coordination, difficulty walking, frequent falls, dizziness, vertigo, confusion, Slurred speech present, difficulty communicating thoughts or seizure-like activity Psych: Denies: anxiety, depression, mood swings, panic attacks, hopelessness or irritability Endo: Denies: polyuria, polydipsia, tired all the time, cold intolerance, excessive sweating, flushing or heat intolerance Juan/Lymph: Denies: easy bruising or easy bleeding All/Imm: Denies: tongue swelling, facial swelling or acute wheezing Medications/Allergies Home Medications Medication Instructions Recorded Confirmed Last Taken Type tramadol 50 mg tablet See Rx Instructions PO .COMPLEX 07/14/23 12/06/23 12/04/23 Rx PRN pain 30 days #150 tabs [id number] 250 2 tab PO Q6H PRN Pain 12/06/23 12/06/23 Unknown History mg-250 mg-65 mg tablet (Excedrin Extra Strength) Allergies Allergy/AdvReac Type Severity Reaction Status Date / Time celecoxib [From Celebrex] Allergy kidney Verified 12/06/23 10:18 issue fluticasone Allergy unknown Verified 12/06/23 10:18 [From Advair Diskus] Penicillins Allergy unknown Verified 12/06/23 10:18 salmeterol Allergy unknown Verified 12/06/23 10:18 [From Advair Diskus] Sulfa (Sulfonamide Allergy unknown Verified 12/06/23 10:18 Antibiotics) acetaminophen [From Tylenol] AdvReac Mild rash Verified 12/06/23 10:18 naproxen [From Aleve] AdvReac Mild RASH Verified 12/06/23 10:18 PFSH Acute 2 PFSH: Medical History (Updated 12/06/23 @ 16:00 by Horacio Childers MD) Acute kidney injury superimposed on CKD Major depressive disorder Retained ureteral stent Chronic anticoagulation Has been off anticoagulation since 03/06 Bilateral hydronephrosis Renal atrophy, left Deep vein thrombosis of lower extremity Scoliosis Chronic lumbar radiculopathy Bilateral ureteral calculi MRSA carrier Anemia Balance problem Lumbar disc disease with radiculopathy Benign essential HTN Chronic kidney disease, stage 3 COPD (chronic obstructive pulmonary disease) Chronic hip pain, bilateral Gastric ulcer with hemorrhage and obstruction Surgical History H/O: hysterectomy History of tonsillectomy and adenoidectomy History of appendectomy History of cholecystectomy Family History Other CAD (coronary artery disease) Stroke Social History Smoking and tobacco/nicotine status: current every day tobacco/nicotine user cigarettes Packs smoked per day: 0.75 Alcohol intake: never Substance/Drug Use: never Marital status: / Female Reproductive History: Spontaneous abortions: No Vitals/I&O/Wt Last Vital Signs Temp 98.1 F 12/06/23 10:10 Pulse 77 12/06/23 14:00 Resp 18 12/06/23 10:19 BP 187/124 12/06/23 14:00 Pulse Ox 99 12/06/23 14:00 O2 Del Method Room Air 12/06/23 14:00 12/06/23 12/06/23 12/06/23 06:59 14:59 22:59 Intake Total 1000 / 1000 Balance 1000 / 1000 Weight last 48 hrs Weight 58.967 kg Physical Exam 2 Narrative: General: No acute distress, AO x3, dehydrated HEENT: PERRLA, pupils bilaterally equal and reactive Chest: Normal vesicular breath sounds, no added sounds, equal good air entry bilaterally CVS: S1-S2 regular, no murmurs, no tachycardia, no gallops, no rubs Abdomen: Soft, nontender, no organomegaly, bowel sounds present but sluggish Neuro: No focal deficits, no facial deformity, AO x3, power 5/5 in all limbs Data 12/06/23 12:03 12/06/23 12:03 A&P Assessment and plan (1) Intractable vomiting: History of GERD. Possible coffee-ground emesis in the ER. Protonix IV twice daily, Zofran as needed. Surgery has been consulted. Possible endoscopy in AM. Clear liquid diet, n.p.o. after midnight. (2) Coffee ground vomiting: (3) Acute kidney injury superimposed on CKD: Baseline creatinine 1.2-1.5. Currently 1.8. Mild elevation in BUN. Most likely in setting of dehydration along with possible slow GI bleed. D5 NS at 75 cc/h. Monitor BMP daily. Urine analysis appreciated. Check urine lites and urine creatinine. CT abdomen pelvis negative for obstructive nephropathy. Does have history of obstructive nephropathy in the past with retained stent. Currently not present on the CT abdomen/pelvis. Also has nonobstructive left renal calculi. (4) Chronic kidney disease, stage 3: Qualifiers: Chronic kidney disease stage 3 subtype: stage 3a (GFR 45-59) Qualified Code(s): N18.31 - Chronic kidney disease, stage 3a (5) Urinary tract infection: Appreciate urinalysis. Rocephin daily. Check blood culture. Follow-up urine culture. (6) Essential hypertension: Goal blood pressure less than 140/90 mmHg. Blood pressure is elevated in the ER. Start on amlodipine 10 mg daily, hydralazine 25 mg 3 times daily with 10 mg IV every 4 hours as needed for systolic blood pressure of more than 160 mmHg. (7) Physical deconditioning: (8) Nicotine dependence, cigarettes, with unspecified nicotine-induced disorders: Plan CODE STATUS: DNR/DNI in the past. Confirmed with the patient. Clear liquid diet Protonix will be sufficient for PUD prophylaxis SCDs for DVT prophylaxis. Hold off on medical prophylaxis given possible coffee-ground emesis Attestations 2 Medical Necessity Statement*: Admission for more than 2 midnights for management of intractable nausea and vomiting, dehydration, DANIEL on CKD with concerns for coffee-ground emesis, uncontrolled hypertension Diagnoses Intractable vomiting R11.10 Coffee ground vomiting K92.0 Acute kidney injury superimposed on CKD N17.9; N18.9 Stage 3a chronic kidney disease N18.31 Chronic kidney disease stage 3 subtype: stage 3a (GFR 45-59) Urinary tract infection N39.0 Essential hypertension I10 Physical deconditioning R53.81 Nicotine dependence, cigarettes, with unspecified nicotine-induced disorders F17.219
--- NOTE | 2023-12-06 16:24 | P.CONIM_ITS ---
Providers/Reason For Consult 2 Consulting Physician/Specialty*: General surgery Reason for Consult*: Upper GI bleeding Attending Physician: Horacio Childers MD Primary Care Provider: Ramirez Rush DO History of Present Illness History of Present Illness Julia Ballard is a 83 year old female Who presents to the hospital with p.o. intolerance for the last 48 hours, patient has developed significant nausea and vomit without other symptoms like abdominal pain. Over the last 24 hours vomit has turned darker and some coffee-ground emesis has been noted. Was consulted for this finding. Otherwise patient is a stable no evidence of active bleeding and vital signs are stable. Per patient report she is healthy otherwise and does not take any medications. Of note, CT scan done in the ER showed evidence of multiple pulmonary nodules which are concerning for metastatic disease of unknown primary. Review of Systems 2 General: Reports: 10 or more systems reviewed and unremarkable except in HPI and below Medications/Allergies Home Medications Medication Instructions Recorded Confirmed Last Taken Type tramadol 50 mg tablet See Rx Instructions PO .COMPLEX 07/14/23 12/06/23 12/04/23 Rx PRN pain 30 days #150 tabs [id number] 250 2 tab PO Q6H PRN Pain 12/06/23 12/06/23 Unknown History mg-250 mg-65 mg tablet (Excedrin Extra Strength) Allergies Allergy/AdvReac Type Severity Reaction Status Date / Time celecoxib [From Celebrex] Allergy kidney Verified 12/06/23 10:18 issue fluticasone Allergy unknown Verified 12/06/23 10:18 [From Advair Diskus] Penicillins Allergy unknown Verified 12/06/23 10:18 salmeterol Allergy unknown Verified 12/06/23 10:18 [From Advair Diskus] Sulfa (Sulfonamide Allergy unknown Verified 12/06/23 10:18 Antibiotics) acetaminophen [From Tylenol] AdvReac Mild rash Verified 12/06/23 10:18 naproxen [From Aleve] AdvReac Mild RASH Verified 12/06/23 10:18 Current Medications Generic Name Dose Route Start Last Admin Trade Name Freq PRN Reason Stop Dose Admin Ceftriaxone Sodium 1,000 mg/ 50 mls @ 100 mls/hr 12/06/23 15:11 12/06/23 16:17 Sodium Chloride IV Infused DAILY TANJA Infusion Protocol PFSH Acute 2 PFSH: Medical History (Updated 12/06/23 @ 16:00 by Horacio Childers MD) Acute kidney injury superimposed on CKD Major depressive disorder Retained ureteral stent Chronic anticoagulation Has been off anticoagulation since 03/06 Bilateral hydronephrosis Renal atrophy, left Deep vein thrombosis of lower extremity Scoliosis Chronic lumbar radiculopathy Bilateral ureteral calculi MRSA carrier Anemia Balance problem Lumbar disc disease with radiculopathy Benign essential HTN Chronic kidney disease, stage 3 COPD (chronic obstructive pulmonary disease) Chronic hip pain, bilateral Gastric ulcer with hemorrhage and obstruction Surgical History H/O: hysterectomy History of tonsillectomy and adenoidectomy History of appendectomy History of cholecystectomy Family History Other CAD (coronary artery disease) Stroke Social History Smoking and tobacco/nicotine status: current every day tobacco/nicotine user cigarettes Packs smoked per day: 0.75 Alcohol intake: never Substance/Drug Use: never Marital status: / Female Reproductive History: Spontaneous abortions: No Vitals/I&O/Wt Last Vital Signs Temp 98.1 F 12/06/23 10:10 Pulse 77 12/06/23 14:00 Resp 18 12/06/23 10:19 BP 187/124 12/06/23 14:00 Pulse Ox 99 12/06/23 14:00 O2 Del Method Room Air 12/06/23 14:00 12/06/23 12/06/23 12/06/23 06:59 14:59 22:59 Intake Total 1000 / 1000 50 / 1050 Balance 1000 / 1000 50 / 1050 Weight last 48 hrs Weight 130 lb Physical Exam 2 Narrative: General : Patient is well developed , no acute distress, oriented x3 Head : Normal cephalic, a-traumatic. Nose : Mucous membranes are without erythema. Lungs : Equal chest rise bilaterally, no use of accessory muscles, trachea is midline. CV : Rate and rhythm are normal. Abdomen : Soft, ND, NT, no g/r/m Extremities : No edema. Upper extremities are normal bilaterally. Data 12/06/23 12:03 12/06/23 12:03 A&P Assessment and plan (1) Coffee ground vomiting: This is a 83-year-old female who presents to the hospital complaining of p.o. intolerance and with evidence of coffee-ground emesis. I have been consulted for upper GI bleeding. Upper endoscopy is indicated. Discussed all the risk and benefits with the patient including the risks of injury to the soft tissue of the mouth and pharynx, perforation of the esophagus, stomach, duodenum or colon leading to the need of surgical intervention and transfer to higher level of care, recurrent bleeding. Patient shows understanding and agrees to proceed. Upper endoscopy will be booked for tomorrow morning. In the interim patient will continue with twice a day PPI, Carafate and clear liquid diet and she will be made n.p.o. after midnight. Of note, patient has also been found to have acute kidney injury and multiple pulmonary nodules concerning for metastatic disease. (2) GERD without esophagitis: (3) Acute kidney injury superimposed on CKD: (4) Physical deconditioning: Coding Level of Care Code 66824 Diagnoses Coffee ground vomiting K92.0 GERD without esophagitis K21.9 Acute kidney injury superimposed on CKD N17.9; N18.9 Physical deconditioning R53.81
[2023-12-06 16:32] LABS: Potassium, Radom Urine 45 mmol/L; Urine Random Chloride 145 mmol/L; Urine Random Sodium 143 mmol/L
[2023-12-06 16:34] LABS: Procalcitonin 0.12 ng/mL (0-0.5)
[2023-12-06] MEDS: amlodipine 10 mg Tablet PO (16:41)
[2023-12-06] MEDS: pantoprazole 40 mg SDV IVP (16:41)
[2023-12-06] MEDS: sucralfate 1 gm/10 mL Oral Liq UDC PO ×2 (16:41→20:56)
[2023-12-06] MEDS: dextrose 5%-sod chloride 0.9% 1,000 ML 60 ML IV (16:42)
[2023-12-06 16:52] LABS: Urine Creatinine 47 mg/dL (28-217)
[2023-12-06 17:57] LABS: Iron 69 ug/dL (37-145); Percent Saturation 27.8 % (20-50); Total Iron Binding Capacity 248 mcg/dl; Unsaturated Iron Binding 179 ug/dL (112-347)
[2023-12-06 18:13] LABS: Vitamin B12 564 pg/mL (232-1245)
[2023-12-06] MEDS: hyDRALAzine 25 mg Tablet PO (20:56)
[2023-12-07] VITALS (11 sets, daily range): BP systolic 118–161; BP diastolic 62–84; PULSE 55–81; RESP 16–22; TEMP 36.1–36.6; O2SAT 96–100
[2023-12-07] MEDS: pantoprazole 40 mg SDV IVP (03:30)
[2023-12-07 04:20] LABS: Basophils % 0.1 %; Hematocrit 38.4 % (36-47); Lymphocytes % 14.9 %; Mean Corpuscular HGB Conc 30.7 g/dL (30-55); Mean Corpuscular Hemoglobin 27.3 pg (27-33); Mean Corpuscular Volume 88.9 fl (85-98); Mean Platelet Volume 10.9 fL (7.4-10.4); Monocytes # 0.4 10^3/uL (0.2-0.9); Monocytes % 5.6 %; Neutrophils # 5.46 10^3/uL (1.8-7.7); Nucleated Red Blood Cells % 0 %; Platelet Count 110 10^3/cmm (157-399); Red Blood Count 4.32 10^6/uL (3.85-5.65); Red Cell Distribution Width 18.1 % (12.1-15.1); White Blood Count 6.92 10^3/uL (3.29-11.43)
[2023-12-07 04:35] LABS: Alanine Aminotransferase 10 U/L (0-33); Albumin Level 3.1 g/dL (3.5-5.2); Alkaline Phosphatase 89 U/L (35-105); Anion Gap 12.4 (5-19); Aspartate Amino Transferase 15 U/L (0-32); Blood Urea Nitrogen 26 mg/dL (8-23); Calcium 9.2 mg/dL (8.5-10.5); Carbon Dioxide 29 mmol/L (22-29); Chloride 108 mmol/L (98-107); Creatinine Clr Calc Pharmacy 22.4311; Globulin 2.5 g/dL (1.3-4.6); Glucose 94 mg/dL (65-115); Magnesium 1.8 mg/dL (1.7-2.3); Osmolality Calculated 305 mOsm/kg (285-295); Phosphorus 2.7 mg/dL (2.5-4.5); Potassium 4.4 mmol/L (3.5-5.1); Sodium 145 mmol/L (136-145); Total Bilirubin 0.2 mg/dL (0.15-1.2); Total Protein 5.6 g/dL (6.6-8.7)
[2023-12-07 04:36] LABS: Chol HDL Ratio 1.92 mg/dL (0.0-4.40); Cholesterol 140 mg/dL (0-200); HDL Cholesterol 73 mg/dL (60-100); LDL Cholesterol Calculated 53 mg/dL (50-129); LDL HDL Ratio 0.73 RATIO (0.00-3.22); Triglycerides 69 mg/dL (0-150)
[2023-12-07 04:39] LABS: Estmated Average Glucose 77; Hemoglobin A1C 4.3 % (4.0-6.0)
[2023-12-07] MEDS: sucralfate 1 gm/10 mL Oral Liq UDC PO ×2 (06:22→10:40)
--- NOTE | 2023-12-07 06:30 | P.HPUD_ITS ---
Surgery/Procedure H&P Update DATE OF PROCEDURE: December 07, 2023 DATE H&P PERFORMED: 12/06/23 H&P UPDATE INFORMATION: I have reviewed H&P completed within last 30 days, I have examined patient prior to procedure, No changes to prior documentation and H&P is in [facility] EMR on date indicated PLANNED PROCEDURE: Operation Date: 12/07/23 08:30 Proposed Procedures p EGD(Not Applicable) - Ismael Arrieta MD
--- NOTE | 2023-12-07 07:32 | PC.NURSE ---
This nurse gave report to KORTNEY Venegas in GI lab at 732. Pt scheduled for EGD at 8am.
--- NOTE | 2023-12-07 08:35 | P.ANESASSM_ITS ---
Pre-Anesthetic Assessment Height/Weight: Height 1.37 m Weight 59.874 kg Temp Pulse Resp BP Pulse Ox O2 Del Method O2 Flow Rate 97.3 F L 64 18 141/78 96 Room Air 6 12/07/23 09:20 12/07/23 09:20 12/07/23 09:20 12/07/23 09:20 12/07/23 09:20 12/07/23 09:20 12/07/23 09:02 Preop Diagnosis: coffee ground emesis, GERD Operation Date: 12/07/23 08:30 Proposed Procedures p EGD(Not Applicable) - Ismael Arrieta MD Familial anesthetic complications: none Was Beta Alex taken within 24 hours: N/A Was Clonidine taken within 24 hours: N/A Last intake: 12/06/23 @1800 Social No alcohol and No tobacco Exam alert, oriented x 3 and clear to auscultation bilaterally Airway Mallampati: Class II Dentition: false History/ROS No significant history except as noted Pulmonary Chronic Obstructive Pulmonary Disease CV/HEM Hypertension Kidney Stones hx renal calculi Hepatic None reported GI Gastroesophageal Reflux Disease reecnt hx of coffee ground emesis Metabolic None reported Musc/skel Lower Back Pain Neuropsych None reported Anesthetic Plan ASA status: 3 Anesthesia: Anesthesia Evaluation and MAC Risk of > 500 ml blood loss (7ml/kg in children): No Medications/Allergies Home Medications Medication Instructions Recorded Confirmed Last Taken Type tramadol 50 mg tablet See Rx Instructions PO .COMPLEX 07/14/23 12/06/23 12/04/23 Rx PRN pain 30 days #150 tabs [id number] 250 2 tab PO Q6H PRN Pain 12/06/23 12/06/23 Unknown History mg-250 mg-65 mg tablet (Excedrin Extra Strength) Allergies Allergy/AdvReac Type Severity Reaction Status Date / Time celecoxib [From Celebrex] Allergy kidney Verified 12/06/23 10:18 issue fluticasone Allergy unknown Verified 12/06/23 10:18 [From Advair Diskus] Penicillins Allergy unknown Verified 12/06/23 10:18 salmeterol Allergy unknown Verified 12/06/23 10:18 [From Advair Diskus] Sulfa (Sulfonamide Allergy unknown Verified 12/06/23 10:18 Antibiotics) acetaminophen [From Tylenol] AdvReac Mild rash Verified 12/06/23 10:18 naproxen [From Aleve] AdvReac Mild RASH Verified 12/06/23 10:18 Current Medications Generic Name Dose Route Start Last Admin Trade Name Sunil PRN Reason Stop Dose Admin Amlodipine Besylate 10 mg 12/06/23 16:05 12/06/23 16:41 Amlodipine 10 Mg Tablet PO 10 mg DAILY TANJA Administration Hydralazine HCl 25 mg 12/06/23 21:00 12/06/23 20:56 Hydralazine 25 Mg Tablet PO 25 mg TID TANJA Administration Ceftriaxone Sodium 1,000 mg/ 50 mls @ 100 mls/hr 12/06/23 15:11 12/06/23 16:17 Sodium Chloride IV Infused DAILY TANJA Infusion Protocol Dextrose/Sodium Chloride 1,000 mls @ 60 mls/hr 12/06/23 16:00 12/06/23 16:42 Dextrose 5%-Sod Chloride 0.9% IV 60 mls/hr .[id number] TANJA Administration Pantoprazole Sodium 40 mg 12/06/23 16:14 12/07/23 03:30 Pantoprazole 40 Mg Sdv IVP 40 mg Q12H TANJA Administration Sucralfate 1 gm 12/06/23 17:00 12/07/23 06:22 Sucralfate 1 Gm/10 Ml Oral Liq Udc PO 1 gm AC&BEDTIME TANJA Administration PFSH Anesthesia Medical History (Updated 12/06/23 @ 16:00 by Horacio Childers MD) Acute kidney injury superimposed on CKD Major depressive disorder Retained ureteral stent Chronic anticoagulation Has been off anticoagulation since 03/06 Bilateral hydronephrosis Renal atrophy, left Deep vein thrombosis of lower extremity Scoliosis Chronic lumbar radiculopathy Bilateral ureteral calculi MRSA carrier Anemia Balance problem Lumbar disc disease with radiculopathy Benign essential HTN Chronic kidney disease, stage 3 COPD (chronic obstructive pulmonary disease) Chronic hip pain, bilateral Gastric ulcer with hemorrhage and obstruction Surgical History H/O: hysterectomy History of tonsillectomy and adenoidectomy History of appendectomy History of cholecystectomy Family History Other CAD (coronary artery disease) Stroke Social History Smoking and tobacco/nicotine status: current every day tobacco/nicotine user cigarettes Packs smoked per day: 0.75 Alcohol intake: never Substance/Drug Use: never Marital status: / Female Reproductive History Spontaneous abortions: No Data Anesthesia 12/07/23 03:20 12/07/23 03:20 Short CBC 12/06/23 12/07/23 Range/Units 12:03 03:20 WBC 10.76 6.92 (3.29-11.43) 10^3/uL Hgb 12.80 11.80 (11.27-16.99) g/dL Hct 40.0 38.4 (36-47) % MCV 86.4 88.9 (85-98) fl Plt Count 119 L 110 L (157-399) 10^3/cmm Neut % (Auto) 87.8 79.0 % Neut # (Auto) 9.45 H 5.46 (1.8-7.7) 10^3/uL BMP 12/06/23 12/07/23 12:03 03:20 Sodium 140 145 Potassium 4.8 4.4 Chloride 100 108 H Carbon Dioxide 24 29 BUN 28 H 26 H Creatinine 1.8 H 1.8 H Glucose 133 H 94 Calcium 10.0 9.2 Liver Function 12/06/23 12/07/23 Range/Units 12:03 03:20 Total Bilirubin 0.5 0.2 (0.15-1.2) mg/dL AST 20 15 (0-32) U/L ALT 12 10 (0-33) U/L Alkaline Phosphatase 108 H 89 (35-105) U/L Albumin 3.5 3.1 L (3.5-5.2) g/dL Urine 12/06/23 Range/Units 12:45 Urine Color Straw (Yellow) Urine Appearance Hazy A (CLEAR) Urine pH 8 H (5-7) Ur Specific [place] 1.015 (1.005-1.030) Urine Protein 1+ H (Negative) Urine Glucose (UA) Norm (Normal) Urine Ketones 1+ H (Negative) Urine Nitrate Negative (Negative) Urine Bilirubin Neg (Negative) Ur Leukocyte Esterase 1+ H (Negative) Urine RBC 5-10 H (0-2) /hpf Urine WBC 15-25 H (0-5) /hpf Microbiology 12/06/23 12:45 Urine Culture - Preliminary Urine,Clean Catch 12/06/23 16:40 Blood Culture - Preliminary Blood SPECIMEN COLLECTED 12/06/23 16:30 Blood Culture - Preliminary Blood SPECIMEN COLLECTED Cardiac Studies: 2 Echocardiogram 12/13/22
--- NOTE | 2023-12-07 08:35 | PC.NURSE ---
Pt taken down to GI lab at approximately 815am.
--- NOTE | 2023-12-07 09:02 | P.MISC_ITS ---
Miscellaneous Note Purpose of Documentation: Update on patient care Note: Upper endoscopy done today. No active bleeding noted. There is reflux esophagitis and a hiatal hernia. This is the most likely source of previous bleeding. My recommendation will be to continue the patient on PPI twice a day as an outpatient and Carafate 4 times a day. Can see the patient in 2 weeks and recommend a repeat endoscopy in 6 to 8 weeks to verify resolution of esophagiti s. All other management per primary team.
--- NOTE | 2023-12-07 09:25 | ANE.PACU2 ---
Inpatient post-anesthesia follow up: Airway intact: Yes Vital signs: Temperature 97.8 F Pulse Rate [Orthos tatic 55 Standing] Pulse Rate [Orthos tatic 79 Sitting] Pulse Rate [Orthos tatic Lying] 78 Pulse Rate 66 Respiratory Rate 19 Blood Pressure [Or thostatic 118/75 Standing] Blood Pressure [Or thostatic 137/84 Sitting] Blood Pressure [Or thostatic 127/62 Lying] Blood Pressure 141/78 Pulse Oximetry 96 Oxygen Delivery Me thod [ Room Air Current Rate & Del karrie] Oxygen Delivery Me thod Room Air Oxygen Flow Rate 6 Fraction of Inspir ed Oxygen Hydration adequate: Yes Nausea and vomiting: No Pain level: 1 Mental status: Baseline
--- NOTE | 2023-12-07 10:09 | PC.CHAP ---
Pastoral Care Encounter/Spiritual Assessment Type of Contact [] Declined newsroom intern visit [] Patient/Family/Request visit [] Outpatient visit [] Follow-up visit [] Physician referral [] Code/Alert [x] Routine visit [] Staff referral [] Actively dying [x] Patient sleeping [] Family support [] [] Out of room [] Palliative care [] [] Receiving care in room [] Pre-surgical visit [] Trauma [] Long length of stay [] ICU visit [] Other: Relational/Emotional Strength [] Patient feels connected with others/family/visitors/staff [] Distress [] Loneliness/isolation [] Abandonment Spirituality of Patient [] Person of Annalisa [] Attends Jew of their Annalisa [] Believes in Prayer [] Reads Bible or Adventist materials [] There are Spiritual issues to be addressed Ict Development Manager Interventions [x] Prayer [] Active listening [] Non-anxious presence [] Spiritual/emotional support [] Crisis/trauma care [] Spiritual counseling [] Bereavement support [] Provided bereavement packet [] Provided Bible/devotional materials [] Provided toy/stuffed animal, coloring book to patient or family member [] Provided Communion [] Anointing/[place] [] Salvation [] Completed spiritual assessment [] Other: Impact on Illness or Injury [] Angry [] Fearful [] Anxious [] Often cries [] Exhaustion [] Unable to work [] Unable to attend anabaptist [] Unable to walk/stand [] Unable to read [] Unable to drive [] Unable to eat/drink [] Unable to sleep [] Unable to be with family [] Patient intubated [] Other: Summary Time spent with patient
--- NOTE | 2023-12-07 10:17 | PC.NURSE ---
This nurse assumed care of pt at approximately 930am.
--- NOTE | 2023-12-07 14:20 | PC.NURSE ---
This nurse called patients family, Jenn, at patients request and asked her to bring a house coat to her here. Left voicemail.
--- NOTE | 2023-12-07 16:15 | P.DS_ITS ---
Discharge Providers Date of Admission: 12/06/23 15:12 Date of Discharge: December 07, 2023 Attending Provider at Admission: Horacio Childers MD Attending Provider at Discharge: Surinder Miguel Primary Care Provider: Ramirez Rush DO Diagnoses at Discharge Discharge Diagnosis (1) Intractable vomiting: Status: Acute (2) Coffee ground vomiting: Status: Acute (3) Acute kidney injury superimposed on CKD: Status: Acute (4) Chronic kidney disease, stage 3: Status: Chronic Qualifiers: Chronic kidney disease stage 3 subtype: stage 3a (GFR 45-59) Qualified Code(s): N18.31 - Chronic kidney disease, stage 3a (5) Urinary tract infection: Status: Acute (6) Essential hypertension: Status: Acute (7) Physical deconditioning: Status: Acute (8) Nicotine dependence, cigarettes, with unspecified nicotine-induced disorders: Status: Chronic Reason for Visit Reason for Visit: WEAKNESS Hospital Course Hospital Course Pleasant 83-year-old lady with history of bilateral nephrolithiasis, status post tenting, resolved hematuria, history of DVT with IVC filter, was admitted after presenting with coffee-ground emesis. She was treated for upper GI bleeding, treated with IV Protonix, antiemetics as needed, bowel rest, IV hydration, was assessed by surgery and underwent EGD which showed reflux esophagitis and hiatal hernia most likely source of prior bleeding. She had no recurrence of bleeding, was started on full liquid diet. Was going to be monitored overnight but decided that she wanted to leave the hospital today. She is prescribed Protonix, as per discussion with surgery risk of rebleeding should be low, she is asked to follow-up with surgery in office for reassessment. Please reassess blood counts, please follow-up platelet level which has shown some decrease from prior. She was treated with ceftriaxone while in the hospital for UTI. Will complete course with ciprofloxacin. Please reassess and continue to optimize hypertension. She did have some positive orthostatic hypotension, blood pressure going down from 171/10 9-1 35/99 laying to standing, reassess today it was somewhat better, 127/62 laying to 118/75 standing. Heart rate with some bradycardia down to 58, would avoid any hugo blocking agents. Bilateral pulmonary nodule: CT abdomen pelvis did show bilateral pulmonary nodule. Patient would benefit from close monitoring of the nodules. Please refer for a possible repeat CT scan in 3 months. Patient is a chronic smoker. Discharge Data Studies Completed and Pending Completed Studies During Hospitalization Category [place] [id number] Stat Cat Scan 12/06/23 11:48 Completed XR chest 1V portable [id number] Stat Exams 12/06/23 10:41 Completed Pending at discharge Category Date Time Status Blood Culture Stat Lab 12/06/23 16:40 Results Gastricult Occult BLD Stat Lab 12/06/23 11:50 Ordered Occult Blood Stool [Immunochemical Fecal OCB] Stat Lab 12/06/23 11:50 Uncollected Urine Culture Stat Lab 12/06/23 12:45 Results Pathology: Surgical [PTH] Routine Pth 12/07/23 08:59 Received Radiology Impressions Chest X-Ray 12/06/23 10:41 IMPRESSION: No focal lung consolidation. Chest/Abdomen/Pelvis CT 12/06/23 11:48 IMPRESSION: Numerous bilateral measuring up to 1.5 cm raising concern for metastatic disease. Recommend clinical correlation and comparison to prior studies if available. Recommend follow up imaging as clinically warranted. Fleischner IMPRESSION: No acute abdominal or pelvic pathology. COMMENTS: 1. For patients with an IVC filter, recommend assessment for a management plan for the patient's IVC filter. If there is no established management plan, recommend referral to an interventional clinician on a nonemergent basis for evaluation. 2. Consistent with the [employer]'s Incidental Findings Committee white paper (J Am Ilia Radiol 2018): Any incidental renal lesion less than 1 cm or classified as too small to characterize, or any incidental cystic renal lesion characterized as simple-appearing, is likely benign. No follow-up imaging is recommended for these lesions per consensus recommendations based on imaging criteria. ADDENDUM: 12/06/23 1449 ADDENDUM: Correction to the CT chest impression: Numerous bilateral lung nodules measuring up to 1.5 cm raising concern for metastatic disease. Infectious etiology cannot be excluded. Some of these may have been present on prior CT abdomen pelvis dated 12/25/2022. Recommend clinical correlation and comparison to prior studies if available. Recommend follow up imaging as clinically warranted. The findings were verbally communicated via telephone conference with MANFRED HENRY at 2:46 PM CDT on 12/06/2023. The findings were acknowledged and understood. Laboratory Results WBC 6.92 10^3/uL (3.29-11.43) 12/07/23 03:20 RBC 4.32 10^6/uL (3.85-5.65) 12/07/23 03:20 Hgb 11.80 g/dL (11.27-16.99) 12/07/23 03:20 Hct 38.4 % (36-47) 12/07/23 03:20 MCV 88.9 fl (85-98) 12/07/23 03:20 MCH 27.3 pg (27-33) 12/07/23 03:20 MCHC 30.7 g/dL (30-55) 12/07/23 03:20 RDW 18.1 % (12.1-15.1) H 12/07/23 03:20 Plt Count 110 10^3/cmm (157-399) L 12/07/23 03:20 MPV 10.9 fL (7.4-10.4) H 12/07/23 03:20 Neut % (Auto) 79.0 % 12/07/23 03:20 Lymph % (Auto) 14.9 % 12/07/23 03:20 Stoddard % (Auto) 5.6 % 12/07/23 03:20 Eos % (Auto) 0.0 % 12/07/23 03:20 Baso % (Auto) 0.1 % 12/07/23 03:20 Neut # (Auto) 5.46 10^3/uL (1.8-7.7) 12/07/23 03:20 Lymph # (Auto) 1.0 10^3/uL (0.8-4.8) 12/07/23 03:20 Stoddard # (Auto) 0.4 10^3/uL (0.2-0.9) 12/07/23 03:20 Eos # (Auto) 0.0 10^3/uL (0.0-0.8) 12/07/23 03:20 Baso # (Auto) 0.0 10^3/uL (0.0-0.1) 12/07/23 03:20 Nucleated RBC % (auto) 0 % 12/07/23 03:20 Nucleated RBCs # 0.0 /100WBC 12/07/23 03:20 Sodium 145 mmol/L (136-145) 12/07/23 03:20 Potassium 4.4 mmol/L (3.5-5.1) 12/07/23 03:20 Chloride 108 mmol/L (98-107) H 12/07/23 03:20 Carbon Dioxide 29 mmol/L (22-29) 12/07/23 03:20 Anion Gap 12.4 (5-19) 12/07/23 03:20 BUN 26 mg/dL (8-23) H 12/07/23 03:20 Creatinine 1.8 mg/dL (0.5-0.9) H 12/07/23 03:20 GFR Calculation Not Reportable 12/07/23 03:20 Glucose 94 mg/dL (65-115) 12/07/23 03:20 Estimat Average Glucose 77 12/07/23 03:20 Hemoglobin A1c 4.3 % (4.0-6.0) 12/07/23 03:20 Calculated Osmolality 305 mOsm/kg (285-295) H 12/07/23 03:20 Calcium 9.2 mg/dL (8.5-10.5) 12/07/23 03:20 Phosphorus 2.7 mg/dL (2.5-4.5) 12/07/23 03:20 Magnesium 1.8 mg/dL (1.7-2.3) 12/07/23 03:20 Iron 69 ug/dL (37-145) 12/06/23 16:30 TIBC 248 mcg/dl 12/06/23 16:30 % Saturation 27.8 % (20-50) 12/06/23 16:30 Unsat Iron Binding 179 ug/dL (112-347) 12/06/23 16:30 Total Bilirubin 0.2 mg/dL (0.15-1.2) 12/07/23 03:20 AST 15 U/L (0-32) 12/07/23 03:20 ALT 10 U/L (0-33) 12/07/23 03:20 Alkaline Phosphatase 89 U/L (35-105) 12/07/23 03:20 Total Protein 5.6 g/dL (6.6-8.7) L 12/07/23 03:20 Albumin 3.1 g/dL (3.5-5.2) L 12/07/23 03:20 Globulin 2.5 g/dL (1.3-4.6) 12/07/23 03:20 Triglycerides 69 mg/dL (0-150) 12/07/23 03:20 Cholesterol 140 mg/dL (0-200) 12/07/23 03:20 LDL Cholesterol, Calc 53 mg/dL (50-129) 12/07/23 03:20 HDL Cholesterol 73 mg/dL (60-100) 12/07/23 03:20 LDL/HDL Ratio 0.73 RATIO (0.00-3.22) 12/07/23 03:20 Cholesterol/HDL Ratio 1.92 mg/dL (0.0-4.40) 12/07/23 03:20 Vitamin B12 564 pg/mL (232-1245) 12/06/23 16:30 Folate 7.0 ng/mL (4.8-37.3) 12/07/23 03:20 Procalcitonin 0.12 ng/mL (0-0.5) 12/06/23 12:03 TSH 3.02 uIU/mL (0.27-4.20) 12/06/23 12:03 Urine Color Straw (Yellow) 12/06/23 12:45 Urine Appearance Hazy (CLEAR) A 12/06/23 12:45 Urine pH 8 (5-7) H 12/06/23 12:45 Ur Specific Clemons 1.015 (1.005-1.030) 12/06/23 12:45 Urine Protein 1+ (Negative) H 12/06/23 12:45 Urine Glucose (UA) Norm (Normal) 12/06/23 12:45 Urine Ketones 1+ (Negative) H 12/06/23 12:45 Urine Blood 2+ (Negative) H 12/06/23 12:45 Urine Nitrate Negative (Negative) 12/06/23 12:45 Urine Bilirubin Neg (Negative) 12/06/23 12:45 Prot Sulfosalicylic Acd Positive (Negative) 12/06/23 12:45 Urine Urobilinogen Norm mg/dL (Negative) 12/06/23 12:45 Ur Leukocyte Esterase 1+ (Negative) H 12/06/23 12:45 Urine RBC 5-10 /hpf (0-2) H 12/06/23 12:45 Urine WBC 15-25 /hpf (0-5) H 12/06/23 12:45 Ur Squamous Epith Cells 0-4 /hpf (0-5) H 12/06/23 12:45 Amorphous Sediment Not Reportable 12/06/23 12:45 Urine Bacteria 2+ /hpf (NONE) H 12/06/23 12:45 Ur Random Sodium 143 mmol/L 12/06/23 12:45 Ur Random Potassium 45 mmol/L 12/06/23 12:45 Ur Random Chloride 145 mmol/L 12/06/23 12:45 Urine Creatinine 47 mg/dL (28-217) 12/06/23 12:45 Vitals Last Vital Signs Temp 97.8 F 12/07/23 12:10 Pulse 66 12/07/23 11:04 Resp 19 H 12/07/23 12:10 BP 127/62 12/07/23 09:47 Pulse Ox 96 12/07/23 12:10 O2 Del Method Room Air 12/07/23 12:10 O2 Flow Rate 6 12/07/23 09:02 Discharge Plan Discharge Patient Disposition: Home Condition: Stable Prescriptions: New ciprofloxacin HCl 250 mg tablet 250 mg PO BID Qty: 6 0RF pantoprazole 40 mg tablet,delayed release (DR/EC) 40 mg PO BID 42 Days Qty: 84 0RF amlodipine 10 mg tablet 10 mg PO DAILY Qty: 90 0RF hydralazine 25 mg tablet 25 mg PO TID Qty: 270 0RF Continued tramadol 50 mg tablet See Rx Instructions PO .COMPLEX PRN (Reason: pain) 30 Days Qty: 150 5RF Rx Instructions: Take 3 tabs po in the morning and 2 tabs po in the p.m. Excedrin Extra Strength 250-250-65 mg Tablet 2 tab PO Q6H PRN (Reason: Pain) Discharge Orders: Discharge Order (Routine); Ordered 12/07/23 Ordered By: Surinder Miguel Referrals: Ramirez Rush DO [Primary Care Provider] - 4-7 days (We have notified your physician's clinic of the need for a follow-up appointment to be scheduled. If you have not heard from them within the next 2 business days, please call them directly. ) Ismael Arrieta MD [Physician] - 12/16/23 10:15 am () Patient Instructions: Ciprofloxacin (By mouth), Pantoprazole (By mouth), Gastritis (GEN), Esophagitis (GEN), GI Discharge Instructions, Opioid Safety Activity Restrictions/Additional Instructions: Follow-up with your primary doctor as well as with surgery for reassessment after upper GI bleeding and gastritis and esophagitis. Continue Protonix. Avoid any NSAIDs or alcohol. Caution with Excedrin as it contains aspirin and can also trigger inflammation in your stomach. Seek medical attention in case of any worsening or new concerning symptoms. Discharge Attestations Time Spent in Discharge Care*: greater than 30 min Status at Discharge: Cognitive status at discharge: cognitively intact , Behavioral status at discharge: cooperative , Quality Metrics Clinical Quality Measures [ No reported AMI, CVA or VTE this stay] Coding Level of Care Code 10355 Total time (in minutes) for Discharge: 35 Diagnoses Intractable vomiting R11.10 Coffee ground vomiting K92.0 Acute kidney injury superimposed on CKD N17.9; N18.9 Stage 3a chronic kidney disease N18.31 Chronic kidney disease stage 3 subtype: stage 3a (GFR 45-59) Urinary tract infection N39.0 Essential hypertension I10 Physical deconditioning R53.81 Nicotine dependence, cigarettes, with unspecified nicotine-induced disorders F17.219
[2023-12-07] MEDS: hyDRALAzine 25 mg Tablet PO (16:18)
== END 2023-12-07 17:20 | disposition home or self-care (01) | DRG 392 ==
LOC: ER 15:18 → MEDSURG 17:14
PROVIDERS: Surgery; Admitting Provider Student in an Organized Health Care Education/Training Program; Emergency Provider Emergency Medicine; PCP Family Medicine; Visit Provider Internal Medicine
PROC: 0DJ08ZZ Inspection of Upper Intestinal Tract, Via Natural or Artificial Opening Endoscopic (ICD-10-PCS; CPT 43235; principal; 2023-12-07 08:30)
DX: K21.00 Gastro-esophageal reflux disease with esophagitis, without bleeding (principal); I13.0 Hypertensive heart and chronic kidney disease with heart failure and stage 1 through stage 4 chronic kidney disease, or unspecified chronic kidney disease; N17.9 Acute kidney failure, unspecified; N39.0 Urinary tract infection, site not specified; K44.9 Diaphragmatic hernia without obstruction or gangrene; N18.31 Chronic kidney disease, stage 3a; R53.81 Other malaise; F17.210 Nicotine dependence, cigarettes, uncomplicated; I95.1 Orthostatic hypotension; R91.8 Other nonspecific abnormal finding of lung field; Z86.718 Personal history of other venous thrombosis and embolism; Z95.828 Presence of other vascular implants and grafts
CPT/HCPCS: 36415; 43239; 71045; 71250; 74176; 80053; 80061; 81001; 82436; 82570; 82607; 82746; 83036; 83540; 83550; 83735; 84100; 84133; 84145; 84300; 84443; 85025; 87040; 87086; 88305; 93005; 94664; 96365; 96375; 99285; C9113; J0696; J2405; J7030; J7042

== ENCOUNTER 2023-12-10 01:16 | Emergency (ER) | payer MEDICARE, SELFPAY ==
[2023-12-10 01:17] VITALS: BP 117/94; PULSE 88; RESP 16; TEMP 36.5; O2SAT 100; BMI 35.2
--- NOTE | 2023-12-10 01:18 | ED_ITS ---
HPI - Fall General: Chief Complaint: Fall Stated Complaint: fall, hematoma, AMS Time Seen by Provider: 12/10/23 01:18 History of Present Illness: 83-year-old female presents to the emerg ency department via EMS personnel after having an accidental fall at her home. The patient does live in a duplex and has a family member that lives next-door who found her lying on the floor in her residence this evening. EMS reports that this is the second accidental fall of the night for the patient. He does appear that the patient was discharged from the hospital yesterday after initial admission for generalized weakness. Patient does have a large right occipital/parietal hematoma, that is most likely secondary to her accidental fall. It does not appear that she takes anticoagulation medication. Patient does have additional bruising to the left forehead and left maxilla of her face. It was reported by EMS that the patient is normally alert and oriented she is slightly confused about what month we are in and thinks that we are in August. She does follow commands appropriately and is very pleasant and interactive at present. She states that she does have an aching pain to the area of her hematoma but is unable to put a number or rate her pain. She denies neck pain or additional back pain. She denies nausea vomiting difficulty breathing or chest pain. Review of Systems General: Reports: 10 or more systems reviewed and unremarkable except in HPI and below Skin/Breast: Reports: other (Occipital scalp hematoma) COUNT INCLUDES THE [facility] ED PFSH: Medical History Acute kidney injury superimposed on CKD Major depressive disorder Retained ureteral stent Chronic anticoagulation Has been off anticoagulation since 03/06 Bilateral hydronephrosis Renal atrophy, left Deep vein thrombosis of lower extremity Scoliosis Chronic lumbar radiculopathy Bilateral ureteral calculi MRSA carrier Anemia Balance problem Lumbar disc disease with radiculopathy Benign essential HTN Chronic kidney disease, stage 3 COPD (chronic obstructive pulmonary disease) Chronic hip pain, bilateral Gastric ulcer with hemorrhage and obstruction Surgical History H/O: hysterectomy History of tonsillectomy and adenoidectomy History of appendectomy History of cholecystectomy Family History Other CAD (coronary artery disease) Stroke Social History Smoking and tobacco/nicotine status: current every day tobacco/nicotine user cigarettes Packs smoked per day: 0.75 Alcohol intake: never Substance/Drug Use: never Marital status: / Female Reproductive History: Spontaneous abortions: No Physical Exam Narrative: EXAM NARRATIVE: Constitutional: the patient appears well nourished and of normal development. Vital signs as documented. No acute distress at present. Alert and oriented-to person, place, time and situation. Head, eyes, ears, nose, mouth, throat: Bruising to left forehead and left maxilla, right parietal occipital hematoma noted approximately the size of a silver dollar.. Pupils-equal, round, reactive to light. Arcus sentences noted. No scleral icterus. Normal-appearing external ears. Normal appearing nasal turbinates, no drainage. No obvious oral lesions, posterior oropharynx without erythema or exudates. Neck: Supple, trachea is midline, no lymphadenopathy, no jugular venous distension, thyromegaly, or carotid bruits. Carotid upstrokes are brisk bilaterally. Lungs: clear to auscultation to all lung mirza, decreased bilaterally in the bases secondary to body habitus. Symmetrical rise and fall of chest, no obvious signs of increased work of breathing at present. Cardiac: Regular rate and rhythm, positive S1, S2. No murmurs, rubs or gallops that I can appreciate Abdomen: Soft, non-tender to palpation, normal active bowel sounds to all quadrants. No palpable masses, no organomegaly and abdominal bruits. Extremities: 2+ pulses in the upper extremities that are equal bilaterally, 2+ pulses in the lower extremities that are equal bilaterally. Brawny doughy edema moves all extremities well, sensation to all extremities are noted. Skin: Warm, dry, intact. Course Vital Signs: Vital signs: Vital Signs Temperature 97.7 F 12/10/23 01:17 Pulse Rate 88 12/10/23 03:38 Respiratory Rate 18 12/10/23 03:38 Blood Pressure 181/102 12/10/23 03:38 Pulse Oximetry 100 12/10/23 01:17 Oxygen Delivery Me thod Room Air 12/10/23 01:17 MDM - Fall Medical Decision Making Physical exam completed and documented I did obtain a CT scan of the patient's head and cervical spine for evaluation. There does not appear to be any acute intracranial bleeding. She does have a scalp hematoma noted. She has had no decrease in mentation while here in the emergency department and we will discharge the patient with close follow-up and return precautions have been provided at the time of discharge. Lab Data Radiology Impressions Cervical Spine CT 12/10/23 01:18 IMPRESSION: 1. No acute or aggressive osseous abnormality. 2. Additional findings as above. Head CT 12/10/23 01:18 IMPRESSION: 1. No acute intracranial findings. 2. Minimal scattered predominantly right frontal periventricular white matter hypoattenuation, mild, although nonspecific, likely lead generation representative chronic microvascular disease. ADDENDUM: 12/10/23 0259 ADDENDUM: Following addition to the impression is made: Right parietal scalp hematoma. All radiology interpretation(s) finalized by discharge Discharge Plan Discharge Patient Disposition: Home Clinical Impression: Hematoma of occipital region of scalp, Accidental fall Condition: Stable Prescriptions: No Action pantoprazole 40 mg tablet,delayed release (DR/EC) 40 mg PO BID 42 Days Qty: 84 0RF sucralfate [Carafate] 100 mg/mL suspension 10 ml PO BID Qty: 400 2RF tramadol 50 mg tablet See Rx Instructions PO .COMPLEX PRN (Reason: pain) 30 Days Qty: 150 5RF Rx Instructions: Take 3 tabs po in the morning and 2 tabs po in the p.m. Excedrin Extra Strength 250-250-65 mg Tablet 2 tab PO Q6H PRN (Reason: Pain) Discharge Orders: Discharge ED (Routine); Ordered 12/10/23 Ordered By: Christopher Wilkerson Referrals: Ramirez Rush, [Primary Care Provider] - Discharge Diet: Usual diet Discharge Activity: Resume usual activity Patient Instructions: Opioid Safety, Pain Management Activity Restrictions/Additional Instructions: Activity Restrictions/Additional Instructions: Thank you for choosing [facility] for your healthcare needs today. Please realize that you were seen in the Emergency Department and that we are providing you with an emergency medical screening exam and this may not be a complete and all inclusive of all the testing and or medical work-up that you may need to determine your ailment or severity of your illness. It is very important that you follow-up as instructed with your Primary care provider or Specialist for additional evaluation and to discuss your medical treatment plan. Given the recent multiple accidental falls it is very important to discuss with your primary care provider need for long-term care facility placement for the patient's safety and to decrease the risk of recurrent falls and subsequent injuries. Coding Level of Care Code ED Collateral Analyst for Lakisha Jenkins
--- NOTE | 2023-12-10 01:18 | CTR_ITS ---
PROCEDURE INFORMATION: Exam: CT Head Without Contrast Exam date and time: 12/10/2023 1:34 AM Age: 83 years old Clinical indication: Injury or trauma; Fall; Additional info: Trauma/fall TECHNIQUE: Imaging protocol: Computed tomography of the head without contrast. Radiation optimization: All CT scans at this facility use at least one of these dose optimization techniques: automated exposure control; mA and/or kV adjustment per patient size (includes targeted exams where dose is matched to clinical indication); or iterative reconstruction. COMPARISON: CT cervical spin wo con* [id number] 12/10/2023 1:34 AM RADIATION DOSE METRICS: Total DLP (mGy-cm): 965.4 FINDINGS: Brain: Small posterosuperior falcine lipoma. Severe atherosclerotic disease of the visualized intracranial vasculature. Minimal scattered predominantly right frontal periventricular white matter hypoattenuation. Cerebral ventricles: Choroid plexus calcifications. Pituitary gland and sella: Partially empty sella. Paranasal sinuses: Visualized sinuses are unremarkable. No fluid levels. Mastoid air cells: Visualized mastoid air cells are well aerated. Orbital cavities: Postprocedural changes of the orbits. Bones/joints: Hyperostosis of the frontal bone. Soft tissues: Right parietal scalp hematoma measuring 8.1 x 5.6 cm. Other findings: Incompletely visualized right mucous retention cysts. CT/CT head wo con* [id number] IMPRESSION: 1. No acute intracranial findings. 2. Minimal scattered predominantly right frontal periventricular white matter hypoattenuation, mild, although nonspecific, likely employment representative chronic microvascular disease.
--- NOTE | 2023-12-10 01:18 | CTR_ITS ---
PROCEDURE INFORMATION: Exam: CT Cervical Spine Without Contrast Exam date and time: 12/10/2023 1:34 AM Age: 83 years old Clinical indication: Injury or trauma; Fall; Additional info: Trauma/fall TECHNIQUE: Imaging protocol: Computed tomography of the cervical spine without contrast. Radiation optimization: All CT scans at this facility use at least one of these dose optimization techniques: automated exposure control; mA and/or kV adjustment per patient size (includes targeted exams where dose is matched to clinical indication); or iterative reconstruction. COMPARISON: CT head wo con* [id number] 12/10/2023 1:34 AM RADIATION DOSE METRICS: Total DLP (mGy-cm): 450.6 FINDINGS: Bones/joints: Severe degenerative changes of the visualized osseous structures. At least severe bilateral neural foraminal narrowing at C3 through C5. Brain: Severe atherosclerotic disease of the visualized intracranial vasculature. Lungs: Lung apices are normal. Soft tissues: Unremarkable. Other findings: Please refer to the dedicated chest, abdomen, and pelvis CT for intrathoracic and mediastinal findings. CT/CT cervical spin wo con* [id number] IMPRESSION: 1. No acute or aggressive osseous abnormality. 2. Additional findings as above.
[2023-12-10 03:38] VITALS: BP 181/102; PULSE 88; RESP 18
== END 2023-12-10 03:40 | disposition home or self-care (01) ==
PROVIDERS: Emergency Provider Internal Medicine; PCP Family Medicine
DX: S00.03XA Contusion of scalp, initial encounter (principal); F17.210 Nicotine dependence, cigarettes, uncomplicated; I12.9 Hypertensive chronic kidney disease with stage 1 through stage 4 chronic kidney disease, or unspecified chronic kidney disease; N18.30 Chronic kidney disease, stage 3 unspecified; J44.9 Chronic obstructive pulmonary disease, unspecified; W19.XXXA Unspecified fall, initial encounter
CPT/HCPCS: 70450; 72125; 99284

== ENCOUNTER → 2023-12-16 10:03 | Outpatient (BNVA) | payer MEDICARE, SELFPAY | PROVIDERS: PCP Family Medicine; Visit Provider Surgery | DX: Z09 Encounter for follow-up examination after completed treatment for conditions other than malignant neoplasm (principal) | CPT/HCPCS: 99213 ==

== ENCOUNTER 2024-01-05 12:30 | Inpatient (IN) | payer MEDICARE, SELFPAY ==
[2024-01-05 12:39] VITALS: BP 154/34; PULSE 113; RESP 14; TEMP 35.7; O2SAT 98
--- NOTE | 2024-01-05 12:52 | W.ED.NAVMDI ---
HPI - Nausea/Vomiting/Diarrhea General: Chief complaint: Nausea/Vomiting/Diarrhea Stated complaint: Weakness, N/v Time Seen by Provider: 01/05/24 12:32 History of Present Illness: 83-year-old female with history of chronic kidney disease, hypertension, COPD and history of DVT but is apparently no longer on any blood thinners who presents to the emergency room with concern for GI bleed. EMS reports she was hypotensive on their presentation. They had offered to take her to [place] where there is GI coverage but she refused and says that she is DNR. With further investigation it seems that patient is not sure if she had any GI bleeding or not. She just was very weak and did not feel well and requested that the family call an ambulance. She does report nausea and vomiting. [facility] PFSH: Medical History Acute kidney injury superimposed on CKD Major depressive disorder Retained ureteral stent Chronic anticoagulation Has been off anticoagulation since 03/06 Bilateral hydronephrosis Renal atrophy, left Deep vein thrombosis of lower extremity Scoliosis Chronic lumbar radiculopathy Bilateral ureteral calculi MRSA carrier Anemia Balance problem Lumbar disc disease with radiculopathy Benign essential HTN Chronic kidney disease, stage 3 COPD (chronic obstructive pulmonary disease) Chronic hip pain, bilateral Gastric ulcer with hemorrhage and obstruction Surgical History H/O: hysterectomy History of tonsillectomy and adenoidectomy History of appendectomy History of cholecystectomy Family History Other CAD (coronary artery disease) Stroke Social History Smoking and tobacco/nicotine status: current every day tobacco/nicotine user cigarettes Packs smoked per day: 0.75 Alcohol intake: never Substance/Drug Use: never Marital status: / Female Reproductive History: Spontaneous abortions: No Course Vital Signs: Vital signs: Vital Signs Temperature 96.2 F L 01/05/24 12:39 Pulse Rate 119 H 01/05/24 16:00 Respiratory Rate 19 H 01/05/24 14:38 Blood Pressure 154/34 01/05/24 12:39 Pulse Oximetry 96 01/05/24 14:38 Oxygen Delivery Me thod Room Air 01/05/24 14:38 MDM - Nausea/Vomiting/Diarrhea Medical Decision Making Medical decision making: Differential diagnosis for patient presenting with generalized weakness including but not limited to and based on the above HPI, review of systems and physical exam: Sepsis. Dehydration. Renal failure. Electrolyte abnormalities. Anemia. Congestive heart failure. Hypotension. Coronary syndrome. Hepatitis. Cirrhosis. Infections such as pneumonia, urinary tract infection, [place]ne illness, Cellulitis, Viral infections including influenza and Covid-19. Workup: labwork and lab/exam driven imaging ordered to evaluate, rule in and rule out above pathologies. Lab Review: Laboratory results were reviewed and interpreted by myself the emergency room physician. Patient has some mild leukocytosis with a white count of 11,000 with an 83% left shift. Hemoglobin is stable at 12. BUN and creatinine are slightly elevated over baseline at 29 and 2.3. Her lactate is 5. Urinalysis reveals an infection. I have concern for sepsis. Repeat lactate was 9. Patient has received 30 mL/kg of fluids. IV antibiotics. I reviewed the patient's medical record. Reexamination: Patient remains fairly stable. Her blood pressure here has been normal but she has been a bit tachycardic. No focal deficits but she does seem a bit confused at time. Lab Data 01/05/24 13:03 01/05/24 13:03 Radiology Impressions Abdomen/Pelvis CT 01/05/24 16:32 IMPRESSION: 1. No acute findings. 2. Diverticulosis of the colon. 3. 2.0 cm nonobstructing left renal calculus. 4. Body wall edema. COMMENTS: 1. For patients with an IVC filter, recommend assessment for a management plan for the patient's IVC filter. If there is no established management plan, recommend referral to an interventional clinician on a nonemergent basis for evaluation. 2. Consistent with the [employer]'s Incidental Findings Committee white paper (J Am Ilia Radiol 2018): Any incidental renal lesion less than 1 cm or classified as too small to characterize, or any incidental cystic renal lesion characterized as simple-appearing, is likely benign. No follow-up imaging is recommended for these lesions per consensus recommendations based on imaging criteria. Laboratory Results WBC 10.85 10^3/uL (3.29-11.43) 01/05/24 13:03 RBC 4.20 10^6/uL (3.85-5.65) 01/05/24 13:03 Hgb 12.20 g/dL (11.27-16.99) 01/05/24 13:03 Hct 40.1 % (36-47) 01/05/24 13:03 MCV 95.5 fl (85-98) 01/05/24 13:03 MCH 29.0 pg (27-33) 01/05/24 13:03 MCHC 30.4 g/dL (30-55) 01/05/24 13:03 RDW 19.0 % (12.1-15.1) H 01/05/24 13:03 Plt Count 143 10^3/cmm (157-399) L 01/05/24 13:03 MPV 11.0 fL (7.4-10.4) H 01/05/24 13:03 Neut % (Auto) 83.1 % 01/05/24 13:03 Lymph % (Auto) 13.2 % 01/05/24 13:03 [place] % (Auto) 2.7 % 01/05/24 13:03 Eos % (Auto) 0.0 % 01/05/24 13:03 Baso % (Auto) 0.4 % 01/05/24 13:03 Neut # (Auto) 9.02 10^3/uL (1.8-7.7) H 01/05/24 13:03 Lymph # (Auto) 1.4 10^3/uL (0.8-4.8) 01/05/24 13:03 [place] # (Auto) 0.3 10^3/uL (0.2-0.9) 01/05/24 13:03 Eos # (Auto) 0.0 10^3/uL (0.0-0.8) 01/05/24 13:03 Baso # (Auto) 0.0 10^3/uL (0.0-0.1) 01/05/24 13:03 Nucleated RBC % (auto) 0 % 01/05/24 13:03 Nucleated RBCs # 0.0 /100WBC 01/05/24 13:03 PT 13.50 SECONDS (12.1-14.9) 01/05/24 13:03 INR 1.00 (0.8-1.2) 01/05/24 13:03 APTT 24.5 SECONDS (23.9-36.7) 01/05/24 13:03 Sodium 138 mmol/L (136-145) 01/05/24 13:03 Potassium 4.3 mmol/L (3.5-5.1) 01/05/24 13:03 Chloride 103 mmol/L (98-107) 01/05/24 13:03 Carbon Dioxide 20 mmol/L (22-29) L 01/05/24 13:03 Anion Gap 19.3 (5-19) H 01/05/24 13:03 BUN 29 mg/dL (8-23) H 01/05/24 13:03 Creatinine 2.3 mg/dL (0.5-0.9) H 01/05/24 13:03 GFR Calculation Not Reportable 01/05/24 13:03 Glucose 160 mg/dL (65-115) H 01/05/24 13:03 Calculated Osmolality 295 mOsm/kg (285-295) 01/05/24 13:03 Lactic Acid 5.0 mmol/L (0.5-2.2) H* 01/05/24 13:11 Lactic Acid (Sepsis) 9.6 mmol/L (0.5-2.2) H* 01/05/24 16:32 Calcium 8.0 mg/dL (8.5-10.5) L 01/05/24 13:03 Total Bilirubin 0.4 mg/dL (0.15-1.2) 01/05/24 13:03 AST 20 U/L (0-32) 01/05/24 13:03 ALT 9 U/L (0-33) 01/05/24 13:03 Alkaline Phosphatase 86 U/L (35-105) 01/05/24 13:03 C-Reactive Protein 3.0 mg/L (0.0-4.9) 01/05/24 13:03 Total Protein 5.8 g/dL (6.6-8.7) L 01/05/24 13:03 Albumin 3.2 g/dL (3.5-5.2) L 01/05/24 13:03 Globulin 2.6 g/dL (1.3-4.6) 01/05/24 13:03 Lipase 19 U/L (13-60) 01/05/24 13:03 Urine Color Yellow (Yellow) 01/05/24 15:11 Urine Appearance Cloudy (CLEAR) A 01/05/24 15:11 Urine pH 5 (5-7) 01/05/24 15:11 Ur Specific [place] 1.020 (1.005-1.030) 01/05/24 15:11 Urine Protein 1+ (Negative) H 01/05/24 15:11 Urine Glucose (UA) Norm (Normal) 01/05/24 15:11 Urine Ketones Negative (Negative) 01/05/24 15:11 Urine Blood 3+ (Negative) H 01/05/24 15:11 Urine Nitrate Negative (Negative) 01/05/24 15:11 Urine Bilirubin Neg (Negative) 01/05/24 15:11 Urine Urobilinogen Norm mg/dL (Negative) 01/05/24 15:11 Ur Leukocyte Esterase 2+ (Negative) H 01/05/24 15:11 Urine RBC 50-80 /hpf (0-2) H 01/05/24 15:11 Urine WBC 80-100 /hpf (0-5) H 01/05/24 15:11 Ur Squamous Epith Cells None /hpf (0-5) 01/05/24 15:11 Ur Transition Epith Cell 0-4 /hpf 01/05/24 15:11 Amorphous Sediment Not Reportable 01/05/24 15:11 Urine Bacteria Trace /hpf (NONE) 01/05/24 15:11 Urine Mucus None /hpf 01/05/24 15:11 Urine Yeast 1+ /hpf H 01/05/24 15:11 Blood Type B Positive 01/05/24 13:03 Rho(D) Type Rh positive 01/05/24 13:03 Antibody Screen Negative 01/05/24 13:03 No radiology studies performed this visit Other Data Assessment and plan: Urinary tract infection Metabolic encephalopathy Sepsis Acute on chronic renal insufficiency Lactic acidosis -2.0 L normal saline bolus. Fluid volumes based on ideal body weight. -IV Rocephin. -Sepsis quality measures. -Lactic acid with a reflex was ordered. -Blood cultures were ordered. -I discussed the patient with the hospitalist on-call who is admitting the patient. - Discussed findings and plan with patient. Answered any questions. - All laboratory values were reviewed and interpreted personally by myself, the ER physician - All imaging was reviewed and interpreted personally by myself, the ER physician. - Evaluation and treatment of this problem were appropriate in the emergency setting Discharge Plan Discharge Patient Disposition: Admitted As Inpatient Clinical Impression: Sepsis, Urinary tract infection, Acute lactic acidosis, Acute on chronic renal insufficiency, Metabolic encephalopathy Condition: Critical Coding Level of Care Code ED Cardiology Specialist for Lakisha Jenkins
[2024-01-05 13:20] LABS: Basophils % 0.4 %; Hematocrit 40.1 % (36-47); Lymphocytes # 1.4 10^3/uL (0.8-4.8); Lymphocytes % 13.2 %; Mean Corpuscular HGB Conc 30.4 g/dL (30-55); Mean Corpuscular Volume 95.5 fl (85-98); Monocytes # 0.3 10^3/uL (0.2-0.9); Monocytes % 2.7 %; Neutrophils # 9.02 10^3/uL (1.8-7.7); Neutrophils % 83.1 %; Nucleated Red Blood Cells % 0 %; Platelet Count 143 10^3/cmm (157-399); White Blood Count 10.85 10^3/uL (3.29-11.43)
[2024-01-05 13:33] LABS: Partial Thromboplastin Time 24.5 SECONDS (23.9-36.7)
[2024-01-05 13:38] LABS: Alanine Aminotransferase 9 U/L (0-33); Albumin Level 3.2 g/dL (3.5-5.2); Alkaline Phosphatase 86 U/L (35-105); Aspartate Amino Transferase 20 U/L (0-32); Blood Urea Nitrogen 29 mg/dL (8-23); Carbon Dioxide 20 mmol/L (22-29); Chloride 103 mmol/L (98-107); Creatinine Clr Calc Pharmacy 17.5548; Globulin 2.6 g/dL (1.3-4.6); Glucose 160 mg/dL (65-115); Lipase 19 U/L (13-60); Osmolality Calculated 295 mOsm/kg (285-295); Sodium 138 mmol/L (136-145); Total Bilirubin 0.4 mg/dL (0.15-1.2); Total Protein 5.8 g/dL (6.6-8.7)
[2024-01-05 13:47] LABS: Anion Gap 19.3 (5-19); Potassium 4.3 mmol/L (3.5-5.1)
[2024-01-05 14:38] VITALS: PULSE 121; RESP 19; O2SAT 96
[2024-01-05 15:00] VITALS: PULSE 114
[2024-01-05 15:03] LABS: Reflex Lactate Order REFLEX LACTIC ORDERD
[2024-01-05 15:30] VITALS: PULSE 111
[2024-01-05 15:31] LABS: Bilirubin Urine Neg (Negative); Blood Urine 3+ (Negative); Glucose Urine UA Norm (Normal); Ketones Urine Negative (Negative); Leukocyte Esterase Urine 2+ (Negative); Nitrate Urine Negative (Negative); Protein Urine 1+ (Negative); Urine Appearance Cloudy (CLEAR); Urine Color Yellow (Yellow); Urobilinogen Urine Norm (Negative); pH Urine 5 (5-7)
[2024-01-05 16:00] VITALS: PULSE 119
[2024-01-05 16:06] LABS: Bacteria Urine TRACE /hpf; RBC Urine 50-80 /hpf (0-2); Transitional Epi Cells Urine 0-4 /hpf; WBC Urine 80-100 /hpf (0-5)
[2024-01-05 16:07] LABS: Add Urine Culture? Yes
--- NOTE | 2024-01-05 16:09 | PC.NURSE ---
This nurse attempted to get an o2 reading, placed a total of 3 o2 probes on different fingers, different hands, gave pt a warmed blanket and attempted to get a o2, got a forehead o2 probe, placed on forehead and secured, still unable to get a reading. this nurse called [facility] to attempt to get a o2 reading, [facility] reports they couldn't get an o2 reading.
--- NOTE | 2024-01-05 16:32 | CTR_ITS ---
PROCEDURE INFORMATION: Exam: CT Abdomen And Pelvis Without Contrast Exam date and time: 01/05/2024 4:37 PM Age: 83 years old Clinical indication: Nausea and vomiting; Prior surgery; Surgery date: 6+ months; Surgery type: Hyst, todd, appy; Patient HX: Recent gi bleed; Additional info: Abdominal pain TECHNIQUE: Imaging protocol: Computed tomography of the abdomen and pelvis without contrast. COMPARISON: [place] [id number] 12/06/2023 1:39 PM RADIATION DOSE METRICS: Total DLP (mGy-cm): 386.85 FINDINGS: Coronary arteries: Coronary artery calcifications. Liver: Normal. No mass. Gallbladder and bile ducts: Cholecystectomy. Prominence of the bile ducts is consistent with reservoir effect. Pancreas: Atrophic pancreas. Spleen: Normal. No splenomegaly. Adrenal glands: Normal. No mass. Kidneys and ureters: Bilateral renal cysts. No follow-up imaging recommended. Stable 2.0 cm left renal calculus. No ureteral calculus or hydronephrosis. Stomach and bowel: Mild diverticulosis of the colon. No diverticulitis. Moderate stool in the distal colon and rectum. The stomach and small bowel are unremarkable. No obstruction. Appendix: The appendix is not visualized. No secondary signs of appendicitis. Intraperitoneal space: Unremarkable. No free air. No significant fluid collection. Vasculature: Infrarenal IVC filter. Moderate calcified arterial plaque. No aneurysm. Lymph nodes: Unremarkable. No enlarged lymph nodes. Urinary bladder: Unremarkable as visualized. Reproductive: Hysterectomy and oophorectomy. Bones/joints: Severe scoliosis and degenerative changes of the lumbar spine. No fracture. Soft tissues: Body wall edema. CT/CT abdomen pelvis wo con [id number] IMPRESSION: 1. No acute findings. 2. Diverticulosis of the colon. 3. 2.0 cm nonobstructing left renal calculus. 4. Body wall edema. COMMENTS: 1. For patients with an IVC filter, recommend assessment for a management plan for the patient's IVC filter. If there is no established management plan, recommend referral to an interventional clinician on a nonemergent basis for evaluation. 2. Consistent with the [employer]'s Incidental Findings Committee white paper (J Am Ilia Radiol 2018): Any incidental renal lesion less than 1 cm or classified as too small to characterize, or any incidental cystic renal lesion characterized as simple-appearing, is likely benign. No follow-up imaging is recommended for these lesions per consensus recommendations based on imaging criteria.
--- NOTE | 2024-01-05 16:36 | PC.NURSE ---
ATTEMPTED LAB DRAW AT THIS TIME, PT JERKED ARM TO SIDE PULLING OUT NEEDLE. LAB TO DRAW.
--- NOTE | 2024-01-05 16:50 | PC.NURSE ---
ATTEMPTED IV X2. NO SUCCESS. NEEDS US IV. LEFT COMMENT AND NOTIFIED CHARGE.
--- NOTE | 2024-01-05 16:57 | PC.NURSE ---
ATTEMPTED TO REPLACE FOREHEAD O2 PROBE, PT PULLED IT OFF.
[2024-01-05 17:04] LABS: Lactic Acid level (Lactate) 9.6 mmol/L (0.5-2.2)
--- NOTE | 2024-01-05 17:30 | XRR_ITS ---
PROCEDURE INFORMATION: Exam: XR Chest Exam date and time: 01/05/2024 5:45 PM Age: 83 years old Clinical indication: Shortness of breath; Additional info: SOB TECHNIQUE: Imaging protocol: Radiologic exam of the chest. Views: 1 view. COMPARISON: [place] [id number] 12/06/2023 1:39 PM FINDINGS: Lungs: Unremarkable. No consolidation. Pleural spaces: Unremarkable. No pleural effusion. No pneumothorax. Heart/Mediastinum: Clips in the lower mediastinum. Vasculature: IVC filter. Bones/joints: Bilateral rotator cuff arthropathy. XR/XR chest 1V portable [id number] IMPRESSION: No acute findings.
--- NOTE | 2024-01-05 18:03 | P.HP_ITS ---
Providers/Chief Complaint 2 Primary Care Provider: Ramirez Rush DO Chief Complaint: Weakness, N/v History of Present Illness Julia Ballard is a 83 year old female with a history of bilateral nephrolithiasis, status post tenting, history of DVT with IVC filter, history of esophagitis, hiatal hernia, history of UTI, history of bilateral pulmonary nodules, history of CKD, major depressive disorder, history of anemia, COPD, who presents to [facility] due to concerns for GI bleed. EMS reports hypotensive on their presentation, had offered to take patient to [place] under GI coverage however patient refused she says that she is a DNR. She was complaining of weakness and feeling unwell reporting nausea and vomiting. Patient was examined in the emergency room, currently nursing staff are trying to attempt an IV, she has a palpable pulse, heart rates in the 110s, tachycardia, no measurable blood pressure, she appears mottled up to the level of the abdomen, clamping down, bilateral upper lower extremities are cool, clammy, capillary refill greater than 2 seconds, DP PT pulses diminished, mottling bilateral extremities, her pulse ox is not reading, she is guppy breathing, appears to be apniec at times, not responding to sternal rub does not withdraw from pain, lips appear blue, cyanotic, patient's appears cyanotic, placed on 15 L nonrebreather, respiratory therapy was called, to obtain a stat ABG. I spoke to the ER provider, given her blood work, patient appears to be in septic shock, lactic acidosis, secondary to UTI, with acute hypoxic respiratory failure, possibly secondary to aspiration pneumonia, COPD, possible hypercoagulable event. In addition she has severe lactic acidosis, metabolic acidosis, acute renal failure, severe encephalopathy. Review of her CAT scan she does have 2 cm left renal colliculi, in my opinion this would be concerning for septic stone given her appearance of UA, she also has evidence of yeast or UA. Plans on receiving Rocephin, Diflucan, plans on receiving septic bolus however currently she has no IV access, ER providers are working on getting emergent IV access. I would recommend intubation and placement of a central line. For septic shock, acute hypoxic respiratory failure, acute renal failure, lactic acidosis, metabolic acidosis,. Patient had voiced to the ER physician that she is a DO NOT RESUSCITATE however at that time the rest of her goals of cares were is not known. ER provider started working on getting immediate IV access on patient. I reviewed her chart in detail, I cannot find her healthcare directive scanned to her chart, but during her last hospitalization she had a conversation with Dr. Coates, on his admission note in which she had said that she wanted to be DNR/DNI. I had a discussion with the patient's family members at bedside, patient's niece, who is patient's healthcare power of cavity pump operator, she has a paperwork, I have requested a copy. She does have sister who she does have a send I was told that she does not speak to anymore. She also has a mother that she does not speak to anymore, and there is family turmoil. Patient's niece tells me that Jenn Huang tells me that patient has not talk to his son in a long time, not on speaking terms, and she does not speak to her mother as they are in a fight. Jenn tells me that she is a healthcare power of cavity pump operator she has paperwork will bring in. I discussed with Jenn that currently Julia is in severe septic shock, we are trying to get emergent IV access, currently we do not have a measurable blood pressure on her she is very mottled, clamped down, hypoxic, indicating severe hypoxic respiratory failure severe septic shock secondary to UTI possibly aspiration pneumonia, aspiration pneumonitis with a possible hypercoagulable bed, I have also ordered cardiac enzymes I am worried that she might also be having an NSTEMI. In most cases patient should be intubated placed on mechanical ventilation to have a central line placed placed on his pressors, moved to the ICU. Currently her condition carry significant morbidity mortality but with medical interventions we can give her time and see how she progresses, but at this point we need to do everything for her or she will , and have significant morbidity mortality. However Jenn tells me her aunt Julia would never want this, she tells me Julia is ready to , she has been ready to for a long period of time, she would not want to be put on a ventilator she would not want to be resuscitated, she would not want aggressive interventions like central line placed in ICU admission, pressor medications. She tells me that Julia is ready to and she has been ready to , she would just want to be comfortable for us to ease her pain and ease her suffering allow her to pass away comfortably. I had a detailed discussion with patient's niece Jenn about the goals of continue medical interventions versus comfort care. I had a detailed discussion with her about the goals of comfort care, about easing her pain easing her suffering and not hasten her , but allowing her to pass away comfortably and in dignity. After discussing the risk and benefits of comfort care, she voiced understanding, all questions answered, agreed to proceed with comfort care. I have also reviewed her past few hospitalizations over the years she is wanting to be a DNR/DNI. And with the ER physicians confirmation that patient told her that she is a DNR, I can comfortably say that it would be an [place] wishes for us to stop all medical interventions given her current critical illness, her prognosis is poor and proceed with a goals of care and make her comfortable. I also spoke to the ER physician in detail, he also concurs that this is a right step, to ease her pain and ease her suffering allowing her to pass with comfortably, patient with comfort care hospice this would be in line with patient's wishes that she voiced to him, and when he spoke to patient's family patient's niece, she will also wanted Julia to be DNR/DNI, she wanted Julia to be on comfort care and for us to stop all medical inventions. After discussing the risk and benefits of all options, patient's family voiced understanding, all question answered, agreed to proceed with comfort care Review of Systems 2 General: Reports: ROS unobtainable due to medical condition and ROS unobtainable due to mental status Medications/Allergies Home Medications Medication Instructions Recorded Confirmed Last Taken Type tramadol 50 mg tablet See Rx Instructions PO .COMPLEX 07/14/23 01/04/24 12/04/23 Rx PRN pain 30 days #150 tabs [id number]-[id number] 250 2 tab PO Q6H PRN Pain 12/06/23 01/04/24 Unknown History mg-250 mg-65 mg tablet (Excedrin Extra Strength) pantoprazole 40 mg tablet,delayed 40 mg PO BID 6 weeks #84 tabs 01/04/24 01/04/24 Unknown Rx release sucralfate 100 mg/mL oral 10 ml PO BID #400 mL 01/04/24 01/04/24 Unknown Rx suspension (Carafate) Allergies Allergy/AdvReac Type Severity Reaction Status Date / Time celecoxib [From Celebrex] Allergy kidney Verified 01/04/24 14:31 issue fluticasone Allergy unknown Verified 01/04/24 14:31 [From Advair Diskus] Penicillins Allergy unknown Verified 01/04/24 14:31 salmeterol Allergy unknown Verified 01/04/24 14:31 [From Advair Diskus] Sulfa (Sulfonamide Allergy unknown Verified 01/04/24 14:31 Antibiotics) acetaminophen [From Tylenol] AdvReac Mild rash Verified 01/04/24 14:31 naproxen [From Aleve] AdvReac Mild RASH Verified 01/04/24 14:31 PFSH Acute 2 PFSH: Medical History Acute kidney injury superimposed on CKD Major depressive disorder Retained ureteral stent Chronic anticoagulation Has been off anticoagulation since 03/06 Bilateral hydronephrosis Renal atrophy, left Deep vein thrombosis of lower extremity Scoliosis Chronic lumbar radiculopathy Bilateral ureteral calculi MRSA carrier Anemia Balance problem Lumbar disc disease with radiculopathy Benign essential HTN Chronic kidney disease, stage 3 COPD (chronic obstructive pulmonary disease) Chronic hip pain, bilateral Gastric ulcer with hemorrhage and obstruction Surgical History H/O: hysterectomy History of tonsillectomy and adenoidectomy History of appendectomy History of cholecystectomy Family History Other CAD (coronary artery disease) Stroke Social History Smoking and tobacco/nicotine status: current every day tobacco/nicotine user cigarettes Packs smoked per day: 0.75 Alcohol intake: never Substance/Drug Use: never Marital status: / Female Reproductive History: Spontaneous abortions: No Vitals/I&O/Wt Last Vital Signs Temp 96.2 F L 01/05/24 12:39 Pulse 119 H 01/05/24 16:00 Resp 19 H 01/05/24 14:38 BP 154/34 01/05/24 12:39 Pulse Ox 96 01/05/24 14:38 O2 Del Method Room Air 01/05/24 14:38 Weight last 48 hrs Weight 58.967 kg Physical Exam 2 Const: GENERAL APPEARANCE: in distress, lethargic, ill appearing and frail appearing NUTRITIONAL APPEARANCE: thin ORIENTATION/CONSCIOUSNESS: Yes patient obtunded and Yes lethargic HENMT: COMMON NORMALS: normocephalic Eye: OTHER: pinpoint, minimall reactive to light Neck/C-Spine: COMMON NORMALS: no lymphadenopathy Resp: EFFORT & INSPECTION: Yes abnormal respiratory pattern apneustic breathing, Yes decreased respiratory effort, Yes labored, Yes grunting and Yes retractions AUSCULTATION: diminished lung sounds bilateral Cardio: RATE: tachycardic RHYTHM: regular rhythm HEART SOUNDS: S1 normal heart sound present and S2 normal heart sound present GI: COMMON NORMALS: Soft to palpation and non-tender : COMMON NORMALS: Yes no CVA tenderness Extremity: COMMON NORMALS: no pedal edema Sepsis: Is patient septic: Yes Focused sepsis exam performed: Yes F ocused sepsis exam: Mottling bilateral lower extremities, up to the level of the abdomen, cap refill greater than 2 seconds, DP PT pulses diminished Date exam was performed: 01/05/24 Time exam was performed: 18:00 Data 01/05/24 13:03 01/05/24 13:03 Micro: Microbiology 01/05/24 13:11 Blood Culture - Preliminary Blood SPECIMEN COLLECTED 01/05/24 13:03 Blood Culture - Preliminary Blood SPECIMEN COLLECTED A&P Assessment and plan (1) Septic shock: (2) Urinary tract infection: (3) Acute renal failure: (4) Sepsis: (5) Acute hypoxic respiratory failure: (6) Cyanosis of skin: (7) Aspiration pneumonia: (8) COPD exacerbation: (9) Need for comfort care: (10) Goals of care, counseling/discussion: Plan Patient requires hospitalization for comfort care -For acute hypoxic respiratory failure, septic shock, UTI, acute renal failure, encephalopathy, unresponsiveness ? Start comfort care order set, -Discussed with family goal of comfort cares to ease her pain and ease her suffering, but not to hasten her -They voiced understanding, all questions answered Attestations 2 Medical Necessity Statement*: Patient requires hospitalization, inpatient, for comfort care for acute hypoxic respiratory failure, unresponsiveness, septic shock, UTI, acute infection, encephalopathy Coding Level of Care Code Critical Care >/= 30 minutes Critical care time (in minutes): 60 The high probability of a clinically significant, sudden or life threatening deterioration, as referenced in this documentation, required my full and direct attention, intervention and personal management. The critical care time shown is in addition to time spent performing any reported separately billable procedures and includes the following: [x] Data and vital sign review and interpretation [x ] Patient assessment, examination and intervention [x] Medication orders and management [x] Patient/Family updates as able [x] Care Coordination and Documentation. Diagnoses Septic shock A41.9; R65.21 Urinary tract infection N39.0 Acute renal failure N17.9 Sepsis A41.9 Acute hypoxic respiratory failure J96.01 Cyanosis of skin R23.0 Aspiration pneumonia J69.0 COPD exacerbation J44.1 Need for comfort care Goals of care, counseling/discussion Z71.89
--- NOTE | 2024-01-05 18:09 | PC.NURSE ---
Called pharmacy d/t no morphine liq in [facility].
--- NOTE | 2024-01-05 18:17 | PC.NURSE ---
AT APPROXIMATELY 1530 THIS NURSE ATTEMPTED STRAIGHT CATH X2. ON SECOND ATTEMPT, STERILE TECHNIQUE WITH ONE PERSON ASSIST WAS ABLE TO ASSIST AND COLLECT URINE. PT WAS TALKING TO THIS NURSE STATING I HAVEN'T HAD ANY TO DRINK TODAY SO NOTHINGS IN THERE.
--- NOTE | 2024-01-05 19:20 | PC.NURSE ---
ATTEMPTED TO CALL REPORT TO PATRIC[facility] AT 1905, WAS TOLD SHE WOULD CALL BACK.
[2024-01-05 19:21] VITALS: PULSE 66
--- NOTE | 2024-01-05 19:32 | PC.NURSE ---
morphine syringe that was brought by pharmacy was wasted by this nurse and witnessed by charge j carlos, paper form waste filled out as well and handed to director of community life.
[2024-01-05 20:00] VITALS: BMI 30.1
--- NOTE | 2024-01-05 21:21 | PC.NURSE ---
Patient passed at 2103. Verified with Rubi Rodriguez RN
--- NOTE | 2024-01-05 21:48 | PC.NURSE ---
Addendum entered by Judy Combs RN 01/05/24 22:05: Family at bedside at time of passing. [facility] notified. labor supervisor and Dr. Millard notified. Original Note: Pt taken to [facility] at [id number]. Dentures in mouth.
--- NOTE | 2024-01-05 23:43 | PC.NURSE ---
Per [facility], pt not candidate for [facility] or [facility]. Family chose [facility]. Morgue time 2144. [facility] to retrieve body for [facility].
--- NOTE | 2024-01-06 04:27 | PC.NURSE ---
Body released to [facility] at 0000. Per Aleksey, [facility] is arranging body garbage pick up man from their location.
--- NOTE | 2024-01-06 08:27 | P.DES_ITS ---
Discharge Providers DDS Date of Admission: 01/05/24 18:54 Date Summary Completed: 01/06/24 Attending Provider at Admission: Jorge Cha MD Attending Provider at Discharge: Jorge Cha MD Primary Care Provider: DO CASIMIRO Bianchi Diagnoses Hospital Diagnoses (1) Septic shock: (2) Urinary tract infection: (3) Acute renal failure: (4) Sepsis: (5) Acute hypoxic respiratory failure: (6) Cyanosis of skin: (7) Aspiration pneumonia: (8) COPD exacerbation: (9) Need for comfort care: (10) Goals of care, counseling/discussion: Reason for Visit Reason for Visit Weakness, N/v Summary Summary Summary: Julia Ballard is a 83 year old female with a history of bilateral nephrolithiasis, status post tenting, history of DVT with IVC filter, history of esophagitis, hiatal hernia, history of UTI, history of bilateral pulmonary nodules, history of CKD, major depressive disorder, history of anemia, COPD, who presents to [facility] due to concerns for GI bleed. EMS reports hypotensive on their presentation, had offered to take patient to [facility] under GI coverage however patient refused she says that she is a DNR. She was complaining of weakness and feeling unwell reporting nausea and vomiting. Patient was examined in the emergency room, currently nursing staff are trying to attempt an IV, she has a palpable pulse, heart rates in the 110s, tachycardia, no measurable blood pressure, she appears mottled up to the level of the abdomen, clamping down, bilateral upper lower extremities are cool, clammy, capillary refill greater than 2 seconds, DP PT pulses diminished, mottling bilateral extremities, her pulse ox is not reading, she is guppy breathing, appears to be apniec at times, not responding to sternal rub does not withdraw from pain, lips appear blue, cyanotic, patient's appears cyanotic, placed on 15 L nonrebreather, respiratory therapy was called, to obtain a stat ABG. I spoke to the ER provider, given her blood work, patient appears to be in septic shock, lactic acidosis, secondary to UTI, with acute hypoxic respiratory failure, possibly secondary to aspiration pneumonia, COPD, possible hypercoagulable event. In addition she has severe lactic acidosis, metabolic acidosis, acute renal failure, severe encephalopathy. Review of her CAT scan she does have 2 cm left renal colliculi, in my opinion this would be concerning for septic stone given her appearance of UA, she also has evidence of yeast or UA. Plans on receiving Rocephin, Diflucan, plans on receiving septic bolus however currently she has no IV access, ER providers are working on getting emergent IV access. I would recommend intubation and placement of a central line. For septic shock, acute hypoxic respiratory failure, acute renal failure, lactic acidosis, metabolic acidosis,. Patient had voiced to the ER physician that she is a DO NOT RESUSCITATE however at that time the rest of her goals of cares were is not known. ER provider started working on getting immediate IV access on patient. I reviewed her chart in detail, I cannot find her healthcare directive scanned to her chart, but during her last hospitalization she had a conversation with Dr. Coates, on his admission note in which she had said that she wanted to be DNR/DNI. I had a discussion with the patient's family members at bedside, patient's niece, who is patient's healthcare power of tax associate attorney, she has a paperwork, I have requested a copy. She does have sister who she does have a send I was told that she does not speak to anymore. She also has a mother that she does not speak to anymore, and there is family turmoil. Patient's niece tells me that Jenn Huang tells me that patient has not talk to his son in a long time, not on speaking terms, and she does not speak to her mother as they are in a fight. Jenn tells me that she is a healthcare power of tax associate attorney she has paperwork will bring in. I discussed with Jenn that currently Julia is in severe septic shock, we are trying to get emergent IV access, currently we do not have a measurable blood pressure on her she is very mottled, clamped down, hypoxic, indicating severe hypoxic respiratory failure severe septic shock secondary to UTI possibly aspiration pneumonia, aspiration pneumonitis with a possible hypercoagulable bed, I have also ordered cardiac enzymes I am worried that she might also be having an NSTEMI. In most cases patient should be intubated placed on mechanical ventilation to have a central line placed placed on his pressors, moved to the ICU. Currently her condition carry significant morbidity mortality but with medical interventions we can give her time and see how she progresses, but at this point we need to do everything for her or she will , and have significant morbidity mortality. However Jenn tells me her aunt Julia would never want this, she tells me Julia is ready to , she has been ready to for a long period of time, she would not want to be put on a ventilator she would not want to be resuscitated, she would not want aggressive interventions like central line placed in ICU admission, pressor medications. She tells me that Julia is ready to and she has been ready to , she would just want to be comfortable for us to ease her pain and ease her suffering allow her to pass away comfortably. I had a detailed discussion with patient's niece Jenn about the goals of continue medical interventions versus comfort care. I had a detailed discussion with her about the goals of comfort care, about easing her pain easing her suffering and not hasten her , but allowing her to pass away comfortably and in dignity. After discussing the risk and benefits of comfort care, she voiced understanding, all questions answered, agreed to proceed with comfort care. I have also reviewed her past few hospitalizations over the years she is wanting to be a DNR/DNI. And with the ER physicians confirmation that patient told her that she is a DNR, I can comfortably say that it would be an [place] wishes for us to stop all medical interventions given her current critical illness, her prognosis is poor and proceed with a goals of care and make her comfortable. I also spoke to the ER physician in detail, he also concurs that this is a right step, to ease her pain and ease her suffering allowing her to pass with comfortably, patient with comfort care hospice this would be in line with patient's wishes that she voiced to him, and when he spoke to patient's family patient's niece, she will also wanted Julia to be DNR/DNI, she wanted Julia to be on comfort care and for us to stop all medical inventions. After discussing the risk and benefits of all options, patient's family voiced understanding, all question answered, agreed to proceed with comfort care Patient was admitted to [facility] for comfort care, Patient requires hospitalization for comfort care -For acute hypoxic respiratory failure, septic shock, UTI, acute renal failure, encephalopathy, unresponsiveness ? Start comfort care order set, -Discussed with family goal of comfort cares to ease her pain and ease her suffering, but not to hasten her -They voiced understanding, all questions answered - managed on comfort care, time of 210301/05/2024 Additional Data Confirmation of as documented by pronouncing clinician: no pulse, no respirations, no heart sounds and pupils fixed and dilated Family: contacted Additional persons at bedside: nursing staff Attending/PCP notified?: I am attending Was code activated?: No Advance directives?: Yes Discharge Plan Discharge Patient Disposition: Condition: Critical DS Attestations Time Spent in /Discharge Care*: greater than 30 min Quality - AMI: AMI present?: No Quality - Stroke: CVA present?: No Symptom Onset Unknown: No Quality - VTE: VTE present?: No Deep Vein Thrombosis/Pulmonary Embolism Present on Admission: No Coding Level of Care Code 18092 Total time (in minutes) for Discharge: 45 Diagnoses Septic shock A41.9; R65.21 Urinary tract infection N39.0 Acute renal failure N17.9 Sepsis A41.9 Acute hypoxic respiratory failure J96.01 Cyanosis of skin R23.0 Aspiration pneumonia J69.0 COPD exacerbation J44.1 Need for comfort care Goals of care, counseling/discussion Z71.89
== END 2024-01-05 21:45 | disposition expired | DRG 871 ==
LOC: ER 17:23 → MEDSURG 18:55
PROVIDERS: Admitting Provider Family Medicine; Emergency Provider Emergency Medicine; PCP Family Medicine; Visit Provider Family Medicine
DX: A41.9 Sepsis, unspecified organism (principal); J69.0 Pneumonitis due to inhalation of food and vomit; J96.01 Acute respiratory failure with hypoxia; R65.21 Severe sepsis with septic shock; N39.0 Urinary tract infection, site not specified; N17.9 Acute kidney failure, unspecified; J44.1 Chronic obstructive pulmonary disease with (acute) exacerbation; E87.20 Acidosis, unspecified; G93.40 Encephalopathy, unspecified; R23.0 Cyanosis; Z66 Do not resuscitate; N20.0 Calculus of kidney; R40.4 Transient alteration of awareness; F17.210 Nicotine dependence, cigarettes, uncomplicated; Z51.5 Encounter for palliative care; Z86.718 Personal history of other venous thrombosis and embolism; Z95.828 Presence of other vascular implants and grafts
CPT/HCPCS: 36415; 51702; 71045; 74176; 80053; 81001; 83605; 83690; 85025; 85610; 85730; 86140; 86850; 86900; 87040; 87086; 96365; 96367; 99285